=== PATIENT | female | born 1990 | race Two or more races ===

== ENCOUNTER 2022-12-15 09:42 | Emergency (ER) | payer OTHER, SELFPAY ==
[2022-12-15 09:44] VITALS: BP 114/72; PULSE 65; RESP 20; TEMP 36.3; O2SAT 100; BMI 33.0
--- NOTE | 2022-12-15 09:47 | NURSING ---
NO OLD EKGS
--- NOTE | 2022-12-15 09:52 | NURSING ---
NO OLD EKGS
--- NOTE | 2022-12-15 10:11 | EKG12_ITS ---
Test Reason : CP Blood Pressure : / mmHG Vent. Rate : 063 BPM Atrial Rate : 063 BPM P-R Int : 194 ms QRS Dur : 078 ms QT Int : 376 ms P-R-T Axes : 051 063 039 degrees QTc Int : 384 ms Normal sinus rhythm Normal ECG Confirmed by REBA SCHULTZ, GREGORIO ([id number]), greeting card editor CHINO SCHAFFER ([id number]) on 12/17/2022 9:32:10 AM Referred By: KRISTA Confirmed By:GREGORIO BRITTON MD
--- NOTE | 2022-12-15 10:18 | ED.VIS.CHEST ---
HPI History of Present Illness Chief Complaint: Chest Pain Informant: patient and spouse/S.O. Narrative Narrative: Patient presenting with nonpleuritic left sharp chest pain radiating up into her throat and jaw. She had an episode of this 3 days ago that lasted around 4 hours in the evening before going away spontaneously, and another episode today. After the initial episode, she was seen in the office by her PCP, they did an EKG that the patient states was unremarkable, her blood pressure was on the low side and they gave her some IV fluids but it was still low so they recommended that she come to the ED. She did not go until today when the chest discomfort recurred. She has not had any near-syncope or syncope this morning, she does have a history of POTS and has been trying to stay hydrated recently. She denies history of DVT or PE, no recent travel, hospitalization, surgery, or other reason for immobilization. She has had a minor cough but nonproductive no fevers or chills recently. She has also been having reflux symptoms for several weeks, her PCP saw her maybe 2 weeks ago prescribed her Prilosec but she admits she is not taking it every day. She did take it a couple days ago when she had the symptoms. Unknown if it helped or not. She has not tried any other medications. [facility] Medical History (Updated 12/15/22 @ 13:[address] Bonifacio Wan MD) POTS (postural orthostatic tachycardia syndrome) Home Medications Inderal 10 mg PO/SL 1XD 12/15/22 [History Last Taken Unknown] Allergy/AdvReac Type Severity Reaction Status Date / Time No Known Allergies Allergy Verified 12/15/22 09:47 Social History Smoking Status: Never smoker [facility] ED Constitutional Constitutional ED: Denies chills or fever(s) Eyes Eyes: Denies change in vision or diplopia ENT ENT ED: Denies rhinorrhea or sore throat Cardiovascular Cardiovascular: Reports chest pain; Denies palpitations Respiratory/Chest Respiratory/Chest: Reports cough and dyspnea Gastrointestinal Gastrointestinal: Denies abdominal pain, diarrhea, nausea or vomiting Genitourinary Genitourinary ED: Denies dysuria or hematuria Musculoskeletal Musculoskeletal: Denies back pain or neck pain Integumentary Denies abscess or rash Neurologic Neurologic: Denies headache(s), paresthesias or weakness Psychiatric Psychiatric: Denies anxiety or suicidal thoughts EXAM Physical Exam Const Vital Signs: 12/15/22 09:44 12/15/22 10:25 12/15/22 11:46 Temperature 97.3 F L Temperature Source Temporal Pulse Rate 65 62 Respiratory Rate 20 H 16 Respiratory Effort Normal Non-Labored Respiratory Pattern Normal Blood Pressure 114/72 113/77 Blood Pressure Mean 86 89 Pulse Ox 100 99 Oxygen Delivery Method Room Air Room Air 12/15/22 13:14 Temperature Temperature Source Pulse Rate 66 Respiratory Rate 16 Respiratory Effort Respiratory Pattern Blood Pressure 135/61 H Blood Pressure Mean 85 Pulse Ox 100 Oxygen Delivery Method Room Air Positive well nourished and well developed General Appearance ED: well developed and NAD HEENT Reports moist mucous membranes normocephalic and atraumatic Eyes PERRL and EOMs intact bilaterally Neck full ROM and supple Chest Wall inspection of chest normal and palpation of chest normal Resp normal respiratory effort and clear to auscultation bilaterally Cardio regular rate, regular rhythm and no murmurs Rate: Negative for tachycardic GI non-tender and non-distended Auscultation: normoactive bowel sounds Palpation: soft Back/Spine no CVA tenderness General Back: other FROM Extremity normal to inspection, no calf tenderness and no pedal edema General Extremety ED: Negative for edema, pulses abnormal or tenderness General Extremity: Negative for edema or pulses abnormal Neuro oriented x3, CN's II-XII intact bilaterally and no sensory deficits noted Sensorium / Orientation: awake and alert Motor Exam: strength 5/5 throughout Skin no rashes or lesions noted and no wounds Heart Score History: Slightly/Non-Suspicious ECG: Normal Age: </= 45 years Risk Factors: No Risk Factors Troponin: </= Normal Limit Score: 0 MDM MDM MDM Narrative Medical decision making narrative: Cardiac work-up obtained for a low risk, low probability chest pain that does not sound likely to be cardiac. The initial work-up unremarkable including EKG initial troponin, but I did a D-dimer only because her heart rate was 20, and it returned abnormal. This led to CT angiography, and this was obtained prior to obtaining a chest x-ray so the chest x-ray was canceled. I reviewed the images of the CT scan and a appear normal, my interpretation of the CT agrees with that of the radiologist, who agrees it is negative for any acute. Patient was reassured. While obtaining this work-up, gave the patient Mylanta, she said it relieved her discomfort. We did a 2-hour delta troponin, her initial 1 was 3, the second 1 was 4, this is adequate to discharge the patient safely with close outpatient follow-up, not likely to be cardiac in etiology. The is wondering why the patient is having POTS symptoms every time she has these episodes, I think that is a good question I am not sure why but I think it is safe to discharge her at this time she is doing well. She does have a prescription for PPI, she was taking it sporadically, I advised that she take it consistently daily, until she follows up with her doctor and she is comfortable with that plan. Lab Data Attestation: I reviewed the patient's lab results. Labs: Laboratory Results - last 24 hr 12/15/22 12/15/22 12/15/22 10:15 10:15 10:15 WBC 6.5 RBC 4.45 Hgb 14.0 Hct 42.4 MCV 95.3 MCH 31.5 MCHC 33.0 RDW Std Deviation 42.7 RDW Coeff of Sara 12.2 Plt Count 290 MPV 10.6 Immature Gran % (Auto) 0.200 Neut % (Auto) 56.0 Lymph % (Auto) 33.9 [place] % (Auto) 6.8 Eos % (Auto) 2.3 Baso % (Auto) 0.8 Absolute Neuts (auto) 3.6 Absolute Lymphs (auto) 2.19 Nucleated RBC % 0 D-Dimer Quant (PE/DVT) 2.04 H* Sodium 135 L Potassium 3.8 Chloride 102 Carbon Dioxide 29.0 Anion Gap 4 L BUN 18 Creatinine 0.87 Estim Creat Clear Calc 76.08 Est GFR (MDRD) Af Amer 96 Est GFR (MDRD) Non-Af 79 BUN/Creatinine Ratio 20.6 H Glucose 95 Calcium 9.4 Troponin I High Sens 3 12/15/22 12:31 WBC RBC Hgb Hct MCV MCH MCHC RDW Std Deviation RDW Coeff of Sara Plt Count MPV Immature Gran % (Auto) Neut % (Auto) Lymph % (Auto) [place] % (Auto) Eos % (Auto) Baso % (Auto) Absolute Neuts (auto) Absolute Lymphs (auto) Nucleated RBC % D-Dimer Quant (PE/DVT) Sodium Potassium Chloride Carbon Dioxide Anion Gap BUN Creatinine Estim Creat Clear Calc Est GFR (MDRD) Af Amer Est GFR (MDRD) Non-Af BUN/Creatinine Ratio Glucose Calcium Troponin I High Sens 4 Radiography Diagnostic Testing: Clinical Impression(s) from Imaging Studies Chest CTA 12/15/22 10:44 IMPRESSION: Negative CTA chest. Electronically Signed: Landon Johnson MD at 11:11 EST Reading Location ID and State: [address] [place] [address] , Service support , Rhythm Strip Rhythm Strip: Sinus Rhythm Rate: 65 Ectopy: None EKG Initial EKG: Attestation: I personally reviewed and interpreted this EKG as follows: Interpretation: Sinus Rhythm and No Acute Injury Pattern Comments: Normal EKG Prior EKG tracings: available for review Prior: Unchanged Discharge Plan Triage Chief Complaint: Chest Pain Other Complaint: Dizziness Fatigue ED Provider: Bonifacio Wan Dx/Rx/DC Orders Clinical Impression: Non-cardiac chest pain Instructions: ED Chest Pain, Noncardiac Prescriptions: No Action Inderal 10 mg PO/SL 1XD Primary Care Provider: FABIÁN MARTIN NP Referrals: FABIÁN MARTIN BILLET RECORDER [Other] (Next week, call for appointment if you do not already have 1) Activity Restrictions/Additional Instructions: Take your Prilosec daily instead of as needed, for the next 3 or 4 weeks. Disposition Disposition: Home, Self Care
[2022-12-15 10:25] LABS: Absolute Lymphocyte Count 2.19 X10^3/uL (0.83-4.51); Absolute Neutrophil Count 3.6 X10^3/uL (2.0-7.7); Basophil# 0.05 X10^3/uL; Basophil% 0.8 % (0-1); Eosinophil# 0.15 X10^3/uL; Eosinophils% 2.3 % (0-5); Hematocrit 42.4 % (37-47); Lymphocyte # 2.19 X10^3/ul (0.83-4.51); Lymphocyte % 33.9 % (19-41); Mean Corpuscular Hgb 31.5 pg (27.0-32.0); Mean Corpuscular Volume 95.3 fL (81-99); Mean Platelet Vol. 10.6 fl (6.2-12.0); Monocyte# 0.44 X10^3/uL; Monocyte% 6.8 % (0-10); NRBC Flagged by Analyzer 0 % (0-5); Neutrophil # 3.62 X10^3/uL (2.7-7.7); Platelet Count 290 K/mm3 (150-450); RBC Distribution Width CV 12.2 % (11.6-14.6); RBC Distribution Width SD 42.7 fl (35.1-43.9); Red Blood Count 4.45 M/mm3 (4.2-5.4); White Blood Count 6.5 K/mm3 (4.4-11.0)
[2022-12-15] MEDS: Mag Hydrox/Al Hydrox/Simeth 30 ML UDC PO (10:32)
[2022-12-15 10:36] LABS: D-Dimer Quantitative (DVT/PE) 2.04 FEU/ug/m (0.27-0.49)
[2022-12-15 10:41] LABS: Anion Gap 4 (5-15); BUN 18 mg/dL (7-18); BUN/Creat Ratio 20.6 RATIO (10-20); Calcium,Total 9.4 mg/dL (8.5-10.1); Chloride 102 mmol/L (98-107); Creatinine, Serum 0.87 mg/dL (0.55-1.02); EST Glomerular Filtration Rate 79 mL/min (>60); Est Glom Filt Rate - Afr Amer 96 mL/min (>60); Estimated Creatinine Clearance 76.08 ml/min; Glucose 95 mg/dL (74-106); Potassium 3.8 mmol/L (3.5-5.1); Sodium Level 135 mmol/L (136-145); Troponin-I HS (w/2H Reflex) 3 pg/mL (3.0-54.0)
--- NOTE | 2022-12-15 10:44 | CT_ITS ---
EXAM: CT ANGIOGRAPHY CHEST WITHOUT AND WITH INTRAVENOUS CONTRAST CLINICAL INDICATION: Chest pain. SOB. Elevated d-dimer. TECHNIQUE: Helically acquired angiography images were obtained of the chest without and with intravenous contrast. This CT exam was performed using one or more of the following dose reduction techniques: automated exposure control, adjustment of the mA and/or kV according to patient size, and/or use of iterative reconstruction technique. This report was created using anfix report generation technology. MIP reconstructed images were created and reviewed. CONTRAST: IV 100mL Isovue-370 RADIATION DOSE: CTDIvol = 9.34 mGy, DLP = 207.00 mGy-cm COMPARISON: None. FINDINGS: PULMONARY ARTERIES: Unremarkable. Normal in caliber. No evidence of pulmonary embolism. AORTA: Unremarkable. Normal in caliber. No evidence of dissection. GREAT VESSELS OF AORTIC ARCH: Unremarkable. Normal in caliber. No evidence of dissection. LUNGS AND PLEURAL SPACES: Unremarkable. No mass. No consolidation or edema. No pleural effusion or thickening. No pneumothorax. HEART: Unremarkable. Heart size is normal. No pericardial effusion. No signs of right heart strain, ratio of right ventricle to left ventricle measures less than 1. MEDIASTINUM: Unremarkable. No mediastinal or hilar adenopathy. Esophagus is unremarkable. No hiatal hernia. THYROID: Unremarkable. No thyroid lesions. BONES/JOINTS: Unremarkable. No suspicious lytic or blastic abnormality. CT/CTA Chest W/WO Contrast IMPRESSION: Negative CTA chest. Electronically Signed: Landon Johnson MD at 11:11 [facility] ,
[2022-12-15 11:46] VITALS: BP 113/77; PULSE 62; RESP 16; O2SAT 99
[2022-12-15 12:18] LABS: Reflex Troponin-HS? (from REC) Y
[2022-12-15] MEDS: Ketorolac 30 MG/ML Syringe IV (12:45)
[2022-12-15 12:53] LABS: Troponin-I HS 4 pg/mL (3.0-54.0)
[2022-12-15 13:14] VITALS: BP 135/61; PULSE 66; RESP 16; O2SAT 100
[2022-12-15 13:40] VITALS: BP 135/61; PULSE 70; O2SAT 100
== END 2022-12-15 13:40 | disposition home or self-care (01) ==
PROVIDERS: Emergency Provider Emergency Medicine; Visit Provider Emergency Medicine
DX: R07.89 Other chest pain (principal); R53.83 Other fatigue; R42 Dizziness and giddiness; Z86.79 Personal history of other diseases of the circulatory system
CPT/HCPCS: 71275; 80048; 84484; 85025; 85379; 93005; 96361; 96374; 99284; J7030; Q9967; A4216

== ENCOUNTER 2025-07-01 20:26 | Emergency (ER) | payer OTHER, SELFPAY ==
[2025-07-01 20:27] VITALS: BP 117/71; PULSE 81; RESP 19; TEMP 36.6; O2SAT 100; BMI 27.1
--- NOTE | 2025-07-01 22:27 | EDS_ITS ---
HPI History of Present Illness Chief Complaint: Laceration Narrative Narrative: Chief complaint and HPI: 34-year-old female with past medical history of POTS, migraines presents for evaluation of laceration to the plantar surface of the left foot. Patient states she was walking in her room barefoot when she stepped on a broken piece of glass. She states it secondary to a wine bottle that broke. She does not believe any glass is in her foot. She is not up-to-date on tetanus. She denies any numbness or tingling. Review of systems: See HPI Medications: As listed on the chart Allergies: As listed on the chart PFSH: Per chart Vital signs: As listed on the chart. Reviewed. Physical exam: Gen: A&O x3, NAD Head: Normocephalic, atraumatic Eyes: No sclera icterus, conjunctiva clear ENT: Moist mucous membranes CV: Regular rate Resp: Nonlabored respirations Musc: Full ROM, no deformity, patient has a 7 cm laceration to the plantar surface of her left foot with subcutaneous fat visualized-located in the midportion of the foot, no foreign body, minimal active bleeding, compartments soft, good capillary refill, DP/PT pulses +2 bilaterally Skin: Warm, dry Neuro: Alert, oriented, grossly intact, sensation intact Psych: Cooperative, appropriate mood and affect [facility] Medical History History of ectopic History of hearing problem History of migraine POTS (postural orthostatic tachycardia syndrome) Home Medications ?Medication ?Instructions ?Recorded ?Last Taken ?Type duloxetine 20 mg capsule,delayed 10 mg PO DAILY Unknown History release propranolol 10 mg tablet 10 mg PO DAILY 03/24/24 Unkn own History Allergy/AdvReac Type Severity Reaction Status Date / Time No Known Allergies Allergy Verified 07/01/25 20:27 Family History Mother Anxiety Arthritis Depression Thyroid disorder Father Diabetes Heart disease Hypertension High cholesterol Sister Breast cancer Thyroid disorder Grandmother Arthritis Liver disease Seizures Grandfather Seizures Social History (Updated 07/01/25 @ 21:52 by Farzaneh Cummings) housing: house Smoking Status: Never smoker alcohol intake: current details: 1 bottle a week substance use type: marijuana additional social history: pt does not vape, does not use aspirin, does not use ibuprofen pt uses medical marijuana and uses edibles for migraines EXAM Physical Exam Const Vital Signs: 07/01/25 20:27 Temperature 97.9 F Temperature Source Oral Pulse Rate 81 Respiratory Rate 19 H Blood Pressure 117/71 Blood Pressure Mean 86 Pulse Ox 100 Oxygen Delivery Method Room Air MDM MDM MDM Narrative Medical decision making narrative: 34-year-old female with past medical history of POTS, migraines presents for evaluation of laceration to the plantar surface of the left foot. Patient states she was walking in her room barefoot when she stepped on a broken piece of glass. She states it secondary to a wine bottle that broke. She does not believe any glass is in her foot. She is not up-to-date on tetanus. Patient has a 7 cm laceration to the plantar surface of her left foot with subcutaneous fat visualized-located in the midportion of the foot, no foreign body, minimal active bleeding. Patient will warrant laceration repair with sutures. Patient offered tetanus update and consented. Given the size of the laceration will obtain x-ray to assess for foreign body prior to closure. X-ray of the foot without acute fracture or dislocation. Per radiology there is an old distal second metatarsal shaft fracture. No foreign body visualized. You can see subcutaneous air which overlies her laceration. X-ray of the foot was personally viewed interpreted by me, ED physician. Patient tolerated repair well. Patient stable to discharge home. Antibiotics for prophylaxis to prevent infection. Sutures need to be removed in 10 to 14 days. Follow-up with PCP. She. Understand the plan. Patient will discharge home. Laceration Repair Indication: Laceration Location: 7 cm, plantar left foot Consent: Risks, benefits, and alternatives discussed with patient and consent obtained Procedure: A time out was performed. The area was prepped and draped in the usual sterile fashion. Local anesthesia was achieved using 1% Lidocaine with epinephrine. The wound was copiously irrigated and cleaned. 13 sutures were placed using 4-0 Ethilon in an interrupted fashion. The estimated blood loss was minimal. A dressing was applied to the area with Bacitracin. The patient tolerated the procedure well without complications. Foreign Material: None Debridement: None Follow-up: Anticipatory guidance, as well as standard post-procedure care, was explained. Return precautions are given. Follow-up visit set for suture removal and evaluation of the laceration. Impression: 1. 7 cm foot laceration, suture repaired Radiography Diagnostic Testing: Clinical Impression(s) from Imaging Studies Foot X-Ray 07/01/25 22:35 IMPRESSION: No acute abnormality seen. No signs of radiodense foreign body. Reading Location: [facility]– [place] Discharge Plan Triage Chief Complaint: Laceration ED Provider: Ugo Hernandez Dx/Rx/DC Orders Prescriptions: No Action propranolol 10 mg tablet 10 mg PO DAILY duloxetine 20 mg capsule,delayed release(DR/EC) 10 mg PO DAILY Primary Care Provider: Rosalie Olivarez Referrals: Rosalie Olivarez, [employer] [facility] [Primary Care Provider] - Print Language: Surinamese
--- NOTE | 2025-07-01 22:35 | RAD_ITS ---
PROCEDURE: FOOT MIN 3 VIEWS 07/01/2025 REASON FOR EXAM: LACERATION to bottom of foot, ASSESS FOR FOREIGN BODY TECHNIQUE: Procedure Code: RADFO Modality: DX Procedure: FOOT MIN 3 VIEWS Laterality: Left COMPARISON: None. FINDINGS: BONES: No acute fracture or focal osseous lesion. Old distal 2nd metatarsal shaft fracture. JOINTS: No dislocation. The joint spaces are normal. SOFT TISSUES: No evidence of radiodense foreign body. RAD/Foot min 3 Views IMPRESSION: No acute abnormality seen. No signs of radiodense foreign body. Reading Location: [id number]
--- OUTSIDE RECORDS SUMMARY | 2025-07-01 22:35 | XMS RPT_ITS | CCD ---
Author Organization [facility] Care Team Providers Care Awake Overnight Monitor Name Role Phone NO, PHYSICIAN Primary Care Unavailable GRIS CARNEY Attending Unavailable No, Physician Primary Care Provider Unavailabl e NO, PHYSICIAN Primary Care Unavailable JOSE TINEO Attending Unavailabl e JOSE TINEO Admitting Unavailabl e Shanika Grijalva Unavailable Unavailable Shanika Grijalva Unavailable Unavailable Lynette, Avirup Unavailable Unavailable Angel Ojeda MD Unavailable Unavailable Misa Matthews Unavailable Unavailable Shanika Grijalva Unavailable Unavailable Rupa WASTEWATER PROJECT MANAGER-Misa VÁSQUEZ Unavailable Unavailabl Angel Osman MD Unavailable Unavailable RupaCatina ndiayehy L Unavailable Unavailable Unavailable MALATHI HERNADEZ Attending Unavailable NO, PHYSICIAN Primary Care Unavailable Shanika Grijalva Primary Care Provider [phone] Shanika Grijalva CNP Primary Care Provider Shanika Grijalva CNP Primary Care Provider Mario WASTEWATER PROJECT MANAGER.Fabián VÁSQUEZ Primary Care Provider Shanika Grijalva CNP Primary Care Provider BRAIN PRICE Attending Unavailable FABIÁN MARTIN Primary Care Unavailable Knoble WASTEWATER PROJECT MANAGER.FAHAD, Fabián Primary Care Provider Gisell Mendes Attending Unavailable Fabián Martin Referring Unavailable Knoble, Fabián Primary Care Unavailable Knoble WASTEWATER PROJECT MANAGER-Fabián VÁSQUEZ L Primary Care Provide r FABIÁN MARTIN Primary Care Unavailable SELF, SELF Referring Unavailable CHELLE HICKS Attending Unavailable FABIÁN MARTIN Referring Unavailable MARIO, FABIÁN Primary Care Unavailable IGOR GARCIA Attending Unavailable KNOBLE, FABIÁN Primary Care Unavailable PATSY THIBODEAUX Referring Unavailable KNOBLE, FABIÁN Primary Care Unavailable KNOBLE, FABIÁN Attending Unavailable KNOBLE, FABIÁN Primary Care Unavailable IGRO GARCIA Referring Unavailable KNOBLE, FABIÁN Primary Care Unavailable KNOBLE, FABIÁN Attending Unavailable KNOBLE, FABIÁN Primary Care Unavailable KNOBLE, FABIÁN Referring Unavailable KNOBLE, FABIÁN Primary Care Unavailable PAZJOEMY, AMUDHA Attending Unavailable KNOBLE, FABIÁN Referring Unavailable KNOBLE, FABIÁN Primary Care Unavailable PAZHANISAMY, AMUDHA Referring Unavailable KNOBLE, FABIÁN Primary Care Unavailable SUPPAN, JOY A Attending Unavailable KNOBLE, FABIÁN Primary Care Unavailable ELEAZAR SCHREIBER Attending Unavailable KNOBLE, FABIÁN Primary Care Unavailable PATSY THIBODEAUX Attending Unavailable KNOBLE, FABIÁN Primary Care Unavailable SUPPAN, JOY A Referring Unavailable KNOBLE, FABIÁN Primary Care Unavailable KNOBLE, FABIÁN Referring Unavailable KNOBLE, FABIÁN Primary Care Unavailable KNOBLE, FABIÁN Attending Unavailable KNOBLE, FABIÁN Primary Care Unavailable KNOBLE, FABIÁN Attending Unavailable KNOBLE, FABIÁN Primary Care Unavailable Medications Current Medications Medication Drug Class(es) Dates Sig (Normalized) Sig (Original) acetylcholine 10% solution - [facility] compound[facility] (20 sources) Start: 02-17-2023 acetylcholine 10% solution - [facility] Start: 03-06-2022 acetylcholine 10% solution - [facility] benoxinate hydrochloride 4 mg/ml / fluorescein sodium 2.5 mg/ml ophthalmic solution (1 source) Diagnostic Dye Start: 06-19-2023 End: 06-19-2023 fluorescein-benoxinate 0.25-0.4 % 1 Drop (FLURESS) cephalexin 500 mg oral capsule (1 source) Cephalosporin Antibacterial Start: 03-16-2024 End: 03-23-2024 take 1 capsule by mouth three times daily cephALEXin (KEFLEX) 500 mg capsule Take 1 capsule by mouth three times a day for 7 days. 21 capsule 0 03/16/2024 03/23/2024 Active clindamycin 20 mg/ml vaginal cream (1 source) Lincosamide Antibacterial Start: 07-23-2024 End: 07-30-2024 clindamycin phosphate (CLEOCIN) 2 % vaginal cream Indications: Bacterial vaginosis Use 1 Applicatorful vaginally daily at bedtime for 7 days. 35 g 07/23/2024 07/30/2024 Active ergocalciferol 1.25 mg oral capsule (20 sources) Provitamin D2 Compound Start: 08-25-2024 take 1 tablet by mouth two times weekly, then take 1 tablet by mouth every week ergocalciferol 50,000 unit capsule (VITAMIN D2, DRISDOL) Indications: Vitamin D deficiency Take 1 tablet by mouth twice weekly [id number], then decrease to 1 tablet weekly. 16 capsule 3 08/25/2024 Active fluconazole 150 mg oral tablet (1 source) Azole Antifungal Start: 07-23-2024 End: 07-23-2024 take 1 tablet by mouth once fluconazole (DIFLUCAN) 150 mg tablet Indications: Yeast vaginitis Take 1 tablet by mouth one time only for 1 dose. 1 tablet 07/23/2024 07/23/2024 Active magnesium citrate 58.2 mg/ml oral solution (14 sources) Start: 01-15-2022 End: 12-05-2022 magnesium citrate 1.745 GM/30ML Solution Indications: Migraine without aura and without status migrainosus, not intractable , Menstrual migraine without status migrainosus, not intractable One teaspoon twice daily with meals. 296 mL 11 01/15/2022 Active Comment on above: One teaspoon twice d aily with meals. metroNIDAZOLE 500 mg oral tablet (2 sources) Nitroimidazole Antimicrobial Start: 11-22-2024 End: 11-29-2024 take 1 tablet by mouth twice daily metroNIDAZOLE (FLAGYL) 500 mg tablet Take 1 tablet by mouth two times a day for 7 days. 14 tablet 11/22/2024 11/29/2024 Active Start: 06-28-2024 End: 07-03-2024 metroNIDAZOLE (METROGEL) 0.7 5 % (37.5mg/5 gram) Vaginal Gel Use 1 Applicatorful vaginally daily at bedtime for 5 days. 70 g 06/28/2024 07/03/2024 Active naproxen 500 mg delayed release oral tablet (1 source) Nonsteroidal Anti-inflammatory Drug Start: 05-30-2019 End: 06-06-2019 take 1 tablet by mouth twice daily at mealtime naproxen (EC NAPROSYN) 500 MG EC tablet Take 1 (one) tablet (500 mg total) by mouth 2 (two) times a day with meals for 7 days . 14 tablet 0 05/30/2019 06/06/2019 Active nitrofurantoin, macrocrystals 25 mg / nitrofurantoin, monohydrate 75 mg oral capsule (4 sources) Nitrofuran Antibacterial Start: 11-19-2024 End: 11-22-2024 take 1 capsule by mouth twice daily nitrofurantoin monohydrate and macrocrystal (MACROBID) 100 mg capsule Take 1 capsule by mouth two times a day for 3 days. 6 capsule 11/19/2024 11/22/2024 Active ondansetron 4 mg disintegrating oral tablet (19 sources) Serotonin-3 Receptor Antagonist Start: 01-20-2025 End: 05-10-2025 take 1 tablet by mouth every eight hours as needed for nausea ondansetron orally disintegrating (ZOFRAN ODT) 4 mg disintegrating tablet Indications: POTS (postural orthostatic tachycardia syndrome) , Nausea Take 1 tablet by mouth every 8 hours as needed for nausea/vomiting. 30 tablet 1 01/20/2025 05/10/2025 Discontinued (Course of therapy completed) Start: 09-26-2023 End: 02-19-2024 take 1 tablet by mouth every six hours as needed for nausea ondansetron orally disintegrating (ZOFRAN ODT) 4 mg disintegrating tablet Indications: Nausea and vomiting, unspecified vomiting type Take 1 tablet by mouth every 6 hours as needed for nausea/vomiting. 30 tablet 0 09/26/2023 02/19/2024 Discontinued Comment on above: Take 1 tablet by [facility] every 6 hours as needed for nausea/vomiting. propranolol hydrochloride 10 mg oral tablet (20 sources) beta-Adrenergic Vivi Start: 02-29-20 take 1 tablet by mouth twice daily propranolol (INDERAL) 10 mg tablet Indications: SVT (supraventricular tachycardia) (HCC) Take 1 tablet by mouth two times a day. 180 tablet 1 02/28/2025 Active Start: 11-18-2023 End: 02-25-2025 take 1 tablet by mouth twice daily propranolol (INDERAL) 10 mg tablet Indications: SVT (supraventricular tachycardia) (HCC) Take 1 tablet by mouth two times a day. 180 tablet 1 08/24/2024 02/25/2025 Discontinued Start: 12-15-2022 take 10 mg by mouth once daily Inderal Active 10 MG SL/PO 1 time daily December 15, 2022 12:00am Start: 12-05-2022 End: 08-18-2023 take 1 tablet by mouth twice daily propranolol (INDERAL) 10 mg tablet Indications: SVT (supraventricular tachycardia) Take 1 tablet by mouth two times a day. 180 tablet 0 08/18/2023 Active Comment on above: Take 1 tablet by sudheer twice daily. TAKE 1 TABLET BY SUDHEER TWICE A DAY Take 1 tablet by sudheer two times a day. take 1 tablet by sudheer 2 times a day Completed/Discontinued Medications Medication Drug Class(es) Dates Sig (Normalized) Sig (Original) augmented betamethasone 0.5 mg/ml topical cream (12 sources) Corticosteroid Start: 01-16-2022 End: 12-05-2022 betamethasone dipropionate, augmented (DIPROLENE) 0.05 % cream 24 hr buPROPion hydrochloride 150 mg extended release oral tablet (5 sources) Aminoketone Start: 08-24-2024 End: 10-11-2024 take 1 tablet by mouth once daily buPROPion XL (WELLBUTRIN XL) 150 mg 24 hr tablet Indications: Depression, unspecified depression type Take 1 tablet by mouth once daily. 60 tablet 08/24/2024 10/11/2024 Discontinued chlorhexidine gluconate 1.2 mg/ml mouthwash (12 sources) Start: 12-26-2021 End: 12-05-2022 Chlorhexidine Gluconate (PERIDEX) 0.12 % solution RINSE, SWISH AND SPIT 15ML OF SOLUTION IN MOUTH TWICE DAILY FOR 10 DAYS 0 12/26/2021 12/05/2022 Discontinued Comment on above: RINSE, SWISH AND SPI T 15ML OF SOLUTION IN MOUTH TWICE DAILY FOR 10 DAYS doxycycline hyclate 100 mg oral capsule (1 source) Tetracycline-class Drug Start: 01-22-2022 End: 02-05-2022 take 1 capsule by mouth twice daily doxycycline hyclate (VIBRAMYCIN) 100 mg capsule Take 1 capsule by mouth twice daily for 14 days. 28 capsule 0 01/22/2022 02/05/2022 Comment on above: Take 1 capsule by [facility] twice daily for 14 days. DULoxetine 40 mg delayed release oral capsule (20 sources) Serotonin and Norepinephrine Reuptake Inhibitor Start: 02-28-2025 End: 04-15-2025 take 1 capsule by mouth once daily DULoxetine (CYMBALTA) 40 mg cpDR Indications: Cervical radiculopathy Take 1 capsule by mouth once daily. 90 capsule 1 02/28/2025 04/15/2025 Discontinued Start: 11-03-2023 End: 02-25-2025 take 1 capsule by mouth once daily DULoxetine (CYMBALTA) 40 mg cpDR Indications: Cervical radiculopathy Take 1 capsule by mouth once daily. 30 capsule 01/18/2025 02/25/2025 Discontinued Start: 07-23-2023 take 1 capsule by mo [facility] once daily DULoxetine (CYMBALTA) 40 mg cpDR Indications: Cervical radiculopathy Take 1 capsule by mouth once daily. 90 capsule 1 07/23/2023 Active Start: 04-19-2023 End: 04-19-2023 take 1 capsule by mouth once daily DULoxetine (CYMBALTA) 40 mg cpDR Indications: Cervical radiculopathy Take 1 capsule by mouth once daily. 90 capsule 0 04/19/2023 Active Start: 03-28-2022 End: 04-19-2023 take 1 capsule by mouth once daily DULoxetine (CYMBALTA) 20 mg capsule Indications: Cervical radiculopathy Take 1 capsule by mouth once daily. 30 capsule 8 12/05/2022 04/19/2023 Discontinued (Course of therapy completed) Comment on above: Take 1 capsule by [facility] once daily. 20 ml fentaNYL 0.05 mg/ml injection (1 source) Opioid Agonist Start: 05-30-2019 End: 05-30-2019 fentaNYL (SUBLIMAZE) injection 50 mcg ibuprofen 800 mg oral tablet (20 sources) Nonsteroidal Anti-inflammatory Drug Start: 12-26-2021 take 1 tablet by mouth every eight hours as needed ibuprofen (MOTRIN) 800 mg tablet Take 800 mg by mouth every 8 hours as needed. 0 12/26/2021 Active Ibuprofen TABS Q uantity: 0 Refills: 0 Ordered: 06-Feb-2021 DO Active Ibuprofen TABS R efills: 0 Active Comment on above: Take 800 mg by mouth every 8 hours as needed. indomethacin 50 mg oral capsule (2 sources) Nonsteroidal Anti-inflammatory Drug Start: 02-04-20 End: 04-18-20 take 1 capsule by mouth twice daily at mealtime indomethacin (INDOCIN) 50 mg capsule Take 1 capsule by mouth twice daily with meals. 10 capsule 0 02/03/2023 04/18/2023 Discontinued Comment on above: Take 1 capsule by mo uth twice daily with meals. ivabradine 5 mg oral tablet (2 sources) Hyperpolarization-acti vated Cyclic Nucleotide-gated Channel Vivi Start: 07-31-20 End: 09-20-20 take 0.5 tablet by mouth once Corlanor 5 MG Oral Tablet TAKE 0.5 TABLET Every twelve hours Quantity: 30 Refills: 1 Ordered: 31-Jul-2021 Juan J Cortes MD Start : 31-Jul-2021 End : 20-Sep-2021 Complete 1 ml ketorolac tromethamine 30 mg/ml injection (1 source) Nonsteroidal Anti-inflammatory Drug, Cyclooxygenase Inhibitor Start: 05-30-20 End: 05-30-20 ketorolac (TORADOL) injection 30 mg Magnesium glycinate (10 sources) Start: 11-07-19 End: 02-19-20 Magnesium Glycinate 120mg (Pure Encapsulations) Indications: Obesity (BMI 30-39.9) , Weight gain Take 4 capsules daily 0 11/07/2023 02/19/2024 Discontinued Start: 11-07-2023 Magnesium Glyc inate 120mg (Pure Encapsulations) Indications: Obesity (BMI 30-39.9) , Weight gain Take 4 capsules daily 0 11/07/2023 Active Comment on above: Take 4 capsules [facility] magnesium oxide 400 mg oral tablet (20 sources) Start: 12-06-2022 End: 02-19-2024 magnesium oxide 400 mg magnesium tab Indications: Other migraine without status migrainosus, not intractable Take 1 capsule by mouth as needed. Take 1 capsule daily by mouth as needed. 30 tablet 5 12/06/2022 02/19/2024 Discontinued Start: 12-05-2022 End: 12-06-2022 magnesium oxide 400 mg magne sium cap Indications: Other migraine without status migrainosus, not intractable Take 1 capsule by mouth as needed. 30 capsule 5 12/05/2022 12/06/2022 Discontinued Comment on above: Take 1 capsule by mo uth as needed. Take 1 capsule by mo uth as needed. Take 1 capsule daily by mouth as needed. methylPREDNISolone (12 sources) Corticosteroid Start: 01-16-2022 End: 12-05-2022 methylPREDNISolone (MEDROL DOSE-PACK) 4 mg Dose-Pack Start: 01-16-2022 methylPREDNISo lone (MEDROL DOSE-PACK) 4 mg Dose-Pack 24 hr metoprolol succinate 25 mg extended release oral tablet (10 sources) beta-Adrenergic Vivi take 0.5 tablet by mouth once daily Metoprolol Succinate ER 25 MG Oral Tablet Extended Release 24 Hour TAKE 0.5 TABLET Daily Quantity: 0 Refills: 5 Ordered: 04-Jul-2021 Misa Ogden Active take 1 tablet by mouth once [facility] Metoprolol Succinate ER 25 MG Oral Tablet Extended Release 24 Hour TAKE 1 TABLET DAILY. Quantity: 30 Refills: 5 Ordered: 11-Apr-2021 Misa Ogden Active No Reported Medications (9 sources) No Reported Medi cations Refills: 0 Active No Reported Medi cations Refills: 0 DO Active omeprazole 20 mg delayed release oral capsule (5 sources) Proton Pump Inhibitor Start: 09-26-2023 End: 12-05-2023 take 1 capsule by mouth once daily before breakfast omeprazole (PRILOSEC) 20 mg capsule Indications: Epigastric pain Take 1 capsule by mouth daily before breakfast. 1/2 hr before meal. 30 capsule 1 09/26/2023 12/05/2023 Discontinued Comment on above: Take 1 capsule by [facility] daily before breakfast. 1/2 hr before meal. polyethylene glycol 400 4 mg/ml / propylene glycol 3 mg/ml ophthalmic solution (14 sources) Start: 06-19-2023 End: 02-19-2024 PEG 400-propylene glycol (SYSTANE ULTRA) 0.4-0.3 % ophthalmic solution Use 1 Drop in both eyes four times daily. 10 mL 2 06/19/2023 02/19/2024 Discontinued Comment on above: Use 1 Drop in both e yes four times daily. PureLean Pure Pack (Pure Encapsulations) (6 sources) Start: 11-07-2023 End: 12-30-2023 take 1 dose by mouth once daily at mealtime PureLean Pure Pack (Pure Encapsulations) Indications: Obesity (BMI 30-39.9) , Weight gain Take 1 Packet by mouth daily with food. 0 11/07/2023 12/30/2023 Discontinued Start: 11-07-2023 take 1 dose by mouth once daily at mealtime PureLean Pure Pack (Pure Encapsulations) Indications: Obesity (BMI 30-39.9) , Weight gain Take 1 Packet by mouth daily with food. 0 11/07/2023 Active Comment on above: Take 1 Packet by sudheer th daily with food. rizatriptan 10 mg oral tablet (20 sources) Serotonin-1b and Serotonin-1d Receptor Agonist Start: 07-18-2021 End: 04-15-2025 rizatriptan (MAXALT) 10 mg tablet Indications: Other migraine without status migrainosus, not intractable Take 1 tablet by mouth as needed. 12 tablet 2 12/05/2022 04/15/2025 Discontinued Comment on above: Take by mouth. Take 1 tablet by sudheer th as needed. sodium chloride 1000 mg oral tablet (20 sources) Start: 12-13-2022 take 1 tablet by mouth twice daily sodium chloride 1 gram tab Indications: POTS (postural orthostatic tachycardia syndrome) Take 1 tablet by mouth twice daily. 60 tablet 0 12/13/2022 Active Start: 12-13-2022 End: 12-13-2022 NaCl 0.9% 1,000 mL iv bolus Start: 12-26-2021 End: 12-05-2022 NASAL SPRAY, SODIUM CHLORIDE , 0.65 % nasal spray USE IN EACH NOSTRIL NEEDED FOR CONGESTION 0 12/26/2021 12/05/2022 Discontinued Start: 05-30-2019 End: 05-30-2019 sodium chloride 0.9% (NS) gasper chel 1,000 mL Start: 05-30-2019 End: 05-30-2019 sodium chloride (PF) (NS) fl ush 5 mL take 1 tablet by sudheer th twice daily Sodium Chloride 1 GM Oral Tablet Take 1 tablet twice daily Quantity: 60 Refills: 5 Ordered: 11-Apr-2021 Misa Ogden Active Comment on above: USE IN EACH NOSTRIL NEEDED FOR CONGESTION Take 1 tablet by sudheer th twice daily. Ther-Biotic Detoxification Support (Klaire/Prothera) (6 sources) Start: 11-07-19 End: 03-12-20 24 take 1 capsule by mouth once daily Ther-Biotic Detoxification Support (Klaire/Prothera) Indications: Obesity (BMI 30-39.9) , Weight gain Take 1 capsule by mouth once daily. 0 11/07/2023 12/30/2023 Discontinued Start: 11-07-2023 take 1 capsule by mo uth once daily Ther-Biotic Detoxification Support (Klaire/Prothera) Indications: Obesity (BMI 30-39.9) , Weight gain Take 1 capsule by mouth once daily. 0 11/07/2023 Active Comment on above: Take 1 capsule by mo uth once daily. Vitamin D3 5000 U (Pure Encapsulations) (10 sources) Start: 11-07-2023 End: 02-19-2024 take 30-39.9 capsules by mouth once daily at mealtime Vitamin D3 5000 U (Pure Encapsulations) Indications: Vitamin D deficiency , Obesity (BMI 30-39.9) , Weight gain Take 1 capsule by mouth daily with food. 0 11/07/2023 02/19/2024 Discontinued Start: 11-07-2023 take 30-39.9 capsule s by mouth once daily at mealtime Vitamin D3 5000 U (Pure Encapsulations) Indications: Vitamin D deficiency , Obesity (BMI 30-39.9) , Weight gain Take 1 capsule by mouth daily with food. 0 11/07/2023 Active Comment on above: Take 1 capsule by mo uth daily with food. WellBetX PGX Ultra Matrix (Natural Factors) (6 sources) Start: 11-07-2023 End: 12-30-2023 WellBetX PGX Ultra Matrix (Natural Factors) Indications: Obesity (BMI 30-39.9) , Weight gain Take 1-2 softgels before each meal 0 11/07/2023 12/30/2023 Discontinued Start: 11-07-2023 WellBetX PGX U ltra Matrix (Natural Factors) Indications: Obesity (BMI 30-39.9) , Weight gain Take 1-2 softgels before each meal 0 11/07/2023 Active Comment on above: Take 1-2 softgels be fore each meal Problems Active Problems Problem Classification Problem Date Documented Da te Episodic/Chronic Administrative/social admission (1 source) Stress at work; Translations: [Other physical and mental strain related to work] 12-05-2023 Episodic Anxiety disorders (20 sources) Anxiety; Translations: [Anxiety state, unspecified] 12-30-2023 Chronic Attention-deficit, conduct, and disruptive behavior disorders (3 sources) Attention deficit hyperactivity disorder; Translations: [Attention-deficit hyperactivity disorder, unspecified type] 02-19-2024 Chronic Attention-deficit, conduct, and disruptive behavior disorders (1 source) Attention-deficit hyperactivity disorder, unspecified type; Translations: [Attention deficit hyperactivity disorder (ADHD), unspecified ADHD type] Onset: 08-24-2024 Chronic Blindness and vision defects (2 sources) Diplopia; Translations: [Monocular diplopia] Onset: 02-17-2023 06-19-2023 Episodic Cardiac dysrhythmias (20 sources) Ventricular premature beats; Translations: [Other premature beats] Onset: 01-29-2021 Resolved: 07-31-2021 Chronic Congestive heart failure; nonhypertensive (20 sources) Systolic heart failure; Translations: [Heart failure with reduced ejection fraction] Onset: 06-19-2023 06-19-2023 Chronic Diseases of white blood cells (1 source) Familial eosinophilia; 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] 04-19-2025 Chronic Fracture of lower limb (1 source) Stress fracture, unspecified foot, initial encounter for fracture; Translations: [Stress fracture of tarsal bone] Onset: 05-10-2025 Episodic Genitourinary symptoms and ill-defined conditions (2 sources) Dysuria; Translations: [Dysuria] 06-24-2024 Episodic Glaucoma (20 sources) Suspected bilateral glaucoma; 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, unspecified, bilateral] Onset: 12-15-2019 12-15-2019 Chronic Headache; including migraine (3 sources) Refractory migraine with aura; Translations: [Migraine with aura, intractable, without status migrainosus] Chronic Inflammatory diseases of female pelvic organs (1 source) Hydrosalpinx; Translations: [Chronic salpingitis] Chronic Inflammatory diseases of female pelvic organs (1 source) Bacterial vaginosis; Translations: [Acute vaginitis] 07-23-2024 Episodic Malaise and fatigue (1 source) Fatigue; Translations: [Chronic fatigue, unspecified] 12-30-2023 Chronic Menstrual disorders (1 source) Menstrual cramp; Translations: [Menstrual cramp] Chronic Mood disorders (3 sources) Recurrent major depressive episodes, mild ; Translations: [Major depressive disorder, recurrent, mild] 02-18-2024 Chronic Mood disorders (1 source) Mood disorders; Translations: [Depression, unspecified depression type] Onset: 08-24-2024 Mycoses (1 source) Candidiasis of vagina; Translations: [Yeast vaginitis] 07-23-2024 Episodic Nutritional deficiencies (12 sources) Vitamin D deficiency; Translations: [Vitamin D deficiency, unspecified] Onset: 08-24-2024 Chronic Open wounds of extremities (1 source) Laceration of left index finger; Translations: [Laceration without foreign body of left index finger without damage to nail, initial encounter] 03-16-2024 Episodic Other aftercare (19 sources) Post-discharge follow-up; Translations: [Other follow-up examination] Episodic Other aftercare (11 sources) Patient encounter status; Translations: [Other alf (current) drug therapy] Episodic Other circulatory disease (1 source) Postural orthostatic tachycardia syndrome 04-15-2025 Episodic Other connective tissue disease (5 sources) Pain in left foot; Translations: [Pain in left foot] 05-10-2025 Episodic Other connective tissue disease (1 source) Pain in left foot; Translations: [Left foot pain] Onset: 05-10-2025 Episodic Other disorders of stomach and duodenum (1 source) Indigestion; Translations: [Functional dyspepsia] 04-19-2025 Episodic Other disorders of stomach and duodenum (1 source) Functional dyspepsia; Translations: [Indigestion] Onset: 04-19-2025 Episodic Other ear and sense organ disorders (1 source) Ear sensations - finding; Translations: [Other specified disorders of left ear] 07-16-2024 Episodic Other ear and sense organ disorders (2 sources) Bilateral tinnitus; Translations: [Tinnitus, bilateral] Onset: 07-16-2024 07-16-2024 Episodic Other ear and sense organ disorders (2 sources) Other specified disorders of left ear; Translations: [Other specified disorders of left ear] Onset: 07-16-2024 Episodic Other ear and sense organ disorders (1 source) Tinnitus, bilateral; Translations: [Tinnitus, bilateral] Onset: 07-16-2024 Episodic Other female genital disorders (3 sources) Vaginal odor; Translations: [Other specified noninflammatory disorders of vagina] 06-24-2024 Episodic Other female genital disorders (2 sources) Pruritus of vagina; Translations: [Other specified noninflammatory disorders of vagina] 06-24-2024 Episodic Other female genital disorders (3 sources) Vaginal discharge; Translations: [Other specified noninflammatory disorders of vagina] 06-24-2024 Episodic Other gastrointestinal disorders (1 source) Constipation; Translations: [Other constipation] 06-24-2023 Episodic Other gastrointestinal disorders (1 source) Diarrhea; Translations: [Diarrhea, unspecified] 09-26-2023 Episodic Other gastrointestinal disorders (1 source) Abdominal bloating; Translations: [Abdominal distension (gaseous)] 04-19-2025 Episodic Other gastrointestinal disorders (1 source) Abdominal distension (gaseous); Translations: [Bloating] Onset: 04-19-2025 Episodic Other hereditary and degenerative nervous system conditions (1 source) Inherited autonomic nervous system disorder; 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 Chronic Other lower respiratory disease (5 sources) Dyspnea on exertion; Translations: [Shortness of breath] Episodic Other lower respiratory disease (4 sources) Dyspnea; Translations: [Shortness of breath] Episodic Other nervous system disorders (1 source) Other chronic pain; Translations: [Chronic pain of both ankles] Onset: 06-19-2023 Chronic Other nervous system disorders (1 source) Skin sensation disturbance; Translations: [Unspecified disturbances of skin sensation] Episodic Other nervous system disorders (1 source) Paresthesia; Translations: [Paresthesia of skin] Episodic Other nervous system disorders (1 source) Impairment of balance; Translations: [Other abnormalities of gait and mobility] Episodic Other nervous system disorders (1 source) Unspecified disturbances of skin sensation; Translations: [Disturbance of skin sensation] Onset: 02-17-2023 Episodic Other non-traumatic joint disorders (1 source) Hypermobility of joint; Translations: [Joint derangement, unspecified] 04-15-2025 Episodic Other non-traumatic joint disorders (1 source) Joint derangement, unspecified; Translations: [Hypermobility of joint] Onset: 04-15-2025 Episodic Other nutritional; endocrine; and metabolic disorders (20 sources) Obese class I; Translations: [Obesity, unspecified] Onset: 11-07-2023 3 Chronic Other nutritional; endocrine; and metabolic disorders (1 source) Body mass index 30+ - obesity; Translations: [Obesity, unspecified] 11-14-2023 Chronic Pathological fracture (2 sources) Stress fracture of tarsal bone; Translations: [Stress fracture, unspecified foot, initial encounter for fracture] 05-10-2025 Episodic Residual codes; unclassified (19 sources) History of past delivery; Translations: [Personal history of other genital system and obstetric disorders] Episodic Comment on above: 09/01/2009; 40 WEEKS ; FEMALE06/14/2011; 40 WEEKS; MALE; Spondylosis; intervertebral disc disorders; other back problems (13 sources) Cervicocranial syndrome; Translations: [Cervicocranial syndrome] Onset: 02-17-2023 Episodic Sprains and strains (14 sources) Sprain of ankle; Translations: [Other specified aftercare] Episodic Thyroid disorders (14 sources) Goiter; Translations: [Goiter, unspecified] Chronic Unclassified (2 sources) POTS (postural orthostatic tachycardia syndrome); Translations: [POTS (postural orthostatic tachycardia syndrome)] Onset: 12-13-2022 Unclassified (1 source) Patient encounter status 04-15-2025 Unclassified (1 source) Dysautonomia-like disorder; 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] Onset: 04-19-2025 Unclassified (1 source) Peripheral eosinophilia; 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] Onset: 04-19-2025 Past or Other Problems Problem Classification Problem Date Documented Date Episodic/Chronic Abdominal pain (8 sources) Abdominal pain; Translations: [Pain in female pelvis] Onset: 11-19-2024 Episodic Cardiac dysrhythmias (20 sources) Palpitations; Translations: [Tachycardia] Onset: 02-01-2021 02-01-2021 Episodic Conditions associated with dizziness or vertigo (20 sources) Vertigo; Translations: [Dizziness and giddiness] Onset: 01-30-2021 01-30-2021 Episodic Headache; including migraine (20 sources) Headache; Translations: [Headaches] Onset: 12-15-2019 12-15-2019 Episodic Immunizations and screening for infectious disease (5 sources) Requires vaccination; Translations: [Encounter for immunization] Onset: 07-22-2024 Episodic Malaise and fatigue (20 sources) Asthenia; Translations: [Other malaise and fatigue] Onset: 02-02-2021 Episodic Nausea and vomiting (2 sources) Nausea; Translations: [Nausea] Onset: 01-20-2025 01-20-2025 Episodic Nonspecific chest pain (20 sources) Chest discomfort; Translations: [Other chest pain] Onset: 12-28-2022 12-15-2022 Episodic Other aftercare (1 source) Other alf (current) drug therapy; Translations: [Medication management] Onset: 08-24-2024 Episodic Other inflammatory condition of skin (20 sources) Itching ; Translations: [Unspecified pruritic disorder] Onset: 06-19-2023 06-19-2023 Episodic Other lower respiratory disease (20 sources) Dyspnea at rest; Translations: [Shortness of breath] Onset: 06-19-2023 06-19-2023 Episodic Other non-traumatic joint disorders (20 sources) Ankle pain; Translations: [Pain in joint, ankle and foot] Onset: 06-19-2023 06-19-2023 Episodic Other non-traumatic joint disorders (1 source) Pain in right ankle and joints of right foot; Translations: [Chronic pain of both ankles] Onset: 06-19-2023 Episodic Other non-traumatic joint disorders (1 source) Pain in left ankle and joints of left foot; Translations: [Chronic pain of both ankles] Onset: 06-19-2023 Episodic Other nutritional; endocrine; and metabolic disorders (20 sources) Weight gain; Translations: [Abnormal weight gain] Onset: 11-06-2023 Episodic Other nutritional; endocrine; and metabolic disorders (20 sources) Weight increased; Translations: [Abnormal weight gain] Onset: 11-06-2023 11-06-2023 Episodic Other screening for suspected conditions (not mental disorders or infectious disease) (4 sources) Elevated C-reactive protein; Translations: [Elevated C-reactive protein (CRP)] Onset: 08-24-2024 02-19-2024 Episodic Other skin disorders (20 sources) Loss of hair; Translations: [Alopecia, unspecified] Onset: 06-19-2023 06-19-2023 Episodic Other skin disorders (20 sources) Trachyonychia; Translations: [Other specified diseases of nail] Onset: 06-19-2023 3 Episodic Residual codes; unclassified (20 sources) H/O: ectopic ; Translations: [Personal history of other genital system and obstetric disorders] Onset: 06-19-2023 06-19-2023 Episodic Comment on above: 2010; Residual codes; unclassified (20 sources) H/O: miscarriage; Translations: [Personal history of other genital system and obstetric disorders] Onset: 06-19-2023 06-19-2023 Episodic Comment on above: X'S 2; Syncope (20 sources) Near syncope; Translations: [Syncope and collapse] Onset: 06-19-2023 06-19-2023 Episodic Unclassified (2 sources) Onset: 02-04-2021 Resolved: 02-04-2021 02-04-2021 Unclassified (1 source) Hypermobility of joint 04-15-2025 NEGATED: Highlighted row has not occurred!Residual codes; unclassified (20 sources) Disease Episodic Results Test Name Value Interpretation Reference Range Facility [facility] 05-10-2025 CNOV Office Visit (FAMPWS ) -------- CARYUKO GUTIERREZ ([id number]) 1990 F Date Time Provider Department 05/10/25 8:00 AM [facility] During your visit today, we recorded the following information about you: Pulse Blood pressure Weight 78/minute 104/64 71.2 kg Joy Miles APRN.FINISHING RANGE OPERATOR 05/10/2025 8:27 AM Signed This is a 34 year old female who presents today with: Patient presents with: Foot Trauma: Left foot injury, 05/06/25 HISTORY OF PRESENT ILLNESS: Yuko Herring is a 34 year old female. Patient presents with: Foot Trauma: Left foot injury, 05/06/25 Yuko Herring is a 34-year-old female with a history of bilateral foot fractures, presenting with left foot pain after twisting it on an uneven sidewalk. Left Foot Pain: - Twisted left foot on an uneven sidewalk on Friday while wearing sandals. - Pain rated 7/10, localized to the dorsum of the foot. - Aggravated by weight-bearing and dorsiflexion; alleviated by wrapping the foot. - Denies taking any analgesics due to a history of stomach ulcers from ibuprofen. - Denies fever, chills, or nausea. - History of bilateral foot fractures, with a previous stress fracture in the same area a few years ago. - Physical therapist noted unstable ankle; Yuko discontinued therapy due to boredom. PAST MEDICAL HISTORY: PAST MEDICAL HISTORY Diagnosis Date Cervical radiculopathy Depression Headaches POTS (postural orthostatic tachycardia syndrome) secondary to covid vaccine per patient PAST SURGICAL HISTORY Procedure Laterality Date PAST SURGICAL HISTORY OF 2011 Ectopic PAST SURGICAL HISTORY OF 12/2021 wisdom teeth extraction ALLERGIES Patient has no known allergies. MEDICATIONS Current Outpatient Medications Medication Sig propranolol (INDERAL) 10 mg tablet Take 1 tablet by mouth two times a day. ergocalciferol 50,000 unit capsule (VITAMIN D2, DRISDOL) Take 1 tablet by mouth twice weekly u0xycen, then decrease to 1 tablet weekly. ondansetron orally disintegrating (ZOFRAN ODT) 4 mg disintegrating tablet Take 1 tablet by mouth every 8 hours as needed for nausea/vomiting. No current facility-administered medications for this visit. FAMILY HISTORY Problem Relation Age of Onset Thyroid Cancer Mother Glaucoma Father Thyroid Cancer Sister Breast Cancer Sister Glaucoma Paternal Grandfather Social History Tobacco Use Smoking status: Never Smokeless tobacco: Never Vaping Use Vaping status: current everyday user Substances: THC Substance Use Topics Alcohol use: Yes Alcohol/week: 7.0 standard drinks of alcohol Types: 7 Glasses of wine per week Drug use: Yes Types: Marijuana REVIEW OF SYSTEMS Constitutional: (+) chills Gastrointestinal: (-) nausea Musculoskeletal: (+) foot pain EXAM: BP 104/64 Pulse 78 Wt 71.2 kg (157 lb) LMP 10/24/2024 (Exact Date) SpO2 100% BMI 26.95 kg/m? PHYSICAL EXAM: GENERAL: NAD, alert and oriented SKIN: Unremarkable, no rash or skin lesions. HEAD: Normocephalic LUNGS: Clear to auscultation bilaterally, no wheezes/rhonchi/rales. HEART: Regular rate and rhythm, no murmurs. No ectopy. EXTREMITIES: Mild ecchymosis and swelling noted on the forefoot- 4th tarsal bone foot. No dependent bruising on the plantar surface. No deformities, slight quarter sized area of edema dorsal aspect. Full ROM in left ankle. No malleolar edema or ecchymosis. NEURO: Awake, alert and oriented x3, cranial nerves II-XII grossly intact, normal gait, no involuntary motions LABS: ASSESSMENT/PLAN: 1. Left foot pain (M79.672) 2. Stress fracture of tarsal bone (M84.376A) - Left foot pain rated 7/10, exacerbated by weight-bearing and dorsiflexion; mild ecchymosis and edema noted on examination. - History of previous fractures and reported unstable ankle. - Ordered stat X-ray to evaluate for potential stress fracture; results to be reviewed by end of day. - Recommended continuation of supportive measures, including wrapping the foot to provide stability and reduce pain. - Discussed use of acetaminophen 500- 650 mg every 4 hours for pain management; patient declined due to history of gastric ulceration and reports pain is manageable. - Consideration for bone density evaluation due to recurrent fractures. Discussed treatment plan and patient voices understanding. Patient's questions answered appropriately. Medications and potential side effects were discussed and patient voices understanding. Return to the office as scheduled or as needed for worsening/no improvement. ASHLY Iraheta Jacqueline A, APRN.CNP 05/10/2025 8:26 AM Signed - Have the foot x-ray performed today as ordered; we will review the images and contact you with the results by the end of the day. - Take acetaminophen 500- 650 mg as needed for pain every 4 hours - Continue wrappin (more content not included)... Normal [facility] XR FOOT 3V AP/LAT/OBL LTon 0 05-10-2025 XR FOOT 3V AP/LAT/OBL LT * * *Final Report* * * DATE OF EXAM: May 10 2025 9:13AM WOX [id number] - XR FOOT 3V AP/LAT/OBL LT / PROCEDURE REASON: Left foot pain * * * * Physician Interpretation * * * * TITLE: XR FOOT 3V AP/LAT/OBL LT CLINICAL INDICATION: Mid foot pain after misstep TECHNIQUE: 3 view radiographic study of the left foot COMPARISON: None FINDINGS: No acute fracture or dislocation identified. Joint spaces preserved. IMPRESSION: No radiographic evidence of acute osseous injury Pourer Crane Ladle: [facility] Transcribe Date/Time: May 10 2025 9:14A Dictated by : PAIGE ORTIZ MD This examination was interpreted and the report reviewed and electronically signed by: PAIGE ORTIZ MD on May 10 2025 9:15AM EST [id number] Normal [facility] XR Foot - left AP and Latera l and obliqueon 05-10-2025 IMPRESSION: No radiographic evidence of acute osseous injury Pourer Crane Ladle: [facility] Transcribe Date/Time: May 10 2025 9:14A Dictated by : PAIGE ORTIZ MD This examination was interpreted and the report reviewed and electronically signed by: PAIGE ORTIZ MD on May 10 2025 9:15AM EST DIVISION OF RADIOLOGY * * *Final Report* * * DATE OF EXAM: May 10 2025 9:13AM WOX [id number] - XR FOOT 3V AP/LAT/OBL LT / PROCEDURE REASON: Left foot pain * * * * Physician Interpretation * * * * TITLE: XR FOOT 3V AP/LAT/OBL LT CLINICAL INDICATION: Mid foot pain after misstep TECHNIQUE: 3 view radiographic study of the left foot COMPARISON: None FINDINGS: No acute fracture or dislocation identified. Joint spaces preserved. DIVISION OF RADIOLOGY Provider, [facility] - 05/10/2025 * * *Final Report* * * DATE OF EXAM: May 10 2025 9:13AM WOX [id number] - XR FOOT 3V AP/LAT/OBL LT / PROCEDURE REASON: Left foot pain * * * * Physician Interpretation * * * * TITLE: XR FOOT 3V AP/LAT/OBL LT CLINICAL INDICATION: Mid foot pain after misstep TECHNIQUE: 3 view radiographic study of the left foot COMPARISON: None FINDINGS: No acute fracture or dislocation identified. Joint spaces preserved. IMPRESSION IMPRESSION: No radiographic evidence of acute osseous injury Pourer Crane Ladle: [facility] Transcribe Date/Time: May 10 2025 9:14A Dictated by : PAIGE ORTIZ MD This examination was interpreted and the report reviewed and electronically signed by: PAIGE ORTIZ MD on May 10 2025 9:15AM EST [facility] Radiology Study observation (narrative) [facility] XR Foot - left AP and Latera l and obliqueOrdered By: [facility] Provider on 05-10-2025 [facility] CBC W Auto Differential pane l (Bld)on 04-19-2025 Basophils (Bld) [#/Vol] 0.04 10*3/uL [facility] Basophils/100 WBC (Bld) 0.6 % [facility] Differential cell count method Nom (Bld) Auto [facility] Eosinophils (Bld) [#/Vol] 0.12 10*3/uL [facility] Eosinophils/100 WBC (Bld) 1.8 % [facility] Erythrocyte distribution width (RBC) [Ratio] 12.9 % 11.5 - 15.0 % [facility] Hematocrit (Bld) [Volume fraction] 39.4 % 36.0 - 46.0 % [facility] Hemoglobin (Bld) [Mass/Vol] 12.6 g/dL 11.5 - 15.5 g/dL [facility] Immature granulocytes (Bld) [#/Vol] [facility] Immature granulocytes/100 WBC (Bld) 0.2 % [facility] Lymphocytes (Bld) [#/Vol] 2.44 10*3/uL [facility] Lymphocytes/100 WBC (Bld) 36.7 % [facility] MCH (RBC) [Entitic mass] 30.3 pg 26.0 - 34.0 pg [facility] MCHC (RBC) [Mass/Vol] 32 g/dL 30.5 - 36.0 g/dL [facility] MCV (RBC) [Entitic vol] 94.7 fL 80.0 - 100.0 fL [facility] Monocytes (Bld) [#/Vol] 0.46 10*3/uL [facility] Monocytes/100 WBC (Bld) 6.9 % [facility] Neutrophils (Bld) [#/Vol] 3.57 10*3/uL [facility] Neutrophils/100 WBC (Bld) 53.8 % [facility] Nucleated RBC (Bld) [#/Vol] [facility] Nucleated RBC/100 WBC (Bld) [Ratio] 0 % /100 WBC [facility] Platelet mean volume (Bld) [Entitic vol] 11.4 fL 9.0 - 12.7 fL [facility] Platelets (Bld) [#/Vol] 268 10*3/uL [facility] RBC (Bld) [#/Vol] 4.16 10*6/uL 3.90 - 5.2 0 m/uL [facility] WBC (Bld) [#/Vol] 6.64 10*3/uL [facility] Basophils (Bld) [#/Vol] 0.04 10*3/uL Normal <0.11 [facility] Comment on above: Order Comment: Speci men Type: SWAB Ordering Facility: [facility] Address: [address] [place] [address] Performed By: #### Rahul VAMP, [id number] #### [facility] CLIA [id number] [address] [place] [address] [place] Basophils/100 WBC (Bld) 0.6 % Normal [facility] Comment on above: Order Comment: Speci men Type: SWAB Ordering Facility: [facility] Address: [address] [place] [address] Performed By: #### Rahul VAMP, [id number] #### [facility] CLIA [id number] [address] [place] [address] [place] Differential cell count method Nom (Bld) Auto Normal [facility] Comment on above: Order Comment: Speci men Type: SWAB Ordering Facility: [facility] Address: [address] [place] [address] Performed By: #### B VAMP, [id number] #### [facility] CLIA [id number] [address] [place] [address] [place] Eosinophils (Bld) [#/Vol] 0.12 10*3/uL Normal <0.46 [facility] Comment on above: Order Comment: Speci men Type: SWAB Ordering Facility: [facility] Address: [address] [place] [address] Performed By: #### B VAMP, [id number] #### [facility] CLIA [id number] [address] [place] [address] [place] Eosinophils/100 WBC (Bld) 1.8 % Normal [facility] Comment on above: Order Comment: Speci men Type: SWAB Ordering Facility: [facility] Address: [address] [place] [address] Performed By: #### Rahul VAMP, [id number] #### [facility] CLIA [id number] [address] [place] [address] [place] Erythrocyte distribution width (RBC) [Ratio] 12.9 % Normal 11.5-15.0 [facility] Comment on above: Order Comment: Speci men Type: SWAB Ordering Facility: [facility] Address: [address] [place] [address] Performed By: #### Rahul VAMP, [id number] #### [facility] CLIA [id number] [address] [place] [address] [place] Hematocrit (Bld) [Volume fraction] 39.4 % Normal 36.0-46.0 [facility] Comment on above: Order Comment: Speci men Type: SWAB Ordering Facility: [facility] Address: [address] [place] [address] Performed By: #### Rahul VAMP, 35294-4 #### [facility] CLIA [id number] [address] [place] [address] [place] Hemoglobin (Bld) [Mass/Vol] 12.6 g/dL Normal 11.5-15.5 [facility] Comment on above: Order Comment: Speci men Type: SWAB Ordering Facility: [facility] Address: [address] [place] [address] Performed By: #### Rahul VAMP, [id number] #### [facility] CLIA [id number] [address] [place] [address] [place] Immature granulocytes (Bld) [#/Vol] 10*3/uL Normal <0.10 [facility] Comment on above: Order Comment: Speci men Type: SWAB Ordering Facility: [facility] Address: [address] [place] [address] Performed By: #### Rhaul VAMP, [id number] #### [facility] CLIA [id number] [address] [place] [address] [place] Immature granulocytes/100 WBC (Bld) 0.2 % Normal [facility] Comment on above: Order Comment: Speci men Type: SWAB Ordering Facility: [facility] Address: [address] [place] [address] Performed By: #### Rahul VAMP, 58059-8 #### [facility] CLIA [id number] [address] [place] [address] [place] Lymphocytes (Bld) [#/Vol] 2.44 10*3/uL Normal 1.00-4.00 [facility] Comment on above: Order Comment: Speci men Type: SWAB Ordering Facility: [facility] Address: [address] [place] [address] Performed By: #### Rahul VAMP, 13776-4 #### [facility] CLIA [id number] [address] [place] [address] [place] Lymphocytes/100 WBC (Bld) 36.7 % Normal [facility] Comment on above: Order Comment: Speci men Type: SWAB Ordering Facility: [facility] Address: [address] [place] [address] Performed By: #### Rahul VAMP, 74859-8 #### [facility] CLIA [id number] [address] [place] [address] [place] MCH (RBC) [Entitic mass] 30.3 pg Normal 26.0-34.0 [facility] Comment on above: Order Comment: Speci men Type: SWAB Ordering Facility: [facility] Address: [address] [place] [address] Performed By: #### Rahul VAMP, 79172-3 #### [facility] CLIA [id number] [address] [place] [address] [place] MCHC (RBC) [Mass/Vol] 32.0 g/dL Normal 30.5-36.0 [facility] Comment on above: Order Comment: Speci men Type: SWAB Ordering Facility: [facility] Address: [address] [place] [address] Performed By: #### Rahul VAMP, 89754-9 #### [facility] CLIA [id number] [address] [place] [address] [place] MCV (RBC) [Entitic vol] 94.7 fL Normal 80.0-100.0 [facility] Comment on above: Order Comment: Speci men Type: SWAB Ordering Facility: [facility] Address: [address] [place] [address] Performed By: #### Rahul VAMP, 24365-2 #### [facility] CLIA [id number] [address] [place] [address] [place] Monocytes (Bld) [#/Vol] 0.46 10*3/uL Normal <0.87 [facility] Comment on above: Order Comment: Speci men Type: SWAB Ordering Facility: [facility] Address: [address] [place] [address] Performed By: #### Rahul VAMP, 29294-0 #### [facility] CLIA [id number] [address] [place] [address] [place] Monocytes/100 WBC (Bld) 6.9 % Normal [facility] Comment on above: Order Comment: Speci men Type: SWAB Ordering Facility: [facility] Address: [address] [place] [address] Performed By: #### Rahul VAMP, 46227-9 #### [facility] CLIA [id number] [address] [place] [address] [place] Neutrophils (Bld) [#/Vol] 3.57 10*3/uL Normal 1.45-7.50 [facility] Comment on above: Order Comment: Speci men Type: SWAB Ordering Facility: [facility] Address: [address] [place] [address] Performed By: #### Rahul VAMP, [id number] #### [facility] CLIA [id number] [address] [place] [address] [place] Neutrophils/100 WBC (Bld) 53.8 % Normal [facility] Comment on above: Order Comment: Speci men Type: SWAB Ordering Facility: [facility] Address: [address] [place] [address] Performed By: #### Rahul VAMP, 87176-9 #### [facility] CLIA [id number] [address] [place] [address] [place] Nucleated RBC (Bld) [#/Vol] 10*3/uL Normal <0.01 [facility] Comment on above: Order Comment: Speci men Type: SWAB Ordering Facility: [facility] Address: [address] [place] [address] Performed By: #### Rahul VAMP, [id number] #### [facility] CLIA [id number] [address] [place] [address] [place] Nucleated RBC/100 WBC (Bld) [Ratio] 0.0 /100 WBC Normal [facility] Comment on above: Order Comment: Speci men Type: SWAB Ordering Facility: [facility] Address: [address] [place] [address] Performed By: #### Rahul VAMP, 96367-9 #### [facility] CLIA [id number] [address] [place] [address] [place] Platelet mean volume (Bld) [Entitic vol] 11.4 fL Normal 9.0-12.7 [facility] Comment on above: Order Comment: Speci men Type: SWAB Ordering Facility: [facility] Address: [address] [place] [address] Performed By: #### B VAMP, 12730-7 #### [facility] CLIA [id number] [address] [place] [address] [place] Platelets (Bld) [#/Vol] 268 10*3/uL Normal 150-400 [facility] Comment on above: Order Comment: Speci men Type: SWAB Ordering Facility: [facility] Address: [address] [place] [address] Performed By: #### B VAMP, 90800-5 #### [facility] CLIA [id number] [address] [place] [address] [place] RBC (Bld) [#/Vol] 4.16 10*6/uL Normal 3.90-5.20 [facility] Comment on above: Order Comment: Speci men Type: SWAB Ordering Facility: [facility] Address: [address] [place] [address] Performed By: #### B VAMP, 34930-4 #### [facility] CLIA [id number] [address] [place] [address] [place] WBC (Bld) [#/Vol] 6.64 10*3/uL Normal 3.70-11.00 [facility] Comment on above: Order Comment: Speci men Type: SWAB [facility]ing Facility[facility] Address: [address] [place] [address] Performed By: #### B VAMP, 01094-1 #### [facility] CLIA [id number] [address] [place] [address] [place] [facility] HLA-DQ GENOTYPE on 04-19-2025 LYN INTERPRETATION The HLA-DQ genotype of the patient is supportive of an increased risk of celiac disease. Normal [facility] Comment on above: Order Comment: Speci men Type: BLOOD SPECIMENOrdering Facility: [facility] Address: [address] [place] [address] Performed By: #### C MARIANELA ####[facility] [id number] [address] [place] CELIAC CATEGORY Category 5 Normal [facility] Comment on above: Order Comment: Speci men Type: BLOOD SPECIMENOrdering Facility: [facility] Address: [address] [place] [address] Result Comment: GLORIA DAVID DQ HAPLOTYPE RELATIVE RISK Category 7 DQ2.2 AND DQ2.5 Extremely High Category 7 DQ2.5 AND DQ2.5 Extremely High Category 6 DQ2.2 AND DQA1*05, DQB1*03:01 Very High Category 5 DQ2.2 AND DQ8 Very High Category 5 DQ2.5 AND DQ8 Very High Category 4 DQ8 AND DQ8 High Category 3 DQ2.5 AND DQA1*05, DQB1*03:01 High Category 3 DQ2.5 AND DQA1*02:01, DQB1*03:03 High Category 3 DQ2.5 AND DQA1*03, DQB1*02 High Category 3 DQ2.5 AND OTHER LOW RISK ALLELE High Category 3 DQ2.2 AND DQA1*05, DQB1*03:03 High Category 2 DQ8 AND OTHER LOW RISK ALLELE Moderate Category 1 DQ2.2 AND OTHER LOW RISK ALLELE Low Category 0 NEGATIVE FOR DQ2.2 Negative Category 0 NEGATIVE FOR DQ2.5 Negative Category 0 NEGATIVE FOR DQ8 Negative DQ2.2 = DQA1*02:01, DQB1*02:02 DQ2.5 = DQA1*05, DQB1*02:01 DQ8 = DQA1*03, DQB1*03:02 The identification of one of these HLA-DQ genotypes is not, by itself, sufficient for the diagnosis of celiac disease, since both DQ2 and DQ8 are relatively common in the general population. The strongest reported HLA associations with celiac disease include DQ2 (DQ2.5 or DQA1*05-DQB1*02:01 & DQA2.2 or DQA1*02:01-DQB1*02:02) and DQ8 (DQA1*03:01/DQB1*03:02). This test is useful for family members of celiac patients and patients with negative serology results. This testing can rule out celiac disease with high negative predictive value (NPV) of 95-100% depending on the ethnic background. In cases of an ambiguous HLA allele assignment where multiple rare alleles cannot be excluded, the most common HLA allele is reported. References: 1. Bernice Lester, Arabella Cadet, Frances Alvares, et al. Cost-effective HLA typing with tagging SNPs predicts celiac disease risk haplotypes in the Lao, Haitian and Afghan populations. Immunogenetics. 2009 Jan;61(4):247-56. 2. Edie UGARTE. Celiac disease: dissecting a complex inflammatory disorder. Soraya Rev Immunol. 2002 Jun;2(9):647-55. 3. Kiet E, Howard HS, Harriet CA, et al. Risk of pediatric celiac disease according to HLA haplotype and country. N Engl J Med. 2014 ;371(1):42-9. HLA typing performed by PCR-RSSOP and/or NGS. This test was developed and its performance characteristics determined by [employer]. The test has not been cleared or approved by the [place] FDA. However, FDA approval was not necessary since this lab is certified under CLIA for high complexity testing. Test performed by: [employer], [address] [place], [place] [address]d [facility] [address] [address]. CLIA [id number]. Performed By: #### C MARIANELA ####[facility] [id number] [place] [address] [place] CELIAC RISK HAPLOTYPE Positive Normal [facility] Comment on above: Order Comment: Speci men Type: BLOOD SPECIMENOrdering Facility: [facility] Address: [address] [place] [address] Performed By: #### C MARIANELA ####[facility] [id number] [place] [address] [place] HLA-DQA1 GENOTYPE HLA-DQA1*: 02:01, 03 Normal [facility] Comment on above: Order Comment: Speci men Type: BLOOD SPECIMENOrdering Facility: [facility] Address: [address] [place] [address] Performed By: #### C MARIANELA ####[facility] [id number] [address] [place] HLA-DQB1 GENOTYPE HLA-DQB1*: 02:02, 03:02 Normal [facility] Comment on above: Order Comment: Dandy dove Type: BLOOD SPECIMENOrdering Facility: [facility] Address: [address] [place] [address] Performed By: #### Dianna BEAR ####[facility] [id number] [address] CELIAC SCREENon 04-19-2025 GLIAD DEAMIDATED IGA QUAL Negative Normal Negative, Test not Indicated [facility] Comment on above: Order Comment: Dandy dove Type: BLOOD SPECIMENOrdering Facility: [facility] Address: [address] [place] [address] Result Comment: This is used as an aid in diagnosis of celiac disease. Clinical correlation is required. The following results were obtained with an [employer] QUANTA Lite Gliadin IgA JOE Gliadin. Gliadin IgA values obtained with different manufacturers' assay methods may not be used interchangeably. The magnitude of the reported IgA levels cannot be correlated to an endpoint titer. Performed By: #### L [id number] ####[facility] [id number] [address] [place] Gliadin peptide IgA Qn (S) 6 Units Normal <20 [facility] Comment on above: Order Comment: Dandy dove Type: BLOOD SPECIMENOrdering Facility: [facility] Address: [address] [place] [address] Performed By: #### L [id number] ####[facility] [id number] [place] [address] [place] INTERPRETATION No serological evide nce of celiac disease, however, if celiac disease is clinically suspected and patient is not on gluten-free diet, histological diagnosis may be considered. HLA testing may help with risk assessment. Normal [facility] Comment on above: Order Comment: Dandy dove Type: BLOOD SPECIMENOrdering Facility: [facility] Address: [address] [place] [address] Performed By: #### L [id number] ####[facility] [id number] [place] [address] [place] TRANSGLUTAMINASE IGA ABS INTERPRETATION Negative Normal Negative [facility] Comment on above: Order Comment: Dandy dove Type: BLOOD SPECIMENOrdering Facility: [facility] Address: [address] [place] [address] Result Comment: The following results were obtained with [employer] R h-tTG IgA JOE.???R h-tTG IgA values obtained with different manufacturers' assay methods may not be used interchangeably. The magnitude of the reported IgA levels cannot be corelated to an endpoint???concentration. This is used as an aid in diagnosis of celiac disease. Clinical correlation is required. Performed By: #### L [id number] ####[facility] [id number] [place] [address] [place] tTG IgA Qn (S) <2 Normal <4 [facility] Comment on above: Order Comment: Dandy dove Type: BLOOD SPECIMENOrdering Facility: [facility] Address: [address] [place] [address] Performed By: #### L [id number] ####[facility] [id number] [address] [place] CNOVon 04-19-2025 CNOV Office Visit (ALAPW) -------- YUKO HERRING ([id number]) 1990 F Date Time Provider Department 04/19/25 1:30 PM INDRA MAY During your visit today, we recorded the following information about you: Pulse Respiration Blood pressure Weight 74/minute 16/minute 102/63 71.2 kg Pan Roy LPN 04/19/2025 2:19 PM Signed Patient referred by PCP, concerned about inflammatory foods. Indra May DO 04/19/2025 2:19 PM Signed Allergy and Immunology 04/19/2025 PRIMARY CARE PHYSICIAN: Fabián Martin APRN.FAHAD REFERRING PROVIDER: Fabián Martin APRN.FAHAD Consultation requested for an allergy/immunology evaluation. My final impression and recommendations will be communicated back to the requesting physician by way of shared medical record, fax, or US mail. CHIEF COMPLAINT: Yuko Herring is a 34-year-old female with a history of POTS, presenting with chronic bloating and suspected food intolerances. HISTORY OF PRESENT ILLNESS: Yuko reports persistent bloating and suspected food intolerances since being diagnosed with POTS in 2020. She notes that these symptoms began after her diagnosis and have been constant since then. She denies diarrhea or constipation. She underwent a functional medicine evaluation last year, during which she followed an elimination diet excluding gluten, sugar, caffeine, alcohol, and certain fruits like marcin. She reports feeling better while on the diet but experienced worsening symptoms upon reintroducing foods, particularly gluten and soy. Yuko has been consuming gluten regularly since the elimination diet. She denies any systemic IgE mediated symptoms upon food reintroduction. She also reports episodes of rashes when consuming avocados and tomatoes during the elimination period, which have since resolved. She denies any current issues with these foods and has not been diagnosed with histamine intolerance but wonders if there is testing for this. Yuko denies known allergies or asthma and reports no issues with seasonal allergies. She has a history of slightly positive skin tests for soy and shellfish, which were deemed insignificant. Her POTS symptoms are currently more stable with fewer flare-ups than previously. She attributes this improvement to increased hydration and salt intake. Yuko is currently taking propranolol and plans to reintroduce vitamin D and magnesium supplements. She denies taking any other medications. She reports a history of vaping. She has had recent travel overseas to [place]. She denies any illness during her travels. Denies diar Yuko also notes significant exercise intolerance since her POTS diagnosis, stating that she was previously able to lift weights but now struggles with even minimal exercise, such as 2 minutes on a stationary bike. Constitutional: (+) fatigue Respiratory: (-) wheezing Gastrointestinal: (+) abdominal bloating, (-) vomiting, (-) diarrhea, (-) constipation Skin: (-) rash, (-) hives, (-) flushing MYC COLLATERAL ALLERGY HISTORY Question 04/19/2025 1:31 PM EDT - Filed by Patient Do you have or have you ever been diagnosed with allergic rhinitis? No Have you ever been skin tested for allergies? Yes Do you have asthma? No Do you have or have you ever been diagnosed with eczema or atopic dermatitis? No Do you get frequent sinus infections? No Do you have nasal polyps? No Do you have or have you ever been diagnosed with urticaria / hives? No Do you have or have you ever been diagnosed with angioedema? No Do you have or have you ever been diagnosed with food allergy? Not Sure Do you have or have you ever been diagnosed with stinging insect allergy (bee, wasp, yellow jacket, hornet)? No Are you allergic to Penicillin antibiotics? No MYC ALLERGY ENVIROMENTAL EXPOSURES Question 04/19/2025 1:32 PM EDT - Filed by Patient Aeroallergens Exposure What pet(s) you have at home? Dog Cat Is there evidence of a mouse infestation in your home? No Is there evidence of a cockroach infestation in your home? No Is there evidence of mold or mildew in your home? No Is your home air conditioned during the summer? Yes Do you use zip around dust mite covers on all mattresses and pillows? No Is there exposure in the home to cigarette or cigar smoke? No Is there any exposure to vaping? Yes Social Hx: Social History Tobacco Use Smoking status: Never Smokeless tobacco: Never Vaping Use Vaping status: current everyday user Substances: THC Substance Use Topics Alcohol use: Yes Alcohol/week: 7.0 standard drinks of alcohol Types: 7 Glasses of wine per week Drug use: Yes Types: Marijuana Employer And Job Title: None on file Years Of Education Completed: Not specified Marital Status: Domestic Partner SOCIAL HISTORY No social history on file. PAST MEDICAL HISTORY Diagnosis Date Cervical radiculopat (more content not included)... Normal [facility] IgA SerPl-mCncon 04-19-2025 IgA [Mass/Vol] 270 mg/dL Normal 70-400 [facility] Comment on above: Order Comment: Speci men Type: SWAB [facility] Address: [address] [place] [address] Performed By: #### Rahul VAMP, 42305-1 #### [facility] CLIA [id number] [address] [place], [place] [address] [address] [place] TRYPTASE BLOODon 04-19-2025 Tryptase [Mass/Vol] 5.9 ug/L Normal <8.4 [facility] Comment on above: Order Comment: Speci men Type: SWAB [facility] Address: [address] [place] [address] Performed By: #### Rahul JEAN-BAPTISTE, 33223-8 #### [facility] CLIA [id number] [address] [place] [address] [place] 25(OH)D3 SerPl-ncon 2024 25-hydroxyvitamin D3 [Mass/Vol] 20.7 ng/mL Low 31.0-80.0 [facility] Comment on above: Order Comment: Speci men Type: BLOOD SPECIMENOrdering Facility: [facility] Address: [address] [place] [address] Performed By: #### 1 989-3 ####[facility] [id number] [address] [place] CNOVon 04-15-2025 CNOV Office Visit (RAYMOND ) -------- YUKO HERRING ([id number]) 1990 F Date Time Provider Department 04/15/25 11:40 AM FABIÁN MARTIN During your visit today, we recorded the following information about you: Pulse Blood pressure Weight 58/minute 104/68 71 kg Fabián Martin, RENÉ.FINISHING RANGE OPERATOR 04/15/2025 12:03 PM Signed Chief Complaint Patient presents with: 6 Month Exam HPI Yuko Herring is a 34 year old female who presents here today for Above Complaints.. Patient presents for routine follow up. Reports she is doing well, has occasional POTS flares but are minor in comparison to previous. Past medical history, appointments, medications, allergies reviewed. Previous Medical History PAST MEDICAL HISTORY Diagnosis Date Cervical radiculopathy Depression Headaches POTS (postural orthostatic tachycardia syndrome) secondary to covid vaccine per patient Previous Surgical History PAST SURGICAL HISTORY Procedure Laterality Date PAST SURGICAL HISTORY OF 2011 Ectopic PAST SURGICAL HISTORY OF 12/2021 wisdom teeth extraction Family History FAMILY HISTORY Problem Relation Age of Onset Thyroid Cancer Mother Glaucoma Father Thyroid Cancer Sister Breast Cancer Sister Glaucoma Paternal Grandfather Patient Allergies ALLERGIES No Known Allergies Current Medications Current Outpatient Medications on File Prior to Visit Medication Sig propranolol (INDERAL) 10 mg tablet Take 1 tablet by mouth two times a day. DULoxetine (CYMBALTA) 40 mg cpDR Take 1 capsule by mouth once daily. ondansetron orally disintegrating (ZOFRAN ODT) 4 mg disintegrating tablet Take 1 tablet by mouth every 8 hours as needed for nausea/vomiting. ergocalciferol 50,000 unit capsule (VITAMIN D2, DRISDOL) Take 1 tablet by mouth twice weekly [id number], then decrease to 1 tablet weekly. rizatriptan (MAXALT) 10 mg tablet Take 1 tablet by mouth as needed. (Patient not taking: Reported on 04/15/2025) No current facility-administered medications on file prior to visit. Social History Social History Tobacco Use Smoking status: Never Smokeless tobacco: Never Vaping Use Vaping status: current everyday user Substances: THC Substance Use Topics Alcohol use: Yes Alcohol/week: 7.0 standard drinks of alcohol Types: 7 Glasses of wine per week Drug use: Yes Types: Marijuana Review of Symptoms REVIEW OF SYSTEMS SEE HPI EXAM: BP 104/68 Pulse (!) 58 Wt 71 kg (156 lb 8.4 oz) LMP 10/24/2024 (Exact Date) BMI 26.87 kg/m? General Appearance: Well appearing, alert, in no acute distress, well-hydrated, well nourished. Lungs: Lungs clear to auscultation. No wheezing, rhonchi, rales.. Heart: RRR without murmur, gallop, or rubs. No ectopy. Health Maintenance List Depression Screening Never done Anxiety Screening Never done Covid-19 Vaccine(2 - season) due on 06/20/2024 Hepatitis B Vaccine(1 of 3 - 19+ 3-dose series) due on 08/24/2025 Influenza Vaccine(Season Ended) due on 06/20/2025 Cervical Cancer Screening due on 01/18/2027 DTaP,Tdap,Td Vaccine(2 - Td or Tdap) due on 03/16/2034 Hepatitis C Screening Completed HIV Screening Completed ASSESSMENT/PLAN: 1. Vitamin D deficiency - ICD9: 268.9, ICD10: E55.9 (primary diagnosis) - VITAMIN D 25 HYDROXY 2. POTS (postural orthostatic tachycardia syndrome) - ICD9: 427.89, ICD10: G90.A - CONSULT TO NUTRITION THERAPY - Continue propranolol 3. 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 - ondansetron orally disintegrating (ZOFRAN ODT) 4 mg disintegrating tablet Take 1 tablet by mouth every 8 hours as needed for nausea/vomiting. - ergocalciferol 50,000 unit capsule (VITAMIN D2, DRISDOL) Take 1 tablet by mouth twice weekly [id number], then decrease to 1 tablet weekly. Problem List As Of Date 04/15/2025 Noted Resolved Glaucoma suspect of both eyes [H40.003] 12/15/2019 Headaches [R51.9] 12/15/2019 POTS (postural orthostatic tachycardia syndrome*01/29/2021 Ankle (more content not included)... Normal [facility] Basic metabolic 2000 panelon 01-20-2025 Anion gap [Moles/Vol] 10 mmol/L Normal 8-15 [facility] Comment on above: Order Comment: Speci men Type: BLOOD SPECIMEN [facility] Address: [address] [place] [address] Performed By: #### 2 4321-2 #### [facility] CLIA [id number] [address] [place] [address] [place] Calcium [Mass/Vol] 9.8 mg/dL Normal 8.5-10.2 [facility] Comment on above: Order Comment: Speci men Type: BLOOD SPECIMEN [facility] Address: [address] [place] [address] Performed By: #### 2 4321-2 #### [facility] CLIA [id number] [address] [place] [address] [place] Chloride [Moles/Vol] 102 mmol/L Normal 98-107 [facility] Comment on above: Order Comment: Speci men Type: BLOOD SPECIMEN [facility] Address: [address] [place] [address] Performed By: #### 2 4321-2 #### [facility] CLIA [id number] [address] [place] [address] [place] CO2 [Moles/Vol] 23 mmol/L Normal 22-30 [facility] Comment on above: Order Comment: Speci men Type: BLOOD SPECIMEN [facility] Address: [address] [place] [address] Performed By: #### 2 4321-2 #### [facility] CLIA [id number] [address] [place] [address] [place] Creatinine [Mass/Vol] 0.75 mg/dL Normal 0.58-0.96 [facility] Comment on above: Order Comment: Dandy men Type: BLOOD SPECIMEN [facility] Address: [address] [place] [address] Performed By: #### 2 4321-2 #### [facility] CLIA [id number] [address] [place] [address] [place] Creatinine and Glomerular filtration rate.predicted panel (S/P/Bld) 107 mL/min/1.73m??? Normal >=60 [facility] Comment on above: Order Comment: Dandy dove Type: BLOOD SPECIMEN [facility] Address: [address] [place] [address] Result Comment: Arjun mated Glomerular Filtration Rate (eGFR) is calculated using the 2020 CKD-EPI creatinine equation. This equation utilizes serum creatinine, sex, and age as parameters. The creatinine assay has traceable calibration to isotope dilution-mass spectrometry. Refer to KDIGO guidelines for clinical interpretation. In patients with unstable renal function, e.g. those with acute kidney injury, the eGFR may not accurately reflect actual GFR. Performed By: #### 2 4321-2 #### [facility] CLIA [id number] [address] [place] [address] [place] Glucose [Mass/Vol] 94 mg/dL Normal 74-99 [facility] Comment on above: Order Comment: Dandy men Type: BLOOD SPECIMEN [facility] Address: [address] [place] [address] Result Comment: The [place] Diabetes Association (ADA) provides guidance for cutoff values for fasting glucose and random glucose. The ADA defines fasting as no caloric intake for at least 8 hours. Fasting plasma glucose results between 100 to 125 mg/dL indicate increased risk for diabetes (prediabetes). Fasting plasma glucose results greater than or equal to 126 mg/dL meet the criteria for diagnosis of diabetes. In the absence of unequivocal hyperglycemia, results should be confirmed by repeat testing. In a patient with classic symptoms of hyperglycemia or hyperglycemic crisis, random plasma glucose results greater than or equal to 200 mg/dL meet the criteria for diagnosis of diabetes. Reference: Standards of Medical Care in Diabetes 2016, [place] Diabetes Association. Diabetes Care. 2016.39(Suppl 1). Performed By: #### 2 4321-2 #### [facility] CLIA [id number] [address] [place] [address] [place] Potassium [Moles/Vol] 4.1 mmol/L Normal 3.7-5.1 [facility] Comment on above: Order Comment: Dandy dove Type: BLOOD SPECIMEN [facility] Address: [address] [place] [address] Performed By: #### 2 4321-2 #### [facility] [place] [id number] [address] [place] [address] [place] Sodium [Moles/Vol] 135 mmol/L Low 136-144 [facility] Comment on above: Order Comment: Dandy dove Type: BLOOD SPECIMEN [facility] Address: [address] [place] [address] Performed By: #### 2 4321-2 #### [facility] CLIA [id number] [address] [place] [address] [place] Urea nitrogen [Mass/Vol] 13 mg/dL Normal 7-21 [facility] Comment on above: Order Comment: Dandy dove Type: BLOOD SPECIMEN [facility] Address: [address] [place] [address] Performed By: #### 2 4321-2 #### [facility] CLIA [id number] [address] [place] [address] [place] CNOVon 01-20-2025 CNOV Office Visit (FAMPWS ) -------- YUKO HERRING ([id number]) 1990 F Date Time Provider Department 01/20/25 8:40 AM FABIÁN MARTIN During your visit today, we recorded the following information about you: Pulse Blood pressure Weight 71/minute 102/67 69 kg Fabián Martin, WASTEWATER PROJECT MANAGER.FINISHING RANGE OPERATOR 01/20/2025 9:15 AM Signed Chief Complaint Patient presents with: pots flare HPI Yuko Herring is a 34 year old female who presents here today for Above Complaints.. Patient presents for more frequent POTS flares over the last month. Reports she is having a lot of nausea and is extremely fatigued. Was going to crossfit and recently workouts have picked up in speed and intensity and she believes this has been contributing to more symptoms. Past medical history, appointments, medications, allergies reviewed. Previous Medical History PAST MEDICAL HISTORY Diagnosis Date Cervical radiculopathy Depression Headaches POTS (postural orthostatic tachycardia syndrome) secondary to covid vaccine per patient Previous Surgical History PAST SURGICAL HISTORY Procedure Laterality Date PAST SURGICAL HISTORY OF 2011 Ectopic PAST SURGICAL HISTORY OF 12/2021 wisdom teeth extraction Family History FAMILY HISTORY Problem Relation Age of Onset Thyroid Cancer Mother Glaucoma Father Thyroid Cancer Sister Breast Cancer Sister Glaucoma Paternal Grandfather Patient Allergies ALLERGIES No Known Allergies Current Medications Current Outpatient Medications on File Prior to Visit Medication Sig DULoxetine (CYMBALTA) 40 mg cpDR Take 1 capsule by mouth once daily. ergocalciferol 50,000 unit capsule (VITAMIN D2, DRISDOL) Take 1 tablet by mouth twice weekly [id number], then decrease to 1 tablet weekly. propranolol (INDERAL) 10 mg tablet Take 1 tablet by mouth two times a day. rizatriptan (MAXALT) 10 mg tablet Take 1 tablet by mouth as needed. Current Facility-Administered Medications on File Prior to Visit Medication acetylcholine 10% solution - [facility] compounding Social History Social History Tobacco Use Smoking status: Never Smokeless tobacco: Never Vaping Use Vaping status: current everyday user Substances: THC Substance Use Topics Alcohol use: Yes Alcohol/week: 7.0 standard drinks of alcohol Types: 7 Glasses of wine per week Drug use: Yes Types: Marijuana Review of Symptoms REVIEW OF SYSTEMS SEE HPI EXAM: BP 97/63 Pulse 80 Wt 69 kg (152 lb 1.9 oz) LMP 10/24/2024 (Exact Date) BMI 26.11 kg/m? General Appearance: Well appearing, alert, in no acute distress, well-hydrated, well nourished. Lungs: Lungs clear to auscultation. No wheezing, rhonchi, rales.. Heart: RRR without murmur, gallop, or rubs. No ectopy. Peripheral Pulses: Normal. Health Maintenance List Influenza Vaccine(1) due on 06/20/2024 Covid-19 Vaccine(2 - season) due on 06/20/2024 Depression Screening due on 02/18/2025 Anxiety Screening due on 02/18/2025 Hepatitis B Vaccine(1 of 3 - 19+ 3-dose series) due on 08/24/2025 Cervical Cancer Screening due on 01/18/2027 DTaP,Tdap,Td Vaccine(2 - Td or Tdap) due on 03/16/2034 Hepatitis C Screening Completed HIV Screening Completed ASSESSMENT/PLAN: 1. POTS (postural orthostatic tachycardia syndrome) - ICD9: 427.89, ICD10: G90.A (primary diagnosis) - ONDANSETRON 4 MG DISINTEGRATING TABLET - BASIC METABOLIC PANEL 2. Nausea - ICD9: 787.02, ICD10: R11.0 - ONDANSETRON 4 MG DISINTEGRATING TABLET ASHLY Banda Danielle, APRN.CNP 01/20/2025 9:14 AM Signed Magnesium glycinate Allergies As of Date: 01/20/2025 (No Known Allergies) Date Reviewed: 01/20/2025 Reviewed by: Jaden Torres MA - Fully Assessed Reason for Visit: pots flare [Other] Primary Visit Diagnosis:POTS (postural orthostatic tachycardia syndrome) [G90.A] Other Visit Diagnosis:Nausea [R11.0] Order(s):ondansetron orally disintegrating (ZOFRAN ODT) 4 mg disintegrating tabletTake 1 tablet by mouth every 8 hours as needed for nausea/vomiting.Disp: 30 tabletRfl: 1 BASIC METABOLIC PANEL [SQBMP] Order #: [id number] FUTURE Prescriptions as of 01/20/2025 - ondansetron orally disintegrating (ZOFRAN ODT) 4 mg disintegrating tablet Take 1 tablet by mouth every 8 hours as needed for nausea/vomiting. - DULoxetine (CYMBALTA) 40 mg cpDR Take 1 capsule by mouth once daily. - ergocalciferol 50,000 unit capsule (VITAMIN D2, DRISDOL) Take 1 tablet by mouth twice weekly [id number], then decrease to 1 tablet weekly. - propranolol (INDERAL) 10 mg tablet Take 1 tablet by mouth two times a day. - rizatriptan (MAXALT) 10 mg tablet Take 1 tablet by mouth as needed. Facility-Administered Medications as of 01/20/2025 - acetylcholine 10% solution - [facility] compounding Problem List As Of Date 01/20/2025 Noted Resolved Glaucoma suspect of both eyes [H40.003] 12/15/2019 Headaches [ (more content not included)... Normal [facility] CNPJess 11-22-2024 CNPN Telephone (OBGYWM) -------- YUKO HERRING ([id number]) 1990 F Date Time Provider Department 11/22/24 IGOR GARCIA OBNEVAEH During your visit today, we recorded the following information about you: Igor Garcia MD 11/22/2024 10:09 AM Signed Unable to reach patient by phone. +BV will tx with metronidazole. Please let her know not to consume alcohol while being treated. MD Ivania Arce Trisha, RN 11/24/2024 9:46 AM Addendum Left message for patient to call office or check GiveNext message. Jes Redd RN Allergies As of Date: 11/22/2024 (No Known Allergies) Date Reviewed: 10/11/2024 Reviewed by: Jaden Torres MA - Fully Assessed Reason for Visit: Results [95] Order(s):metroNIDAZOLE (FLAGYL) 500 mg tabletTake 1 tablet by mouth two times a day for 7 days.Disp: 14 tabletRfl: 0 Prescriptions as of 11/24/2024 - metroNIDAZOLE (FLAGYL) 500 mg tablet Take 1 tablet by mouth two times a day for 7 days. - DULoxetine (CYMBALTA) 40 mg cpDR Take 1 capsule by mouth once daily. - ergocalciferol 50,000 unit capsule (VITAMIN D2, DRISDOL) Take 1 tablet by mouth twice weekly [id number], then decrease to 1 tablet weekly. - propranolol (INDERAL) 10 mg tablet Take 1 tablet by mouth two times a day. - rizatriptan (MAXALT) 10 mg tablet Take 1 tablet by mouth as needed. Facility-Administered Medications as of 11/24/2024 - acetylcholine 10% solution - [facility] compounding Problem List As Of Date 11/22/2024 Noted Resolved Glaucoma suspect of both eyes [H40.003] 12/15/2019 Headaches [R51.9] 12/15/2019 POTS (postural orthostatic tachycardia syndrome*01/29/2021 Ankle pain [M25.579] 06/19/2023 Diagnosed: 06/19/2023 Chest discomfort [R07.89] 12/28/2022 Diagnosed: 06/19/2023 Shortness of breath at rest [R06.02] 06/19/2023 Diagnosed: 06/19/2023 Generalized weakness [R53.1] 02/02/2021 Diagnosed: 06/19/2023 History of ectopic [Z87.59] 06/19/2023 Diagnosed: 06/19/2023 History of spontaneous [Z87.59] 06/19/2023 Diagnosed: 06/19/2023 Itching [L29.9] 06/19/2023 Diagnosed: 06/19/2023 Loss of hair [L65.9] 06/19/2023 Diagnosed: 06/19/2023 Palpitations [R00.2] 06/19/2023 Diagnosed: 06/19/2023 Pre-syncope [R55] 06/19/2023 Diagnosed: 06/19/2023 Sinus tachycardia [R00.0] 02/01/2021 Diagnosed: 06/19/2023 Trachyonychia [L60.3] 06/19/2023 Diagnosed: 06/19/2023 Systolic heart failure (HCC) [I50.20] 06/19/2023 Diagnosed: 06/19/2023 Postural dizziness with presyncope [R42, R55] 02/01/2021 Diagnosed: 06/19/2023 Weight gain [R63.5] 11/06/2023 Diagnosed: 11/06/2023 Obesity, Class I, BMI 30-34.9 [E66.811] 11/07/2023 Prescriptions ordered this encounter Disp Refills Start End METRONIDAZOLE 500 MG TABLET 14 t* 0 11/22/2024 11/29/2024 Route: ORAL Sig: Take 1 tablet by mouth two times a day for 7 days. Encounter Status:Closed by IGOR GARCIA on 11/22/24 Normal [facility] BACTERIAL VAGINOSIS NAATon 0 11-19-2024 Lactobacillus crispatus+gasseri+sonya senii + Gardnerella vaginalis + Atopobium vaginae rRNA YESENIA+probe Ql (Vag fld) Detected Abnormal Not detected [facility] Comment on above: Order Comment: Speci men Type: SWABOrdering Facility: [facility] Address: [address] [place] [address] Performed By: #### B VAMP, CVTV ####[facility] LABCLIA [id number] [place] [address] [place] Bacteria Ur Culton Bacteria identified Cx Nom (U) ORGANISM ID: 1 50,000-<100,000 CFU/ml Normal urogenital jimbo Normal [facility] Comment on above: Performed By: #### 6 30-4 ####[facility] LABCLIA [id number] [place] [address] [place] NNAMDI/TRICHOMONAS NAATon 0 11-19-2024 C. glabrata RNA YESENIA+probe Ql (Vag fld) Not detected Normal Not detected [facility] Comment on above: Order Comment: Speci men Type: SWABOrdering Facility: [facility] Address: [address] [place] [address] Performed By: #### B VAMP, CVTV ####[facility] LABCLIA [id number] [place] [address] [place] Nnamdi sp DNA YESENIA+probe Ql (Vag fld) Not detected Normal Not detected [facility] Comment on above: Order Comment: Speci men Type: SWABOrdering Facility: [facility] Address: [address] [place] [address] Result Comment: The Nnamdi species group target includes C. albicans, C. tropicalis, C. parapsilosis, and C. dubliniensis. Performed By: #### B VAMP, CVTV ####[facility] LABCLIA [id number] [place] [address] [place] T. vaginalis DNA YESENIA+probe Ql (Unsp spec) Not detected Normal Not detected [facility] Comment on above: Order Comment: Speci men Type: SWABOrdering Facility: [facility] Address: [address] [place] [address] Performed By: #### Rahul VAMP, CVTV ####[facility] LABCLIA [id number] [place] [address] [place] CNOVon 11-19-2024 CNOV Office Visit (OBGYWM ) -------- YUKO HERRING ([id number]) 1990 F Date Time Provider Department 11/19/24 9:30 AM IGOR GARCIA OBNEVAEH During your visit today, we recorded the following information about you: Blood pressure Weight Last Period 72.1 kg 10/24/24 Igor Garcia MD 11/19/2024 9:58 AM Signed Manager Private offered: Patient accepts, visit chaperoned by Kenney Vazquez MA. Yuko Herring is a 34 year old female who presents for problem visit pain with urination and BV for 6 month(s). Pain is usually sudden onset associated with intercourse and then aches for a few days. Discomfort with urination after intercourse and sometimes spotting. HPI: as above OB History T2 L2 SAB0 IAB0 Ectopic1 Multiple0 Live Births2 Evidence Custodian History LMP: 07/06/2024, Having periods Age at Menarche: Age at First : Age at Menopause: Evidence Custodian History Comments: Sexual Activity: Not Asked; Male; Not asked Contraception: Condom PAST MEDICAL HISTORY Diagnosis Date Cervical radiculopathy Depression Headaches POTS (postural orthostatic tachycardia syndrome) secondary to covid vaccine per patient PAST SURGICAL HISTORY Procedure Laterality Date PAST SURGICAL HISTORY OF 2011 Ectopic PAST SURGICAL HISTORY OF 12/2021 wisdom teeth extraction FAMILY HISTORY Problem Relation Age of Onset Thyroid Cancer Mother Glaucoma Father Thyroid Cancer Sister Breast Cancer Sister Glaucoma Paternal Grandfather Social History Tobacco Use Smoking status: Never Smokeless tobacco: Never Vaping Use Vaping status: current everyday user Substances: THC Substance Use Topics Alcohol use: Yes Alcohol/week: 7.0 standard drinks of alcohol Types: 7 Glasses of wine per week Drug use: Yes Types: Marijuana Current Outpatient Medications Medication Sig DULoxetine (CYMBALTA) 40 mg cpDR Take 1 capsule by mouth once daily. ergocalciferol 50,000 unit capsule (VITAMIN D2, DRISDOL) Take 1 tablet by mouth twice weekly [id number], then decrease to 1 tablet weekly. propranolol (INDERAL) 10 mg tablet Take 1 tablet by mouth two times a day. rizatriptan (MAXALT) 10 mg tablet Take 1 tablet by mouth as needed. Current Facility-Administered Medications Medication Dose Route Frequency acetylcholine 10% solution - [facility] compound[facility] 20 mL IRRIGATION ONE TIME Allergies As of Date: 11/19/2024 (No Known Allergies) Fully Assessed 10/11/2024 REVIEW OF SYSTEMS Abdomen: No bloating, early satiety, indigestion, or increased flatulence. No abdominal pain, nausea, vomiting, diarrhea, or constipation. Bladder: as above. Breast: No breast lumps, nipple d/c, overlying skin changes, redness or skin retraction. Expanded ROS: N/A Allergies and current medication updated:Yes SENSITIVE EXAM: The sensitive examination was discussed with the Patient or Patient's Authorized Welfare Manager. As applicable, any other physician, advance practice provider, medical student, or other health professional student that will be observing or involved in the sensitive examination for educational or training purposes was discussed with the Patient or Authorized Welfare Manager. The Patient or Authorized Welfare Manager has agreed to proceed with the sensitive examination. (Sensitive examination includes inspection and/or palpation of the breasts, pelvis, prostate and anorectal regions). EXAM: BP 104/74 Wt 159 lb (72.1kg) LMP 10/24/2024 GENERAL: pleasant, female in no apparent distress ABDOMEN: soft, non-tender, and no masses PELVIC: external genitalia normal, normal Bartholin's glands, urethra, [place]'s glands, no vulvar lesions, no cervical lesions, good vaginal support, physiologic discharge present, normal appearing perineal body and perianal region BIMANUAL: uterus normal size, shape and consistency, no adnexal masses, non-tender, and adnexal mass left-sided ASSESSMENT AND PLAN: Assessment AND Plan Dysuria Orders: UA DIP, URINE (POC) BACTERIAL CULTURE, URINE Vaginal odor Orders: NNAMDI/TRICHOMONAS NAAT BACTERIAL VAGINOSIS NAAT Vaginal discharge Orders: NNAMDI/TRICHOMONAS NAAT BACTERIAL VAGINOSIS NAAT Left adnexal tenderness Orders: US FEMALE PELVIS TRANSVAG; Future Given trace blood/LE will give 3 days of macrobid pending culture ftft 30 min Igor Garcia MD Allergies As of Date: 11/19/2024 (No Known Allergies) Date Reviewed: 10/11/2024 Reviewed by: Jaden Torres MA - Fully Assessed Reason for Visit: problem visit [Other] Primary Visit Diagnosis:Vaginal odor [N89.8] Other Visit Diagnoses:Dysuria [R30.0] Vaginal discharge [N89.8] Left adnexal tenderness [R10.2] Order(s):UA DIP, URINE (POC) [[id number]] Order #: [id number]. #:[id number] BACTERIAL CULTURE, URINE [SQURCUL] Order #: [id number] NNAMDI/TRICHOMONAS NAAT [SQCVTV] O (more content not included)... [facility] YUKO HERRING ([id number]) 1990 F Date Time Provider Department 11/19/24 FABIÁN MARTIN [facility] During your visit today, we recorded the following information about you: Jaden Torres MA 11/19/2024 12:54 PM Signed Type of form: [place] Form received via walk in When form is completed, call patient for knot picker cloth Form has been forwarded to Nurse Practitioner: HARRY Rutherford Danielle, WASTEWATER PROJECT MANAGER.[facility] 11/19/2024 1:04 PM Signed Completed. Please notify patient. Jaden Torres MA 11/22/2024 9:01 AM Signed Left detailed message for pt notifying her that paperwork would be available for pickup in medical records Jaden Torres MA Allergies As of Date: 11/19/2024 (No Known Allergies) Date Reviewed: 10/11/2024 Reviewed by: Jaden Torres MA - Fully Assessed Reason for Visit: [facility] Paperwork [[id number]] Prescriptions as of 11/22/2024 - nitrofurantoin monohydrate and macrocrystal (MACROBID) 100 mg capsule Take 1 capsule by mouth two times a day for 3 days. - DULoxetine (CYMBALTA) 40 mg cpDR Take 1 capsule by mouth once daily. - ergocalciferol 50,000 unit capsule (VITAMIN D2, DRISDOL) Take 1 tablet by mouth twice weekly [id number], then decrease to 1 tablet weekly. - propranolol (INDERAL) 10 mg tablet Take 1 tablet by mouth two times a day. - rizatriptan (MAXALT) 10 mg tablet Take 1 tablet by mouth as needed. Facility-Administered Medications as of 11/22/2024 - acetylcholine 10% solution - [facility] Problem List As Of Date 11/19/2024 Noted Resolved Glaucoma suspect of both eyes [H40.003] 12/15/2019 Headaches [R51.9] 12/15/2019 POTS (postural orthostatic tachycardia syndrome*01/29/2021 Ankle pain [M25.579] 06/19/2023 Diagnosed: 06/19/2023 Chest discomfort [R07.89] 12/28/2022 Diagnosed: 06/19/2023 Shortness of breath at rest [R06.02] 06/19/2023 Diagnosed: 06/19/2023 Generalized weakness [R53.1] 02/02/2021 Diagnosed: 06/19/2023 History of ectopic [Z87.59] 06/19/2023 Diagnosed: 06/19/2023 History of spontaneous [Z87.59] 06/19/2023 Diagnosed: 06/19/2023 Itching [L29.9] 06/19/2023 Diagnosed: 06/19/2023 Loss of hair [L65.9] 06/19/2023 Diagnosed: 06/19/2023 Palpitations [R00.2] 06/19/2023 Diagnosed: 06/19/2023 Pre-syncope [R55] 06/19/2023 Diagnosed: 06/19/2023 Sinus tachycardia [R00.0] 02/01/2021 Diagnosed: 06/19/2023 Trachyonychia [L60.3] 06/19/2023 Diagnosed: 06/19/2023 Systolic heart failure (HCC) [I50.20] 06/19/2023 Diagnosed: 06/19/2023 Postural dizziness with presyncope [R42, R55] 02/01/2021 Diagnosed: 06/19/2023 Weight gain [R63.5] 11/06/2023 Diagnosed: 11/06/2023 Obesity, Class I, BMI 30-34.9 [E66.811] 11/07/2023 Encounter Status:Closed by WORKMAN JADEN RIVAS on 11/22/24 [facility]IP, URINE (POC)on 2024 BILIRUBIN UA (POCT) Negative Negative [facility] CLARITY UA (POCT) Clear [facility] COLOR UA (POCT) Yellow [facility] GLUCOSE UA (POCT) Negative Negative mg/dL [facility] Hemoglobin Ql (U) Trace-intact Abnormal Negative [facility] Interpretation and review of laboratory results Abnormal [facility] KETONE UA (POCT) Negative Negative mg/dL [facility] LEUKOCYTES UA (POCT) Small Abnormal Negative [facility] NITRITE UA (POCT) Negative Negative [facility] PH UA (POCT) 5.5 4.5 - 8.0 [facility] Protein Ql (U) Negative Negative mg/dL [facility] SPECIFIC GRAVITY UA (POCT) >=1.030 1.005 - 1.030 [facility] UROBILINOGEN UA (POCT) 0.2 Normal E.U./dL [facility] Location:[facility], [address] [place], [place], [id number] [place] [address] POINT OF CARE [facility] US FEMALE PELVIS TRANSVAGon 11-19-2024 US FEMALE PELVIS TRANSVAG * * *Final Report* * * DATE OF EXAM: Nov 19 2024 1:36PM U 1060 - US FEMALE PELVIS TRANSVAG / PROCEDURE REASON: Left adnexal tenderness * * * * Physician Interpretation * * * * EXAMINATION: TRANSVAGINAL AND LIMITED TRANSABDOMINAL FEMALE PELVIC ULTRASOUND CLINICAL HISTORY: Left adnexal tenderness and fullness TECHNIQUE: Sonography of the pelvis was performed by transvaginal and transabdominal (limited) techniques. Images were obtained and stored in a permanent archive. MQ: [facility]_2021 COMPARISON: Ultrasound of 10/31/2023 RESULT: Uterus: LMP 10/24/2024 -Size: 8.5 x 3.9 x 4.9 cm -Orientation: Anteverted -Endometrial echo complex: Evaluation of the endometrium was adequate. No endometrial abnormality. The endometrial echo complex measured 1.9 cm. -Cervix: Unremarkable. -Adenomyosis assessment: There are no sonographic findings of adenomyosis. -Fibroids: There are no fibroids. Right Ovary: 5.6 x 3.3 x 5.5 cm Simple right ovarian cyst of 4.5 cm. Additional right corpus luteum cyst of 1.7 cm. Left Ovary: 3.7 x 2.9 x 3.2 cm 2.5 cm cyst with single thin septation. Avascular. Free Fluid: Small amount of free pelvic fluid IMPRESSION: Bilateral O-RADS Category 2 lesions. Almost certainly benign. No specific follow-up necessary Small amount of free pelvic fluid. Likely physiologic Pourer Crane Ladle: PSCRahul Transcribe Date/Time: Nov 19 2024 4:14P Dictated by : GAGAN CUADRA MD This examination was interpreted and the report reviewed and electronically signed by: GAGAN CUADRA MD on Nov 19 2024 4:48PM EST [id number] Normal [facility] Pelvis transvaginalon IMPRESSION: Bilateral O-RADS Category 2 lesions. Almost certainly benign. No specific follow-up necessary Small amount of free pelvic fluid. Likely physiologic Pourer Crane Ladle: [facility] Transcribe Date/Time: Nov 19 2024 4:14P Dictated by : GAGAN CUADRA MD This examination was interpreted and the report reviewed and electronically signed by: GAGAN CUADRA MD on Nov 19 2024 4:48PM [facility] DIVISION OF RADIOLOGY * * *Final Report* * * DATE OF EXAM: Nov 19 2024 1:36PM [facility] 1060 - US FEMALE PELVIS TRANSVAG / PROCEDURE REASON: Left adnexal tenderness * * * * Physician Interpretation * * * * EXAMINATION: TRANSVAGINAL AND LIMITED TRANSABDOMINAL FEMALE PELVIC ULTRASOUND CLINICAL HISTORY: Left adnexal tenderness and fullness TECHNIQUE: Sonography of the pelvis was performed by transvaginal and transabdominal (limited) techniques. Images were obtained and stored in a permanent archive. MQ: [facility]_2021 COMPARISON: Ultrasound of 10/31/2023 RESULT: Uterus: LMP 10/24/2024 -Size: 8.5 x 3.9 x 4.9 cm -Orientation: Anteverted -Endometrial echo complex: Evaluation of the endometrium was adequate. No endometrial abnormality. The endometrial echo complex measured 1.9 cm. -Cervix: Unremarkable. -Adenomyosis assessment: There are no sonographic findings of adenomyosis. -Fibroids: There are no fibroids. Right Ovary: 5.6 x 3.3 x 5.5 cm Simple right ovarian cyst of 4.5 cm. Additional right corpus luteum cyst of 1.7 cm. Left Ovary: 3.7 x 2.9 x 3.2 cm 2.5 cm cyst with single thin septation. Avascular. Free Fluid: Small amount of free pelvic fluid DIVISION OF RADIOLOGY Provider, Blair Bhatti - 11/19/2024 * * *Final Report* * * DATE OF EXAM: Nov 19 2024 1:36PM [facility] 1060 - US FEMALE PELVIS TRANSVAG / PROCEDURE REASON: Left adnexal tenderness * * * * Physician Interpretation * * * * EXAMINATION: TRANSVAGINAL AND LIMITED TRANSABDOMINAL FEMALE PELVIC ULTRASOUND CLINICAL HISTORY: Left adnexal tenderness and fullness TECHNIQUE: Sonography of the pelvis was performed by transvaginal and transabdominal (limited) techniques. Images were obtained and stored in a permanent archive. MQ: [facility]_2021 COMPARISON: Ultrasound of 10/31/2023 RESULT: Uterus: LMP 10/24/2024 -Size: 8.5 x 3.9 x 4.9 cm -Orientation: Anteverted -Endometrial echo complex: Evaluation of the endometrium was adequate. No endometrial abnormality. The endometrial echo complex measured 1.9 cm. -Cervix: Unremarkable. -Adenomyosis assessment: There are no sonographic findings of adenomyosis. -Fibroids: There are no fibroids. Right Ovary: 5.6 x 3.3 x 5.5 cm Simple right ovarian cyst of 4.5 cm. Additional right corpus luteum cyst of 1.7 cm. Left Ovary: 3.7 x 2.9 x 3.2 cm 2.5 cm cyst with single thin septation. Avascular. Free Fluid: Small amount of free pelvic fluid IMPRESSION IMPRESSION: Bilateral O-RADS Category 2 lesions. Almost certainly benign. No specific follow-up necessary Small amount of free pelvic fluid. Likely physiologic Pourer Crane Ladle: PSCB Transcribe Date/Time: Nov 19 2024 4:14P Dictated by : GAGAN CUADRA MD This examination was interpreted and the report reviewed and electronically signed by: GAGAN CUADRA MD on Nov 19 2024 4:48PM EST [facility] Radiology Study observation (narrative) [facility] US Pelvis transvaginalOrdere d By: [facility] Provider on 11-19-2024 [facility] CNOVon 10-11-2024 CNOV Office Visit (FAMPWS ) -------- YUKO HERRING ([id number]) 1990 F Date Time Provider Department 10/11/24 11:00 AM FABIÁN MARTIN During your visit today, we recorded the following information about you: Pulse Blood pressure Weight 60/minute 107/71 72.6 kg Fabián Martin, WASTEWATER PROJECT MANAGER.FINISHING RANGE OPERATOR 10/11/2024 11:02 AM Signed Chief Complaint Patient presents with: Follow Up HPI Yuko Herring is a 33 year old female who presents here today for Above Complaints.. Patient presents for follow up. Patient reports she did not start wellbutrin, decided she wanted to change some things in her lifestyle first. Reports she is going to therapy, changed her eating and exercising habits and is focusing on herself. Past medical history, appointments, medications, allergies reviewed. Previous Medical History PAST MEDICAL HISTORY Diagnosis Date Cervical radiculopathy Depression Headaches POTS (postural orthostatic tachycardia syndrome) secondary to covid vaccine per patient Previous Surgical History PAST SURGICAL HISTORY Procedure Laterality Date PAST SURGICAL HISTORY OF 2011 Ectopic PAST SURGICAL HISTORY OF 12/2021 wisdom teeth extraction Family History FAMILY HISTORY Problem Relation Age of Onset Thyroid Cancer Mother Glaucoma Father Thyroid Cancer Sister Breast Cancer Sister Glaucoma Paternal Grandfather Patient Allergies ALLERGIES No Known Allergies Current Medications Current Outpatient Medications on File Prior to Visit Medication Sig DULoxetine (CYMBALTA) 40 mg cpDR Take 1 capsule by mouth once daily. ergocalciferol 50,000 unit capsule (VITAMIN D2, DRISDOL) Take 1 tablet by mouth twice weekly [id number], then decrease to 1 tablet weekly. propranolol (INDERAL) 10 mg tablet Take 1 tablet by mouth two times a day. rizatriptan (MAXALT) 10 mg tablet Take 1 tablet by mouth as needed. buPROPion XL (WELLBUTRIN XL) 150 mg 24 hr tablet Take 1 tablet by mouth once daily. (Patient not taking: Reported on 10/11/2024) Current Facility-Administered Medications on File Prior to Visit Medication acetylcholine 10% solution - [facility] Social History Social History Tobacco Use Smoking status: Never Smokeless tobacco: Never Vaping Use Vaping status: current everyday user Substances: THC Substance Use Topics Alcohol use: Yes Alcohol/week: 7.0 standard drinks of alcohol Types: 7 Glasses of wine per week Drug use: Yes Types: Marijuana Review of Symptoms REVIEW OF SYSTEMS SEE HPI EXAM: BP 107/71 Pulse 60 Wt 72.6 kg (160 lb) LMP 07/06/2024 BMI 27.46 kg/m? General Appearance: Well appearing, alert, in no acute distress, well-hydrated, well nourished. Health Maintenance List Influenza Vaccine(1) due on 06/20/2024 Covid-19 Vaccine(2 - season) due on 06/20/2024 Hepatitis B Vaccine(1 of 3 - 19+ 3-dose series) due on 08/24/2025 Depression Screening due on 02/18/2025 Anxiety Screening due on 02/18/2025 Cervical Cancer Screening due on 01/18/2027 DTaP,Tdap,Td Vaccine(2 - Td or Tdap) due on 03/16/2034 HPV Vaccine Completed Hepatitis C Screening Completed HIV Screening Completed ASSESSMENT/PLAN: 1. Depression, unspecified depression type - ICD9: 311, ICD10: F32.A (primary diagnosis) -Continue current medication regimen 2. Attention deficit hyperactivity disorder (ADHD), unspecified ADHD type - ICD9: 314.01, ICD10: F90.9 -Continue current medication regimen Fabián Martin APRN.FINISHING RANGE OPERATOR Allergies As of Date: 10/11/2024 (No Known Allergies) Date Reviewed: 10/11/2024 Reviewed by: Jaden Torres MA - Fully Assessed Reason for Visit: Follow Up [171] Primary Visit Diagnosis:Depression, unspecified depression type [F32.A] Other Visit Diagnosis:Attention deficit hyperactivity disorder (ADHD), unspecified ADHD type [F90.9] Prescriptions as of 10/11/2024 - DULoxetine (CYMBALTA) 40 mg cpDR Take 1 capsule by mouth once daily. - ergocalciferol 50,000 unit capsule (VITAMIN D2, DRISDOL) Take 1 tablet by mouth twice weekly [id number], then decrease to 1 tablet weekly. - propranolol (INDERAL) 10 mg tablet Take 1 tablet by mouth two times a day. - rizatriptan (MAXALT) 10 mg tablet Take 1 tablet by mouth as needed. Facility-Administered Medications as of 10/11/2024 - acetylcholine 10% solution - [facility] Problem List As Of Date 10/11/2024 Noted Resolved Glaucoma suspect of both eyes [H40.003] 12/15/2019 Headaches [R51.9] 12/15/2019 POTS (postural orthostatic tachycardia syndrome*01/29/2021 Ankle pain [M25.579] 06/19/2023 Diagnosed: 06/19/2023 Chest discomfort [R07.89] 12/28/2022 Diagnosed: 06/19/2023 Shortness of breath at rest [R06.02] 06/19/2023 Diagnosed: 06/19/2023 Generalized weakness [R53.1] 02/02/2021 Diagnosed: 06/19/2023 History of ectopic [Z87.59] 06/19/2023 Diagnosed: 06/19/2023 History (more content not included)... Normal [facility]20[facility] -------- YUKO HERRING ([id number]) 1990 F Date Time Provider Department 08/25/24 FABIÁN MARTIN [facility] During your visit today, we recorded the following information about you: Fabián Martin, RENÉ.FINISHING RANGE OPERATOR 08/25/2024 8:04 AM Signed Please let patient know her vitamin d is low. Her other labs are normal. I have sent in vitamin d supplementation Ale Lugo LPN 08/25/2024 9:37 AM Signed Message left for patient to return call to review provider's message with her. JESSI Smith Barbara, FREDDY 08/25/2024 10:10 AM Signed Pt called and is notified of results and given providers message. Pt voices understanding. Notified of prescription at [facility] [place]. Pt asking if it could be sent to [facility]. Explained to pt that she can call [facility] and the pharmacist can get the prescription from [facility]. Took [facility] out as a pharmacy choice as pt uses [facility] now. Allergies As of Date: 08/25/2024 (No Known Allergies) Date Reviewed: 08/24/2024 Reviewed by: Jaden Torres MA - Fully Assessed Reason for Visit: Results [95] Primary Visit Diagnosis:Vitamin D deficiency [E55.9] Order(s):ergocalciferol 50,000 unit capsule (VITAMIN D2, DRISDOL)Take 1 tablet by mouth twice weekly [id number], then decrease to 1 tablet weekly.Disp: 16 capsuleRfl: 3 Prescriptions as of 08/25/2024 - ergocalciferol 50,000 unit capsule (VITAMIN D2, DRISDOL) Take 1 tablet by mouth twice weekly [id number], then decrease to 1 tablet weekly. - buPROPion XL (WELLBUTRIN XL) 150 mg 24 hr tablet Take 1 tablet by mouth once daily. - propranolol (INDERAL) 10 mg tablet Take 1 tablet by mouth two times a day. - DULoxetine (CYMBALTA) 40 mg cpDR Take 1 capsule by mouth once daily. - rizatriptan (MAXALT) 10 mg tablet Take 1 tablet by mouth as needed. Facility-Administered Medications as of 08/25/2024 - acetylcholine 10% solution - [facility] Problem List As Of Date 08/25/2024 Noted Resolved Glaucoma suspect of both eyes [H40.003] 12/15/2019 Headaches [R51.9] 12/15/2019 POTS (postural orthostatic tachycardia syndrome*01/29/2021 Ankle pain [M25.579] 06/19/2023 Diagnosed: 06/19/2023 Chest discomfort [R07.89] 12/28/2022 Diagnosed: 06/19/2023 Shortness of breath at rest [R06.02] 06/19/2023 Diagnosed: 06/19/2023 Generalized weakness [R53.1] 02/02/2021 Diagnosed: 06/19/2023 History of ectopic [Z87.59] 06/19/2023 Diagnosed: 06/19/2023 History of spontaneous [Z87.59] 06/19/2023 Diagnosed: 06/19/2023 Itching [L29.9] 06/19/2023 Diagnosed: 06/19/2023 Loss of hair [L65.9] 06/19/2023 Diagnosed: 06/19/2023 Palpitations [R00.2] 06/19/2023 Diagnosed: 06/19/2023 Pre-syncope [R55] 06/19/2023 Diagnosed: 06/19/2023 Sinus tachycardia [R00.0] 02/01/2021 Diagnosed: 06/19/2023 Trachyonychia [L60.3] 06/19/2023 Diagnosed: 06/19/2023 Systolic heart failure (HCC) [I50.20] 06/19/2023 Diagnosed: 06/19/2023 Postural dizziness with presyncope [R42, R55] 02/01/2021 Diagnosed: 06/19/2023 Weight gain [R63.5] 11/06/2023 Diagnosed: 11/06/2023 Obesity, Class I, BMI 30-34.9 [E66.811] 11/07/2023 Prescriptions ordered this encounter Disp Refills Start End ERGOCALCIFEROL (VITAMIN D2) 1,250 MC* 16 c* 3 08/25/2024 Sig: Take 1 tablet by mouth twice weekly [id number], then decrease to 1 tablet weekly. Encounter Status:Closed by MAIRA NEGRON on 08/25/24 Normal [facility] 25(OH)D3 [facility] 25-hydroxyvitamin D3 [Mass/Vol] 22.5 ng/mL Low 31.0-80.0 [facility] Comment on above: Order Comment: Speci men Type: BLOOD SPECIMENOrdering Facility: [facility] Address: [address] [place] [address] [place] [address] Result Comment: Clas sification of 25 [place] Vitamin D status: Deficiency/Insufficiency: < or = 30 ng/ml. Sufficiency/Optimal Levels: 31-80 ng/mL Toxicity: > 100 ng/mL. Test performed by chemiluminescent immunoassay. Performed By: #### 1 989-3 ####[facility] LABCLIA [id number] [place] [address] [place] CBC W Auto Differential pane l (Bld)on 08-24-2024 Basophils (Bld) [#/Vol] 0.08 10*3/uL Normal <0.11 [facility] Comment on above: Order Comment: Speci men Type: BLOOD SPECIMENOrdering Facility: [facility] Address: [address] [place] [address] Performed By: #### 5 7021-8 ####[facility] LABCLIA [id number] [place] [address] [place] Basophils/100 WBC (Bld) 1.5 % Normal [facility] Comment on above: Order Comment: Speci men Type: BLOOD SPECIMENOrdering Facility: [facility] Address: [address] [place] [address] Performed By: #### 5 7021-8 ####[facility] LABCLIA [id number] [place] [address] [place] Differential cell count method Nom (Bld) Auto Normal [facility] Comment on above: Order Comment: Speci men Type: BLOOD SPECIMENOrdering Facility: [facility] Address: [address] [place] [address] Performed By: #### 5 7021-8 ####[facility] LABCLIA [id number] [place] [address] [place] Eosinophils (Bld) [#/Vol] 0.58 10*3/uL High <0.46 [facility] Comment on above: Order Comment: Speci men Type: BLOOD SPECIMENOrdering Facility: [facility] Address: [address] [place] [address] Performed By: #### 5 7021-8 ####[facility] LABCLIA [id number] [place] [address] [place] Eosinophils/100 WBC (Bld) 10.7 % Normal [facility] Comment on above: Order Comment: Speci men Type: BLOOD SPECIMENOrdering Facility: [facility] Address: [address] [place] [address] Performed By: #### 5 7021-8 ####[facility] LABIA [id number] [place] [address] [place] Erythrocyte distribution width (RBC) [Ratio] 12.7 % Normal 11.5-15.0 [facility] Comment on above: Order Comment: Speci men Type: BLOOD SPECIMENOrdering Facility: [facility] Address: [address] [place] [address] Performed By: #### 5 7021-8 ####[facility] LABIA [id number] [place] [address] [place] Hematocrit (Bld) [Volume fraction] 40.9 % Normal 36.0-46.0 [facility] Comment on above: Order Comment: Speci men Type: BLOOD SPECIMENOrdering Facility: [facility] Address: [address] [place] [address] Performed By: #### 5 7021-8 ####[facility] LABIA [id number] [place] [address] [place] Hemoglobin (Bld) [Mass/Vol] 13.2 g/dL Normal 11.5-15.5 [facility] Comment on above: Order Comment: Speci men Type: BLOOD SPECIMENOrdering Facility: [facility] Address: [address] [place] [address] Performed By: #### 5 7021-8 ####[facility] LABCLIA [id number] [place] [address] [place] Immature granulocytes (Bld) [#/Vol] 10*3/uL Normal <0.10 [facility] Comment on above: Order Comment: Speci men Type: BLOOD SPECIMENOrdering Facility: [facility] Address: [address] [place] [address] Performed By: #### 5 7021-8 ####[facility] LABCLIA [id number] [place] [address] [place] Immature granulocytes/100 WBC (Bld) 0.0 % Normal [facility] Comment on above: Order Comment: Speci men Type: BLOOD SPECIMENOrdering Facility: [facility] Address: [address] [place] [address] Performed By: #### 5 7021-8 ####[facility] LABCLIA [id number] [place] [address] [place] Lymphocytes (Bld) [#/Vol] 1.93 10*3/uL Normal 1.00-4.00 [facility] Comment on above: Order Comment: Speci men Type: BLOOD SPECIMENOrdering Facility: [facility] Address: [address] [place] [address] Performed By: #### 5 7021-8 ####[facility] LABCLIA [id number] [place] [address] [place] Lymphocytes/100 WBC (Bld) 35.7 % Normal [facility] Comment on above: Order Comment: Speci men Type: BLOOD SPECIMENOrdering Facility: [facility] Address: [address] [place] [address] Performed By: #### 5 7021-8 ####[facility] LABCLIA [id number] [place] [address] [place] MCH (RBC) [Entitic mass] 30.8 pg Normal 26.0-34.0 [facility] Comment on above: Order Comment: Speci men Type: BLOOD SPECIMENOrdering Facility: [facility] Address: [address] [place] [address] Performed By: #### 5 7021-8 ####[facility] LABCLIA [id number] [place] [address] [place] MCHC (RBC) [Mass/Vol] 32.3 g/dL Normal 30.5-36.0 [facility] Comment on above: Order Comment: Speci men Type: BLOOD SPECIMENOrdering Facility: [facility] Address: [address] [place] [address] Performed By: #### 5 7021-8 ####[facility] LABIA [id number] [place] [address] [place] MCV (RBC) [Entitic vol] 95.3 fL Normal 80.0-100.0 [facility] Comment on above: Order Comment: Speci men Type: BLOOD SPECIMENOrdering Facility: [facility] Address: [address] [place] [address] Performed By: #### 5 7021-8 ####[facility] LABIA [id number] [place] [address] [place] Monocytes (Bld) [#/Vol] 0.35 10*3/uL Normal <0.87 [facility] Comment on above: Order Comment: Speci men Type: BLOOD SPECIMENOrdering Facility: [facility] Address: [address] [place] [address] Performed By: #### 5 7021-8 ####[facility] LABIA [id number] [place] [address] [place] Monocytes/100 WBC (Bld) 6.5 % Normal [facility] Comment on above: Order Comment: Speci men Type: BLOOD SPECIMENOrdering Facility: [facility] Address: [address] [place] [address] Performed By: #### 5 7021-8 ####[facility] LABIA [id number] [place] [address] [place] Neutrophils (Bld) [#/Vol] 2.47 10*3/uL Normal 1.45-7.50 [facility] Comment on above: Order Comment: Speci men Type: BLOOD SPECIMENOrdering Facility: [facility] Address: [address] [place] [address] Performed By: #### 5 7021-8 ####[facility] LABCLIA [id number] [place] [address] [place] Neutrophils/100 WBC (Bld) 45.6 % Normal [facility] Comment on above: Order Comment: Speci men Type: BLOOD SPECIMENOrdering Facility: [facility] Address: [address] [place] [address] Performed By: #### 5 7021-8 ####[facility] LABCLIA [id number] [place] [address] [place] Nucleated RBC (Bld) [#/Vol] 10*3/uL Normal <0.01 [facility] Comment on above: Order Comment: Speci men Type: BLOOD SPECIMENOrdering Facility: [facility] Address: [address] [place] [address] Performed By: #### 5 7021-8 ####[facility] LABIA [id number] [place] [address] [place] Nucleated RBC/100 WBC (Bld) [Ratio] 0.0 /100 WBC Normal [facility] Comment on above: Order Comment: Speci men Type: BLOOD SPECIMENOrdering Facility: [facility] Address: [address] [place] [address] Performed By: #### 5 7021-8 ####[facility] LABIA [id number] [place] [address] [place] Platelet mean volume (Bld) [Entitic vol] 11.9 fL Normal 9.0-12.7 [facility] Comment on above: Order Comment: Speci men Type: BLOOD SPECIMENOrdering Facility: [facility] Address: [address] [place] [address] Performed By: #### 5 7021-8 ####[facility] LABIA [id number] [place] [address] [place] Platelets (Bld) [#/Vol] 245 10*3/uL Normal 150-400 [facility] Comment on above: Order Comment: Speci men Type: BLOOD SPECIMENOrdering Facility: [facility] Address: [address] [place] [address] Performed By: #### 5 7021-8 ####[facility] LABCLIA [id number] [place] [address] [place] RBC (Bld) [#/Vol] 4.29 10*6/uL Normal 3.90-5.20 [facility] Comment on above: Order Comment: Speci men Type: BLOOD SPECIMENOrdering Facility: [facility] Address: [address] [place] [address] Performed By: #### 5 7021-8 ####[facility] LABCLIA [id number] [place] [address] [place] WBC (Bld) [#/Vol] 5.41 10*3/uL Normal 3.70-11.00 [facility] Comment on above: Order Comment: Speci men Type: BLOOD SPECIMENOrdering Facility: [facility] Address: [address] [place] [address] Performed By: #### 5 7021-8 ####[facility] LABCLIA [id number] [place] [address] [place] CNOVon 08-24-2024 CNOV Office Visit ([facility] ) -------- YUKO HERRING ([id number]) 1990 F Date Time Provider Department 08/24/24 8:00 AM FABIÁN MARTIN During your visit today, we recorded the following information about you: Pulse Respiration Blood pressure Weight 87/minute 14/minute 93/64 71.7 kg Fabián MartinRENÉ.FINISHING RANGE OPERATOR 08/24/2024 8:50 AM Signed Chief Complaint Patient presents with: Physical HPI Yuko Herring is a 33 year old female who presents here today for Above Complaints.. Patient presents for annual physical. Patient reports she has had a cough for about a month. Past medical history, appointments, medications, allergies reviewed. Previous Medical History PAST MEDICAL HISTORY Diagnosis Date Cervical radiculopathy Headaches POTS (postural orthostatic tachycardia syndrome) secondary to covid vaccine per patient Previous Surgical History PAST SURGICAL HISTORY Procedure Laterality Date PAST SURGICAL HISTORY OF 2011 Ectopic PAST SURGICAL HISTORY OF 12/2021 wisdom teeth extraction Family History FAMILY HISTORY Problem Relation Age of Onset Thyroid Cancer Mother Glaucoma Father Thyroid Cancer Sister Breast Cancer Sister Glaucoma Paternal Grandfather Patient Allergies ALLERGIES No Known Allergies Current Medications Current Outpatient Medications on File Prior to Visit Medication Sig DULoxetine (CYMBALTA) 40 mg cpDR Take 1 capsule by mouth once daily. propranolol (INDERAL) 10 mg tablet Take 1 tablet by mouth two times a day. rizatriptan (MAXALT) 10 mg tablet Take 1 tablet by mouth as needed. Current Facility-Administered Medications on File Prior to Visit Medication acetylcholine 10% solution - [facility] Social History Social History Tobacco Use Smoking status: Never Smokeless tobacco: Never Vaping Use Vaping status: Never Used Substance Use Topics Alcohol use: Yes Alcohol/week: 7.0 standard drinks of alcohol Types: 7 Glasses of wine per week Drug use: Never Review of Symptoms REVIEW OF SYSTEMS SEE HPI EXAM: BP 93/64 Pulse 87 Resp 14 Wt 71.7 kg (158 lb) LMP 07/06/2024 BMI 27.12 kg/m? General Appearance: Well appearing, alert, in no acute distress, well-hydrated, well nourished. Skin: Skin color, texture, turgor normal, no suspicious rashes or lesions. Neck: Supple, no adenopathy; thyroid symmetric, normal size, no bruits. Lungs: Lungs clear to auscultation. No wheezing, rhonchi, rales.. Heart: RRR without murmur, gallop, or rubs. No ectopy. Abdomen: Normal abdominal exam, Abdomen soft, non-tender. Bowel sounds normal. No masses, organomegaly. Musculoskeletal: No joint swelling, deformity, or tenderness. Peripheral Pulses: Normal. Neurologic: Gait normal. Reflexes normal and symmetric. Sensation grossly intact.. Health Maintenance List Hepatitis B Vaccine(1 of 3 - 19+ 3-dose series) Never done HPV Vaccine(3 - 3-dose SCDM series) due on 07/20/2022 Influenza Vaccine(1) due on 06/20/2024 Covid-19 Vaccine(2 - season) due on 06/20/2024 Depression Screening due on 02/18/2025 Anxiety Screening due on 02/18/2025 Cervical Cancer Screening due on 01/18/2027 DTaP,Tdap,Td Vaccine(2 - Td or Tdap) due on 03/16/2034 Hepatitis C Screening Completed HIV Screening Completed Data reviewed PHQ-9 More data may exist 03/05/2022 02/03/2023 11/05/2023 02/18/2024 08/23/2024 PHQ-9 Scores Little interest or pleasure in doing things: Not at all Several days More than half the days Several days Nearly every day Feeling down, depressed, or hopeless: More than half the days More than half the days More than half the days Several days Nearly every day Trouble falling or staying asleep, or sleeping too much More than half the days Several days More than half the days Nearly every day Several days Feeling tired or having little energy Nearly every day Nearly every day More than half the days More than half the days Nearly every day Poor appetite or overeating Not at all More than half the days More than half the days Nearly every day Nearly every day Feeling bad about yourself - or that you are a failure or have let yourself or your family down Several days More than half the days Several days Several days Nearly every day Trouble concentrating on things, such as reading the newspaper or watching television Nearly every day More than half the days More than half the days More than half the days Nearly every day Moving or speaking so slowly that other people could have noticed. Or the opposite - being so fidgety or restless that you have been moving around a lot more than usual Not at all More than half the days Several days Several days Not at all Thoughts that you would be better off , or of hurting yourself in some way Not at all Not at all Not at all Not at all Not at all PHQ-9 Score 11 15 14 14 19 Details (more content not included)... Normal [facility] Comprehensive metabolic 2000 panelon 08-24-2024 Albumin [Mass/Vol] 3.8 g/dL Low 3.9-4.9 [facility] Comment on above: Order Comment: Speci men Type: SWAB [facility] Address: [address] [place] [address] Performed By: #### Rahul VAMP, 15941-1 #### [facility] CLIA [id number] [address] [place] [address] [place] ALP [Catalytic activity/Vol] 81 U/L Normal 34-123 [facility] Comment on above: Order Comment: Speci men Type: SWAB [facility] Address: [address] [place] [address] Performed By: #### Rahul VAMP, 25286-6 #### [facility] CLIA [id number] [address] [place] [address] [place] ALT [Catalytic activity/Vol] 17 U/L Normal 7-38 [facility] Comment on above: Order Comment: Speci men Type: SWAB [facility] Address: [address] [place] [address] Performed By: #### Rahul VAMP, 49067-7 #### [facility] CLIA [id number] [address] [place] [address] [place] Anion gap [Moles/Vol] 10 mmol/L Normal 8-15 [facility] Comment on above: Order Comment: Speci men Type: SWAB [facility] Address: [address] [place] [address] Performed By: #### B VAMP, 72159-8 #### [facility] CLIA [id number] [address] [place] [address] [place] AST [Catalytic activity/Vol] 29 U/L Normal 13-35 [facility] Comment on above: Order Comment: Speci men Type: SWAB Ordering Facility: [facility] Address: [address] [place] [address] Performed By: #### Rahul VAMP, [id number] #### [facility] CLIA [id number] [address] [place] [address] [place] Bilirubin [Mass/Vol] 0.3 mg/dL Normal 0.2-1.3 [facility] Comment on above: Order Comment: Speci men Type: SWAB Ordering Facility: [facility] Address: [address] [place] [address] Performed By: #### Rahul VAMP, 36574-0 #### [facility] CLIA [id number] [address] [place] [address] [place] Calcium [Mass/Vol] 9.3 mg/dL Normal 8.5-10.2 [facility] Comment on above: Order Comment: Speci men Type: SWAB Ordering Facility: [facility] Address: [address] [place] [address] Performed By: #### Rahul VAMP, 62405-2 #### [facility] CLIA [id number] [address] [place] [address] [place] Chloride [Moles/Vol] 102 mmol/L Normal 98-107 [facility] Comment on above: Order Comment: Speci men Type: SWAB Ordering Facility: [facility] Address: [address] [place] [address] Performed By: #### Rahul VAMP, 02934-8 #### [facility] CLIA [id number] [address] [place] [address] [place] CO2 [Moles/Vol] 26 mmol/L Normal 22-30 [facility] Comment on above: Order Comment: Speci men Type: SWAB Ordering Facility: [facility] Address: [address] [place] [address] Performed By: #### Rahul VAMP, 86150-8 #### [facility] CLIA [id number] [address] [place] [address] [place] Creatinine [Mass/Vol] 0.82 mg/dL Normal 0.58-0.96 [facility] Comment on above: Order Comment: Dandy dove Type: SWAB Ordering Facility: [facility] Address: [address] [place] [address] Performed By: #### Rahul JEAN-BAPTISTE, 62582-9 #### [facility] CLIA [id number] [address] [place] [address] [place] Creatinine and Glomerular filtration rate.predicted panel (S/P/Bld) 96 mL/min/1.73m??? Normal >=60 [facility] Comment on above: Order Comment: Dandy dove Type: SWAB Ordering Facility: [facility] Address: [address] [place] [address] Result Comment: Arjun mated Glomerular Filtration Rate (eGFR) is calculated using the 2020 CKD-EPI creatinine equation. This equation utilizes serum creatinine, sex, and age as parameters. The creatinine assay has traceable calibration to isotope dilution-mass spectrometry. Refer to KDIGO guidelines for clinical interpretation. In patients with unstable renal function, e.g. those with acute kidney injury, the eGFR may not accurately reflect actual GFR. Performed By: #### Rahul JEAN-BAPTISTE, 17504-8 #### [facility] CLIA [id number] [address] [place] [address] [place] Glucose [Mass/Vol] 99 mg/dL Normal 74-99 [facility] Comment on above: Order Comment: Dandy dove Type: SWAB Ordering Facility: [facility] Address: [address] [place] [address] Result Comment: The [place] Diabetes Association (ADA) provides guidance for cutoff values for fasting glucose and random glucose. The ADA defines fasting as no caloric intake for at least 8 hours. Fasting plasma glucose results between 100 to 125 mg/dL indicate increased risk for diabetes (prediabetes). Fasting plasma glucose results greater than or equal to 126 mg/dL meet the criteria for diagnosis of diabetes. In the absence of unequivocal hyperglycemia, results should be confirmed by repeat testing. In a patient with classic symptoms of hyperglycemia or hyperglycemic crisis, random plasma glucose results greater than or equal to 200 mg/dL meet the criteria for diagnosis of diabetes. Reference: Standards of Medical Care in Diabetes 2016, [place] Diabetes Association. Diabetes Care. 2016.39(Suppl 1). Performed By: #### Rahul VAMP, 47699-4 #### [facility] CLIA [id number] [address] [place] [address] [place] Potassium [Moles/Vol] 4.3 mmol/L Normal 3.7-5.1 [facility] Comment on above: Order Comment: Speci men Type: SWAB Ordering Facility: [facility] Address: [address] [place] [address] Performed By: #### Rahul VAMP, 14757-5 #### [facility] CLIA [id number] [address] [place] [address] [place] Protein [Mass/Vol] 6.7 g/dL Normal 6.3-8.0 [facility] Comment on above: Order Comment: Speci men Type: SWAB Ordering Facility: [facility] Address: [address] [place] [address] Performed By: #### Rahul VAMP, 77323-7 #### [facility] CLIA [id number] [address] [place] [address] [place] Sodium [Moles/Vol] 138 mmol/L Normal 136-144 [facility] Comment on above: Order Comment: Speci men Type: SWAB Ordering Facility: [facility] Address: [address] [place] [address] Performed By: #### Rahul VAMP, 09058-3 #### [facility] CLIA [id number] [address] [place] [address] [place] Urea nitrogen [Mass/Vol] 16 mg/dL Normal 7-21 [facility] Comment on above: Order Comment: Speci men Type: SWAB Ordering Facility: [facility] Address: [address] [place], [place] [address] Performed By: #### Rahul VAMP, 31568-1 #### [facility] CLIA [id number] [facility] [place] [address] [place] [facility] [place] LIPID PANEL, NONFASTINGon Cholesterol [Mass/Vol] 163 mg/dL Normal <200 [facility] Comment on above: Order Comment: Speci men Type: SWAB Ordering Facility: [facility] Address: [address] [place] [address] Result Comment: <200 mg/dL, Desirable 200-239 mg/dL, Borderline high >239 mg/dL, High Performed By: #### Rahul VAMP, 35034-7 #### [facility] CLIA [id number] [address] [place] [address] [place] HDL CHOLESTEROL, NF 65 mg/dL Normal >39 [facility] Comment on above: Order Comment: Speci men Type: SWAB Ordering Facility: [facility] Address: [address] [place] [address] Result Comment: 40-5 9 mg/dL, Acceptable >59 mg/dL, High: Negative risk factor for coronary heart disease <40 mg/dL, Low: Positive risk factor for coronary heart disease Performed By: #### Rahul VAMP, 18099-0 #### [facility] CLIA [id number] [address] [place] [address] [place] LDL CHOLESTEROL, NF 78 mg/dL Normal <100 [facility] Comment on above: Order Comment: Speci men Type: SWAB Ordering Facility: [facility] Address: [address] [place] [address] Result Comment: <100 mg/dL, Optimal 100-129 mg/dL, Near optimal/above optimal 130-159 mg/dL, Borderline high 160-189 mg/dL, High >189 mg/dL, Very high Secondary prevention optimal LDL Cholesterol levels are recommended to be < 70 mg/dL Performed By: #### Rahul VAMP, 77874-5 #### [facility] CLIA [id number] [address] [place] [address] [place] LDL/HDL RATIO, NF 1.20 mg/dL Normal <2.54 [facility] Comment on above: Order Comment: Dandy men Type: SWAB Ordering Facility: [facility] Address: [address] [place] [address] Result Comment: Esther vazquez: 1. National Cholesterol Education Program ATP III Guideline At-A-Glance Quick Desk Reference: National Heart, Lung, and Blood [place]. National Institutes of Health. 2001: NIH Publication No. 01-3305. 2. An International Atherosclerosis Society position paper: global recommendations for the management of dyslipidemia: executive summary, Atherosclerosis. 2014: 232(2):410-413. Performed By: #### Rahul VAMP, 07574-7 #### [facility] CLIA [id number] [address] [place] [address] [place] NON HDL CHOL, NF 98 mg/dL Normal <130 [facility] Comment on above: Order Comment: Dandy dove Type: SWAB Ordering Facility: [facility] Address: [address] [place] [address] Result Comment: <130 mg/dL, Optimal 130-159 mg/dL, Near optimal/above optimal 160-189 mg/dL, Borderline high 190-219 mg/dL, High >219 mg/dL, Very high Secondary prevention optimal non HDL Cholesterol levels are recommended to be <100 mg/dL Performed By: #### Rahul VAMP, 52612-4 #### [facility] CLIA [id number] [address] [place] [address] [place] T CHOL/HDL RATIO NF 2.51 mg/dL Normal <5.10 [facility] Comment on above: Order Comment: Maria Doloresi men Type: SWAB Ordering Facility: [facility] Address: [address] [place] [address] Performed By: #### Rahul VAMP, 61106-0 #### [facility] CLIA [id number] [address] [place] [address] [place] TRIGLYCERIDES, NF 102 mg/dL Normal <150 [facility] Comment on above: Order Comment: Speci men Type: SWAB Ordering Facility: [facility] Address: [address] [place] [address] Result Comment: <150 mg/dL, Normal 150-199 mg/dL, Borderline high 200-499 mg/dL, High >499 mg/dL, Very high Performed By: #### Rahul VAMP, 91144-3 #### [facility] CLIA [id number] [address] [place] [address] [place] VLDL CHOLESTEROL, NF 20 mg/dL Normal <30 [facility] Comment on above: Order Comment: Speci men Type: SWAB Ordering Facility: [facility] Address: [address] [place] [address] Performed By: #### Rahul VAMP, 10750-7 #### [facility] CLIA [id number] [address] [place] [address] [place] TSH SerPl-aCncon 08-24-2024 TSH Qn 1.820 m[IU]/L Normal 0.270-4.200 [facility] Comment on above: Order Comment: Speci men Type: SWAB Ordering Facility: [facility] Address: [address] [place] [address] Result Comment: If t he patient is , TSH reference range varies by gestational period: First Trimester (weeks 9-12): 0.180-2.990 mIU/L Second Trimester: 0.110-3.980 mIU/L Third Trimester: 0.480-4.710 mIU/L Thuan Lester et al. A Practical Approach for the Verifications and Determination of Site- and Trimester-Specific Reference Intervals for Thyroid Function tests in . Thyroid, 2019:29:3:412-420. Booker Ziegler, et al. 2017 Guidelines of the [place] Thyroid Association for the Diagnosis and Management of Thyroid Disease during and the . Thyroid, 2017:27:3:315-389. Performed By: #### Rahul VAMP, 04995-5 #### [facility] CLIA [id number] [address] [place] [id number] [place] [facility] Deshaun 07-23-2024 CNPN Telephone (OBGYWM) -------- YUKO HERRING ([id number]) 1990 F Date Time Provider Department 07/23/24 JEANETTE GONZALES OBNEVAEH During your visit today, we recorded the following information about you: Merline Segundo RN 07/23/2024 4:13 PM Signed Finario message sent to Pt by and Pt viewed today. Merline Segundo RN Allergies As of Date: 07/23/2024 (No Known Allergies) Date Reviewed: 07/22/2024 Reviewed by: Liliana Wise MA - Fully Assessed Reason for Visit: Results [95] Primary Visit Diagnosis:Bacterial vaginosis [N76.0, B96.89] Other Visit Diagnosis:Yeast vaginitis [B37.31] Order(s):clindamycin phosphate (CLEOCIN) 2 % vaginal creamUse 1 Applicatorful vaginally daily at bedtime for 7 days.Disp: 35 gRfl: 0 fluconazole (DIFLUCAN) 150 mg tabletTake 1 tablet by mouth one time only for 1 dose.Disp: 1 tabletRfl: 0 Prescriptions as of 07/23/2024 - clindamycin phosphate (CLEOCIN) 2 % vaginal cream Use 1 Applicatorful vaginally daily at bedtime for 7 days. - fluconazole (DIFLUCAN) 150 mg tablet Take 1 tablet by mouth one time only for 1 dose. - propranolol (INDERAL) 10 mg tablet Take 1 tablet by mouth two times a day. - DULoxetine (CYMBALTA) 40 mg cpDR Take 1 capsule by mouth once daily. - rizatriptan (MAXALT) 10 mg tablet Take 1 tablet by mouth as needed. Facility-Administered Medications as of 07/23/2024 - acetylcholine 10% solution - [facility] compounding Problem List As Of Date 07/23/2024 Noted Resolved Glaucoma suspect of both eyes [H40.003] 12/15/2019 Headaches [R51.9] 12/15/2019 POTS (postural orthostatic tachycardia syndrome*01/29/2021 Ankle pain [M25.579] 06/19/2023 Diagnosed: 06/19/2023 Chest discomfort [R07.89] 12/28/2022 Diagnosed: 06/19/2023 Shortness of breath at rest [R06.02] 06/19/2023 Diagnosed: 06/19/2023 Generalized weakness [R53.1] 02/02/2021 Diagnosed: 06/19/2023 History of ectopic [Z87.59] 06/19/2023 Diagnosed: 06/19/2023 History of spontaneous [Z87.59] 06/19/2023 Diagnosed: 06/19/2023 Itching [L29.9] 06/19/2023 Diagnosed: 06/19/2023 Loss of hair [L65.9] 06/19/2023 Diagnosed: 06/19/2023 Palpitations [R00.2] 06/19/2023 Diagnosed: 06/19/2023 Pre-syncope [R55] 06/19/2023 Diagnosed: 06/19/2023 Sinus tachycardia [R00.0] 02/01/2021 Diagnosed: 06/19/2023 Trachyonychia [L60.3] 06/19/2023 Diagnosed: 06/19/2023 Systolic heart failure (HCC) [I50.20] 06/19/2023 Diagnosed: 06/19/2023 Postural dizziness with presyncope [R42, R55] 02/01/2021 Diagnosed: 06/19/2023 Weight gain [R63.5] 11/06/2023 Diagnosed: 11/06/2023 Obesity, Class I, BMI 30-34.9 [E66.811] 11/07/2023 Prescriptions ordered this encounter Disp Refills Start End CLINDAMYCIN 2 % VAGINAL CREAM 35 g 0 07/23/2024 07/30/2024 Route: VAGINAL Sig: Use 1 Applicatorful vaginally daily at bedtime for 7 days. FLUCONAZOLE 150 MG TABLET 1 ta* 0 07/23/2024 07/23/2024 Route: ORAL Sig: Take 1 tablet by mouth one time only for 1 dose. Encounter Status:Closed by MERLINE SEGUNDO on 07/23/24 Normal [facility] BACTERIAL VAGINOSIS NAATon 1 Lactobacillus crispatus+gasseri+sonya senii + Gardnerella vaginalis + Atopobium vaginae rRNA YESENIA+probe Ql (Vag fld) Positive Abnormal Negative for bacterial vaginosis [facility] Comment on above: Order Comment: Speci men Type: SWAB [facility]ing Facility[facility] Address: [address] [place] [address] Performed By: #### B VAMP, 37452-3 #### [facility] CLIA [id number] [address] [place] [address] [place] C. trachomatis+N. gonorrhoea e DNA YESENIA+probe Ql (Unsp spec)on 07-22-2024 C. trachomatis rRNA YESENIA+probe Ql (Unsp spec) Negative Normal Negative for Chlamydia trachomatis by amplificaton [facility] Comment on above: Order Comment: Speci men Type: SWAB [facility]ing Facility: [facility] Address: [address] [place] [address] Performed By: #### B VAMP, 12873-3 #### [facility] CLIA [id number] [address] [place] [address] [place] N. gonorrhoeae rRNA YESENIA+probe Ql (Unsp spec) Negative Normal Negative for Neisseria gonorrhoeae by amplification [facility] Comment on above: Order Comment: Speci men Type: SWAB Ordering Facility: [facility] Address: [address] [place] [address] Performed By: #### B VAMP, 95222-0 #### [facility] CLIA [id number] [address] [place] [address] [place] NNAMDI/TRICHOMONAS NAATon 1 C. glabrata RNA YESENIA+probe Ql (Vag fld) Negative Normal Negative for Nnamdi glabrata [facility] Comment on above: Order Comment: Speci men Type: SWAB Ordering Facility: [facility] Address: [address] [place] [address] Performed By: #### B VAMP, 60215-5 #### [facility] CLIA [id number] [address] [place] [address] [place] Nnamdi sp DNA YESENIA+probe Ql (Vag fld) Positive Abnormal Negative for Nnamdi species [facility] Comment on above: Order Comment: Speci men Type: SWAB Ordering Facility: [facility] Address: [address] [place] [address] Performed By: #### B VAMP, 61210-5 #### [facility] CLIA [id number] [address] [place] [address] [place] T. vaginalis DNA YESENIA+probe Ql (Unsp spec) Negative Normal Negative for Trichomonas vaginalis by amplification [facility] Comment on above: Order Comment: Speci men Type: SWAB Ordering Facility: [facility] Address: [address] [place] [address] Performed By: #### B VAMP, 24212-0 #### [facility] CLIA [id number] [address] [place] [address] [place] CNOVon 07-22-2024 CNOV Office Visit (OBGYWM ) -------- YUKO HERRING ([id number]) 1990 F Date Time Provider Department 07/22/24 10:50 AM PATSY THIBODEAUX OBGYWM During your visit today, we recorded the following information about you: Blood pressure Weight Last Period 100/64 70.8 kg 07/06/24 Patsy Thibodeaux MD 07/22/2024 1:17 PM Signed Manager Private offered: Patient declines. Yuko Herring is a 33 year old female who presents for problem visit. HPI: Having vaginal odor, discharge and irritation. Was sexually active with boyfriend for 4 months and he was unfaithful. Reports possible exposure to HSV. No other known exposure. No fevers, severe pain, vomiting. OB History T2 L2 SAB0 IAB0 Ectopic1 Multiple0 Live Births2 Evidence Custodian History LMP: 07/06/2024, Having periods Age at Menarche: Age at First : Age at Menopause: Evidence Custodian History Comments: Sexual Activity: Not Asked; Male; Not asked Contraception: Condom PAST MEDICAL HISTORY Diagnosis Date Cervical radiculopathy Headaches POTS (postural orthostatic tachycardia syndrome) secondary to covid vaccine per patient PAST SURGICAL HISTORY Procedure Laterality Date PAST SURGICAL HISTORY OF 2011 Ectopic PAST SURGICAL HISTORY OF 12/2021 wisdom teeth extraction FAMILY HISTORY Problem Relation Age of Onset Thyroid Cancer Mother Glaucoma Father Thyroid Cancer Sister Breast Cancer Sister Glaucoma Paternal Grandfather Social History Tobacco Use Smoking status: Never Smokeless tobacco: Never Vaping Use Vaping status: Never Used Substance Use Topics Alcohol use: Yes Alcohol/week: 7.0 standard drinks of alcohol Types: 7 Glasses of wine per week Drug use: Never Current Outpatient Medications Medication Sig propranolol (INDERAL) 10 mg tablet Take 1 tablet by mouth two times a day. DULoxetine (CYMBALTA) 40 mg cpDR Take 1 capsule by mouth once daily. rizatriptan (MAXALT) 10 mg tablet Take 1 tablet by mouth as needed. Current Facility-Administered Medications Medication Dose Route Frequency acetylcholine 10% solution - [facility] 20 mL IRRIGATION ONE TIME Allergies As of Date: 07/22/2024 (No Known Allergies) Fully Assessed 07/22/2024 REVIEW OF SYSTEMS Abdomen: No abdominal pain, vomiting, diarrhea, or constipation. Bladder: No dysuria, gross hematuria, urinary frequency, urinary urgency, or incontinence. Expanded ROS: See HPI. Allergies and current medication updated:Yes SENSITIVE EXAM: The sensitive examination was discussed with the Patient or Patient's Authorized Welfare Manager. As applicable, any other physician, advance practice provider, medical student, or other health professional student that will be observing or involved in the sensitive examination for educational or training purposes was discussed with the Patient or Authorized Welfare Manager. The Patient or Authorized Welfare Manager has agreed to proceed with the sensitive examination. (Sensitive examination includes inspection and/or palpation of the breasts, pelvis, prostate and anorectal regions). EXAM: BP 100/64 Wt 156 lb (70.8kg) LMP 07/06/2024 GENERAL: pleasant, female in no apparent distress HEENT: Normocephalic and atraumatic NECK: full range of motion DERMATOLOGY: Normal, without lesions, non-icteric, and non-hirsute CHEST: Normal inspiratory effort ABDOMEN: soft, non-tender, no masses, and non acute PELVIC: external genitalia normal, normal Bartholin's glands, urethra, [place]'s glands, no vulvar lesions, no cervical lesions, good vaginal support, normal appearing perineal body and perianal region, thin white-montem[place]or discharge present, no cervical tenderness NEURO: exam grossly non-focal EXTREMITIES: normal ASSESSMENT AND PLAN: Encounter Diagnosis ICD-10-CM 1. Vaginal itching N89.8 BACTERIAL VAGINOSIS NAAT NNAMDI/TRICHOMONAS NAAT GONORRHEA/CHLAMYDIA NAAT 2. Vaginal discharge N89.8 BACTERIAL VAGINOSIS NAAT NNAMDI/TRICHOMONAS NAAT GONORRHEA/CHLAMYDIA NAAT 3. Vaginal odor N89.8 BACTERIAL VAGINOSIS NAAT NNAMDI/TRICHOMONAS NAAT GONORRHEA/CHLAMYDIA NAAT 4. Screen for STD (sexually transmitted disease) Z11.3 SYPHILIS TOTAL W/REFLEX HIV 1/2 COMBO WITH REFLEX TO DIFFERENTIATION HEPATITIS C ANTIBODY IA WITH CONFIRMATION HEPATITIS B SURFACE ANTIGEN HERPES SIMPLEX IGM, WITH REFLEX IGG ABS Possible exposure to HSV Check vaginal cx's and STD panel Reviewed safe sex practices and reasons to call Reports previous partner had vasectomy Patsy Thibodeaux, Medical Decision Making: Problems: Low: Acute, uncomplicated illness or injury Data: Unique test(s) ordered: 3+ Medical Decision Making Level: 3 - Low Allergies As of Date: 07/22/2024 (No Known Allergies) Date Reviewed: 07/22/2024 Reviewed by: Liliana Wise MA - Fully Assessed Reason for Visit: Vaginal Problem [117] Primary Visit Diagnosis:Vaginal it (more content not included)... Normal [facility] HBV surface Ag Ql (S)on Interpretation and review of laboratory results Normal [facility] HBV surface Ag Ser Qlon HBV surface Ag Ql (S) Negative Normal Negative [facility] Comment on above: Order Comment: Speci men Type: SWAB [facility]ing Facility[facility] Address: [address] [place] [address] Performed By: #### B VAMP, 16101-6 #### [facility] CLIA [id number] [address] [place] [address] [place] HCV Ab Ql (S)on 07-22-2024 Interpretation and review of laboratory results Normal [facility] HCV Ab Ser Qlon 07-22-2024 HCV Ab Ql (S) Negative Normal Negative [facility] Comment on above: Order Comment: Dandy [facility] Type: BLOOD SPECIMENOrdering Facility: [facility] Address: [address] [place] [address] Result Comment: The result suggests no evidence of active infection with Hepatitis C virus. Should recent infection be suspected, repeat testing may be considered 4-6 weeks after this draw. Performed By: #### 1 6128-1 ####[facility] [id number] [address] [place] HEPATITIS B SURFACE ANTIGENo n 07-22-2024 HBV surface Ag Ql (S) Negative Negative [facility] HEPATITIS C ANTIBODY IA WITH CONFIRMATIONon 07-22-2024 HCV Ab Ql (S) Negative Negative [facility] Comment on above: The result suggests no evidence of active infection with Hepatitis C virus. Should recent infection be suspected, repeat testing may be considered 4-6 weeks after this draw. HERPES SIMPLEX IGM, WITH REF ZO IGG ABSon 07-22-2024 HSV IGM QUALITATIVE Negative Normal Negative [facility] Comment on above: Order Comment: Dandy dove Type: SWAB Ordering Facility: [facility] Address: [address] [place] [address] Result Comment: HSV IgM antibody test is typically used as an aid in diagnosis of primary HSV infection. A negative HSV IgM result cannot exclude recent primary HSV infection if the specimen collected within 7-10 days after onset of signs and symptoms. Should suspect lesions be present, HSV PCR is strongly recommended, if possible. Otherwise, repeat serology using both HSV-1 IgG and HSV-2 IgG after 3-6 weeks is suggested. Performed By: #### Rahul VAMP, 70354-6 #### [facility] CLIA [id number] [address] [place] [address] [place] HIV 1+2 Ab IA Qlon 4 HIV 1 and 2 Ab IA.rapid Nom (S/P/Bld) [facility] Comment on above: Test not indicated. HIV 1+2 Ab+HIV1 p24 Ag IA Ql Non-Reactive Nonreactive [facility] HIV immunoassay testing algorithm interpretation (S/P/Bld) [Interp] [facility] Comment on above: No evidence of HIV-1 or HIV-2 infection. Should recent infection be suspected, repeat testing may be considered 2-3 weeks after this draw. [place] Rev. Code 3701.243(E): This information has been disclosed to you from confidential records protected from disclosure by state law. You shall make no further disclosure of this information without the specific, written, and informed release of the individual to whom it pertains or as otherwise permitted by state law. A general authorization for the release of medical or other information is not sufficient for the purpose of the release of HIV test results or diagnoses. [facility] HIV 1 and 2 Ab IA.rapid Nom (S/P/Bld) Normal [facility] Comment on above: Order Comment: Speci men Type: SWAB Ordering Facility: [facility] Address: [address] [place] [address] Result Comment: Test not indicated. Performed By: #### Rahul VAMP, [id number] #### [facility] CLIA [id number] [address] [place] [address] [place] HIV 1+2 Ab+HIV1 p24 Ag IA Ql Non-Reactive Normal Nonreactive [facility] Comment on above: Order Comment: Speci men Type: SWAB Ordering Facility: [facility] Address: [address] [place] [address] Performed By: #### B VAMP, [id number] #### [facility] CLIA [id number] [address] [place] [address] [place] HIV immunoassay testing algorithm interpretation (S/P/Bld) [Interp] Normal [facility] Comment on above: Order Comment: Speci men Type: SWAB Ordering Facility: [facility] Address: [address] [place] [address] Result Comment: No e vidence of HIV-1 or HIV-2 infection. Should recent infection be suspected, repeat testing may be considered 2-3 weeks after this draw. [place] Rev. Code 3701.243(E): This information has been disclosed to you from confidential records protected from disclosure by state law. ???You shall make no further disclosure of this information without the specific, written, and informed release of the individual to whom it pertains or as otherwise permitted by state law. A general authorization for the release of medical or other information is not sufficient for the purpose of the release of HIV test results or diagnoses. Performed By: #### Rahul JEAN-BAPTISTE, [id number] #### [facility] CLIA [id number] [address] [place] [address] [place] Reagin and Treponema pallidu m IgG and IgM [Interp]on 07-22-2024 T. pallidum IgG+IgM IA Ql (S) Non-Reactive Nonreactive [facility] T. pallidum IgG+IgM IA Ql (S) Non-Reactive Normal Nonreactive [facility] Comment on above: Order Comment: Speci men Type: SWAB Ordering Facility: [facility] Address: [address] [place] [address] Performed By: #### Rahul VAMP, [id number] #### [facility] CLIA [id number] [address] [place] [address] [place] Reagin+T pallidum IgG+IgM Se rPl-Impon 07-22-2024 Reagin and Treponema pallidum IgG and IgM [Interp] Cannot exclude recent Treponemal infection if specimen collected within 7-10 days after appearance of suspect lesions or 2-3 weeks after an exposure. Clinical correlation is required. Normal [facility] Comment on above: Order Comment: Speci men Type: SWAB Ordering Facility: [facility] Address: [address] [place] [address] Performed By: #### Rahul VAMP, [id number] #### [facility] CLIA [id number] [address] [place] [address] [place] SYPHILIS TOTAL W/REFLEXon Reagin and Treponema pallidum IgG and IgM [Interp] Cannot exclude recent Treponemal infection if specimen collected within 7-10 days after appearance of suspect lesions or 2-3 weeks after an exposure. Clinical correlation is required. [facility] AUDIOGRAMon 07-16-2024 [facility] Radiology Study observation (narrative) [facility] BACTERIAL VAGINOSIS NAATon 0 06-24-2024 Lactobacillus crispatus+gasseri+sonya senii + Gardnerella vaginalis + Atopobium vaginae rRNA YESENIA+probe Ql (Vag fld) Positive Abnormal Negative for bacterial vaginosis [facility] Comment on above: Order Comment: Speci men Type: SWABOrdering Facility: [facility] Address: [address] [place] [address] Performed By: #### Rahul JEAN-BAPTISTE, CVTV ####[facility] [id number] [place] [address] [place] C. trachomatis+N. gonorrhoea e DNA YESENIA+probe Ql (Unsp spec)on 06-24-2024 C. trachomatis rRNA YESENIA+probe Ql (Unsp spec) Negative Normal Negative for Chlamydia trachomatis by amplificaton [facility] Comment on above: Order Comment: Speci men Type: SWAB Ordering Facility: [facility] Address: [address] [place] [address] Performed By: #### Rahul VAMP, [id number] #### [facility] CLIA [id number] [address] [place] [address] [place] N. gonorrhoeae rRNA YESENIA+probe Ql (Unsp spec) Negative Normal Negative for Neisseria gonorrhoeae by amplification [facility] Comment on above: Order Comment: Speci men Type: SWAB Ordering Facility: [facility] Address: [address] [place] [address] Performed By: #### B VAMP, [id number] #### [facility] CLIA [id number] [address] [place] [address] [place] NNAMDI/TRICHOMONAS NAATon 0 06-24-2024 C. glabrata RNA YESENIA+probe Ql (Vag fld) Negative Normal Negative for Nnamdi glabrata [facility] Comment on above: Order Comment: Speci men Type: SWABOrdering Facility: [facility] Address: [address] [place] [address] Performed By: #### Rahul VAMP, CVTV ####[facility] [id number] [address] [place] Nnamdi sp DNA YESENIA+probe Ql (Vag fld) Negative Normal Negative for Nnamdi species [facility] Comment on above: Order Comment: Speci men Type: SWABOrdering Facility: [facility] Address: [address] [place] [address] Performed By: #### Rahul VAMP, CVTV ####[facility] [id number] [address] [place] T. vaginalis DNA YESENIA+probe Ql (Unsp spec) Negative Normal Negative for Trichomonas vaginalis by amplification [facility] Comment on above: Order Comment: Speci men Type: SWABOrdering Facility: [facility] Address: [address] [place] [address] Performed By: #### Rahul VAMP, CVTV ####[facility] [id number] [place] [address] [place] CNOVon 06-24-2024 CNOV Office Visit (OBGYWM ) -------- YUKO [id number]) 1990 F Date Time Provider Department 06/24/24 2:00 PM ELEAZAR SCHREIBER OBGYWLuke During your visit today, we recorded the following information about you: Blood pressure Weight Last Period 100/64 72.7 kg 06/07/24 Eleazar Schreiber MD 06/24/2024 2:50 PM Signed Manager Private offered: Patient declines. Yuko Herring is a 33 year old female who presents for problem visit. HPI: Patient presents with vaginal odor, irritation and discharge. Symptoms started after she was with a new sexual partner. Also she reports minimal dysuria. OB History T2 L2 SAB0 IAB0 Ectopic1 Multiple0 Live Births2 Evidence Custodian History LMP: 06/07/2024, Having periods Age at Menarche: Age at First : Age at Menopause: Evidence Custodian History Comments: Sexual Activity: Not Asked; Male; Not asked Contraception: Condom PAST MEDICAL HISTORY No date: Cervical radiculopathy No date: Headaches No date: POTS (postural orthostatic tachycardia syndrome) Comment: secondary to covid vaccine per patient PAST SURGICAL HISTORY 2012: PAST SURGICAL HISTORY OF Comment: Ectopic 12/2021: PAST SURGICAL HISTORY OF Comment: wisdom teeth extraction FAMILY HISTORY Problem Relation Age of Onset Thyroid Cancer Mother Glaucoma Father Thyroid Cancer Sister Breast Cancer Sister Glaucoma Paternal Grandfather Social History Tobacco Use Smoking status: Never Smokeless tobacco: Never Vaping Use Vaping status: Never Used Substance Use Topics Alcohol use: Yes Alcohol/week: 7.0 standard drinks of alcohol Types: 7 Glasses of wine per week Drug use: Never Current Outpatient Medications Medication Sig propranolol (INDERAL) 10 mg tablet Take 1 tablet by mouth two times a day. DULoxetine (CYMBALTA) 40 mg cpDR Take 1 capsule by mouth once daily. rizatriptan (MAXALT) 10 mg tablet Take 1 tablet by mouth as needed. Current Facility-Administered Medications Medication Dose Route Frequency acetylcholine 10% solution - cchs compounding 20 mL IRRIGATION ONE TIME Allergies As of Date: 06/24/2024 (No Known Allergies) Fully Assessed 06/24/2024 Allergies and current medication updated:Yes EXAM: BP 100/64 Wt 160 lb 3.2 oz (72.7kg) LMP 06/07/2024 GENERAL: pleasant, female in no apparent distress PELVIC: external genitalia normal, normal Bartholin's glands, urethra, [place]'s glands, no vulvar lesions, no cervical lesions, good vaginal support, montemayor discharge present, normal appearing perineal body and perianal region ASSESSMENT AND PLAN: Encounter Diagnosis ICD-10-CM 1. Vaginal odor N89.8 2. Vaginal itching N89.8 3. Vaginal discharge N89.8 Vaginal infection panel AND UA ordered Advised on perineal hygiene Medical Decision Making: Problems: Low: Acute, uncomplicated illness or injury Data: Unique test(s) ordered: 3+ Risk: Low: Low risk from testing/treatment Medical Decision Making Level: 3 - Low MD Jordan Mahan Karmon, MD 06/24/2024 2:51 PM Signed Minimizing irritation of the vulva (area around the vagina) Wear white cotton underwear. Avoid synthetic fabrics and tight clothing. Sleep wearing shorts or pajama bottoms without underwear. Shower as soon as possible after exercise. Avoid clothing detergents and soaps with perfumes or dyes. Use warm (not hot) water to wash the vulva and if you use soap use a product designed for sensitive skin (like Dove or Cetaphil). Do not douche or use creams/powders in the vulvar area unless instructed by your physician. If you must douche, use only plain warm water. Make sure the vulva is dry before dressing by patting dry with a towel. Avoid vigorous rubbing with the towel. You may want to use the blow dryer (on the cool setting only!) on the vulva. The most important way to let your body heal is by avoiding scratching. Many patients find it difficult to avoid scratching at night when they are most aware of the itchiness. You can try taking Benadryl just before bedtime. Some women find it helpful to wear cotton gloves to bed to avoid scratching at night. Allergies As of Date: 06/24/2024 (No Known Allergies) Date Reviewed: 06/24/2024 Reviewed by: Eleazar Schreiber MD - Fully Assessed Reason for Visit: Vaginal Problem [117] Primary Visit Diagnosis:Vaginal odor [N89.8] Other Visit Diagnoses:Vaginal itching [N89.8] Vaginal discharge [N89.8] Dysuria [R30.0] Order(s):BACTERIAL VAGINOSIS NAAT [SQBVAMP] Order #: [id number]. #:[id number] NNAMDI/TRICHOMONAS NAAT [SQCVTV] Order #: [id number]. #:[id number] GONORRHEA/CHLAMYDIA NAAT [SQGCCT] Order #: [id number]. #:[id number] Prescriptions as of 06/24/2024 - propranolol (INDERAL) 10 mg tablet Take 1 tablet by mouth two times a day. - DULoxetine (CYMBALTA) 40 mg cpDR Take 1 capsule by mouth once daily. - rizatriptan (MAXALT) (more content not included)... Normal [facility] UA DIP, URINE (POC)on 2023 BILIRUBIN UA (POCT) Negative Negative [facility] CLARITY UA (POCT) Slightly Cloudy Cl [facility] COLOR UA (POCT) Yellow [facility] GLUCOSE UA (POCT) Negative Negative mg/dL [facility] Hemoglobin Ql (U) Negative Negative [facility] Interpretation and review of laboratory results Abnormal [facility] KETONE UA (POCT) Negative Negative mg/dL [facility] LEUKOCYTES UA (POCT) Trace Abnormal Negative [facility] NITRITE UA (POCT) Negative Negative [facility] PH UA (POCT) 6.5 4.5 - 8.0 [facility] Protein Ql (U) Negative Negative mg/dL [facility] SPECIFIC GRAVITY UA (POCT) >=1.030 1.005 - 1.030 [facility] UROBILINOGEN UA (POCT) 0.2 Normal E.U./dL [facility] Location:[facility], [address], [place], [place], [id number] [place] [address] POINT OF CARE [facility] Plastic Surgery Visit Report on 03-24-2024 Plastic Surgery Visit Report [facility] [address], [address] [place] [address] OFFICE VISIT Date of Service: 03/24/24 MR#: [id number] Acct: [id number] Name: YUKO HERRING Rep #: [id number] : 1990 Provider: Dr. Gisell oscar MD Age/Sex: 33/F Location: [facility] Status: Signed Intake Vital Signs 12/15/22 09:44 03/24/24 15:23 Height 5 ft 3 in 5 ft 3 in Weight: 166 lb 4 oz BMI 29.4 BP 100/62 Blood Pressure Location Lt brachial Position Sitting Respiration 16 Pulse 69 Temp 98.1 F Temp Source Temporal Pulse Oximetry (%) 100 Oxygen Delivery Method room air Intake Visit Reasons: Ear Pinning Chief Complaint: ear pinning consult Is patient in pain?: No Allergies No Known Allergies Allergy (Verified 03/24/24 15:24) Medications ???Medication ???Instructions ???Recorded ???Confirmed ???Type Inderal 10 mg PO/SL 1XD 12/15/22 03/24/24 History duloxetine 20 mg capsule,delayed 10 mg PO BID 03/24/24 03/24/24 History release propranolol 10 mg tablet 10 mg PO BID 03/24/24 03/24/24 History Nurse's Note: pt here for consult ear pinning. [facility] Medical History History of ectopic History of hearing problem History of migraine POTS (postural orthostatic tachycardia syndrome) Family History (Updated 03/24/24 @ 15:21 by Janneth Kaufman) Mother Anxiety Arthritis Depression Thyroid disorder Father Diabetes Heart disease Hypertension High cholesterol Sister Breast cancer Thyroid disorder Grandmother Arthritis Liver disease Seizures Grandfather Seizures Social History (Updated 03/24/24 @ 15:23 by Janneth Kaufman) Smoking Status: Never smoker alcohol intake: current details: 1 bottle a week substance use type: marijuana additional social history: pt does not vape, does not use aspirin, does not use ibuprofen pt uses medical marijuana and uses edibles for migraines HPI Ear Pinning Details: Antonia comes in for consideration of otoplasty. Her biggest complaint is pain in her left ear especially when she sleeps on it. She also states that she wears her hair over her ears because of her self-consciousness of the appearance of her ears. She has a history of POTS syndrome. She states it happens unpredictably. She is on propranolol for migraines. She also admits to using medical marijuana and edibles. 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 ROS General General: Yes good health; No fatigue, fever(s) or weight loss HENMT HENMT: No rhinitis, sore throat/mouth sore, nasal congestion, contacts or glaucoma Endo Endocrine: No thyroid disease, polydipsia, heat intolerance, cold intolerance, hepatitis or excessive urine Skin Skin: No Bleeding, bruising, changing moles or suspicious lesion Musc Musculoskeletal: Yes joint pain, joint stiffness, muscle weakness and back pain Neuro Neurological: Yes headache(s), Yes lightheadedness and No numbness Cardio Cardiovascular: No chest pain, pacemaker, fatigue or shortness of breat with exertion Psych Psychiatric: Yes depression; No claustrophobia or anxiety Resp Respiratory: Yes shortness of breath; No spitting up, sleep apnea, asthma, emphysema, TB, Cough or Smoker Gastro Gastrointestinal: No diarrhea, constipation, blood in stool, nausea, vomiting or abdominal bloating Vinh Hematologic: No anemia, No bleeding and No abnormal bleeding Genitourinary: No urinary frequency, blood in urine or incontinence Exam Details The patient has asymmetry of her ears. She has approximately 1.5 cm projection at the apex of the helix on the right side. She has approximately 2.5 cm projection of the helix on the left side. She has a flattened antihelical fold on the left side as compared to the right. The right ear has a satisfactory appearance. The left ear is visibly more prominent. I reviewed with her that this would not correct her ear pain. In regards to pain of her external ear when she sleeps on it, I suggested a softer pillow or a C shaped pillow to prevent pressure on the ear. I did review surgery for her left ear which would involve sutures of the posterior ear to create the fold. I indicated that she would need to be careful postoperatively to prevent breaking the sutures which would reverse her correction for a few months after surgery. I also indicated that the anterior ear would be accessed to modify the fold anteriorly to allow the cartilage to bend. She is considering surgery either in September or next summer. She will be given an estimate for the proposed procedure. Coding Level of Care Code Cosmetic Consult Diagnoses Prominent ear deformity Q17.5 Encounter for cosmetic surgery Z41.1 Ass (more content not included)... Normal [facility] XR Abdomen Supine and Uprigh ton 09-29-2023 IMPRESSION: Nonobstructive bowel gas pattern. Pourer Crane Ladle: KARLOS Transcribe Date/Time: Sep 29 2023 3:13P Dictated by : NAJMA NAVAS MD This examination was interpreted and the report reviewed and electronically signed by: NAJMA NAVAS MD on Sep 29 2023 3:14PM [facility] DIVISION OF RADIOLOGY * * *Final Report* * * DATE OF EXAM: Sep 26 2023 2:36PM [id number] - XR ABDOMEN 1V SUPINE / PROCEDURE REASON: multiple diagnoses * * * * Physician Interpretation * * * * EXAM TITLE: XR ABDOMEN 1V SUPINE EXAM DATE/TIME: 09/26/2023 2:36 PM COMPARISON: None. CLINICAL INDICATION/HISTORY: Abdominal pain. TECHNIQUE: AP views of the abdomen are presented. FINDINGS: No abnormally dilated bowel loops identified. Small amount of stool and gas seen in the large bowel loops. There are no abnormal calcifications. The bony structures appear intact. DIVISION OF RADIOLOGY Provider, [facility] - 09/29/2023 * * *Final Report* * * DATE OF EXAM: Sep 26 2023 2:36PM [id number] - XR ABDOMEN 1V SUPINE / PROCEDURE REASON: multiple diagnoses * * * * Physician Interpretation * * * * EXAM TITLE: XR ABDOMEN 1V SUPINE EXAM DATE/TIME: 09/26/2023 2:36 PM COMPARISON: None. CLINICAL INDICATION/HISTORY: Abdominal pain. TECHNIQUE: AP views of the abdomen are presented. FINDINGS: No abnormally dilated bowel loops identified. Small amount of stool and gas seen in the large bowel loops. There are no abnormal calcifications. The bony structures appear intact. IMPRESSION IMPRESSION: Nonobstructive bowel gas pattern. Pourer Crane Ladle: [facility] Transcribe Date/Time: Sep 29 2023 3:13P Dictated by : NAJMA NAVAS MD This examination was interpreted and the report reviewed and electronically signed by: NAJMA NAVAS MD on Sep 29 2023 3:14PM EST [facility] XR Abdomen Supine and Uprigh tOrdered By: [facility] Provider on 09-29-2023 [facility] XR Abdomen Supine and Uprigh ton 09-26-2023 Radiology Study observation (narrative) [facility] CNOVon 02-17-2023 CNOV Office Visit (NSCVFV ) -------- YUKO HERRING ([id number]) 1990 F Date Time Provider Department 02/17/23 10:00 AM BRAIN PRICE NSCVFV During your visit today, we recorded the following information about you: Temperature Pulse Blood pressure Weight 99.2 degrees 88/minute 120/71 83.9 kg Height 1.626 m Brain Price MD, PhD 02/17/2023 11:11 AM Signed [facility] History of Present Illness: Ms. Herring is a 32 year old female presenting for f/u with pots Patient's POTS symptom is improved overall. She is on beta-vivi. Headache is better. But still has neck pain. Patient was seen by Dr. oSni. Patient has double vision and blurred vision, side by side, binocular, constant. This happened last year after her tooth extracted. Patient had left foot stress fracture recently in boot. Patient has eye lid drooping only when having LIZ, and severe POTS symptoms for several minutes only. Patient denied problem with her speech, chewing, swallowing, urination or bowel movement. She still has numbness and tingling of her hands upon waking at times. This has been the same since last visit. Her EMG showed no evidence of neuropathy, CTS or ulnar neuropathy. Patient has abnormal autonomic function tests The QSART response at the left foot is reduced but the responses at the left forearm, proximal leg, and distal leg are normal. 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 Heart rate response to deep breathing is normal via the mean heart rate range (MHRR) and the E:I ratio. Heart rate response to the Valsalva maneuver, as assessed by the Valsalva ratio, is normal. Blood pressure responses to phase II and phase IV of the Valsalva maneuver are normal. During 5 minutes of 60 degree head-up tilt, heart rate and blood pressure responses are normal. The maximum heart rate increase is 29 bpm (normal less than 30 bpm) at the 5th minute of tilt. The tilt was terminated early as the patient requested the test be terminated due to fear of fainting. The patient complained of dizziness, lightheadedness, nausea during the tilt. This is a normal cardiovascular autonomic test panel. There is no evidence of a significant cardiovagal or cardiovascular adrenergic abnormality. The tilt portion of the test was terminated early which limits the assessment of a cardiovascular adrenergic abnormality. Specifically, there is no evidence of orthostatic tachycardia or hypotension. Concerning for small fiber neuropathy. Skin biopsy was recommended before. She declined, and wants defer for now as well, due to potential side effect, with scar. Patient has been gaining weight since last year. She has been doing leg exercise at home. Past Medical History PAST MEDICAL HISTORY Diagnosis Date Cervical radiculopathy Headaches POTS (postural orthostatic tachycardia syndrome) secondary to covid vaccine per patient Past Surgical History: PAST SURGICAL HISTORY Procedure Laterality Date PAST SURGICAL HISTORY OF 2011 Ectopic PAST SURGICAL HISTORY OF 12/2021 wisdom teeth extraction Medications: Current Outpatient Medications Medication Sig propranolol (INDERAL) 10 mg tablet Take 1 tablet by mouth twice daily. DULoxetine (CYMBALTA) 20 mg capsule Take 1 capsule by mouth once daily. rizatriptan (MAXALT) 10 mg tablet Take 1 tablet by mouth as needed. ibuprofen (MOTRIN) 800 mg tablet Take 800 mg by mouth every 8 hours as needed. indomethacin (INDOCIN) 50 mg capsule Take 1 capsule by mouth twice daily with meals. (Patient not taking: Reported on 02/17/2023) magnesium oxide 400 mg magnesium tab Take 1 capsule by mouth as needed. Take 1 capsule daily by mouth as needed. (Patient not taking: Reported on 02/17/2023) Current Facility-Administered Medications Medication Dose Route Frequency acetylcholine 10% solution - cchs compounding 20 mL IRRIGATION ONE TIME Allergies: ALLERGIES No Known Allergies Social History Tobacco Use Smoking status: Never Smokeless tobacco: Never Vaping Use Vaping Use: Never used Substance Use Topics Alcohol use: Yes Alcohol/week: 7.0 standard drinks Types: 7 Glasses of wine per week Drug use: Never Family History: No history of neuromuscular disease. FAMILY HISTORY Problem Relation Age of Onset Thyroid Cancer Mother Glaucoma Father Thyroid Cancer Sister Breast Cancer Sister Glaucoma Paternal Grandfather ROS: 10 review of system is negative except in HPI Vital Signs: BP 120/71 (BP Site: Left Arm, BP Position: Sitting, BP Cuff Size: Regular Adult) Pulse 88 Temp 37.3 ?C (99.2 ?F) Ht 162.6 cm (5' 4) Wt 83.9 kg (185 lb) LMP 03/07/2022 SpO2 98% BMI 31.76 kg/m? Awake, alert, oriented x3, cooperative, no dysarthria, no aphasi (more content not included)... Normal [facility] Absolute lymphocyte countOrd ered By: Dr. Wan on 12-15-2022 Lymphocytes Auto (Unsp spec) [#/Vol] 2.19 10*3/uL 0.83-4.51 [facility] Basophil percentageOrdered B y: Dr. Wan on 12-15-2022 Basophils/100 WBC (Bld) 0.8 % 0-1 [facility] Chloride [Moles/Vol] 102 mmol/L 98-107 [facility] Eosinophils/100 WBC (Bld) 2.3 % 0-5 [facility] Glucose [Mass/Vol] 95 mg/dL 74-106 [facility] Neutrophils (Bld) [#/Vol] 3.6 10*3/uL 2.0-7.7 [facility] Neutrophils/100 WBC (Bld) 56.0 % 47-70 [facility] Potassium [Moles/Vol] 3.8 mmol/L 3.5-5.1 [facility] Sodium [Moles/Vol] 135 mmol/L 136-145 [facility] WBC (Bld) [#/Vol] 6.5 10*3/uL 4.4-11.0 [facility] Blood erythrocytes count (nu mber/volume)Ordered By: Dr. Wan on 12-15-2022 RBC (Bld) [#/Vol] 4.45 10*6/uL 4.2-5.4 [facility] Blood hemoglobin measurement (mass/volume)Ordered By: Dr. Wan on 12-15-2022 Hemoglobin (Bld) [Mass/Vol] 14.0 g/dL 12.0-15.0 [facility] Blood lymphocytes/100 leukoc ytesOrdered By: Dr. Wan on 12-15-2022 Lymphocytes/100 WBC (Bld) 33.9 % 19-41 [facility] Blood monocytes/100 leukocyt esOrdered By: Dr. Wan on 12-15-2022 Monocytes/100 WBC (Bld) 6.8 % 0-10 [facility] Blood platelet mean volumeOr dered By: Dr. Wan on 12-15-2022 Platelet mean volume (Bld) [Entitic vol] 10.6 fL 6.2-12.0 [facility] Determination of erythrocyte mean corpuscular volume (MCV)Ordered By: Dr. Wan on 12-15-2022 MCV (RBC) [Entitic vol] 95.3 fL 81-99 [facility] Hematocrit Auto (Bld) [Volum e fraction]Ordered By: Dr. Wan on 12-15-2022 Hematocrit (Bld) [Volume fraction] 42.4 % 37-47 [facility] Laboratory - Chemistry and C hemistry - challengeOrdered By: Dr. Wan on 12-15-2022 CO2 [Moles/Vol] 29.0 mmol/L 21.0-32.0 [facility] Urea nitrogen/Creatinine [Mass ratio] 20.6 mg/mg 10-20 [facility] Laboratory - Hematology and Cell countsOrdered By: Dr. Wan on 12-15-2022 Erythrocyte distribution width (RBC) [Entitic vol] 42.7 fL 35.1-43.9 [facility] Erythrocyte distribution width (RBC) [Ratio] 12.2 % 11.6-14.6 [facility] Immature granulocytes/100 WBC (Bld) 0.200 % 0.0-0.9 [facility] Comment on above: IG% - Immature Granu locytes (promyelocytes, myelocytes and metamyelocytes) > 1% indicates that a LEFT SHIFT is Present. MCH (RBC) [Entitic mass] 31.5 pg 27.0-32.0 [facility] Nucleated RBC/100 WBC (Bld) [Ratio] 0 % 0-5 [facility] MCHC Auto (RBC) [Mass/Vol]Or dered By: Dr. Wan on 12-15-2022 MCHC (RBC) [Mass/Vol] 33.0 g/dL 32-36 [facility] No Panel InformationOrdered By: Dr. Wan on 12-15-2022 Troponin I High Sensitivity 4 pg/mL 3.0-54.0 [facility] Comment on above: Please Note: New Lyn t Units and Gender Specific Reference Ranges. For more information see Policy Stat Procedure [place] High Sensitivity Troponin (TNIH) and attachments. D-Dimer Quantitative (PE/DVT) 2.04 FEU/ug/m 0.27-0.49 [facility] Comment on above: D-Dimer ELEVATED (>0 .49): Additional studies and clinicalassessments are indicated to conclude diagnosis of:Deep Vein Thrombosis (DVT) or Pulmonary Embolism (PE) Estimated Creatinine Clearance Calc 76.08 ml/min [facility] Estimated GFR (MDRD) Amer 96 mL/min >60 [facility] Comment on above: GFR Calc Estimated GFR (MDRD) Non-Af Amer 79 mL/min >60 [facility] Comment on above: Non- GFR Calc Platelets bldOrdered By: Dr. Wan on 12-15-2022 Platelets (Bld) [#/Vol] 290 10*3/uL 150-450 [facility] Serum or plasma calcium teresa urement (mass/volume)Ordered By: Dr. Wan on 12-15-2022 Calcium [Mass/Vol] 9.4 mg/dL 8.5-10.1 [facility] Serum or plasma creatinine m easurement (mass/volume)Ordered By: Dr. Wan on 12-15-2022 Creatinine [Mass/Vol] 0.87 mg/dL 0.55-1.02 [facility] Comment on above: The validity of the calculated GFR & GFRAA in patients over 70 years has not been determined. Clinical correlation is essential. Serum or plasma urea nitroge n measurement (mass/volume)Ordered By: Dr. Wan on 12-15-2022 Urea nitrogen [Mass/Vol] 18 mg/dL 7-18 [facility] Thin prep Papanicolaou smear with manual screeningOrdered By: Dr. Wan on 12-15-2022 Thin prep Papanicolaou smear with manual screening 4 5-15 [facility] ANTI MICROSOMAL ANTIBODYOrde red By: Misty Ricks on 03-05-2022 Interpretation and review of laboratory results Normal [facility] TPO Ab Qn 11.8 [IU]/mL <35.0 IU/mL [facility] CORTISOLon 03-05-2022 Cortisol [Mass/Vol] 9.13 ug/dL [facility] Interpretation and review of laboratory results Normal [facility] T4 FREEon 03-05-2022 Free T4 [Mass/Vol] 1.15 ng/dL 0.89 - 1. 76 ng/dL [facility] Interpretation and review of laboratory results Normal [facility] TSHon 03-05-2022 Interpretation and review of laboratory results Normal [facility] TSH Qn 1.898 m[IU]/L [facility] Office Visit (Cardiology)on 11-22-2021 Follow-up visit Diagnoses/Problems Assessed POTS (postural orthostatic tachycardia syndrome) (427.89) (I49.8) Orders Heart palpitations Start: Metoprolol Succinate ER 25 MG Oral Tablet Extended Release 24 Hour (Toprol XL); take 1 tablet by mouth once daily Chief Complaint Suspected postural orthostatic tachycardia syndrome. History of Present [id number] female with a history of postural orthostatic tachycardia syndrome (noted on tilt table testing), symptomatic PVCs here to follow-up regarding the following conditions: Problem #1 postural orthostatic tachycardia syndrome -Patient had been previously fairly active lifting weights, and doing cardio without significant limitations. In 01/2021 patient received a flu shot of the maternal vaccine and had a severe reaction to it with syncope; was hospitalized briefly and following her illness has had palpitations/shortness of breath with minimal activity. -She denies any orthopnea/PND/lower extremity edema -As part of the cardiac work-up an echocardiogram showed low normal ejection fraction in 09/2019; MRI performed 03/01/1021 noted normal biventricular function. -Event monitor performed 02/20/2021 noted no significant arrhythmias; a 5% burden of sinus tachycardia was noted On this visit the patient notes that for the past few months her POTS symptoms have been improving; unfortunately she got Covid mid-October and since then she has been experiencing worsening palpitations with change in posture and shortness of breath. Prior to that her exercise tolerance had been steadily improving. Active Problems Problems Abnormal laboratory test (796.4) (R89.9) Anxiety (300.00) (F41.9) Enlarged thyroid (240.9) (E04.9) Fatigue (780.79) (R53.83) Hair thinning (704.00) (L65.9) Heart palpitations (785.1) (R00.2) Hospital discharge follow-up (V67.59) (Z09) Itching (698.9) (L29.9) Nail brittleness (703.8) (L60.3) Near syncope (780.2) (R55) Pain in right ankle (719.47) (M25.571) POTS (postural orthostatic tachycardia syndrome) (427.89) (I49.8) Shortness of breath (786.05) (R06.02) Sprain of other ligament of right ankle, subsequent encounter (V58.89,845.09) (S93.491D) Symptomatic PVCs (427.69) (I49.3) Syncopal episodes (780.2) (R55) Tachycardia (785.0) (R00.0) Weakness generalized (780.79) (R53.1) Weight gain (783.1) (R63.5) Surgical History Problems History of Ectopic removal History of Miscarriage surgical treatment x2 Past Medical History Problems History of ectopic (V13.29) (Z87.59) 2010 History of spontaneous (V13.29) (Z87.59) X'S 2 History of vaginal delivery (V13.29) 09/01/2009; 40 WEEKS; FEMALE 06/14/2011; 40 WEEKS; MALE History of Menarche (V21.8) AGE 15 History of POTS (postural orthostatic tachycardia syndrome) (427.89) (I49.8) Resolved Date: 31 Jul 2021 Current Meds Medication NameInstruction Ibuprofen TABS Rizatriptan Benzoate 10 MG Oral TabletTAKE 1 TABLET AT ONSET OF HEADACHE. MAY REPEAT EVERY 2 HOURS NEEDED. MAXIMUM 3 TABLETS IN 24 HOURS. Allergies Medication No Known Drug Allergies Recorded By: Maira Krishnamurthy; 08/27/2019 6:59:46 AM Family History Mother Family history of malignant neoplasm of thyroid (V16.8) (Z80.8) Family history of Heart problem Father Family history of hypertension (V17.49) (Z82.49) Family history of type 2 diabetes mellitus (V18.0) (Z83.3) Sister Family history of malignant neoplasm of breast (V16.3) (Z80.3) Family history of malignant neoplasm of thyroid (V16.8) (Z80.8) Grandparent Family history of cerebrovascular accident (CVA) (V17.1) (Z82.3) Family history of hypertension (V17.49) (Z82.49) Family history of type 2 diabetes mellitus (V18.0) (Z83.3) Social History Problems Daily caffeine consumption Drinks coffee 1 CUP Never a smoker No illicit drug use Occasional alcohol use Tea 1 CUP Review of Systems Constitutional: Denies any fever or chills Eyes: Denies any eye pain or blurry vision ENT: Denies any ear pain or hearing loss Cardiovascular: The heart rate is not slow, the heart rate is not fast Respiratory: Denies any asthma/wheezing Gastrointestinal: Denies any lucina colored stools or fatty food intolerance Genitourinary: Denies any blood in the urine or pelvic pain Musculoskeletal: Denies any swelling in the joints or difficulty walking Skin: Denies any skin lumps or skin lesions Neurological: Denies any dizziness/tingling Physical Exam No physical examination was performed since this is a virtual visit Results/Data Xray Chest 2 View PA + [id number] 02:13PMRupa Misa Test NameResultFlagReference Xray Chest 2 View PA + Lateral(Report) FINAL REPORT Interpreted by: LELE WORTHINGTON CRAIG, MD 07/18/21 06:30 Patient Name: YUKO HERRING STUDY: CHEST 2 VIEW PA AND LAT; 07/17/2021 2:13 pm INDICATION: episodes of SOB. COMPARISON: None. ACCESSION NUMBER(S): [id number] ORDERING CLINIC (more content not included)... Normal [facility] Office Visit (Family Medicin e)on 09-20-2021 Follow-up visit Diagnoses/Problems Fatigue (780.79) (R53.83) Heart palpitations (785.1) (R00.2) POTS (postural orthostatic tachycardia syndrome) (427.89) (I49.8) Tachycardia (785.0) (R00.0) Weight gain (783.1) (R63.5) Orders Fatigue, Heart palpitations, POTS (postural orthostatic tachycardia syndrome), Tachycardia, Weight gain Follow-Up, Recheck Outpatient Follow-up 3 months for recheck Status: Hold For - Scheduling Requested for: [id number] Heart palpitations Renew: Metoprolol Succinate ER 25 MG Oral Tablet Extended Release 24 Hour (Toprol XL); take 1 tablet by mouth once daily Provider Impressions Has been seeing Neurologist Dr. Muniz for her migraines. Rizatriptan working well and currently getting PT for these symptoms Needing letter regarding her severe reaction to first COVID vaccine for the [place] mandate. POTS improving with increased salt intake Planning to schedule with [facility] for severe menstrual cramping Followup 3 months for recheck, sooner if needed. Chief Complaint 4-6 week. An interactive audio and video telecommunication system which permits real time communications between the patient (at the originating site) and provider (at the distant site) was utilized to provide this telehealth service. Verbal consent was requested and obtained from YUKO HERRING on this date, 09/20/2021 10:30 AM , for a telehealth visit. History of Present Illness Here for follow up per virtual visit Has seen Neurology Dr. Muniz for her headaches. Has follow up appointment in December. Tried the migraine medication Rizatriptan he prescribed and works wonders. Migraines worse with menses. Still taking ibuprofen as needed Still doing PT for the past 2 months as recommended and ordered by Dr. Muniz. Family PT in [place]. Neck and spine Asymmetry Recommended to exercise sitting only, not standing due to fluctuations of HR. PT suggested [facility] for severe cramping. Suggested [facility]. She will schedule this herself. Needs a letter for [place] who is mandating the vaccine. Took the first vaccine and ended up in the hospital 02/04/21 at [facility] and transferred to [facility] with fatigue, weakness and tachycardia. . Note reviewed. Would like sent by email. or knot picker cloth. POTS symptoms have been better after increasing her salt intake. Supposed to eat a whole salt shaker per week. Seeing Dr. Cortes, next visit in October. Still tired most of the time. Has been getting stronger, but still concerns with weight gain. Review of Systems Review of Systems Constitutional: No fever. Eye: No recent visual problem. Respiratory: Episodes of shortness of breath. Cardiovascular: Episodes of chest pain. Gastrointestinal: No reflux, No nausea, No vomiting, No diarrhea, No constipation, No heartburn, No abdominal pain. Neurologic: Headaches. Active Problems Abnormal laboratory test (796.4) (R89.9) Anxiety (300.00) (F41.9) Enlarged thyroid (240.9) (E04.9) Fatigue (780.79) (R53.83) Hair thinning (704.00) (L65.9) Heart palpitations (785.1) (R00.2) Hospital discharge follow-up (V67.59) (Z09) Itching (698.9) (L29.9) Nail brittleness (703.8) (L60.3) Near syncope (780.2) (R55) Pain in right ankle (719.47) (M25.571) POTS (postural orthostatic tachycardia syndrome) (427.89) (I49.8) Shortness of breath (786.05) (R06.02) Sprain of other ligament of right ankle, subsequent encounter (V58.89,845.09) (S93.491D) Symptomatic PVCs (427.69) (I49.3) Syncopal episodes (780.2) (R55) Tachycardia (785.0) (R00.0) Weakness generalized (780.79) (R53.1) Weight gain (783.1) (R63.5) Past Medical History History of ectopic (V13.29) (Z87.59) 2010 History of spontaneous (V13.29) (Z87.59) X'S 2 History of vaginal delivery (V13.29) 09/01/2009; 40 WEEKS; FEMALE 06/14/2011; 40 WEEKS; MALE History of Menarche (V21.8) AGE 15 History of POTS (postural orthostatic tachycardia syndrome) (427.89) (I49.8) Resolved Date: 31 Jul 2021 Surgical History History of Ectopic removal History of Miscarriage surgical treatment x2 Family History Family history of malignant neoplasm of thyroid (V16.8) (Z80.8) Family history of Heart problem Family history of hypertension (V17.49) (Z82.49) Family history of type 2 diabetes mellitus (V18.0) (Z83.3) Family history of malignant neoplasm of breast (V16.3) (Z80.3) Family history of malignant neoplasm of thyroid (V16.8) (Z80.8) Family history of cerebrovascular accident (CVA) (V17.1) (Z82.3) Family history of hypertension (V17.49) (Z82.49) Family history of type 2 diabetes mellitus (V18.0) (Z83.3) Social History Daily caffeine consumption Denies alcohol consumption (V49.89) (Z78.9) Drinks coffee 1 CUP Never a smoker No illicit drug use Occasional alcohol use Tea 1 CUP Allergies No Known Drug Allergies Recorded By: Maira Krishnamurthy; 08/27/2019 6:59:46 AM Current Meds Medication NameInstructionReason Ibuprofen TABSHealth Main (more content not included)... Normal [facility] Office Visit (Cardiology)on 07-31-2021 Follow-up visit Diagnoses/Problems Assessed Tachycardia (785.0) (R00.0) Orders POTS (postural orthostatic tachycardia syndrome) IO EKG Electrocardiogram- 12 Lead; Status:Complete; Done: 31Jul2021 Tachycardia Start: Corlanor 5 MG Oral Tablet; TAKE 0.5 TABLET Every twelve hours Chief Complaint Dizziness/lightheadednes s History of Present [id number] female with a history of paroxysmal orthostatic tachycardia syndrome (noted on tilt table testing), symptomatic PVCs here to follow-up regarding the following conditions: Problem #1 postural orthostatic tachycardia syndrome -Patient had been previously fairly active lifting weights, and doing cardio without significant limitations. In 01/2021 patient received a flu shot of the maternal vaccine and had a severe reaction to it with syncope; was hospitalized briefly and following her illness has had palpitations/shortness of breath with minimal activity. -She denies any orthopnea/PND/lower extremity edema -As part of the cardiac work-up an echocardiogram showed low normal ejection fraction in 09/2019; MRI performed 03/01/1021 noted normal biventricular function. -Event monitor performed 02/20/2021 noted no significant arrhythmias; a 5% burden of sinus tachycardia was noted -Patient does wear a fitness tracker and she notes that her heart rate goes up to the 140-160 with activity. Active Problems Problems Abnormal laboratory test (796.4) (R89.9) Anxiety (300.00) (F41.9) Enlarged thyroid (240.9) (E04.9) Fatigue (780.79) (R53.83) Hair thinning (704.00) (L65.9) Heart palpitations (785.1) (R00.2) Hospital discharge follow-up (V67.59) (Z09) Itching (698.9) (L29.9) Nail brittleness (703.8) (L60.3) Near syncope (780.2) (R55) Pain in right ankle (719.47) (M25.571) Shortness of breath (786.05) (R06.02) Sprain of other ligament of right ankle, subsequent encounter (V58.89,845.09) (S93.491D) Symptomatic PVCs (427.69) (I49.3) Syncopal episodes (780.2) (R55) Tachycardia (785.0) (R00.0) Weakness generalized (780.79) (R53.1) Weight gain (783.1) (R63.5) Surgical History Problems History of Ectopic removal History of Miscarriage surgical treatment x2 Past Medical History Problems History of ectopic (V13.29) (Z87.59) 2010 History of spontaneous (V13.29) (Z87.59) X'S 2 History of vaginal delivery (V13.29) 09/01/2009; 40 WEEKS; FEMALE 06/14/2011; 40 WEEKS; MALE History of Menarche (V21.8) AGE 15 History of POTS (postural orthostatic tachycardia syndrome) (427.89) (I49.8) Current Meds Medication NameInstruction Ibuprofen TABS Metoprolol Succinate ER 25 MG Oral Tablet Extended Release 24 HourTAKE 0.5 TABLET Daily Rizatriptan Benzoate 10 MG Oral Tablet Allergies Medication No Known Drug Allergies Recorded By: Maira Krishnamurthy; 08/27/2019 6:59:46 AM Family History Mother Family history of malignant neoplasm of thyroid (V16.8) (Z80.8) Family history of Heart problem Father Family history of hypertension (V17.49) (Z82.49) Family history of type 2 diabetes mellitus (V18.0) (Z83.3) Sister Family history of malignant neoplasm of breast (V16.3) (Z80.3) Family history of malignant neoplasm of thyroid (V16.8) (Z80.8) Grandparent Family history of cerebrovascular accident (CVA) (V17.1) (Z82.3) Family history of hypertension (V17.49) (Z82.49) Family history of type 2 diabetes mellitus (V18.0) (Z83.3) Social History Problems Daily caffeine consumption Denies alcohol consumption (V49.89) (Z78.9) Drinks coffee 1 CUP Never a smoker No illicit drug use Occasional alcohol use Tea 1 CUP Review of Systems Constitutional: Denies any fever or chills Eyes: Denies any eye pain or blurry vision ENT: Denies any ear pain or hearing loss Cardiovascular: The heart rate is not slow, the heart rate is not fast Respiratory: Denies any asthma/wheezing Gastrointestinal: Denies any lucina colored stools or fatty food intolerance Genitourinary: Denies any blood in the urine or pelvic pain Musculoskeletal: Denies any swelling in the joints or difficulty walking Skin: Denies any skin lumps or skin lesions Neurological: Denies any dizziness/tingling Vitals Vital Signs Recorded: 31Jul2021 01:46PM Espayppfosb07 F Heart Rate69 Nsgxjjno576 Hwpmlehio58 Height5 ft 3 in Xaeotj409 lb 7 oz BMI Sozbxreujs82.18 kg/m2 BSA Calculated1.73 Tobacco Useb) No Fall Screeningb) One or more falls in the last year O2 Sxaxaxdgry206 Physical Exam General: AANDOx3 HEENT: NC/AT; EOMI; PERRLA, external ear is normal Neck: supple; no JVD Chest: CTAB; no wheezing CVS: S1S2 normal, no murmurs Abdomen: Soft, NT/ND, no organomegaly Extremities: no clubbing/cyanosis/edema Neuro: Grossly intact Results/Data MRI Cardiac w/wo contrast for Morph/Funct and Valve [id number] 02:10PMAngel Ojeda [Feb 07, 2021 10:23AM Angel Ojeda] Reason: Unspecified for MRI Cardiac w/wo contrast for Morph/Func (more content not included)... Normal [facility] Tobacco Screening.on 021 Fall risk assessment b) One or more fall s in the last year [address] Work Phone: Tobacco use status CPHS b) No [address] Work Phone: [facility] 07-17-2021 Erythrocyte distribution width (RBC) [Ratio] 12.8 % Normal 11.5 - 14.5 [facility] Comment on above: Performed By: #### C BC #### [address] [address] Hematocrit (Bld) [Volume fraction] 40.6 % Normal 36.0 - 46.0 [facility] Comment on above: Performed By: #### C BC #### [address] [address] Hemoglobin (Bld) [Mass/Vol] 13.4 g/dL Normal 12.0 - 16.0 [facility] Comment on above: Performed By: #### C BC #### [address] [address] MCHC (RBC) [Mass/Vol] 33.0 g/dL Normal 32.0 - 36.0 [facility] Comment on above: Performed By: #### C BC #### [address] [address] MCV (RBC) [Entitic vol] 95 fL Normal 80 - 100 [facility] Comment on above: Performed By: #### C BC #### [address] [address] Platelets (Bld) [#/Vol] 232 10*3/uL Normal 150 - 450 [facility] Comment on above: Performed By: #### C BC #### [address] [address] RBC 4.27 x10E12/L Normal 4.00 - 5.20 [facility] Comment on above: Performed By: #### C BC #### [address] [address] WBC (Bld) [#/Vol] 6.8 10*3/uL Normal 4.4 - 11.3 [facility] Comment on above: Performed By: #### C #### [id number] [place] [address] CHEST 2 VIEW PA AND LATon CHEST 2 VIEW PA AND LAT Patient Name: YUKO HERRING STUDY: TH CHEST 2 VIEW PA AND LAT; 07/17/2021 2:13 pm INDICATION: episodes of SOB. COMPARISON: None. ACCESSION NUMBER(S): [id number] ORDERING CLINICIAN: MISA MATTHEWS FINDINGS: CARDIOMEDIASTINAL SILHOUETTE: Cardiomediastinal silhouette is normal in size and configuration. LUNGS: There are no focal areas of consolidation or pleural effusions noted. ABDOMEN: No remarkable upper abdominal findings. BONES: No acute osseous changes. IMPRESSION: 1. No evidence of acute cardiopulmonary process. Electronically signed by: LELE WORTHINGTON MD Normal [facility] - Hematology and Cell countson 07-17-2021 Erythrocyte distribution width (RBC) [Ratio] 12.8 % See Below [facility] Work Phone: Comment on above: Reference Range: 11. 5 - 14.5 Hematocrit (Bld) [Volume fraction] 40.6 % See Below [facility] Work Phone: Comment on above: Reference Range: 36. 0 - 46.0 Hemoglobin (Bld) [Mass/Vol] 13.4 g/dL See Below [facility] Work Phone: Comment on above: Reference Range: 12. 0 - 16.0 MCHC (RBC) [Mass/Vol] 33.0 g/dL See Below [facility] Work Phone: [phone] Comment on above: Reference Range: 32. 0 - 36.0 MCV (RBC) [Entitic vol] 95 fL 80 - 100 [facility] Work Phone: [phone] Platelets (Bld) [#/Vol] 232 10*3/uL 150 - 450 [facility] Work Phone: [phone] RBC (Bld) [#/Vol] 4.27 {x10E12/L} See Below -[facility] Work Phone: Comment on above: Reference Range: 4.0 0 - 5.20 WBC (Bld) [#/Vol] 6.8 10*3/uL 4.4 - 11.3 [facility] Work Phone: [facility] Follow-up visit Diagnoses/Problems Abnormal laboratory test (796.4) (R89.9) POTS (postural orthostatic tachycardia syndrome) (427.89) (I49.8) Tachycardia (785.0) (R00.0) Shortness of breath (786.05) (R06.02) Fatigue (780.79) (R53.83) Syncopal episodes (780.2) (R55) Weakness generalized (780.79) (R53.1) Orders Abnormal laboratory test Complete Blood Count; Status:Active; Requested for:[id number]; Fatigue, POTS (postural orthostatic tachycardia syndrome), Shortness of breath, Syncopal episodes, Weakness generalized Follow-Up, Recheck Outpatient Follow-up 4-6 weeks to recheck Status: Hold For - Scheduling Requested for: [id number] POTS (postural orthostatic tachycardia syndrome), Tachycardia Cardiology - General Referral Evaluation and Treatment Evaluate AND Treat Status: Hold For - Scheduling Requested for: [id number] Shortness of breath Xray Chest 2 View PA + Lateral; Status:Hold For - Scheduling; Requested for:[id number]; Radiologist to Determine Optimal Study : Y What are the patient's signs and symptoms? : episodes of SOB Provider Impressions Was doing better then went for a plane ride and symptoms worsened again Doesn't seem related to her food or salt intake Dr. Ojeda did not think related to POTS ENT didn't think and ENT issue, but several mild food sensitivities so will work on elimination of offending foods. Has appointment with neurologist tomorrow in [place], Dr. Muniz. CP, SOB most days for the past 1-2 years. Would like to see a different director mortgage. Referral made to Dr. Cortes Will try heat, NSAIDS to see if CP improves. There is some tenderness, so may be chest wall pain Will check CXR due to SOB Sister here from [facility]. Due to go back home in September, but has been very helpful here especially with her episodes of passing out. Will write a note related to this in case she needs to stay and help pt for a longer amount of time. Follow up 4-6 weeks to recheck 07/17/21 - CBC 1 1,2 WNL. 07/18/21 - CXR normal 2 1 Amended By: Misa Matthews; Jul 17 2021 6:20 PM EST 2 Amended By: Misa Matthews; Jul 18 2021 8:02 AM ESTChief Complaint 2 month follow-up. History of Present Illness Had been feeling much better, so decided to try going up in an airplane and ended up passing out with the altitude. [place] tingly, weak as plane ascended and passed out about 75%. Since then has felt poorly again. Feels weak/tired with turns/curves while a passenger. Doesn't happen while driving. Feeling a little more tired since the airplane ride. The week after the airplane ride passed out about 3 times just standing. Legs feel weak, heart races. Notices the symptoms immediately and lowers herself to the ground and falls asleep for about 20 - 40 minutes. Isn't really responsive during this time. Will be seeing a neurologist tomorrow in [place] Dr. Muniz. Saw Dr. Ojeda who assured her that this wasn't due to her POTS. 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 Said was not related to ENT issues. Did allergy testing and found mild sensitivity to several food items: Peanut, soybean, clam, shrimp, walnuts, scallop, wheat, corn, sesame seed. ENT didn't feel anything of great significance. Discussed trying to eliminate one every 2 weeks to see how she feels. Gets CP/SOB off and on. Will last for a while. Has been occurring x 1-[address] Ojeda who did a heart monitor and said nothing was wrong. Sleeping well Weight gain has stabilized. Review of Systems Review of Systems Constitutional: No fever. Eye: No recent visual problem. Respiratory: Episodes of shortness of breath. Cardiovascular: Episodes of chest pain. Gastrointestinal: No reflux, No nausea, No vomiting, No diarrhea, No constipation, No heartburn, No abdominal pain. Neurologic: No headache. Active Problems Anxiety (300.00) (F41.9) Enlarged thyroid (240.9) (E04.9) Fatigue (780.79) (R53.83) Hair thinning (704.00) (L65.9) Heart palpitations (785.1) (R00.2) Hospital discharge follow-up (V67.59) (Z09) Itching (698.9) (L29.9) Nail brittleness (703.8) (L60.3) Near syncope (780.2) (R55) Pain in right ankle (719.47) (M25.571) POTS (postural orthostatic tachycardia syndrome) (427.89) (I49.8) Sprain of other ligament of right ankle, subsequent encounter (V58.89,845.09) (S93.491D) Symptomatic PVCs (427.69) (I49.3) Syncopal episodes (780.2) (R55) Tachycardia (785.0) (R00.0) Weakness generalized (780.79) (R53.1) Weight gain (783.1) (R63.5) Past Medical History History of ectopic (V13.29) (Z87.59) 2010 History of spontaneous (V13.29) (Z87.59) X'S 2 History of vaginal delivery (V13.29) 09/01/2009; 40 WEEKS; FEMALE 06/14/2011; 40 WEEKS; MALE History of Menarche (V21.8) AGE 15 Surgical History History of Ectopic removal History of Miscarriage surgical treatment x2 Family History Family history of malignant neoplasm of thyroid (V16.8) (Z80.8) Family history of Heart problem Fam (more content not included)... Normal [employer] [facility]on 07-17-2021 XR Chest 2 Views Please click on the link to view the study images Normal [facility] Work Phone: XR Chest 2 Views Normal [facility] Work Phone: Tobacco Screening.on 021 Tobacco use status [facility] b) No [facility] Work Phone: Office Visit (Cardiology)on 07-04-2021 Follow-up visit Diagnoses/Problems Assessed POTS (postural orthostatic tachycardia syndrome) (427.89) (I49.8) Symptomatic PVCs (427.69) (I49.3) Chief Complaint syncope- passing out more x couple weeks History of Present IllnessShe recently was doing very well from the pot standpoint however after she went in a deep pressurized airplane which she has been to multiple times before which was about 10 days ago she suddenly started having worsening symptoms wherein she would have dizziness and sometimes passed out for over 15 to 20 minutes. She had an ENT evaluation done prior to the plane ride and was completely normal for inner ear issues. She also has gained about 20 pounds since we saw her last without change in diet and has similar levels of exercise. Prior 28-year-old female with no known past medical history presents after an abnormal monitor. She says on a day-to-day basis she denies any chest pain shortness of breath, orthopnea, PND, pedal edema, claudication pain, syncopal episodes. She is occasionally noted palpitations at rest. She she noted some mild shortness of breath at rest. However she has excellent physical capability with depleted exercise with about 190 pounds of squats of 4 sets which she can do without any issues as soon as last week. Apparently when she was in her home country she was told that she would need valve replacement. She's not had any heart failure symptoms. She has family history of coronary artery disease in her mother and grandparents in their 40s and 50s. She goes to school at [employer] and does not have any issues attending school. Clinic #2 She continues to have palpitations. She had an episode of near syncope after she received the Covid vaccine 10 to 20 minutes afterwards. However she did not have any chest pains or palpitations leading to an episode of complete syncope without any stimuli. Remains physically very active Clinic #3 She is yet to take the beta vivi but already had 2 more episodes of lightheadedness with high sugar intake Prior Active Problems Problems Anxiety (300.00) (F41.9) Enlarged thyroid (240.9) (E04.9) Fatigue (780.79) (R53.83) Hair thinning (704.00) (L65.9) Heart palpitations (785.1) (R00.2) Hospital discharge follow-up (V67.59) (Z09) Itching (698.9) (L29.9) Nail brittleness (703.8) (L60.3) Near syncope (780.2) (R55) Pain in right ankle (719.47) (M25.571) POTS (postural orthostatic tachycardia syndrome) (427.89) (I49.8) Sprain of other ligament of right ankle, subsequent encounter (V58.89,845.09) (S93.491D) Symptomatic PVCs (427.69) (I49.3) Syncopal episodes (780.2) (R55) Tachycardia (785.0) (R00.0) Weakness generalized (780.79) (R53.1) Weight gain (783.1) (R63.5) Surgical History Problems History of Ectopic removal History of Miscarriage surgical treatment x2 Past Medical History Problems History of ectopic (V13.29) (Z87.59) 2010 History of spontaneous (V13.29) (Z87.59) X'S 2 History of vaginal delivery (V13.29) 09/01/2009; 40 WEEKS; FEMALE 06/14/2011; 40 WEEKS; MALE History of Menarche (V21.8) AGE 15 Current Meds Medication NameInstruction Ibuprofen TABS Metoprolol Succinate ER 25 MG Oral Tablet Extended Release 24 HourTAKE 0.5 TABLET Daily Sodium Chloride 1 GM Oral TabletTake 1 tablet twice daily Allergies Medication No Known Drug Allergies Recorded By: Maira Krishnamurthy; 08/27/2019 6:59:46 AM Family History Mother Family history of malignant neoplasm of thyroid (V16.8) (Z80.8) Family history of Heart problem Father Family history of hypertension (V17.49) (Z82.49) Family history of type 2 diabetes mellitus (V18.0) (Z83.3) Sister Family history of malignant neoplasm of breast (V16.3) (Z80.3) Family history of malignant neoplasm of thyroid (V16.8) (Z80.8) Grandparent Family history of cerebrovascular accident (CVA) (V17.1) (Z82.3) Family history of hypertension (V17.49) (Z82.49) Family history of type 2 diabetes mellitus (V18.0) (Z83.3) Social History Problems Denies alcohol consumption (V49.89) (Z78.9) Drinks coffee 1 CUP Never a smoker No illicit drug use Tea 1 CUP Review of Systems Constitutional: not feeling tired. Eyes: no eyesight problems. ENT: no hearing loss and no nosebleeds. Cardiovascular: no intermittent leg claudication and as noted in HPI. Respiratory: no chronic cough and no shortness of breath. Gastrointestinal: no change in bowel habits and no blood in stools. Genitourinary: no urinary frequency. Skin: no skin rashes. Neurological: no seizures and no frequent falls. Psychiatric: no depression and not suicidal. All other systems have been reviewed and are negative for complaint. Vitals Vital Signs Recorded: 04Jul2021 02:56PM Heart Rate78 Rbrulfjd730 Xcilgcsoy98 Height5 ft 3 in Opmjdz003 lb BMI Ydfomlaryo45.28 kg/m2 BSA Calculated1.73 Tobacco Useb) No O2 [id number] Physical Exam Constitutional: alert and i (more content not included)... Normal [employer] Tobacco Screening.on 021 Tobacco use status [facility] b) No [facility] Work Phone: Tobacco Screening.on 021 Fall risk assessment a) No falls within the last year [facility] Work Phone: Tobacco use status [facility] b) No [facility] Work Phone: CBCon 04-25-2021 Erythrocyte distribution width (RBC) [Ratio] 13.3 % Normal 11.5 - 14.5 [facility] Comment on above: Performed By: #### C BC #### [address] [address] Hematocrit (Bld) [Volume fraction] 39.8 % Normal 36.0 - 46.0 [facility] Comment on above: Performed By: #### C BC #### [address] [address] Hemoglobin (Bld) [Mass/Vol] 13.0 g/dL Normal 12.0 - 16.0 [facility] Comment on above: Performed By: #### C BC #### [address] [address] MCHC (RBC) [Mass/Vol] 32.7 g/dL Normal 32.0 - 36.0 [facility] Comment on above: Performed By: #### C BC #### [address] [address] MCV (RBC) [Entitic vol] 95 fL Normal 80 - 100 [facility] Comment on above: Performed By: #### C BC #### [address] [address] Platelets (Bld) [#/Vol] 212 10*3/uL Normal 150 - 450 [facility] Comment on above: Performed By: #### C BC #### [address] [address] RBC 4.20 x10E12/L Normal 4.00 - 5.20 [facility] Comment on above: Performed By: #### C BC #### [address] [address] WBC (Bld) [#/Vol] 3.8 10*3/uL Low 4.4 - 11.3 [facility] Comment on above: Performed By: #### C BC #### [address] [address] COMPREHENSIVE PANELon 2020 Albumin [Mass/Vol] 3.9 g/dL Normal 3.4 - 5.0 [facility] Comment on above: Performed By: #### C MP #### [address] [address] ALP [Catalytic activity/Vol] 49 U/L Normal 33 - 110 [facility] Comment on above: Performed By: #### C MP #### [address] [address] ALT [Catalytic activity/Vol] 11 U/L Normal 7 - 45 [facility] Comment on above: Result Comment: Karley ents treated with Sulfasalazine may generate falsely decreased results for ALT. Performed By: #### C MP #### [address] [address] Anion gap [Moles/Vol] 7 mmol/L Low 10 - 20 [facility] Comment on above: Performed By: #### C MP #### [address] [address] AST [Catalytic activity/Vol] 16 U/L Normal 9 - 39 [facility] Comment on above: Performed By: #### C MP #### [address] [address] Bilirubin [Mass/Vol] 0.5 mg/dL Normal 0.0 - 1.2 [facility] Comment on above: Performed By: #### C MP #### [place] [id number] Calcium [Mass/Vol] 9.3 mg/dL Normal 8.6 - 10.3 [facility] Comment on above: Performed By: #### C MP #### [place] [id number] Chloride [Moles/Vol] 104 mmol/L Normal 98 - 107 [facility] Comment on above: Performed By: #### C MP #### [address] [address] Creatinine [Mass/Vol] 0.70 mg/dL Normal 0.50 - 1.05 [facility] Comment on above: Performed By: #### C MP #### [place] [id number] GFR- AM. >60 Normal >60 [facility] Comment on above: Result Comment: CALC ULATIONS OF ESTIMATED GFR ARE PERFORMED USING THE MDRD STUDY EQUATION FOR THE IDMS-TRACEABLE CREATININE METHODS. CLIN CHEM 2007;53:766-72 Performed By: #### C MP #### [address] [address] GFR-NON AM. >60 Normal >60 [facility] Comment on above: Performed By: #### C MP #### [address] [address] Glucose [Mass/Vol] 96 mg/dL Normal 74 - 99 [facility] Comment on above: Performed By: #### C MP #### [address] [address] HCO3 (Bld) [Moles/Vol] 28 mmol/L Normal 21 - 32 [facility] Comment on above: Performed By: #### C MP #### [address] [address] Potassium [Moles/Vol] 4.2 mmol/L Normal 3.5 - 5.3 [facility] Comment on above: Performed By: #### C MP #### [address] [address] Protein [Mass/Vol] 6.7 g/dL Normal 6.4 - 8.2 [facility] Comment on above: Performed By: #### C MP #### [address] [address] Sodium [Moles/Vol] 135 mmol/L Low 136 - 145 [facility] Comment on above: Performed By: #### C MP #### [address] [address] Urea nitrogen [Mass/Vol] 20 mg/dL Normal 6 - 23 [facility] Comment on above: Performed By: #### C MP #### [address] [address] GLUCOSE JUVENCIO,2HR NON-PREGNANC Yon 04-25-2021 GTT TWO HOUR 100 mg/dL Normal <200 [facility] Comment on above: Performed By: #### G TTH2 #### [address] [address] GTT FASTING 95 mg/dL Normal <126 [facility] Comment on above: Performed By: #### G TTH2 #### [address] [address] INTERPRETATION SEE BELOW Normal [facility] Comment on above: Result Comment: VALU ES (mg/dL) WITH LOADING DOSE OF 75g: DIAGNOSTIC VALUE FASTING AT 2 HRS INCREASED RISK FOR DIABETES 100-125 140-199 DIAGNOSTIC OF DIABETES >=126 >=200 Diagnosis of diabetes mellitus requires confirmation of an abnormal result by repeat testing. [place] [employer], Diabetes Care 2015;38(Suppl.1):S8-S16. Performed By: #### G TTH2 #### [facility] [address] [place] [address] GLUCOSE-POCTon 04-25-2021 Glucose [Mass/Vol] 96 mg/dL Normal 74 - 99 [facility] Comment on above: Performed By: #### G JOANN #### [place] [id number] [place] [address] Laboratory - Chemistry and C hemistry - challengeon 04-25-2021 Glucose [Mass/Vol] 96 mg/dL 74 - 99 [facility] Work Phone: Glucose 2 Hr post dose glucose [Moles/Vol] 100 mg/dL <200 [facility] Work Phone: Glucose post fast [Mass/Vol] 95 mg/dL <126 [facility] Work Phone: Albumin BCP dye [Mass/Vol] 3.9 g/dL 3.4 - 5.0 [facility] Work Phone: ALP [Catalytic activity/Vol] 49 U/L 33 - 110 [facility] Work Phone: ALT With P-5'-P [Catalytic activity/Vol] 11 U/L 7 - 45 [facility] Work Phone: Comment on above: Patients treated wit h Sulfasalazine may generate falsely decreased results for ALT. Anion gap [Moles/Vol] 7 mmol/L below low threshold 10 - 20 [facility] Work Phone: AST With P-5'-P [Catalytic activity/Vol] 16 U/L 9 - 39 [facility] Work Phone: Bilirubin [Mass/Vol] 0.5 mg/dL 0.0 - 1.2 [facility] Work Phone: [phone] Calcium [Mass/Vol] 9.3 mg/dL 8.6 - 10.3 [facility] Work Phone: Chloride [Moles/Vol] 104 mmol/L 98 - 107 [facility] Work Phone: CO2 [Moles/Vol] 28 mmol/L 21 - 32 [facility] Work Phone: Creatinine [Mass/Vol] 0.70 mg/dL See Below [facility] Work Phone: Comment on above: Reference Range: 0.5 0 - 1.05 Glucose [Mass/Vol] 96 mg/dL 74 - 99 [facility] Work Phone: [phone] Potassium [Moles/Vol] 4.2 mmol/L 3.5 - 5.3 [facility] Work Phone: [phone] Protein [Mass/Vol] 6.7 g/dL 6.4 - 8.2 [facility] Work Phone: [phone] Sodium [Moles/Vol] 135 mmol/L below low threshold 136 - 145 [facility] Work Phone: [phone] TSH Qn 1.34 m[IU]/L See Below [facility] Work Phone: Comment on above: Reference Range: 0.4 4 - 3.98 TSH testing is performed using different testing methodology at [facility] than at other [facility]. Direct result comparisons should only be made within the same method. Urea nitrogen [Mass/Vol] 20 mg/dL 6 - 23 [facility] Work Phone: Laboratory - Hematology and Cell countson 04-25-2021 Erythrocyte distribution width (RBC) [Ratio] 13.3 % See Below [facility] Work Phone: Comment on above: Reference Range: 11. 5 - 14.5 Hematocrit (Bld) [Volume fraction] 39.8 % See Below [facility] Work Phone: Comment on above: Reference Range: 36. 0 - 46.0 Hemoglobin (Bld) [Mass/Vol] 13.0 g/dL See Below [facility] Work Phone: Comment on above: Reference Range: 12. 0 - 16.0 MCHC (RBC) [Mass/Vol] 32.7 g/dL See Below [facility] Work Phone: Comment on above: Reference Range: 32. 0 - 36.0 MCV (RBC) [Entitic vol] 95 fL 80 - 100 [facility] Work Phone: Platelets (Bld) [#/Vol] 212 10*3/uL 150 - 450 [facility] Work Phone: RBC (Bld) [#/Vol] 4.20 {x10E12/L} See Below [facility] Work Phone: Comment on above: Reference Range: 4.0 0 - 5.20 WBC (Bld) [#/Vol] 3.8 10*3/uL below low threshold 4.4 - 11.3 [facility] Work Phone: No Panel Informationon 04-25 SEE BELOW [facility] Work Phone: Comment on above: VALUES (mg/dL) WITH LOADING DOSE OF 75g: DIAGNOSTIC VALUE FASTING AT 2 HRS INCREASED RISK FOR DIABETES 100-125 140-199 DIAGNOSTIC OF DIABETES >=126 >=200 Diagnosis of diabetes mellitus requires confirmation of an abnormal result by repeat testing. [place], Diabetes Care 2015;38(Suppl.1):S8-S16. >60 >60 [facility] Work Phone: Comment on above: CALCULATIONS OF ARJUN MATED GFR ARE PERFORMED USING THE MDRD STUDY EQUATION FOR THE IDMS-TRACEABLE CREATININE METHODS. CLIN CHEM 2007;53:766-72 TSH WITH REFLEX TO FREE T4 I F ABNORMALon 04-25-2021 TSH Qn 1.34 m[IU]/L Normal 0.44 - 3.98 [facility] Comment on above: Result Comment: TSH testing is performed using different testing methodology at [facility] than at other [facility]. Direct result comparisons should only be made within the same method. Performed By: #### T HYDS #### [facility] [address] [place] [address] Tobacco Screening.on 021 Tobacco use status [facility] b) No [facility] Work Phone: Patient Profile - Preop v2on 03-21-2021 Patient Profile - Preop v2 Profile: Initial Info: How to be AddressedLaila Spoken Language PreferredEnglish Source of Informationpatient Are you currently using the Personal Electronic Health Record or MYUHCAREno Are you interested in learning more about MYCARE for the management of your healthnot at this time Stated Reason for AdmissionTilt table test Primary Contact Name and NumberTrav Post [phone] Limitations on Visitors/Phone Callsnone Patient Belongingsremains with patient Patient Belongings Remaining with Patientcell phone/electronics; clothing; jewelry Medications Brought to Hospitalno General Health: Weight in kg67.2 kilogram(s) Weight in hil709.1 pound(s) Weight Methodstated Height in feet5 feet Height in inches3 inch(es) Height in cm160 centimeter(s) Height Methodstated BMI (kg/m2)26.25 square meter Patient or Family Member Reaction to Anesthesiano previous reaction Health Mgmt: Symptoms/Conditions Managed at [facility] Are You Currently Breastfeedingno Barriers to Managing Healthnone Relationship/Environ: Living Arrangementsapartment Resource/Environmental Concernsnone Substance: Current or Former Substance Use never: Cigarette/Tobacco, e-Cigarette/Vaping, Alcohol, Street Drugs Risk Screens: COVID-19 Screening Completedno exposure or symptoms Travel or ExposureNO travel to International locations in the past 30 days Advance Directive/DNRno Advance Directive Information Givenpatient/family declined During the past month, have you often been bothered by feeling down, depressed or hopelessno During the past month, have you often had little interest or pleasure in doing thingsno Have you had any thoughts of harming anyone elseno Risk Screen Not Applicable/Able to Answerable to be screened In the Past Month: Have you wished you were or could go to sleep and not wake upno In the Past Month: Have you had any actual thoughts of killing yourselfno Lifetime: Have you ever done, started to do, or prepared to do anything to end your lifeno Are you or have you been threatened or abused physically,emotionally or sexually abused by anyoneno Do you feel UNSAFE going back to the place you are livingno Patient is Able to be Assessed for Learningyes Factors Influencing Readiness to Learnmotivation to learn Factors that Impact Ability to Learnnone Devices/Methods Used to Communicatenone Learning Preferencesverbal instruction Cultural Considerationsnone Developmental Considerationsnone Adventist Considerationsnone Other learner availableno Falls RiskPatient location auto qualifies him/her for HIGH RISK. Are there any cultural, spiritual, druze practices/values/needs that are important for us to knowno Pain Scalenumerical 0-10 Pain Scale Educationteaching provided Current Pain Level0 = None Acceptable Pain Level5 = Moderate Chronic Painno Information Review: Allergies, Home Meds and Significant Events have been Reviewed and Verified with Patient/Familyyes Allergy, Intolerance, Adverse Event: Allergies: No Known Allergies: Active Electronic Signatures: Blane De Leon (FREDDY) (Signed 21-Mar-2021 08:32) Authored: Initial Info, General Health, Health Mgmt, Relationship/Environ, Substance, Risk Screens, Additional Information Last Updated: 21-Mar-2021 08:32 by Blane De Leon (FREDDY) [facility] Radiologyon 03-08-2021 US Thyroid gland Normal [facility] Work Phone: US THYROIDon 03-08-2021 US THYROID Patient Name: YUKO HERRING STUDY: US THYROID; 03/08/2021 1:21 pm INDICATION: Difficulty swallowing off and on, FH thyroid cancer. COMPARISON: None. ACCESSION NUMBER(S): [id number] ORDERING CLINICIAN: MISA MATTHEWS TECHNIQUE: Multiple ultrasonographic images of the thyroid gland were obtained. FINDINGS: The thyroid is normal in size and appearance, with no nodules identified. RIGHT LOBE: 4.5 x 1.7 x 1.8 cm. LEFT LOBE: 4.4 x 1.4 x 1.7 cm. ISTHMUS: The isthmus measures approximately 3 mm and is homogeneous in echotexture and without any identifiable nodules. CERVICAL LYMPH NODES: No significant cervical adenopathy. IMPRESSION: Homogeneous bilateral thyroid with no discrete nodule seen. Electronically signed by: DESTINI DODGE MD Normal [facility] Tobacco Screening.on 021 Tobacco use status [facility] b) No [facility] Work Phone: Tobacco Screening. b) No [facility] Work Phone: MRI Cardiac w/wo contrast fo r Morph/Funct and Valve Dzon 03-01-2021 MRI Cardiac w/wo contrast for Morph/Funct and Valve Dz Normal [facility] Work Phone: TH MRI CARDIAC W/WO CONTRAST FOR MORPH/FUNCT AND VALVE DZon 03-01-2021 TH MRI CARDIAC W/WO CONTRAST FOR MORPH/FUNCT AND VALVE DZ [facility] CMR Report Name: YUKO HERRING : 1990 Scan Date: 2021-03-01 12:27:36 Electronically signed by Ben Chambers 21:02:04 GENERAL INFORMATION HEIGHT: 63.00 in (160.02 cm) WEIGHT: 145.00 lbs (65.77 kgs) BSA: 1.69 m^2 SCAN LOCATION: [facility] REFERRING PHYSICIAN: ANGEL OJEDA ATTENDING PHYSICIAN: ANGEL JOEDA ACCESSION NUMBER: [id number] CPT CODES: 24381, [ , ]81692, [ , ]09910 ICD10 CODES: I50.20 PATIENT HISTORY: Device: No, Preg/Nursing: No, HT: 160.02 cm, WT: 65.413161 kg SUMMARY 1.5T Cardiac MR to assess structure and function. Impression: 1. No major or minor imaging criteria met for ARVC. 2. Normal Biventricular size and function. LVEF 53%, LVEDV 93 ml/m^2; RVEDV 61%, RVEDV 71 ml/m^2. 3. No LGE to suggest prior infarct or infiltrative process. LEFT VENTRICLE: Quantitative LVEF 53 %. LV wall thickness is normal. LV cavity size is normal. LV systolic function is normal. There is no LV mass/thrombus VIABILITY: Hyperenhancement is normal. RIGHT VENTRICLE: Quantitative RVEF 61 %. RV systolic function is normal. RV cavity size is normal. There is no RV mass/thrombus. There is no RV fibro-fatty infiltration. LV/RV SEPTUM: The ventricular septum is intact. LA/RA SEPTUM: The atrial septum is intact. LEFT ATRIUM: LA cavity size is normal. RIGHT ATRIUM: RA cavity size is normal. PERICARDIUM: Pericardium is normal. There is a trivial pericardial effusion. PLEURAL EFFUSION: There is no pleural effusion. AORTIC VALVE: Aortic valve is trileaflet. Peak aortic valve velocity 105 cm/sec. Aortic regurgitant volume 0 ml. Aortic regurgitant fraction 0 %. MITRAL VALVE: Mitral valve leaflets are normal. Mitral valve is mildly thickened. Mitral regurgitant volume 0 ml. Peak mitral valve velocity 119 cm/sec. Mitral regurgitant fraction 0 %. TRICUSPID VALVE: Tricuspid valve leaflets are normal. PULMONIC VALVE: Pulmonic valve leaflets are normal. Pulmonic regurgitant volume 1 ml. Peak pulmonic valve velocity 164 cm/sec. Pulmonic regurgitant fraction 1 %. AORTIC ROOT: The aortic root is normal. CORE EXAM MEASUREMENTS VOLUMETRIC ANALYSIS . --------. . . . LV . Reference . RV . Reference . +------+ +----- -+ +------+--- --------+ . EDV . ml . 157 . (94-175) . 120 . (94-178) . . . ml/m^2 . 93 . (62-96) . 71 . (61-98) . . ESV . ml . 74 . (27-64) . 47 . (25-77) . . . ml/m^2 . 44 . (17-36) . 28 . (17-43) . . CO . L/min . 6.29 . . 5.57 . . . . L/min/m^2 . 3.73 . . 3.30 . . . MASS . g . 63 . (70-142) . . . . . g/m^2 . 38 . (47-77) . . . . SV . ml . 83 . (61-117) . 73 . (59-111) . . . ml/m^2 . 49 . (40-65) . 43 . (38-62) . . EF . % . 53 . (57-75) . 61 . (51-75) . '------+ +----- -+ +------+--- --------' CARDIAC OUTPUT HR: 76 BPM LV DIMENSIONS WALL THICKNESS - ANTEROSEPTAL: 0.7 cm WALL THICKNESS - INFEROLATERAL: 0.5 cm LV KAMRAN: 4.8 cm LV ESD: 3.3 cm LA DIMENSIONS (LV SYSTOLE) AREA - 2 CHAMBER: 13 cm^2 LENGTH - 2 CHAMBER: 3.3 cm AREA - 4 CHAMBER: 17.45 cm^2 LENGTH - 4 CHAMBER: 4.5 cm VOLUME: 58 ml VOLUME NORMALIZED: 34.6 ml/m^2 RA DIMENSIONS (RV SYSTOLE) AREA - 4 CHAMBER: 19 cm^2 LENGTH - 4 CHAMBER: 5 cm AORTIC ROOT DIMENSIONS ANNULUS: 1.8 cm SINUS OF VALSALVA: 2.8 cm SINOTUBULAR JUNCTION: 2.2 cm EXTRACELLULAR VOLUME MEASUREMENT PRE-CONTRAST T1 MYOCARDIUM: 1024 msec PRE-CONTRAST T1 LV CAVITY: 1595 msec POST-CONTRAST T1 MYOCARDIUM: 357 msec POST-CONTRAST T1 LV CAVITY: 190 msec HEMATOCRIT: 42 % ECV: 23 % IRON QUANTIFICATION MYOCARDIAL T2*: 38 msec LIVER T2*: 30 msec 17 SEGMENT . . . Segments . Wall Motion . Hyperenhancement . Stress Perfusion . Interpretation . + +-- + -------+ ----+ + . Base Anterior . Normal/Hyper . None . . Normal . . (more content not included)... Normal [facility] POCT GLUCOSEon 01-30-2021 Glucose [Mass/Vol] 113 mg/dL High 70-100 [facility] [employer] [id number] Normal [facility] ALCOHOLon 01-29-2021 Ethanol [Mass/Vol] mg/dL Normal 0-10 [facility] Comment on above: Result Comment: INTOXICATION >80 MG/DL FATAL >400 MG/DL Performed By: #### E SR, CREACT #### Testing performed at [address] [address] C REACTIVE PROTEINon 021 CRP [Mass/Vol] 8.0 mg/L Normal 0-10.0 [facility] Comment on above: Performed By: #### E SR, CREACT #### Testing performed at [address] [address] CBCon 01-29-2021 ABSOLUTE BAS 0.0 10*3/uL Normal 0.0-0.2 [facility] Comment on above: Performed By: #### C HEM7F, ACBC #### Testing performed at [address] [address] ABSOLUTE EOS 0.10 10*3/uL Normal 0.0-0.7 [facility] Comment on above: Performed By: #### C HEM7F, ACBC #### Testing performed at [address] [address] ABSOLUTE NEUTROPHIL COUNT 4.0 10*3/uL Normal 1.4-6.5 [facility] Comment on above: Performed By: #### C HEM7F, ACBC #### Testing performed at [address] [address] Basophils/100 WBC (Bld) 0.5 % Normal 0.0-2.0 [facility] Comment on above: Performed By: #### C HEM7F, ACBC #### Testing performed at [address] [address] DTYPE AUTO DIFF Normal [facility] Comment on above: Performed By: #### C HEM7F, ACBC #### Testing performed at [address] [address] Eosinophils/100 WBC (Bld) 2.1 % Normal 0.0-11.0 [facility] Comment on above: Performed By: #### C HEM7F, ACBC #### Testing performed at [address] [address] Lymphocytes (Bld) [#/Vol] 2.30 10*3/uL Normal 1.2-3.4 [facility] Comment on above: Performed By: #### C HEM7F, ACBC #### Testing performed at [address] [address] Lymphocytes/100 WBC (Bld) 32.9 % Normal 20.0-55.0 [facility] Comment on above: Performed By: #### C HEM7F, ACBC #### Testing performed at [address] [address] Monocytes (Bld) [#/Vol] 0.5 10*3/uL Normal 0.0-0.7 [facility] Comment on above: Performed By: #### C HEM7F, ACBC #### Testing performed at [address] [address] Monocytes/100 WBC (Bld) 7.7 % Normal 0.0-10.0 [facility] Comment on above: Performed By: #### C HEM7F, ACBC #### Testing performed at [address] [address] Neutrophils/100 WBC (Bld) 56.8 % Normal 37.0-75.0 [facility] Comment on above: Performed By: #### C HEM7F, ACBC #### Testing performed at [address] [address] Erythrocyte distribution width (RBC) [Ratio] 12.8 % Normal 11.5-14.5 [facility] Comment on above: Performed By: #### C HEM7F, ACBC #### Testing performed at [address] [address] Hematocrit (Bld) [Volume fraction] 41.0 % Normal 36.0-48.0 [facility] Comment on above: Performed By: #### C HEM7F, ACBC #### Testing performed at [address] [address] Hemoglobin (Bld) [Mass/Vol] 13.8 g/dL Normal 12.0-16.0 [facility] Comment on above: Performed By: #### C HEM7F, ACBC #### Testing performed at [address] [address] MCH (RBC) [Entitic mass] 31.0 pg Normal 26.0-35.0 [facility] Comment on above: Performed By: #### C HEM7F ACBC #### Testing performed at [address] [address] MCHC (RBC) [Mass/Vol] 33.6 g/dL Normal 27.0-37.0 [facility] Comment on above: Performed By: #### C HEM7F ACBC #### Testing performed at [address] [address] MCV (RBC) [Entitic vol] 92.3 fL Normal 80.0-100.0 [facility] Comment on above: Performed By: #### C HEM7F ACEVIE #### Testing performed at [address] [address] Platelet mean volume (Bld) [Entitic vol] 9.7 fL Normal 7.4-11.0 [facility] Comment on above: Performed By: #### C HEM7F ACBC #### Testing performed at [address] [address] Platelets (Bld) [#/Vol] 235 10*3/uL Normal 130.0-400.0 [facility] Comment on above: Performed By: #### C HEM7FNEGRA #### Testing performed at [address] [address] RBC (Bld) [#/Vol] 4.44 10*6/uL Normal 4.0-5.4 [facility] Comment on above: Performed By: #### C HEM7F ACBC #### Testing performed at [address] [address] WBC (Bld) [#/Vol] 7.0 10*3/uL Normal 3.6-11.0 [facility] Comment on above: Performed By: #### C HEM7F ACBC #### Testing performed at [address] [address] CHEM 7 FASTINGon 01-29-2021 Creatinine [Mass/Vol] 0.71 mg/dL Normal 0.52-1.04 [facility] Comment on above: Performed By: #### E SR, CREACT #### Testing performed at [address] [place] [address] EST. GFR, >60 Normal [facility] Comment on above: Performed By: #### E SR, CREACT #### Testing performed at [address] [address] EST. GFR,Non >60 Normal [facility] Comment on above: Performed By: #### E SR, CREACT #### Testing performed at [address] [place] [address] GFR Information Average GFR for 30-3 9 years old = 109. Normal [facility] Comment on above: Result Comment: Home Health Attendant lisa Kidney disease, GFR = <60. Kidney failure, GFR = <15. The GFR estimate is not adjusted for extreme body surface area or acute process, nor has it been validated for women or ethnic groups other than and . Performed By: #### E SR, CREACT #### Testing performed at [address] [place] [address] Urea nitrogen [Mass/Vol] 19 mg/dL Normal 7-20 [facility] Comment on above: Performed By: #### E SR, CREACT #### Testing performed at [address] [address] Chloride [Moles/Vol] 100 mmol/L Normal 98-107 [facility] Comment on above: Performed By: #### E SR, CREACT #### Testing performed at [address] [address] CO2 [Moles/Vol] 26 mmol/L Normal 22-30 [facility] Comment on above: Performed By: #### E SR, CREACT #### Testing performed at [address] [address] Glucose [Mass/Vol] 91 mg/dL Normal 70-100 [facility] Comment on above: Result Comment: NORMAL <100 mg/dL PREDIABETES 101-126 mg/dL DIABETES 126 mg/dL or higher Performed By: #### E SR, CREACT #### Testing performed at [address] [address] Potassium [Moles/Vol] 3.6 mmol/L Normal 3.5-5.1 [facility] Comment on above: Performed By: #### E SR, CREACT #### Testing performed at [address] [address] Sodium [Moles/Vol] 136 mmol/L Normal 136-145 [facility] Comment on above: Performed By: #### E SR, CREACT #### Testing performed at [address] [address] [address] HEAD WITHOUT CONTRASTon 0 01-29-2021 CT HEAD WITHOUT CONTRAST EXAM: CT HEAD WITHOUT CONTRAST REASON FOR EXAM: Female, 30 years, syncope. TECHNIQUE: Computed tomography of the head is performed in the axial projection from the base of the skull to the vertex. Sagittal and coronal reconstructed images are performed. Dose reduction techniques were achieved by using automated exposure control and/or adjustment of mA and/or KVP according to patient size and/or use of iterative reconstruction technique. COMPARISON: None. FINDINGS: Normal soft tissues. Normal calvarium. The ventricles have normal size and configuration for patient's age. Normal brain parenchyma. Normal basal ganglia. Normal brainstem. The cerebellum is normal. There is no evidence for acute ischemia. There is no evidence for acute hemorrhage. The visualized paranasal sinuses are clear. IMPRESSION: Normal CT of the brain. Normal [facility] ESRon 01-29-2021 ESR (Bld) [Velocity] 18 mm/h High 0-15 [facility] Comment on above: Performed By: #### E SR, CREACT #### [place] [address] NOVEL CORONAVIRUSon 01-30-20 21 NARRATIVE This test was perfor med using isothermal YESENIA and has been approved as Emergency Use Authorization (EUA) for the qualitative detection [id number] nucleic acid. Normal [facility] Comment on above: Performed By: #### C OVID #### Testing performed at [address] [address] SARS-CoV-2 (COVID-19) RNA YESENIA+probe Ql (Unsp spec) Not detected Normal NOT DETECTED [facility] Comment on above: Result Comment: Nega tive results do not preclude SARS-CoV-2 infection and should not be used as the sole basis for treatment or other patient management decisions. Optimum specimen types and timing for peak viral levels during infections caused by SARS-CoV-2 has not been determined. The possibility of a false negative result should especially be considered if the patient's recent exposures or clinical presentation suggest that SARS-CoV-2 infection is probable, and diagnostic tests for other causes of illness (e.g., other respiratory illness) are negative. Collection of a new specimen and re-testing may be necessary if the patient is critically ill or clinically deteriorating. Performed By: #### C OVID #### Testing performed at [place] [id number] POCT GLUCOSEon 01-29-2021 Glucose [Mass/Vol] 136 mg/dL High 70-100 [facility] [employer] [id number] Normal [facility] RAPID TOX SCREEN,URINEon AMPHETAMINE Negative Normal NEGATIVE [facility] Comment on above: Result Comment: <500 ng/ml CUTOFF Performed By: #### R TOX #### Testing performed at [address] [address] BARBITURATES Negative Normal NEGATIVE [facility] Comment on above: Result Comment: <200 ng/ml CUTOFF Performed By: #### R TOX #### Testing performed at [address] [address] BENZODIAZEPINES Negative Normal NEGATIVE [facility] Comment on above: Result Comment: <150 ng/ml CUTOFF Performed By: #### R TOX #### Testing performed at [address] [address] BUPRENORPHINE Negative Normal NEGATIVE [facility] Comment on above: Result Comment: <10 ng/ml CUTOFF Performed By: #### R TOX #### Testing performed at [address] [address] CANNABINOIDS Negative Normal NEGATIVE [facility] Comment on above: Result Comment: <50 ng/ml CUTOFF Performed By: #### R TOX #### Testing performed at [address] [address] COCAINE Negative Normal NEGATIVE [facility] Comment on above: Result Comment: <150 ng/ml CUTOFF Performed By: #### R TOX #### Testing performed at [address] [address] METHADONE Negative Normal NEGATIVE [facility] Comment on above: Result Comment: <200 ng/ml CUTOFF Performed By: #### R TOX #### Testing performed at [address] [place] [address] METHAMPHETAMINE Negative Normal NEGATIVE [facility] Comment on above: Result Comment: <500 ng/ml CUTOFF Performed By: #### R TOX #### Testing performed at [address] [place] [address] OPIATES Negative Normal NEGATIVE [facility] Comment on above: Result Comment: <100 ng/ml CUTOFF Performed By: #### R TOX #### Testing performed at [address] [place] [address] OXYCODONE Negative Normal NEGATIVE [facility] Comment on above: Result Comment: <100 ng/ml CUTOFF Performed By: #### R TOX #### Testing performed at [address] [place] [address] PHENCYCLIDINE Negative Normal NEGATIVE [facility] Comment on above: Result Comment: <25 ng/ml CUTOFF Performed By: #### R TOX #### Testing performed at [address] [place] [address] PROPOXYPHENE Negative Normal NEGATIVE [facility] Comment on above: Result Comment: <300 ng/ml CUTOFF Performed By: #### R TOX #### Testing performed at [address] [place] [address] TRICYCLIC ANTIDEPRESSANTS Negative Normal NEGATIVE [facility] Comment on above: Result Comment: <300 ng/ml CUTOFF Performed By: #### R TOX #### Testing performed at [address] [place] [address] URINE HCG QUALon 01-29-2021 Beta HCG ( test) Ql (U) Negative Normal NEGATIVE [facility] Comment on above: Performed By: #### U HCGT, UMIC, UMAC #### Testing performed at [address] [address] URINE MACROSCOPICon 01-30-20 Bilirubin Ql (U) Negative Normal NEGATIVE [facility] Comment on above: Performed By: #### U HCGT, UMIC, UMAC #### Testing performed at [address] [place] [address] Clarity (U) CLEAR Normal CLEAR [facility] Comment on above: Performed By: #### U HCGT, UMIC, UMAC #### Testing performed at [address] [address] Color (U) YELLOW Normal YELLOW [facility] Comment on above: Performed By: #### U HCGT, UMIC, UMAC #### Testing performed at [address] [address] Glucose Ql (U) Negative Normal NEGATIVE [facility] Comment on above: Performed By: #### U HCGT, UMIC, UMAC #### Testing performed at [address] [address] pH (U) 6.0 [pH] Normal 5.0-7.0 [facility] Comment on above: Performed By: #### U HCGT, UMIC, UMAC #### Testing performed at [address] [address] URINE HEMOGLOBIN Negative Normal NEGATIVE [facility] Comment on above: Performed By: #### U HCGT, UMIC, UMAC #### Testing performed at [address] [place] [address] URINE KETONE Negative Normal NEGATIVE [facility] Comment on above: Performed By: #### U HCGT, UMIC, UMAC #### Testing performed at [address] [place] [address] URINE LEUKOTEST SMALL Abnormal NEGATIVE [facility] Comment on above: Performed By: #### U HCGT, UMIC, UMAC #### Testing performed at [address] [address] URINE NITRATES Negative Normal NEGATIVE [facility] Comment on above: Performed By: #### U HCGT, UMIC, UMAC #### Testing performed at [address] [address] URINE SPEC GRAVITY 1.020 Normal 1.010-1.025 [facility] Comment on above: Performed By: #### U HCGT, UMIC, UMAC #### Testing performed at [address] [address] URINE TOTAL PROTEIN Negative Normal NEGATIVE [facility] Comment on above: Performed By: #### U HCGT, UMIC, UMAC #### Testing performed at [address] [address] Urobilinogen Qn (U) 0.2 {Matt'U}/dL Normal 0.2-1.0 [facility] Comment on above: Performed By: #### U HCGT, UMIC, UMAC #### Testing performed at [address] [address] URINE MICROSCOPICon 01-30-20 21 Bacteria LM.HPF (Urine sed) [#/Area] Negative Normal NEGATIVE [facility] Comment on above: Performed By: #### U HCGT, UMIC, UMAC #### [place] [address] CASTS NONE Normal [facility] Comment on above: Performed By: #### U HCGT, UMIC, UMAC #### Testing performed at [address] [address] CRYSTAL NONE Normal NONE [facility] Comment on above: Performed By: #### U HCGT, UMIC, UMAC #### Testing performed at [address] [address] Epithelial cells LM Ql (Urine sed) 10 TO 20 Normal [facility] Comment on above: Performed By: #### U HCGT, UMIC, UMAC #### Testing performed at [address] [address] Mucus Ql (Urine sed) Negative Normal NEGATIVE [facility] Comment on above: Performed By: #### U HCGT, UMIC, UMAC #### Testing performed at [address] [address] URINE COMMENT POSSIBLY CONTAMINATE D SPECIMEN, CULTURE MUST BE ORDERED SEPARATELY IF DEEMED NECESSARY. Normal [facility] Comment on above: Performed By: #### U HCGT, UMIC, UMAC #### Testing performed at [address] [address] URINE RBC'S Negative Normal NEGATIVE [facility] Comment on above: Performed By: #### U HCGT, UMIC, UMAC #### Testing performed at [address] [address] URINE WBC'S 1 TO 5 Normal NEGATIVE [facility] Comment on above: Performed By: #### U HCGT, UMIC, UMAC #### Testing performed at [facility] [address] [place] [address] Magnesium, Serumon 9 Magnesium [Mass/Vol] 2.03 mg/dL See Below [facility] Work Phone: Comment on above: Reference Range: 1.6 0 - 2.40 Complete Blood Count + Diffe rentialon 08-18-2019 Basophils (Bld) [#/Vol] 0.00 {x10E9/L} See Below [facility] Work Phone: Comment on above: Reference Range: 0.0 0 - 0.10 Phys Name annie jackson daniella ticorasPhys [id number] #[phone] #[id number] Provider: PHYSICIAN AMBULATORY MNAME [address] Basophils/100 WBC (Bld) 0.8 % 0.0 - 2.0 [facility] Work Phone: Comment on above: Phys Name annie jackson daniella ticorasPhys [id number] #[phone] #[id number] Provider: PHYSICIAN AMBULATORY MNAME [address] Eosinophils (Bld) [#/Vol] 0.10 {x10E9/L} See Below [facility] Work Phone: Comment on above: Reference Range: 0.0 0 - 0.70 Phys Name annie jackson daniella ticorasPhys [id number] #[phone] #[id number] Provider: PHYSICIAN AMBULATORY MNAME [address] Eosinophils/100 WBC (Bld) 1.8 % 0.0 - 6.0 [facility] Work Phone: Comment on above: Phys Name annie jackson daniella ticorasPhys [id number] #[phone] #[id number] Provider: PHYSICIAN AMBULATORY MNAME [address] Erythrocyte distribution width (RBC) [Ratio] 13.0 % See Below [facility] Work Phone: Comment on above: Reference Range: 11. 5 - 14.5 Phys Name annie berwer ticorasPhys [id number] #[phone] #[id number] Provider: PHYSICIAN AMBULATORY MNAME [address] Hematocrit (Bld) [Volume fraction] 42.2 % See Below [facility] Work Phone: Comment on above: Reference Range: 36. 0 - 46.0 Phys Name annie johnsonsPhys [id number] [address] #[phone] #[id number] Provider: PHYSICIAN AMBULATORY MNAME [address] Hemoglobin (Bld) [Mass/Vol] 13.9 g/dL See Below [facility] Work Phone: Comment on above: Reference Range: 12. 0 - 16.0 Phys Name annie brewer ticorasPhys [id number] [address]Phone #[phone] #[id number] Provider: PHYSICIAN AMBULATORY MNAME [address] Lymphocytes (Bld) [#/Vol] 1.70 {x10E9/L} See Below [facility] Work Phone: Comment on above: Reference Range: 1.2 0 - 4.80 Phys Name annie saeedorasPhys Tldrjtl[address] #[phone] #[id number] Provider: PHYSICIAN AMBULATORY MNAME [address] Lymphocytes/100 WBC (Bld) 45.6 % See Below [facility] Work Phone: Comment on above: Reference Range: 13. 0 - 44.0 Phys Name annie brewer ticorasPhys [id number] [address] #[phone] #[id number] Provider: PHYSICIAN AMBULATORY MNAME [address] MCHC (RBC) [Mass/Vol] 32.9 g/dL See Below [facility] Work Phone: Comment on above: Reference Range: 32. 0 - 36.0 Phys Name annie brewer ticorasPhys Qzsjdeg[address] #[phone] #[id number] Provider: PHYSICIAN AMBULATORY MNAME [address] MCV (RBC) [Entitic vol] 95 fL 80 - 100 [facility] Work Phone: Comment on above: Phys Name annie brewer ticorasPhys [id number] [address]Phone #[phone] #[id number] Provider: PHYSICIAN AMBULATORY MNAME [address] Monocytes (Bld) [#/Vol] 0.30 {x10E9/L} See Below [facility] Work Phone: [phone] Comment on above: Reference Range: 0.1 0 - 1.00 Phys Name annie brewer ticorasPhys Dynosaz[address] #[phone] #[id number] Provider: PHYSICIAN AMBULATORY MNAME [address] Monocytes/100 WBC (Bld) 7.5 % 2.0 - 10.0 [facility] Work Phone: Comment on above: Phys Name annie brewer ticorasPhys [id number] [address] #[phone] #[id number] Provider: PHYSICIAN AMBULATORY MNAME [address] Neutrophils (Bld) [#/Vol] 1.70 {x10E9/L} See Below [facility] Work Phone: [phone] Comment on above: Reference Range: 1.2 0 - 7.70 Phys Name annie brewer ticorasPhys Zxqnzjl542 [address]Phone #[phone] #[id number] Provider: PHYSICIAN AMBULATORY MNAME [address] Neutrophils/100 WBC (Bld) 44.3 % See Below [facility] Work Phone: [phone] Comment on above: Reference Range: 40. 0 - 80.0 Phys Name annie brewer ticorasPhys Qaxlxxt[address] #[phone] #[id number] Provider: PHYSICIAN AMBULATORY MNAME [address] Platelets (Bld) [#/Vol] 209 {x10E9/L} 150 - 450 [facility] Work Phone: Comment on above: Phys Name annie johnsonsPhys [id number] [address] #[phone] #[id number] Provider: PHYSICIAN AMBULATORY MNAME [address] RBC (Bld) [#/Vol] 4.44 {x10E12/L} See Below [facility] Work Phone: Comment on above: Reference Range: 4.0 0 - 5.20 Phys Name annie brewer ticorasPhys [id number] #[phone] #[id number] Provider: PHYSICIAN AMBULATORY MNAME [address] WBC (Bld) [#/Vol] 3.7 {x10E9/L} below low threshold 4.4 - 11.3 [facility] Work Phone: Comment on above: Phys Name annie johnsonsPhys [id number] [address] #[phone] #[id number] Provider: PHYSICIAN AMBULATORY MNAME [address] WBC (Bld) [#/Vol] 0.1 {/100_WBC} [facility] Work Phone: Comment on above: Phys Name annie johnsonsPhys Afleiag[address]Phone #[phone] #[id number] Provider: PHYSICIAN AMBULATORY MNAME [id number] Metabolic Panelon 08-18-2019 ALP [Catalytic activity/Vol] 55 U/L 33 - 110 [facility] Work Phone: Comment on above: Phys Name annie johnsonsPhys Hsmogbo865 [address]Phone #[phone] #[id number] Provider: PHYSICIAN AMBULATORY MNAME 04001 Anion gap [Moles/Vol] 10 mmol/L 10 - 20 [facility] Work Phone: Comment on above: Phys Name annie johnsonsPhys Bdhogix026 [address]Phone #[phone] #[id number] Provider: PHYSICIAN AMBULATORY MNAME 76976 Bilirubin [Mass/Vol] 0.5 mg/dL 0.0 - 1.2 [facility] Work Phone: Comment on above: Phys Name annie johnsonsPhys Bhznioc[address]Phone #[phone] #[id number] Provider: PHYSICIAN AMBULATORY MNAME 73312 Calcium [Mass/Vol] 9.3 mg/dL 8.6 - 10.3 [facility] Work Phone: Comment on above: Phys Name annie johnsonsPhys Rifrdto[address]Phone #[phone] #[id number] Provider: PHYSICIAN AMBULATORY MNAME 28572 Chloride [Moles/Vol] 101 mmol/L 98 - 107 [facility] Work Phone: Comment on above: Phys Name annie johnsonsPhys Qpkfzch[address]Phone #[phone] #[id number] Provider: PHYSICIAN AMBULATORY MNAME 99035 CO2 [Moles/Vol] 31 mmol/L 21 - 32 [facility] Work Phone: Comment on above: Phys Name annie saeedorasPhys Wxgzxdy[address]Phone #[phone] #[id number] Provider: PHYSICIAN AMBULATORY MNAME 55300 Creatinine [Mass/Vol] 0.74 mg/dL See Below [facility] Work Phone: Comment on above: Reference Range: 0.5 0 - 1.05 Phys Name annie johnsonsPhys Oqytzms[address]Phone #[phone] #[id number] Provider: PHYSICIAN AMBULATORY MNAME 41671 Glucose [Mass/Vol] 93 mg/dL 74 - 99 [facility] Work Phone: Comment on above: Phys Name annie saeedorasPhys Oadrksx426 [address]Phone #[phone] #[id number] Provider: PHYSICIAN AMBULATORY MNAME 55032 Potassium [Moles/Vol] 4.1 mmol/L 3.5 - 5.3 [facility] Work Phone: Comment on above: Phys Name annie johnsonsPhys Aayounq[address] #[phone] #[id number] Provider: PHYSICIAN AMBULATORY MNAME 61994 Protein [Mass/Vol] 6.8 g/dL 6.4 - 8.2 [facility] Work Phone: Comment on above: Phys Name annie jhonsonsPhys Wifhsew[address] #[phone] #[id number] Provider: PHYSICIAN AMBULATORY MNAME 63713 Sodium [Moles/Vol] 138 mmol/L 136 - 145 [facility] Work Phone: Comment on above: Phys Name annie johnsonsPhys Lrmmepa[address]Phone #[phone] #[id number] Provider: PHYSICIAN AMBULATORY MNAME 78374 Urea nitrogen [Mass/Vol] 16 mg/dL 6 - 23 [facility] Work Phone: [phone] Comment on above: Phys Name annie johnsonsPhys Ygkgfok[address]Phone #[phone] #[id number] Provider: PHYSICIAN AMBULATORY MNAME 49541 Otheron 08-18-2019 Albumin BCP dye [Mass/Vol] 4.3 g/dL 3.4 - 5.0 [facility] Work Phone: Comment on above: Phys Name annie johnsonsPhys Tmieasu[address]Phone #[phone] #[id number] Provider: PHYSICIAN AMBULATORY MNAME 25165 ALT With P-5'-P [Catalytic activity/Vol] 9 U/L 7 - 45 [facility] Work Phone: Comment on above: Patients treated wit h Sulfasalazine may generate falsely decreased results for ALT. Phys Name annie brewer ticorasPhys Hexanbt[address]Phone #[phone] #[id number] Provider: PHYSICIAN AMBULATORY MNAME 13925 AST With P-5'-P [Catalytic activity/Vol] 16 U/L 9 - 39 [facility] Work Phone: Comment on above: Phys Name annie Medina Wdagwqh[address] #[phone] #[id number] Provider: PHYSICIAN AMBULATORY MNAME 89603 >60 >60 [facility] Work Phone: Comment on above: CALCULATIONS OF ARJUN MATED GFR ARE PERFORMED USING THE MDRD STUDY EQUATION FOR THE IDMS-TRACEABLE CREATININE METHODS. CLIN CHEM 2007;53:766-72 Phys Name annie Harding[address] drPhone #[phone] #[id number] Provider: PHYSICIAN AMBULATORY MNJENN 87128 Sedimentation Rate, Erythroc yteon 08-18-2019 ESR (Bld) [Velocity] 12 mm/h 0 - 20 [facility] Work Phone: Comment on above: Phys Name annei Medina Nqnlayr[address]Phone #[phone] #[id number] Provider: PHYSICIAN AMBULATORY MNAME 71434 Thyroidon 08-18-2019 TSH Qn 1.84 {mIU/L} See Below [facility] Work Phone: Comment on above: Reference Range: 0.4 4 - 3.98 TSH testing is performed using different testing methodology at [facility] than at other [facility]. Direct result comparisons should only be made within the same method. Phys Name annie Medina [address]pt[address]Phone #[phone] #[id number] Provider: PHYSICIAN AMBULATORY MNAME 08499 BMPon 05-30-2019 Anion gap [Moles/Vol] 16 mmol/L 10 - 20 mmol/L [facility] Calcium [Mass/Vol] 9.6 mg/dL 8.4 - 10. 2 mg/dL [facility] Chloride [Moles/Vol] 103 mmol/L 98 - 10 8 mmol/L [facility] Creatinine [Mass/Vol] 0.65 mg/dL 0.4 - 1.1 mg/dL [facility] GFR/1.73 sq M predicted among non-blacks MDRD (S/P/Bld) [Vol rate/Area] The eGFR should be used for monitoring renal function only and not for medication dosing. [facility] GFR/1.73 sq M.predicted CKD-EPI (S/P/Bld) [Vol rate/Area] 120 >=60 mL/min/1.73 m2 [facility] Glucose [Mass/Vol] 93 mg/dL 65 - 99 mg/dL [facility] HCO3 [Moles/Vol] 25 mmol/L 21 - 32 mmol/L [facility] Interpretation and review of laboratory results Normal [facility] Potassium [Moles/Vol] 3.9 mmol/L 3.5 - 5.1 mmol/L [facility] Sodium [Moles/Vol] 140 mmol/L 135 - 145 mmol/L [facility] Urea nitrogen [Mass/Vol] 13 mg/dL 8 - 25 mg/dL [facility] Urea nitrogen/Creatinine [Mass ratio] 20.0 mg/mg [facility] CBC WITH AUTO DIFFERENTIALon 05-30-2019 Basophils (Bld) [#/Vol] 0.03 10*3/uL [facility] Basophils/100 WBC (Bld) 0.4 % [facility] Eosinophils (Bld) [#/Vol] 0.15 10*3/uL [facility] Eosinophils/100 WBC (Bld) 2.2 % [facility] Erythrocyte distribution width (RBC) [Entitic vol] 12.5 % 11.6 - 14.8 % [facility] Hematocrit (Bld) [Volume fraction] 40.0 % 36 - 46 % [facility] Hemoglobin (Bld) [Mass/Vol] 13.3 g/dL 12 - 16 g/dL [facility] Immature granulocytes (Bld) [#/Vol] 0.01 10*3/uL [facility] Immature granulocytes/100 WBC (Bld) 0.10 % [facility] Comment on above: The IG parameter is the percentage of metamyelocytes, myelocytes, and promyelocytes. Lymphocytes (Bld) [#/Vol] 1.58 10*3/uL [facility] Lymphocytes/100 WBC (Bld) 22.7 % [facility] MCH (RBC) [Entitic mass] 30.9 pg 26 - 34 pg [facility] MCHC (RBC) [Mass/Vol] 33.3 g/dL 31 - 37 g/dL [facility] MCV (RBC) [Entitic vol] 93.0 fL 80 - 100 fL [facility] Monocytes (Bld) [#/Vol] 0.45 10*3/uL [facility] Monocytes/100 WBC (Bld) 6.5 % [facility] Neutrophils (Bld) [#/Vol] 4.73 10*3/uL [facility] Neutrophils/100 WBC (Bld) 68.1 % [facility] Nucleated RBC (Bld) [#/Vol] 0.00 10*3/uL [facility] Nucleated RBC/100 WBC (Bld) [Ratio] 0.0 % [facility] Platelet mean volume (Bld) [Entitic vol] 10.7 fL 9 - 15.5 fL [facility] Platelets (Bld) [#/Vol] 218 10*3/uL [facility] RBC (Bld) [#/Vol] 4.30 10*6/uL [facility] WBC (Bld) [#/Vol] 6.95 10*3/uL [facility] Otheron 05-30-2019 Extra Tube Hold for add-ons. [facility] Comment on above: Auto resulted. POC , Urineon 05-30 HCG ( test) Ql (U) Negative Negative [facility] Internal Control Pass [facility] Specific gravity (U) [Rel density] [facility] URINALYSISon 05-30-2019 Bacteria Auto Ql (U) Rare Abnormal None Seen /hpf [facility] Bilirubin Ql (U) Negative Negative [facility] Clarity Refractometry automated (U) Hazy Abnormal Clear [facility] Color (U) Yellow Colorless, Yellow [facility] Epithelial cells.squamous Auto (Urine sed) [#/Area] 4 [facility] Glucose Auto test strip (U) [Mass/Vol] Negative Negative mg/dL [facility] Hemoglobin Auto test strip Ql (U) Large Abnormal Negative [facility] Interpretation and review of laboratory results Abnormal [facility] Ketones (U) [Mass/Vol] >=80 Abnormal Negative mg/dL [facility] Leukocyte esterase Auto test strip Ql (U) Small Abnormal Negative [facility] Mucus Auto (Urine sed) [#/Area] Few Abnormal None Seen, Rare /lpf [facility] Nitrite Auto test strip Ql (U) Negative Negative [facility] pH (U) 6.0 [pH] [facility] Protein (U) [Mass/Vol] Negative Negative mg/dL [facility] RBC Auto (Urine sed) [#/Area] 26 High [facility] Specific gravity (U) [Rel density] 1.018 [facility] Urobilinogen (U) [Mass/Vol] <2.0 <2.0 mg/dL [facility] WBC Auto (Urine sed) [#/Area] 26 High [facility] Microscopic examinat ion is performed on all urinalysis samples and only positive findings are reported. The test for blood on the chemical analytic portion of urinalysis may also be positive due to hemoglobinuria and myoglobinuria and if red blood cells are present they are quantified by microscopic examination. [facility] US PELVIC TRANSABDOMINAL AND TRANSVAGINAL WITH COLOR FLOWon 05-30-2019 US PELVIC TRANSABDOMINAL AND TRANSVAGINAL WITH COLOR FLOW EXAMINATION: US PELVIC TRANSABDOMINAL AND TRANSVAGINAL WITH COLOR FLOW HISTORY: ORDERING SYSTEM PROVIDED HISTORY: LLQ pain, torsioN?, TECHNOLOGIST PROVIDED HISTORY: Illness/Other Reason for exam: Cancer History: Surgery, RadiationHistory: Encounter Type: Unknown Additional signs and symptoms: ORDERING SYSTEM PROVIDED DIAGNOSIS CODES: COMPARISON: None. TECHNIQUE: Transabdominal and endovaginal imaging obtained. Color and spectral Doppler imaging also obtained given patient's symptoms of pain and clinical concern for ovarian torsion. FINDINGS: Patient's LMP is 05/30/2019. TRANSABDOMINAL ULTRASOUND: Uterus measures approximately 7.4 x 4.4 x 5.1 cm. ENDOVAGINAL ULTRASOUND: The uterus is anteverted. Endometrium measures 11 mm. Myometrium is relatively homogeneous. The right ovary measures 4.6 x 2.7 x 2.7 cm and contains a 2.2 x 2.2 x 1.8 cm simple cyst. Arterial and venous blood flow are demonstrated in the right ovary, with a resistive index of 0.45. The left ovary measures 2.4 x 1.5 x 1.2 cm and is normal. Arterial and venous blood flow are demonstrated in the left ovary, with a resistive index of 0.51. Minimal free fluid in the pelvis. IMPRESSION: 1. Normal sonographic appearance of the ovaries. No evidence of torsion. 2.2 cm simple, functional right ovarian cyst. 2. Normal uterus and endometrium. [facility]/[employer] Workstation ID: [id number] Dictated by: ANA FARAH on FriMay 30, 2019 12:54:31 PM EDT Transcribed by: JOLENE ALLAN on FriMay 30, 2019 12:57:44 PM EDT Finalized by: ANA FARAH on FriMay 30, 2019 12:59:03 PM EDT [facility] Comment on above: Order Comment: Injur y/Trauma or Illness?:Illness/Other How long have you had these symptoms (acute/chronic)?:Unknown Reason for exam?: History of cancer?: Surgeries, chemotherapy, or radiation?: Type of Exam?:Unknown Additional signs and symptoms?: US Pelvic Transabdominal And Transvaginal With Color Flowon 05-30-2019 EXAMINATION: US PELVIC TRANSABDOMINAL AND TRANSVAGINAL WITH COLOR FLOW HISTORY: ORDERING SYSTEM PROVIDED HISTORY: LLQ pain, torsioN?, TECHNOLOGIST PROVIDED HISTORY: Illness/Other Reason for exam: Cancer History: Surgery, RadiationHistory: Encounter Type: Unknown Additional signs and symptoms: ORDERING SYSTEM PROVIDED DIAGNOSIS CODES: COMPARISON: None. TECHNIQUE: Transabdominal and endovaginal imaging obtained. Color and spectral Doppler imaging also obtained given patient's symptoms of pain and clinical concern for ovarian torsion. FINDINGS: Patient's LMP is 05/30/2019. TRANSABDOMINAL ULTRASOUND: Uterus measures approximately 7.4 x 4.4 x 5.1 cm. ENDOVAGINAL ULTRASOUND: The uterus is anteverted. Endometrium measures 11 mm. Myometrium is relatively homogeneous. The right ovary measures 4.6 x 2.7 x 2.7 cm and contains a 2.2 x 2.2 x 1.8 cm simple cyst. Arterial and venous blood flow are demonstrated in the right ovary, with a resistive index of 0.45. The left ovary measures 2.4 x 1.5 x 1.2 cm and is normal. Arterial and venous blood flow are demonstrated in the left ovary, with a resistive index of 0.51. Minimal free fluid in the pelvis. [facility] 1. Normal sonographi c appearance of the ovaries. No evidence of torsion. 2.2 cm simple, functional right ovarian cyst. 2. Normal uterus and endometrium. [employer] Workstation ID: [id number] [facility] Urine Pregnancyon 05-30-2019 HCG ( test) Ql (U) Negative Negative [facility] Interpretation and review of laboratory results Normal [facility] BhCG Quanton 04-16-2019 Beta hCG Qnt <0.6 Normal 0.0-2.9 [facility] Comment on above: Performed By: #### 2 [id number] #### GWYN [address] [place] [address] CORNEAL TOPOGRAPHY PENTACAM OU (BOTH EYES) [facility] Vital Signs Date Time Vital Sign Value Performing Clinician Facility 05-10-2025 07:58-0400 Body mass index (BMI) [Ratio] 26.95 kg/m2 Joy Suppan WASTEWATER PROJECT MANAGER.FINISHING RANGE OPERATOR Work Phone: [facility] 05-10-2025 07:58-0400 Body weight 71.22 kg Joy Suppan WASTEWATER PROJECT MANAGER.FINISHING RANGE OPERATOR Work Phone: [facility] 05-10-2025 07:58-0400 Diastolic blood pressure 64 mm[Hg] Joy Suppan WASTEWATER PROJECT MANAGER.FINISHING RANGE OPERATOR Work Phone: [facility] 05-10-2025 07:58-0400 Heart rate 78 /min Joy Suppan WASTEWATER PROJECT MANAGER.FINISHING RANGE OPERATOR Work Phone: [facility] 05-10-2025 07:58-0400 SaO2% (BldA) [Mass fraction] 100 % Joy Suppan WASTEWATER PROJECT MANAGER.FINISHING RANGE OPERATOR Work Phone: [facility] 05-10-2025 07:58-0400 Systolic blood pressure 104 mm[Hg] Joy Suppan WASTEWATER PROJECT MANAGER.FINISHING RANGE OPERATOR Work Phone: [facility] 04-19-2025 13:36-0400 Body mass index (BMI) [Ratio] 26.95 kg/m2 Amudha Pazhanisamy DO Work Phone: [facility] 04-19-2025 13:36-0400 Body weight 71.22 kg Amudha Pazhanisamy DO Work Phone: [facility] 04-19-2025 13:36-0400 Diastolic blood pressure 63 mm[Hg] Amudha Pazhanisamy DO Work Phone: [facility] 04-19-2025 13:36-0400 Heart rate 74 /min Amudha Pazhanisamy DO Work Phone: [facility] 04-19-2025 13:36-0400 Respiratory rate 16 /min Amudha Pazhanisamy DO Work Phone: [facility] 04-19-2025 13:36-0400 SaO2% (BldA) [Mass fraction] 100 % Amudha Pazabaisamy DO Work Phone: [facility] 04-19-2025 13:36-0400 Systolic blood pressure 102 mm[Hg] Amudha Pazhanisamy DO Work Phone: [facility] 04-15-2025 11:42-0400 Body mass index (BMI) [Ratio] 26.87 kg/m2 Fabián Martin APRN.FINISHING RANGE OPERATOR Work Phone: [facility] 04-15-2025 11:42-0400 Body weight 71 kg Fabián Martin APRN.FINISHING RANGE OPERATOR Work Phone: [facility] 04-15-2025 11:42-0400 Diastolic blood pressure 68 mm[Hg] Fabián Martin APRN.FINISHING RANGE OPERATOR Work Phone: [facility] 04-15-2025 11:42-0400 Heart rate 58 /min Fabián Martin APRN.FINISHING RANGE OPERATOR Work Phone: [facility] 04-15-2025 11:42-0400 Systolic blood pressure 104 mm[Hg] Fabián Martin APRN.FINISHING RANGE OPERATOR Work Phone: [facility] 01-20-2025 09:11-0400 Diastolic blood pressure 67 mm[Hg] Fabián Martin APRN.FINISHING RANGE OPERATOR Work Phone: [facility] 01-20-2025 09:11-0400 Heart rate 71 /min Fabián Martin APRN.FINISHING RANGE OPERATOR Work Phone: [facility] 01-20-2025 09:11-0400 Systolic blood pressure 102 mm[Hg] Fabián Martin APRN.FINISHING RANGE OPERATOR Work Phone: [facility] 01-20-2025 08:44-0400 Body mass index (BMI) [Ratio] 26.11 kg/m2 Fabián Martin APRN.FINISHING RANGE OPERATOR Work Phone: [facility] 01-20-2025 08:44-0400 Body weight 69 kg Fabián Martin APRN.FINISHING RANGE OPERATOR Work Phone: [facility] 11-19-2024 09:31-0500 Body mass index (BMI) [Ratio] 27.29 kg/m2 Igor Garcia MD Work Phone: [facility] 11-19-2024 09:31-0500 Body weight 72.12 kg Igor Garcia MD Work Phone: [facility] 11-19-2024 09:31-0500 Diastolic blood pressure 74 mm[Hg] Igor Garcia MD Work Phone: [facility] 11-19-2024 09:31-0500 Systolic blood pressure 104 mm[Hg] Igor Garcia MD Work Phone: [facility] 10-11-2024 10:53-0500 Body mass index (BMI) [Ratio] 27.46 kg/m2 Fabián Martin APRN.FINISHING RANGE OPERATOR Work Phone: [facility] 10-11-2024 10:53-0500 Body weight 72.58 kg Fabián Martin APRN.FINISHING RANGE OPERATOR Work Phone: [facility] 10-11-2024 10:53-0500 Diastolic blood pressure 71 mm[Hg] Fabián Martin APRN.FINISHING RANGE OPERATOR Work Phone: [facility] 10-11-2024 10:53-0500 Heart rate 60 /min Fabián Martin APRN.FINISHING RANGE OPERATOR Work Phone: [facility] 10-11-2024 10:53-0500 Systolic blood pressure 107 mm[Hg] Fabián Martin APRN.FINISHING RANGE OPERATOR Work Phone: [facility] 08-24-2024 08:09-0500 Body mass index (BMI) [Ratio] 27.12 kg/m2 Fabián Martin APRN.FINISHING RANGE OPERATOR Work Phone: [facility] 08-24-2024 08:09-0500 Body weight 71.67 kg Fabián Martin APRN.FINISHING RANGE OPERATOR Work Phone: [facility] 08-24-2024 08:09-0500 Diastolic blood pressure 64 mm[Hg] Fabián Knoble WASTEWATER PROJECT MANAGER.FINISHING RANGE OPERATOR Work Phone: [facility] 08-24-2024 08:09-0500 Heart rate 87 /min Fabián Noeoble WASTEWATER PROJECT MANAGER.FINISHING RANGE OPERATOR Work Phone: [facility] 08-24-2024 08:09-0500 Respiratory rate 14 /min Fabián Noeoble WASTEWATER PROJECT MANAGER.FINISHING RANGE OPERATOR Work Phone: [facility] 08-24-2024 08:09-0500 Systolic blood pressure 93 mm[Hg] Fabián Knoble WASTEWATER PROJECT MANAGER.FINISHING RANGE OPERATOR Work Phone: [facility] 07-22-2024 10:10-0400 Body mass index (BMI) [Ratio] 26.78 kg/m2 Patsy Thibodeaux MD Work Phone: [facility] 07-22-2024 10:10-0400 Body weight 70.76 kg Patsy Thibodeaux MD Work Phone: [facility] 07-22-2024 10:10-0400 Diastolic blood pressure 64 mm[Hg] Patsy Thibodeaux MD Work Phone: [facility] 07-22-2024 10:10-0400 Systolic blood pressure 100 mm[Hg] Patsy Thibodeaux MD Work Phone: [facility] 06-24-2024 14:18-0400 Body mass index (BMI) [Ratio] 27.5 kg/m2 Eleazar Schreiber MD Work Phone: [facility] 06-24-2024 14:18-0400 Body weight 72.67 kg Eleazar Schreiber MD Work Phone: [facility] 06-24-2024 14:18-0400 Diastolic blood pressure 64 mm[Hg] Eleazar Schreiber MD Work Phone: [facility] 06-24-2024 14:18-0400 Systolic blood pressure 100 mm[Hg] Eleaazr Schreiber MD Work Phone: [facility] 03-16-2024 11:20-0400 Body mass index (BMI) [Ratio] 28.08 kg/m2 Marine Athy PA-C Work Phone: [facility] 03-16-2024 11:20-0400 Body temperature 97.59 [degF] Marine Athy PA-C Work Phone: [facility] 03-16-2024 11:20-0400 Body weight 74.2 kg Marine Athy PA-C Work Phone: [facility] 03-16-2024 11:20-0400 Diastolic blood pressure 64 mm[Hg] Marine Athy PA-C Work Phone: [facility] 03-16-2024 11:20-0400 Heart rate 58 /min Marine Athy PA-C Work Phone: [facility] 03-16-2024 11:20-0400 Respiratory rate 18 /min Marine Athy PA-C Work Phone: [facility] 03-16-2024 11:20-0400 SaO2% (BldA) [Mass fraction] 98 % Marine Athy PA-C Work Phone: [facility] 03-16-2024 11:20-0400 Systolic blood pressure 102 mm[Hg] Marine Athy PA-C Work Phone: [facility] 02-19-2024 08:08-0400 Body mass index (BMI) [Ratio] 27.98 kg/m2 Fabián Martin APRN.FINISHING RANGE OPERATOR Work Phone: [facility] 02-19-2024 08:08-0400 Body weight 73.94 kg Fabián Martin APRN.FINISHING RANGE OPERATOR Work Phone: [facility] 02-19-2024 08:08-0400 Diastolic blood pressure 69 mm[Hg] Fabián Martin APRN.FINISHING RANGE OPERATOR Work Phone: [facility] 02-19-2024 08:08-0400 Heart rate 75 /min Fabián Martin APRN.FINISHING RANGE OPERATOR Work Phone: [facility] 02-19-2024 08:08-0400 Respiratory rate 14 /min Fabián Martin APRN.FINISHING RANGE OPERATOR Work Phone: [facility] 02-19-2024 08:08-0400 SaO2% (BldA) [Mass fraction] 99 % Fabián Martin APRN.FINISHING RANGE OPERATOR Work Phone: [facility] 02-19-2024 08:08-0400 Systolic blood pressure 100 mm[Hg] Fabián Martin APRN.FINISHING RANGE OPERATOR Work Phone: [facility] 04-18-2023 08:57-0400 Body weight 87.09 kg Fabián Martin APRN.FINISHING RANGE OPERATOR Work Phone: [facility] 04-18-2023 08:57-0400 Diastolic blood pressure 70 mm[Hg] Fabián Martin APRN.FINISHING RANGE OPERATOR Work Phone: [facility] 04-18-2023 08:57-0400 Heart rate 80 /min Fabián Martin APRN.FINISHING RANGE OPERATOR Work Phone: [facility] 04-18-2023 08:57-0400 Respiratory rate 14 /min Fabián Martin APRN.FINISHING RANGE OPERATOR Work Phone: [facility] 04-18-2023 08:57-0400 Systolic blood pressure 118 mm[Hg] Fabián Martin APRN.FINISHING RANGE OPERATOR Work Phone: [facility] 12-30-2022 11:57-0400 Body weight 84.37 kg Fabián Martin APRN.FINISHING RANGE OPERATOR Work Phone: [facility] 12-30-2022 11:57-0400 Diastolic blood pressure 74 mm[Hg] Fabián Martin APRN.FINISHING RANGE OPERATOR Work Phone: [facility] 12-30-2022 11:57-0400 Heart rate 62 /min Fabián Martin WASTEWATER PROJECT MANAGER.FINISHING RANGE OPERATOR Work Phone: [facility] 12-30-2022 11:57-0400 Respiratory rate 16 /min Fabián Martin WASTEWATER PROJECT MANAGER.FINISHING RANGE OPERATOR Work Phone: [facility] 12-30-2022 11:57-0400 Systolic blood pressure 110 mm[Hg] Fabián Martin WASTEWATER PROJECT MANAGER.FINISHING RANGE OPERATOR Work Phone: [facility] 12-15-2022 13:40-0500 Diastolic blood pressure 61 mm[Hg] [facility] 12-15-2022 13:40-0500 Heart rate 70 /min [facility] 12-15-2022 13:40-0500 SaO2% (BldA) [Mass fraction] 100 % [facility] 12-15-2022 13:40-0500 Systolic blood pressure 135 mm[Hg] [facility] 12-15-2022 13:14-0500 Respiratory rate 16 /min [facility] 12-15-2022 09:44-0500 Body height 160.02 cm [facility] 12-15-2022 09:44-0500 Body mass index (BMI) [Ratio] 33 kg/m2 [facility] 12-15-2022 09:44-0500 Body temperature 97.3 [degF] [facility] 12-15-2022 09:44-0500 Body weight 84.45 kg [facility] 12-13-2022 10:32-0500 Body temperature 97.7 [degF] Treatment Wstr Work Phone: [facility] 12-13-2022 10:32-0500 Diastolic blood pressure 58 mm[Hg] Treatment Wstr Work Phone: [facility] 12-13-2022 10:32-0500 Heart rate 72 /min Treatment Wstr Work Phone: [facility] 12-13-2022 10:32-0500 SaO2% (BldA) [Mass fraction] 98 % Treatment Wstr Work Phone: [facility] 12-13-2022 10:32-0500 Systolic blood pressure 112 mm[Hg] Treatment Wstr Work Phone: [facility] 12-13-2022 08:27-0500 Body weight 84.37 kg Fabián Martin APRN.FINISHING RANGE OPERATOR Work Phone: [facility] 12-13-2022 08:27-0500 Diastolic blood pressure 60 mm[Hg] Fabián Martin APRN.FINISHING RANGE OPERATOR Work Phone: [facility] 12-13-2022 08:27-0500 Heart rate 68 /min Fabián Knoble WASTEWATER PROJECT MANAGER.FINISHING RANGE OPERATOR Work Phone: [facility] 12-13-2022 08:27-0500 Respiratory rate 14 /min Fabián Knoble WASTEWATER PROJECT MANAGER.FINISHING RANGE OPERATOR Work Phone: [facility] 12-13-2022 08:27-0500 Systolic blood pressure 102 mm[Hg] Fabián Knoble WASTEWATER PROJECT MANAGER.FINISHING RANGE OPERATOR Work Phone: [facility] 12-05-2022 17:59-0500 Body weight 85.28 kg Fabián Knoble WASTEWATER PROJECT MANAGER.FINISHING RANGE OPERATOR Work Phone: [facility] 12-05-2022 17:59-0500 Diastolic blood pressure 78 mm[Hg] Fabián Knoble WASTEWATER PROJECT MANAGER.FINISHING RANGE OPERATOR Work Phone: [facility] 12-05-2022 17:59-0500 Heart rate 70 /min Fabián Knoble WASTEWATER PROJECT MANAGER.FINISHING RANGE OPERATOR Work Phone: [facility] 12-05-2022 17:59-0500 Respiratory rate 14 /min Fabián Knoble WASTEWATER PROJECT MANAGER.FINISHING RANGE OPERATOR Work Phone: [facility] 12-05-2022 17:59-0500 Systolic blood pressure 122 mm[Hg] Fabián Noeoble WASTEWATER PROJECT MANAGER.FINISHING RANGE OPERATOR Work Phone: [facility] 03-28-2022 14:31-0400 Body height 162.6 cm Devendra Soni MD Work Phone: [facility] 03-28-2022 14:31-0400 Body weight 75.93 kg Devendra Soni MD Work Phone: [facility] 03-28-2022 14:31-0400 Diastolic blood pressure 63 mm[Hg] Devendra Soni MD Work Phone: [facility] 03-28-2022 14:31-0400 Heart rate 67 /min Devendra Soni MD Work Phone: [facility] 03-28-2022 14:31-0400 Systolic blood pressure 103 mm[Hg] Devendra Soni MD Work Phone: [facility] 03-20-2022 09:03-0400 Body weight 74.39 kg Nurse Wstr Work Phone: [facility] 03-05-2022 10:40-0400 Diastolic blood pressure 80 mm[Hg] Marcelina King MD Work Phone: [facility] 03-05-2022 10:40-0400 Heart rate 95 /min Marcelina King MD Work Phone: [facility] 03-05-2022 10:40-0400 SaO2% (BldA) [Mass fraction] 99 % Marcelina King MD Work Phone: [facility] 03-05-2022 10:40-0400 Systolic blood pressure 120 mm[Hg] Marcelina King MD Work Phone: [facility] 03-05-2022 09:55-0400 Body height 160 cm Marcelina iKng MD Work Phone: [facility] 03-05-2022 09:55-0400 Body mass index (BMI) [Ratio] 28.6 kg/m2 Marcelina King MD Work Phone: [facility] 03-05-2022 09:55-0400 Body weight 73.21 kg Marcelina King MD Work Phone: [facility] 03-05-2022 09:55-0400 Respiratory rate 18 /min Marcelina King MD Work Phone: [facility] 07-31-2021 13:46-0400 Body height 160.02 cm Misa Matthews Work Phone: [address] Work Phone: 07-31-2021 13:46-0400 Body mass index (BMI) [Ratio] 27.18 kg/m2 Misa Matthews Work Phone: HL-Wlravvntld-Rxxi [facility] [address] Work Phone: 07-31-2021 13:46-0400 Body surface area Derived from formula 1.73 m2 Misa Matthews Work Phone: UG-Bhyqbyxcut-Spok [facility] [address] Work Phone: 07-31-2021 13:46-0400 Body temperature 98 [degF] Misa Matthews Work Phone: LU-Akackjklii-Mjcx [facility] [address] Work Phone: 07-31-2021 13:46-0400 Body weight 69.6 kg Misa Matthews Work Phone: MX-Yuripyjtop-Frae [facility] [address] Work Phone: 07-31-2021 13:46-0400 Diastolic blood pressure 72 mm[Hg] Misa Matthews Work Phone: LK-Kpocqciklz-Ghlu [facility] [address] Work Phone: 07-31-2021 13:46-0400 Heart rate 69 /min Misa Matthews Work Phone: DD-Qupippehem-Nprd [facility] [address] Work Phone: 07-31-2021 13:46-0400 SaO2% (BldA) [Mass fraction] 100 % Misa Matthews Work Phone: SM-Nvrgmmncri-Gjsf [facility] [address] Work Phone: 07-31-2021 13:46-0400 Systolic blood pressure 124 mm[Hg] Misa Matthews Work Phone: WI-Zhfzfawqui-Mzeo [facility] [address] Work Phone: 07-17-2021 13:09-0400 Body height 160.02 cm Misa Matthews Work Phone: [facility] Work Phone: 07-17-2021 13:09-0400 Body mass index (BMI) [Ratio] 27.16 kg/m2 Misa L Rupa Work Phone: [facility] Work Phone: 07-17-2021 13:09-0400 Body surface area Derived from formula 1.73 m2 Misa L Rupa Work Phone: [facility] Work Phone: 07-17-2021 13:09-0400 Body weight 69.54 kg Misa L Rupa Work Phone: [facility] Work Phone: 07-17-2021 13:09-0400 Diastolic blood pressure 70 mm[Hg] Misa L Rupa Work Phone: [facility] Work Phone: 07-17-2021 13:09-0400 Heart rate 64 /min Misa L Rupa Work Phone: [facility] Work Phone: 07-17-2021 13:09-0400 Systolic blood pressure 118 mm[Hg] Misa L Rupa Work Phone: [facility] Work Phone: 07-04-2021 14:56-0400 Body height 160.02 cm Misa L Rupa Work Phone: [facility] Work Phone: 07-04-2021 14:56-0400 Body mass index (BMI) [Ratio] 27.28 kg/m2 Misa L Rupa Work Phone: [facility] Work Phone: 07-04-2021 14:56-0400 Body surface area Derived from formula 1.73 m2 Misa L Rupa Work Phone: [facility] Work Phone: 07-04-2021 14:56-0400 Body weight 69.85 kg Misa L Rupa Work Phone: [facility] Work Phone: 07-04-2021 14:56-0400 Diastolic blood pressure 72 mm[Hg] Misa Matthews Work Phone: [facility] Work Phone: 07-04-2021 14:56-0400 Heart rate 78 /min Misa Matthews Work Phone: [facility] Work Phone: 07-04-2021 14:56-0400 SaO2% (BldA) [Mass fraction] 97 % Misa Matthews Work Phone: [facility] Work Phone: 07-04-2021 14:56-0400 Systolic blood pressure 120 mm[Hg] Misa Matthews Work Phone: [facility] Work Phone: 05-17-2021 15:02-0400 Body height 160.02 cm Misa Matthews Work Phone: [facility] Work Phone: 05-17-2021 15:02-0400 Body mass index (BMI) [Ratio] 27.13 kg/m2 Misa Matthews Work Phone: [facility] Work Phone: 05-17-2021 15:02-0400 Body surface area Derived from formula 1.73 m2 Misa Matthews Work Phone: [facility] Work Phone: 05-17-2021 15:02-0400 Body weight 69.46 kg Misa Matthews Work Phone: [facility] Work Phone: 05-17-2021 15:02-0400 Diastolic blood pressure 70 mm[Hg] Misa L Rupa Work Phone: [facility] Work Phone: 05-17-2021 15:02-0400 Heart rate 72 /min Misa Matthews Work Phone: [facility] Work Phone: 05-17-2021 15:02-0400 Systolic blood pressure 116 mm[Hg] Misa L Rupa Work Phone: [facility] Work Phone: 04-11-2021 09:41-0400 Body height 160.02 cm Misa L Rupa Work Phone: [facility] Work Phone: 04-11-2021 09:41-0400 Body mass index (BMI) [Ratio] 26.95 kg/m2 Misa Matthews Work Phone: [facility] Work Phone: 04-11-2021 09:41-0400 Body surface area Derived from formula 1.72 m2 Misa Matthews Work Phone: [facility] Work Phone: 04-11-2021 09:41-0400 Body weight 69.01 kg Misa Matthews Work Phone: [facility] Work Phone: 04-11-2021 09:41-0400 Diastolic blood pressure 70 mm[Hg] Misa L Rupa Work Phone: [facility] Work Phone: 04-11-2021 09:41-0400 Heart rate 72 /min Misa L Rupa Work Phone: [facility] Work Phone: 04-11-2021 09:41-0400 Systolic blood pressure 124 mm[Hg] Misa L Rupa Work Phone: [facility] Work Phone: 03-07-2021 09:40-0400 Body height 160.02 cm Misa Matthews Work Phone: [facility] Work Phone: 03-07-2021 09:40-0400 Body mass index (BMI) [Ratio] 26.26 kg/m2 Misa Matthews Work Phone: [facility] Work Phone: 03-07-2021 09:40-0400 Body surface area Derived from formula 1.7 m2 Misa Matthews Work Phone: [facility] Work Phone: 03-07-2021 09:40-0400 Body weight 67.25 kg Misa Matthews Work Phone: [facility] Work Phone: 03-07-2021 09:40-0400 Diastolic blood pressure 72 mm[Hg] Misa Matthews Work Phone: [facility] Work Phone: 03-07-2021 09:40-0400 Heart rate 76 /min Misa Matthews Work Phone: [facility] Work Phone: 03-07-2021 09:40-0400 Systolic blood pressure 112 mm[Hg] Misa Matthews Work Phone: [facility] Work Phone: 02-06-2021 16:45-0400 Body height 160.02 cm Angel Ojeda MD NA-Szhucsyafa-Xm hl [address] Work Phone: 02-06-2021 16:45-0400 Body mass index (BMI) [Ratio] 25.71 kg/m2 Angel Ojeda MD SK-Vuaagpqsoc-Dxaz [address] Work Phone: 02-06-2021 16:45-0400 Body surface area Derived from formula 1.69 m2 Angel Ojeda MD WQ-Fgqugvmyhb-Nuev [address] Work Phone: 02-06-2021 16:45-0400 Body temperature 98.4 [degF] nAgel Ojeda MD EB-Gwotpnwtmr-T shl [address] Work Phone: 02-06-2021 16:45-0400 Body weight 65.83 kg Angel Ojeda MD NI-Xmeuizcbug-Uj hl [address] Work Phone: 02-06-2021 16:45-0400 Diastolic blood pressure 82 mm[Hg] Angel Ojeda MD QO-Hrcmapfpjf-Gcam [address] Work Phone: Comment on above: Location: [facility]; 02-06-2021 16:45-0400 Heart rate 96 /min Angel Ojeda MD DV-Iefbcgwnkr-Rl hl [address] Work Phone: 02-06-2021 16:45-0400 SaO2% (BldA) [Mass fraction] 99 % Angel Ojeda MD FR-Jzngtgvcal-Jenr [address] Work Phone: 02-06-2021 16:45-0400 Systolic blood pressure 124 mm[Hg] Angel Ojeda MD EZ-Boupiakvtk-Mfuu [address] Work Phone: Comment on above: Location: [facility]; 02-06-2021 10:35-0400 Body height 162.56 cm Angel Ojeda MD KB-Possalafos-Pz hl [address] Work Phone: 02-06-2021 10:35-0400 Body mass index (BMI) [Ratio] 25.14 kg/m2 Angel Ojeda MD LV-Wrwkcwsllh-Xrea [address] Work Phone: 02-06-2021 10:35-0400 Body surface area Derived from formula 1.71 m2 Angel Ojeda MD LO-Ovuyhiqyrh-Knwz [address] Work Phone: 02-06-2021 10:35-0400 Body weight 66.42 kg Angel Ojeda MD QX-Gbexqeluue-Qz hl [address] Work Phone: 02-06-2021 10:35-0400 Diastolic blood pressure 70 mm[Hg] Angel Ojeda MD ZQ-Cjjxalazgg-Tkmo and [address] Work Phone: 02-06-2021 10:35-0400 Heart rate 68 /min Angel Ojeda MD LR-Gctzkjcbis-Pf hl [address] Work Phone: 02-06-2021 10:35-0400 Systolic blood pressure 118 mm[Hg] Angel Ojeda MD AQ-Gttmqvnhel-Mfdv and [address] Work Phone: 09-13-2019 12:59-0500 BMI (Body Mass Index) 22.59 kg/m2 [facility] [employer] Work Phone: 09-13-2019 12:59-0500 Body weight 59.69 kg [facility] [employer] Work Phone: 09-13-2019 12:59-0500 BP Diastolic 60 mm[Hg] [facility] [employer] Work Phone: Comment on above: Location: [facility]; Position: Sitting 09-13-2019 12:59-0500 BP Systolic 112 mm[Hg] [facility] [employer] Work Phone: Comment on above: Location: [facility]; Position: Sitting 09-13-2019 12:59-0500 BSA (Body Surface Area) 1.64 m2 [facility] [employer] Work Phone: 09-13-2019 12:59-0500 Height 162.56 cm [facility] [employer] Work Phone: 09-13-2019 12:59-0500 Pulse (Heart Rate) 79 /min [facility] [employer] Work Phone: 09-13-2019 12:59-0500 Pulse Oximetry 93 % [facility] [employer] Work Phone: 08-30-2019 10:43-0500 BMI (Body Mass Index) 22.83 kg/m2 [facility] Work Phone: 08-30-2019 10:43-0500 Body weight 60.33 kg [facility] Work Phone: 08-30-2019 10:43-0500 BP Diastolic 62 mm[Hg] [facility] Work Phone: Comment on above: Location: E; 08-30-2019 10:43-0500 BP Systolic 98 mm[Hg] [facility] Work Phone: Comment on above: Location: [facility]; 08-30-2019 10:43-0500 BSA (Body Surface Area) 1.64 m2 [facility] Work Phone: 08-30-2019 10:43-0500 Height 162.56 cm [facility] Work Phone: 08-30-2019 10:43-0500 Pulse (Heart Rate) 68 /min [facility] Work Phone: 05-30-2019 12:07-0400 BP Diastolic 74 mm[Hg] [facility] 05-30-2019 12:07-0400 BP Systolic 115 mm[Hg] [facility] 05-30-2019 12:07-0400 Pulse (Heart Rate) 65 /min [facility] 05-30-2019 12:07-0400 Pulse Oximetry 100 % [facility] 05-30-2019 12:07-0400 Respiratory Rate 16 /min [facility] 05-30-2019 10:33-0400 BMI (Body Mass Index) 23.03 kg/m2 [facility] 05-30-2019 10:33-0400 Body Temperature 98.4 [degF] [facility] 05-30-2019 10:33-0400 Body weight 58.97 kg [facility] 05-30-2019 10:33-0400 Height 160 cm [facility] 05-30-2019 09:30-0400 BMI (Body Mass Index) 22.67 kg/m2 [facility] 05-30-2019 09:30-0400 Body Temperature 97 [degF] [facility] 05-30-2019 09:30-0400 Body weight 58.06 kg [facility] 05-30-2019 09:30-0400 BP Diastolic 74 mm[Hg] [facility] 05-30-2019 09:30-0400 BP Systolic 107 mm[Hg] [facility] 05-30-2019 09:30-0400 Height 160 cm [facility] 05-30-2019 09:30-0400 Pulse (Heart Rate) 60 /min [facility] 05-30-2019 09:30-0400 Pulse Oximetry 99 % [facility] 05-30-2019 09:30-0400 Respiratory Rate 18 /min [facility] Encounters Encounter Date Encounter Type Care Provider Facility Start: 06-02-2025 End: 06-02-2025 E-mail encounter from caregiver Wanda Mayorga PA-C Work Phone: Rheumatology Start: 06-02-2025 End: 06-02-2025 Patient encounter procedure Wanda Mayorga PA-C Work Phone: Rheumatology Comment on above: Upcoming Rheumatolog y Appointment Start: 05-10-2025 End: 05-10-2025 Subsequent hospital visit by physician S[facility] Work Phone: Radiology Comment on above: Left foot pain [M79. 672] Start: 05-10-2025 End: 05-10-2025 Office outpatient visit 15 minutes Joy Miles WASTEWATER PROJECT MANAGER.FAHAD Work Phone: Family Medicine [place] Comment on above: Left foot pain (Prim lizandro Dx); Stress fracture of tarsal bone Start: 05-10-2025 End: 05-10-2025 ambulatory JOY Wendy MILES Facility:[facility] Start: 04-25-2025 End: 06-25-2025 Follow-up encounter Indra May DO Work Phone: Allergy Start: 04-19-2025 End: 04-19-2025 ambulatory MIRIANWESAGUSTO MAY Facility:[facility] Start: 04-19-2025 End: 04-19-2025 Office consultation new/estab patient 40 min Indra May DO Work Phone: Allergy Comment on above: Dysautonomia-like di sorder (Primary Dx); Indigestion; Bloating; Other fatigue; POTS (postural orthostatic tachycardia syndrome); Peripheral eosinophilia Start: 04-18-2025 End: 04-18-2025 Follow-up encounter Fabián Martin APRN.CNP Work Phone: [facility] [place] Start: 04-15-2025 End: 04-15-2025 Patient encounter procedure Fabián Martin APRN.CNP Work Phone: [facility] [place] Comment on above: Vitamin D deficiency (Primary Dx); POTS (postural orthostatic tachycardia syndrome); Encounter for allergy testing; Hypermobility of joint; Chronic pain of both ankles Start: 04-15-2025 End: 04-15-2025 Patient encounter status Fabián Martin APRN.CNP Work Phone: [facility] Start: 04-15-2025 End: 04-15-2025 ambulatory FABIÁN MARTIN Facility:[facility] Start: 04-15-2025 Encounter for allerg y testing FABIÁN MARTIN [facility] Start: 02-25-2025 End: 02-28-2025 Refill Fabián Martin APRN.CNP Work Phone: [facility] [place] Comment on above: Refill Request Start: 01-20-2025 End: 01-21-2025 Follow-up encounter Fabián Martin APRN.CNP Work Phone: [facility] [place] Start: 01-20-2025 End: 01-20-2025 ambulatory FABIÁN MARTIN Facility:[facility] Start: 01-20-2025 End: 01-20-2025 Patient encounter procedure Fabián Martin APRN.CNP [facility] Phone[facility] Comment on above: POTS (postural ortho static tachycardia syndrome) (Primary Dx); Nausea Start: 01-17-2025 End: 01-18-2025 Refill Fabián Martin APRN.FINISHING RANGE OPERATOR Work Phone: [facility] Comment on above: Refill Request Start: 12-10-2024 End: 12-10-2024 Refill Fabián Martin APRN.FINISHING RANGE OPERATOR Work Phone: [facility] Comment on above: Refill Request Start: 11-22-2024 End: 11-22-2024 Telephone encounter Igor Garcia MD Work Phone: OB/Gynecology Comment on above: Results Start: 11-19-2024 End: 11-22-2024 Telephone encounter Fabián Martin APRN.FINISHING RANGE OPERATOR Work Phone: [facility] Comment on above: FMLA Paperwork Start: 11-19-2024 End: 11-19-2024 Subsequent hospital visit by physician [facility] Work Phone: Radiology Comment on above: Left adnexal tendern ess [R10.2] Start: 11-19-2024 End: 11-19-2024 ambulatory IGOR GARCIA Facility:[facility] Start: 11-19-2024 End: 11-19-2024 Patient encounter procedure Igor Garcia MD Work Phone: OB/Gynecology Comment on above: Vaginal odor (Primar y Dx); Dysuria; Vaginal discharge; Left adnexal tenderness Start: 11-09-2024 End: 11-09-2024 Refill Fabián Martin APRN.FINISHING RANGE OPERATOR Work Phone: [facility] Comment on above: Refill Request Start: 10-11-2024 End: 10-11-2024 Patient encounter procedure Fabián Martin APRN.FINISHING RANGE OPERATOR [facility] Comment on above: Depression, unspecif ied depression type (Primary Dx); Attention deficit hyperactivity disorder (ADHD), unspecified ADHD type Start: 10-11-2024 End: 10-11-2024 ambulatory FABIÁN MARTIN Facility:[facility] Start: 09-28-2024 End: 09-28-2024 Refill Fabián Martin APRN.FINISHING RANGE OPERATOR Work Phone: Family [facility] [place] Comment on above: Refill Request Start: 09-26-2024 End: 09-27-2024 Refill Fabián Martin APRN.FINISHING RANGE OPERATOR Work Phone: [facility] [place] Comment on above: Refill Request Start: 08-25-2024 End: 08-25-2024 Telephone encounter Fabián Martin APRN.FINISHING RANGE OPERATOR Work Phone: [facility] [place] Comment on above: Results Start: 08-24-2024 End: 08-24-2024 ambulatory FABIÁN MARTIN Facility:[facility] Start: 08-24-2024 End: 08-24-2024 Patient encounter procedure Fabián Martin APRN.FINISHING RANGE OPERATOR Work Phone: [facility] Comment on above: Depression, unspecif ied depression type (Primary Dx); Attention deficit hyperactivity disorder (ADHD), unspecified ADHD type; POTS (postural orthostatic tachycardia syndrome); SVT (supraventricular tachycardia) (HCC); Encounter for immunization; Encounter for lipid screening for cardiovascular disease; Screening for diabetes mellitus; Vitamin D deficiency; Medication management Start: 08-19-2024 End: 08-19-2024 Refill Devendra Soni MD Work Phone: Neurology Comment on above: Refill Request Start: 07-23-2024 End: 07-23-2024 Telephone encounter Jeanette Gonzales APRN.FINISHING RANGE OPERATOR Work Phone: OB/Gynecology Comment on above: Results Start: 07-22-2024 End: 07-22-2024 Patient encounter procedure Patsy Thibodeaux MD Work Phone: OB/Gynecology Comment on above: Vaginal itching (Madelaine rakesh Dx); Vaginal discharge; Vaginal odor; Screen for STD (sexually transmitted disease) Start: 07-22-2024 End: 07-22-2024 ambulatory PATSY THIBODEAUX Facility:[facility] Start: 07-16-2024 End: 07-16-2024 Patient encounter procedure Chelle Little Work Phone: [facility] [place] Comment on above: Ear fullness, left ( Primary Dx); Tinnitus, bilateral; Dizziness and giddiness Start: 07-16-2024 ambulatory FABIÁN MARTIN Facil ity:[facility] Start: 06-28-2024 End: 06-28-2024 Orders Only Trini Jacome MD Work Phone: OB/Gynecology Start: 06-24-2024 End: 06-24-2024 ambulatory ELEAZAR SCHREIBER Facility:[facility] Start: 06-24-2024 End: 06-24-2024 Patient encounter procedure Eleazar Schreiber MD Work Phone: OB/Gynecology Comment on above: Vaginal odor (Primar y Dx); Vaginal itching; Vaginal discharge; Dysuria Start: 06-02-2024 Refill Fabián ziegler APRN.FINISHING RANGE OPERATOR Work Phone: Family [facility] [place] Comment on above: Refill Request Start: 03-24-2024 End: 03-24-2024 ambulatory Gisell Ghbritany Facility:[facility] Start: 03-16-2024 End: 03-16-2024 Patient encounter procedure Marine Bush PA-C [facility] Comment on above: Laceration of left i ndex finger without foreign body without damage to nail, initial encounter (Primary Dx) Start: 03-09-2024 End: 03-09-[address] Functional Medicine Comment on above: Dietary counseling a nd surveillance (Primary Dx); POTS (postural orthostatic tachycardia syndrome) Start: 03-09-2024 End: 03-09-2024 Telemedicine consultation with patient Yoana Sridhar SOLIMAN Functional Medicine Start: 02-20-2024 Telephone encounter Fabián toscano APRN.FINISHING RANGE OPERATOR Work Phone: [facility] [place] Comment on above: Results Start: 02-19-2024 End: 02-19-2024 Patient encounter procedure Fabián Martin APRN.FINISHING RANGE OPERATOR Work Phone: Family Medicine [place] Comment on above: Attention deficit hy peractivity disorder (ADHD), unspecified ADHD type (Primary Dx); POTS (postural orthostatic tachycardia syndrome); Vitamin D deficiency; Elevated C-reactive protein (CRP) Start: 02-18-2024 End: 02-18-2024 [facility] Trini Chong [facility] Integrated Medicine Comment on above: GAEL (generalized anx iety disorder) (Primary Dx); Major depressive disorder, recurrent episode, mild (HCC) Start: 01-09-2024 End: 01-09-[address] Functional Medicine Comment on above: Obesity (BMI 30.0-34 .9) (Primary Dx); POTS (postural orthostatic tachycardia syndrome); Weight gain; Dietary counseling and surveillance Start: 01-09-2024 End: 01-09-2024 Telemedicine consultation with patient Yoana Waller RD [facility] Start: 01-02-2024 End: 01-02-2024 ambulatory Deandra Thompson PA-C Work Phone: Functional Medicine Comment on above: POTS (postural ortho static tachycardia syndrome) (Primary Dx); Obesity (BMI 30.0-34.9); Weight gain; Vitamin D deficiency; Vitamin D insufficiency Start: 01-02-2024 End: 01-02-2024 Telemedicine consultation with patient Deandra Donna SIMON Work Phone: [facility] Start: 12-30-2023 End: 12-30-2023 [facility] Deandra Donna SIMON Work Phone: Integrated Medicine Comment on above: Chronic fatigue, uns pecified (Primary Dx); Headaches; POTS (postural orthostatic tachycardia syndrome); Palpitations; Obesity, Class I, BMI 30-34.9; Anxiety disorder, unspecified type Start: 12-26-2023 End: 12-26-[address] Functional Medicine Comment on above: Obesity (BMI 30.0-34 .9) (Primary Dx); Dietary counseling and surveillance Start: 12-26-2023 End: 12-26-2023 Telemedicine consultation with patient Yoana Waller RD [facility] Start: 12-12-2023 End: 12-12-[address] Functional Medicine Comment on above: Obesity (BMI 30.0-34 .9) (Primary Dx); Dietary counseling and surveillance Start: 12-12-2023 End: 12-12-2023 Telemedicine consultation with patient Yoana Waller RD [facility] Start: 12-05-2023 End: 12-05-2023 ambulatory Deandra Thompson PA-C Work Phone: Functional Medicine Comment on above: POTS (postural ortho static tachycardia syndrome) (Primary Dx); Obesity (BMI 30.0-34.9); Stress at work; Vitamin D insufficiency Start: 12-05-2023 End: 12-05-2023 Telemedicine consultation with patient Deandra Thompson PA-C Work Phone: [facility] Start: 11-21-2023 End: 11-21-2023 ambulatory Deandra Thompson PA-C Work Phone: Functional Medicine Comment on above: Obesity (BMI 30.0-34 .9) (Primary Dx); POTS (postural orthostatic tachycardia syndrome); Weight gain Start: 11-21-2023 End: 11-21-2023 Telemedicine consultation with patient Deandra Thompson PA-C Work Phone: [facility] Start: 11-14-2023 End: 11-14-[address] Functional Medicine Comment on above: Obesity (BMI 30-39.9 ) (Primary Dx); Weight gain; POTS (postural orthostatic tachycardia syndrome); Vitamin D deficiency; Dietary counseling and surveillance Start: 11-14-2023 End: 11-14-2023 Telemedicine consultation with patient Yoana Waller RD [facility] Start: 11-03-2023 Telephone encounter Fabián toscano APRN.CNP Work Phone: Family Medicine [place] Comment on above: Results Start: 09-29-2023 Telephone encounter Francesca griggs APRN.CNP Work Phone: Family [facility] [place] Comment on above: Results Start: 09-26-2023 End: 09-26-2023 Subsequent hospital visit by physician Sola [facility] [place] Work Phone: Radiology Comment on above: Abdominal pain, unsp ecified abdominal location [R10.9] Start: 08-18-2023 Refill Fabián ziegler APRN.CNP Work Phone: Family Medicine [place] Comment on above: Refill Request Start: 06-24-2023 End: 06-24-2023 ambulatory Deandra Thompson PA-C Work Phone: [facility] Comment on above: Obesity, Class I, BM I 30.0-34.9 (see actual BMI) (Primary Dx); Vitamin D deficiency; Other constipation Start: 06-24-2023 End: 06-24-2023 Telemedicine consultation with patient Deandra MABRYDianna Work Phone: [facility] Start: 06-19-2023 End: 06-19-2023 Patient encounter procedure John Voss MD Work Phone: [place] [facility] Comment on above: 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); Glaucoma suspect of both eyes; Headaches Start: 04-24-2023 ambulatory Fabián ziegler APRN.CNP Work Phone: [facility] [place] Comment on above: [place] office Start: 04-19-2023 Refill Fabián ziegler APRN.FINISHING RANGE OPERATOR Work Phone: Family Medicine [place] Comment on above: Refill Request Cervical radiculopat hy Start: 04-18-2023 End: 04-18-2023 Patient encounter procedure Fabián Martin APRN.CNP Work Phone: Family [facility] [place] Comment on above: POTS (postural ortho static tachycardia syndrome) (Primary Dx); Vitamin D deficiency; Weight gain; Headaches Start: 04-08-2023 Refill Fabián ziegler APRN.CNP Work Phone: [facility] [place] Comment on above: Refill Request Start: 02-17-2023 End: 02-17-2023 ambulatory [facility] Facility:[facility] Start: 12-30-2022 End: 12-30-2022 Patient encounter procedure Fabián Martin APRN.FAHAD Work Phone: [facility] [place] Comment on above: POTS (postural ortho static tachycardia syndrome) (Primary Dx); SVT (supraventricular tachycardia) ([facility]) Start: 12-28-2022 Refill Fabián ziegler APRN.CNP Work Phone: [facility] Comment on above: Refill Request Start: 12-15-2022 End: 12-15-2022 Emergency department patient visit [facility] Start: 12-13-2022 End: 12-13-2022 ambulatory Treatment Rm 9 Vinh [facility] Work Phone: Hematology/Oncology Comment on above: POTS (postural ortho static tachycardia syndrome) (Primary Dx) Start: 12-13-2022 End: 12-13-2022 Patient encounter procedure Fabián Martin APRN.FINISHING RANGE OPERATOR Work Phone: [facility] Comment on above: POTS (postural ortho static tachycardia syndrome) (Primary Dx) Start: 12-12-2022 ambulatory Vijay palencia MD Work Phone: [facility] Comment on above: Musculoskeletal Prob kole Start: 12-05-2022 End: 12-05-2022 Patient encounter procedure Fabián Martin APRN.FINISHING RANGE OPERATOR Work Phone: [facility] Comment on above: Wellness examination (Primary Dx); Other migraine without status migrainosus, not intractable; Cervical radiculopathy; SVT (supraventricular tachycardia) ([facility]); POTS (postural orthostatic tachycardia syndrome); Medication management; Screening for diabetes mellitus; Encounter for lipid screening for cardiovascular disease Start: 12-05-2022 End: 12-05-2022 Patient encounter status Fabián Martin APRN.FINISHING RANGE OPERATOR Work Phone: [facility] Start: 12-05-2022 Refill Fabián ziegler APRN.FINISHING RANGE OPERATOR Work Phone: [facility] Comment on above: Med Change Request Start: 07-31-2022 Refill Devendra Gomes Work Phone: Neurology Comment on above: Refill Request Start: 04-17-2022 End: 04-17-2022 ambulatory Autonomic Main Work Phone: Neurology Comment on above: Procedure Dizziness Start: 04-17-2022 End: 04-17-2022 Patient encounter procedure Autonomic 1 Neur Main Work Phone: [facility] Start: 04-09-2022 Telephone encounter Joss turner DO Work Phone: Neurology Comment on above: Important Med Instru ctions for ANS w/ TILT & QSART 04/17 Start: 03-28-2022 End: 03-28-2022 Patient encounter procedure Devendra Soni MD Work Phone: Neurology Comment on above: Vertigo, central pacheco gin (Primary Dx); Cervicocranial syndrome; Intractable migraine with aura without status migrainosus; Imbalance; Labyrinthitis of right ear; Occipital neuralgia of left side; POTS (postural orthostatic tachycardia syndrome); Neck pain Start: 03-26-2022 End: 03-26-2022 ambulatory Emg 1000) Work Phone: Neurology Comment on above: EMG Start: 03-26-2022 End: 03-26-2022 Patient encounter procedure Emg 1 Neur Main (Max Weight: 1000) Work Phone: [facility] Start: 03-20-2022 End: 03-20-2022 Nursing evaluation of patient and report Nurse Pressroom Supervisor [facility] Work Phone: OB/Gynecology Comment on above: Need for prophylacti c vaccination/inoculation against viral disease (Primary Dx) Start: 03-05-2022 End: 03-05-2022 ambulatory Brain Price MD, PhD Work Phone: Neurology Comment on above: POTS (postural ortho static tachycardia syndrome) (Primary Dx); Dizziness and giddiness; Benign paroxysmal positional vertigo, unspecified laterality; Malaise and fatigue; Disturbance of skin sensation Start: 03-05-2022 End: 03-05-2022 Telemedicine consultation with patient Brain Price MD, PhD Work Phone: [facility] Start: 03-05-2022 End: 03-05-2022 Office consultation new/estab patient 40 min Marcelina King MD Work Phone: [facility] [place] Comment on above: Fatigue, unspecified type (Primary Dx) Start: 02-06-2022 End: 02-06-2022 Patient encounter procedure Odette Neyhart Carrera MD Work Phone: OB/Gynecology Comment on above: Pelvic pain in femal e (Primary Dx) Start: 02-05-2022 Telephone encounter Eleazar peace MD Work Phone: OB/Gynecology Comment on above: Patient Update Start: 01-21-2022 End: 01-21-2022 Manual pelvic examination Patsy Thibodeaux MD Work Phone: OB/Gynecology Comment on above: Pelvic Pain Start: 01-21-2022 End: 01-21-2022 Patient encounter procedure Patsy Thibodeaux MD Work Phone: [facility] Start: 09-20-2021 Patient encounter procedure Misa Matthews Work Phone: [facility] Work Phone: Start: 07-31-2021 Office outpatient vi sit 25 minutes Misa L Rupa Work Phone: [address] Work Phone: Start: 07-18-2021 Chart Update Misa L Rupa Work Phone: [facility] Work Phone: Start: 07-17-2021 Office outpatient vi sit 25 minutes Misa L Rupa Work Phone: [facility] Work Phone: Start: 05-17-2021 Office outpatient vi sit 25 minutes Misa L Rupa Work Phone: [facility] Work Phone: Start: 04-30-2021 ambulatory MALATHI [facility] Start: 04-26-2021 Chart Update Misa Matthews Work Phone: [facility] Work Phone: Start: 04-11-2021 Office outpatient vi sit 25 minutes Misa L Rupa Work Phone: [facility] Work Phone: Start: 03-29-2021 PTRECHADUL, Provider : Attila White, Status: Pen, Time: 10:15 AM Misa Matthews Work Phone: [facility] Work Phone: Start: 03-27-2021 Patient encounter procedure Misa Matthews Work Phone: [facility] Work Phone: Start: 03-23-2021 VIRFUELSIE, Provider : Angel Ojeda, Status: Pen, Time: 1:45 PM Misa Matthews Work Phone: [facility] Work Phone: Start: 03-22-2021 Patient encounter procedure Misa Matthews Work Phone: [facility] Work Phone: Start: 03-15-2021 Patient encounter procedure Misa Matthews Work Phone: [facility] Work Phone: Start: 03-12-2021 Patient encounter procedure Misa Matthews Work Phone: [facility] Work Phone: Start: 03-12-2021 PTFUADULT4, Provider : Chetan Loredo, Status: Pen, Time: 2:45 PM Misa Matthews Work Phone: [facility] Work Phone: Start: 03-12-2021 Chart Update Misa Matthews Work Phone: [facility] Work Phone: Start: 02-28-2021 Patient encounter procedure Misa Matthews Work Phone: [facility] Work Phone: Start: 02-07-2021 Patient encounter procedure Angel Ojeda MD IR-Hgvnxtwuag-Wznqsfx [address] Work Phone: Start: 02-06-2021 Patient encounter procedure Angel Ojeda MD RX-Mqllxugkzx-Crzhyyr [address] Work Phone: Start: 02-06-2021 Patient encounter procedure Angel Ojeda MD YU-Phehtdklir-Esvrrxq [address] Work Phone: Start: 01-07-2020 Patient encounter procedure Angel Ojeda MD WU-Dbovgzhfag-Zwfcejz [address] Work Phone: Start: 09-24-2019 Patient encounter procedure Shanika Grijalva LF-Miiqrwjrym-Okzlatz [address] Work Phone: Start: 09-13-2019 Patient encounter procedure [facility] Work Phone: Start: 08-31-2019 Patient encounter procedure Shanika Grijalva [facility] Work Phone: Start: 08-30-2019 Patient encounter procedure Shanika Grijalva [facility] Work Phone: Start: 05-30-2019 End: 05-30-2019 Emergency department patient visit PHYSICIAN NO [facility] Start: 05-30-2019 End: 05-30-2019 Patient encounter procedure PHYSICIAN [facility] Start: 05-30-2019 End: 05-30-2019 Emergency department patient visit Jose Tineo Work Phone: [facility] Emergency Department Comment on above: Menstrual cramp (Madelaine rakesh Dx) Start: 05-30-2019 End: 05-30-2019 Office outpatient new 20 minutes Gris Carney Work Phone: [facility] Comment on above: Headache, unspecifie d headache type (Primary Dx); Abdominal pain, unspecified abdominal location Menarche Angel Ojeda MD -Cardiology [facility] [address] Work Phone: Comment on above: AGE 15; Procedures Date Procedure Procedure Detail Performing Clinician Start: 05-10-2025 Radex foot complete minimum 3 views Joy Miles WASTEWATER PROJECT MANAGER.FINISHING RANGE OPERATOR Work Phone: Start: 11-19-2024 Us transvaginal Igor Garcia MD Work Phone: Start: 11-19-2024 Urnls dip stick/tabl et rgnt auto w/o microscopy Igor Garcia MD Work Phone: Start: 07-16-2024 AUDIOGRAM Chelle alcala AuD Work Phone: Start: 06-24-2024 Urnls dip stick/tabl et rgnt auto w/o microscopy Eleazar Schreiber MD Work Phone: Start: 02-19-2024 Adult depression scr eening assessment Fabián Martin WASTEWATER PROJECT MANAGER.FINISHING RANGE OPERATOR Work Phone: Start: 09-26-2023 Radiologic exam abdo men 1 view Francesca Podlogar WASTEWATER PROJECT MANAGER.FINISHING RANGE OPERATOR Work Phone: Start: 06-19-2023 Computerized corneal topography uni/bi John Voss MD Work Phone: Start: 12-15-2022 CT angiography of ch est with contrast Start: 12-13-2022 Ecg routine ecg w/le ast 12 lds i&r only [facility] Provider Start: 05-30-2022 Follow-up visit Start: 03-05-2022 Adult depression scr eening assessment Nurse Wstr Work Phone: Start: 10-31-2021 Follow-up visit Start: 09-24-2019 MRI Cardiac w/wo con trast for Morph/Funct and Valve Dz Angel Ojeda Start: 09-24-2019 End: 09-24-2019 Echocardiography Shanika Valentine Start: 09-21-2019 Holter Monitor 24-48 Hours Angel Ojeda Start: 09-14-2019 Echocardiography Angel Ojeda Start: 09-08-2019 Echocardiography Shanika Valentine Start: 08-30-2019 Continuous Ambulator y ekg monitor tech up to 30 days Shanika Grijalva Start: 08-30-2019 Ecg routine ecg w/le ast 12 lds w/i&r Shanika Grijalva Start: 08-30-2019 Echocardiography Shanika Grijalva Start: 05-30-2019 Choriogonadotropin ( test) [Presence] in Urine Jose Tineo Work Phone: Start: 05-30-2019 Urinalysis Jose Jay Tineo Work Phone: Start: 05-30-2019 Us transvaginal Jose Martinez irma Tineo Work Phone: Start: 05-30-2019 Basic metabolic 2000 panel - Serum or Plasma Jose Tineo Work Phone: Start: 05-30-2019 Complete blood count with white cell differential, automated Jose Tineo Work Phone: Start: 05-30-2019 Complete blood count with white cell differential, manual Jose Tineo Work Phone: Start: 05-30-2019 CORNELIUS TOP Jose Jay Tineo Work Phone: Start: 05-30-2019 LAVENDER TOP Jose Jay Tineo Work Phone: Start: 05-30-2019 LIGHT BLUE TOP Jose Ольга Tineo Work Phone: Start: 05-30-2019 LIGHT GREEN TOP Jose Martinez irma Tineo Work Phone: Start: 05-30-2019 MINT GREEN TOP Jose Ольга Tineo Work Phone: Start: 05-30-2019 PINK TOP Jose Thompson eliseo Tineo Work Phone: Start: 05-30-2019 RAINBOW DRAW Jose Jay Tineo Work Phone: Start: 05-30-2019 Choriogonadotropin ( test) [Presence] in Urine Gris Carney Work Phone: Laboratory test resu lt abnormal Abnormal laboratory test Misa Matthews Work Phone: Removal of ectopic fetus Lamont Grijalva Surgical treatment o f miscarriage of any trimester Shanika Grijalva Comment on above: x2; Plan of Treatment Date Care Activity Detail Author Start: 03-16-2034 Tetanus vaccination TETANUS [facility] Start: 03-16-2034 Urine microalbumin profile DTaP,Tdap,Td Vaccine (2 - Td or Tdap) [facility] Start: 01-18-2027 HPV TESTING HPV TESTING [facility] Start: 01-18-2027 PAP TESTING PAP TESTING [facility] Start: 01-18-2027 Screening for malign ant neoplasm of cervix [facility] Start: 10-17-2025 End: 10-17-2025 Patient encounter procedure 10/17/2025 4:00 PM EST Office Visit [facility] [place] [address] [place], [place] [phone] Fabián Martin APRN.FINISHING RANGE OPERATOR [address] [place], [place] [phone] physical [facility] [place] Comment on above: physical Start: 08-24-2025 Hepatitis B Vaccine (1 of 3 - 19+ 3-dose series) Hepatitis B Vaccine (1 of 3 - 19+ 3-dose series) [facility] Comment on above: Postponed from 11/08 (Declined at this time) Start: 08-08-2025 End: 08-08-2025 Patient encounter procedure 08/08/2025 7:45 AM EDT Appointment Radiology [address] [place] [id number] Dx: Left foot pain [M79.672]; Stress fracture of tarsal bone [M84.376A] Radiology Comment on above: Dx: Left foot pain [ M79.672]; Stress fracture of tarsal bone [M84.376A] Start: 06-20-2025 Influenza vaccination C [facility] Start: 06-09-2025 End: 06-09-2025 Patient encounter procedure 06/09/2025 8:00 AM EDT Office Visit Rheumatology [address] [place], [place] [phone] Wanda Mayorga PA-C [address] [place], [place] [phone] 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]; Chronic pain of both ankles [M25.571, G89.29, M25.572] Rheumatology Comment on above: Hypermobility of kahlil nt [M24.9]; Chronic pain of both ankles [M25.571, G89.29, M25.572] Start: 05-16-2025 End: 05-16-2025 Nutrition therapy 05/16/2025 3:15 PM EDT Education Nutrition Therapy [address] [place] [address] Anahi Le, RD [address] [place] [address] POTS (postural orthostatic tachycardia syndrome) [G90.A] Nutrition Therapy Comment on above: POTS (postural ortho static tachycardia syndrome) [G90.A] Start: 04-19-2025 End: 07-19-2025 CELIAC ASSOC HLA-DQ GENOTYPE [facility] Work Phone: Comment on above: Expected: 04/19/2025 , Expires: 07/19/2025 Start: 04-19-2025 End: 07-19-2025 CELIAC SCREEN WITH REFLEX [facility] Comment on above: Expected: 04/19/2025 , Expires: 07/19/2025 Start: 04-19-2025 End: 07-19-2025 TRYPTASE BLOOD [facility] Comment on above: Expected: 04/19/2025 , Expires: 07/19/2025 Start: 04-19-2025 End: 04-19-2025 Patient encounter procedure 04/19/2025 1:30 PM EDT Office Visit Allergy [address] [facility] [address] [place] [address] Indra May, [address] [place] [address] Encounter for allergy testing [Z01.82] Allergy Comment on above: Encounter for allerg y testing [Z01.82] Start: 04-15-2025 End: 07-15-2025 25-hydroxyvitamin D3 [Mass/volume] in Serum or Plasma [facility] Work Phone: Comment on above: Expected: 04/15/2025 , Expires: 07/15/2025 Start: 04-11-2025 End: 04-11-2025 Patient encounter procedure 04/11/2025 11:00 AM EDT Office Visit Family Medicine [place] [address] [facility] [place], [place] [address] Fabián Martin APRN.FINISHING RANGE OPERATOR [address] [place] [phone] 6 month follow up [facility] Comment on above: 6 month follow up Start: 02-18-2025 Anxiety Screening Anxiety Screening [facility] Start: 02-18-2025 Depression Screening Depression Scre ening [facility] Start: 01-20-2025 End: 04-21-2025 Basic metabolic 2000 panel - Serum or Plasma [facility] Work Phone: Comment on above: Expected: 01/20/2025 , Expires: 04/21/2025 Start: 01-20-2025 End: 01-20-2025 Patient encounter procedure 01/20/2025 8:40 AM EDT Office Visit [facility] [address] [facility] [place], [place] [phone] Fabián Martin APRN.FINISHING RANGE OPERATOR [address] [place] [phone] Pots flare [facility] Comment on above: Pots flare Start: 10-11-2024 End: 10-11-2024 Patient encounter procedure 10/11/2024 11:00 AM EST Office Visit Family [facility] [place] [address] [facility] [place], [place] [phone] Fabián Martin APRN.FINISHING RANGE OPERATOR [address] [place], [place] [phone] 6 week follow up [facility] Comment on above: 6 week follow up Start: 08-24-2024 End: 11-23-2024 25-hydroxyvitamin D3 [Mass/volume] in Serum or Plasma [facility] Comment on above: Expected: 08/24/2024 , Expires: 11/23/2024 Start: 08-24-2024 End: 11-23-2024 CBC W Auto Differential panel - Blood [facility] Work Phone: Comment on above: Expected: 08/24/2024 , Expires: 11/23/2024 Start: 08-24-2024 End: 11-23-2024 Comprehensive metabolic 2000 panel - Serum or Plasma [facility] Comment on above: Expected: 08/24/2024 , Expires: 11/23/2024 Start: 08-24-2024 End: 11-23-2024 LIPID PANEL, NONFASTING [facility] Comment on above: Expected: 08/24/2024 , Expires: 11/23/2024 Start: 08-24-2024 End: 11-23-2024 Thyrotropin [Units/volume] in Serum or Plasma [facility] Comment on above: Expected: 08/24/2024 , Expires: 11/23/2024 Start: 08-23-2024 End: 08-23-2024 Patient encounter procedure 08/23/2024 8:00 AM EST Office Visit [facility] [address] [place] [id number] Fabián Martin APRN.[facility] [address] [place] [address] physical Family [facility] Comment on above: physical Start: 07-22-2024 End: 10-21-2024 HERPES SIMPLEX IGM, WITH REFLEX IGG ABS [facility] Work Phone: Comment on above: Expected: 07/22/2024 , Expires: 10/21/2024 Start: 06-20-2024 Covid-19 Vaccine ( season) Covid-19 Vaccine ( season) [facility] Start: 06-20-2024 Covid-19 Vaccine ( season) Covid-19 Vaccine ( season) [facility] Start: 06-20-2024 Influenza vaccination C [facility] Start: 02-20-2024 End: 02-20-2024 ambulatory 02/20/2024 11:00 AM EDT [facility] Functional Medicine [address] [phone] [address] Waller [address] Post functional medicine diet Functional Medicine Comment on above: Post functional medi cine diet Start: 02-19-2024 End: 05-20-2024 25-hydroxyvitamin D3 [Mass/volume] in Serum or Plasma [facility] Work Phone: Comment on above: Expected: 02/19/2024 , Expires: 05/20/2024 Start: 02-19-2024 End: 05-20-2024 C reactive protein [Mass/volume] in Serum or Plasma [facility] Comment on above: Expected: 02/19/2024 , Expires: 05/20/2024 Start: 02-19-2024 End: 05-20-2024 Magnesium [Mass/volume] in Serum or Plasma [facility] Comment on above: Expected: 02/19/2024 , Expires: 05/20/2024 Start: 02-06-2024 End: 05-07-2024 C reactive protein [Mass/volume] in Serum or Plasma by High sensitivity method C-REACTIVE ULTRA SEN Lab Routine POTS (postural orthostatic tachycardia syndrome) Expected: 02/06/2024 (Approximate), Expires: 05/07/2024 [facility] Work Phone: Comment on above: Expected: 02/06/2024 (Approximate), Expires: 05/07/2024 Start: 01-02-2024 End: 04-02-2024 25-hydroxyvitamin D3 [Mass/volume] in Serum or Plasma VITAMIN D 25 HYDROXY Lab Routine Vitamin D deficiency Expected: 01/02/2024, Expires: 04/02/2024 [facility] Work Phone: Comment on above: Expected: 01/02/2024 , Expires: 04/02/2024 Start: 12-30-2023 End: 03-30-2024 Hepatic function 2000 panel - Serum or Plasma HEPATIC FUNCTION PNL Lab Routine Chronic fatigue, unspecified Expected: 12/30/2023, Expires: 03/30/2024 [facility] Work Phone: Comment on above: Expected: 12/30/2023 , Expires: 03/30/2024 Start: 10-20-2023 Depression Assessment Depression Ass essment [facility] Start: 06-20-2023 Covid-19 Vaccine ( season) Covid-19 Vaccine ( season) [facility] Start: 06-20-2023 Influenza vaccination C [facility] Start: 04-18-2023 End: 06-18-2023 25-hydroxyvitamin D3 [Mass/volume] in Serum or Plasma VITAMIN D 25 HYDROXY Lab Routine Vitamin D deficiency Expected: 04/18/2023, Expires: 06/18/2023 [facility] Work Phone: Comment on above: Expected: 04/18/2023 , Expires: 06/18/2023 Start: 04-18-2023 Influenza vaccination INFLUENZA (#1) [facility] Comment on above: Postponed from 06/20 (Declined at this time) Start: 03-05-2023 Adult depression screening assessment DEPRESSION SCREENING [facility] Start: 12-05-2022 End: 02-04-2023 CBC W Auto Differential panel - Blood CBC + DIFF Lab Routine Medication management Expected: 12/05/2022, Expires: 02/04/2023 [facility] Work Phone: Comment on above: Expected: 12/05/2022 , Expires: 02/04/2023 Start: 12-05-2022 End: 02-04-2023 Comprehensive metabolic 2000 panel - Serum or Plasma COMP METABOLIC PANEL Lab Routine Medication management Expected: 12/05/2022, Expires: 02/04/2023 [facility] Work Phone: Comment on above: Expected: 12/05/2022 , Expires: 02/04/2023 Start: 12-05-2022 End: 02-04-2023 Hemoglobin A1c in Blood HGB A1C Lab Routine Screening for diabetes mellitus Expected: 12/05/2022, Expires: 02/04/2023 [facility] Work Phone: Comment on above: Expected: 12/05/2022 , Expires: 02/04/2023 Start: 12-05-2022 End: 02-04-2023 LIPID PANEL, NONFASTING LIPID PANEL, NONFASTING Lab Routine Encounter for lipid screening for cardiovascular disease Expected: 12/05/2022, Expires: 02/04/2023 [facility] Work Phone: Comment on above: Expected: 12/05/2022 , Expires: 02/04/2023 Start: 12-05-2022 End: 02-04-2023 Thyrotropin [Units/volume] in Serum or Plasma TSH BLD Lab Routine POTS (postural orthostatic tachycardia syndrome) Expected: 12/05/2022, Expires: 02/04/2023 [facility] Work Phone: Comment on above: Expected: 12/05/2022 , Expires: 02/04/2023 Start: 12-05-2022 End: 02-04-2023 Thyroxine (T4) free [Mass/volume] in Serum or Plasma T4 FREE/FREE THYROX Lab Routine POTS (postural orthostatic tachycardia syndrome) Expected: 12/05/2022, Expires: 02/04/2023 [facility] Work Phone: Comment on above: Expected: 12/05/2022 , Expires: 02/04/2023 Start: 10-20-2022 DEPRESSION ASSESSMENT DEPRESSION ASS ESSMENT [facility] Start: 07-20-2022 HPV VACCINE (3 - 3-d ose SCDM series) HPV VACCINE (3 - 3-dose SCDM series) [facility] Start: 10-31-2021 FUV, Provider: Juan J Cortes, Status: Vijay, Time: 11:00 AM FUV, Provider: Juan J Cortes, Status: Vijay, Time: 11:00 AM [id number] Work Phone: Start: 09-21-2021 FUV, Provider: Angel Ojeda, Status: Vijay, Time: 8:45 AM FUV, Provider: Angel Ojeda, Status: Vijay, Time: 8:45 AM [facility] Start: 09-11-2021 FUV, Provider: Misa Matthews, Status: Vijay, Time: 10:30 AM FUV, Provider: Misa Matthews, Status: Pen, Time: 10:30 AM [facility] Work Phone: Start: 07-31-2021 NPV, Provider: Juan J Cortes, Status: Pen, Time: 1:30 PM NPV, Provider: Juan J Cortes, Status: Pen, Time: 1:30 PM [facility] Work Phone: Start: 07-17-2021 FUV, Provider: Misa Matthews, Status: Pen, Time: 1:00 PM FUV, Provider: Misa Matthews, Status: Pen, Time: 1:00 PM [facility] Work Phone: Start: 05-17-2021 FUV, Provider: Misa Matthews, Status: Pen, Time: 3:00 PM FUV, Provider: Misa Matthews, Status: Pen, Time: 3:00 PM [facility] Work Phone: Start: 04-11-2021 FUV, Provider: Misa Matthews, Status: Pen, Time: 9:30 AM FUV, Provider: Misa Matthews, Status: Pen, Time: 9:30 AM [facility] Work Phone: Start: 03-29-2021 PTRECHADUL, Provider : Attila White, Status: Pen, Time: 10:15 AM PTRECHADUL, Provider: Attila White, Status: Pen, Time: 10:15 AM [facility] Work Phone: Start: 03-27-2021 PTFUADULT4, Provider : Chetan Loredo, Status: Vijay, Time: 9:15 AM PTFUADULT4, Provider: Chetan Loredo, Status: Pen, Time: 9:15 AM [facility] Work Phone: Start: 03-26-2021 COVID-19 VACCINE (2 - Booster for Moderna series) COVID-19 VACCINE (2 - Booster for Moderna series) [facility] Start: 03-26-2021 COVID-19 VACCINE (2 - Moderna series) COVID-19 VACCINE (2 - Moderna series) [facility] Start: 03-23-2021 VIRFUVASHWINIE, Provider : Angel Ojeda, Status: Pen, Time: 1:45 PM VIRFUVHOME, Provider: Angel Ojeda, Status: Pen, Time: 1:[address] [facility] Work Phone: Start: 03-22-2021 PTFUADULT4, Provider : Chetan Loredo, Status: Pen, Time: 9:15 AM PTFUADULT4, Provider: Chetan Loredo, Status: Pen, Time: 9:15 AM [facility] Work Phone: Start: 03-21-2021 TILTTABLE, Provider: ORTHODOXY CHANNEL CEMENTER INSOLE MACHINE 1,[email or web address], Status: Pen, Time: 8:00 AM TILTTABLE, Provider: ORTHODOXY CHANNEL CEMENTER INSOLE MACHINE 1,SMCCATH1, Status: Pen, Time: 8:[address] [facility] Work Phone: Start: 03-20-2021 PTFUADULT4, Provider : Chetan Loredo, Status: Pen, Time: 9:15 AM PTFUADULT4, Provider: Chetan Loredo, Status: Pen, Time: 9:15 AM [facility] Work Phone: Start: 03-15-2021 PTFUADULT4, Provider : Chetan Loredo, Status: Pen, Time: 9:15 AM PTFUADULT4, Provider: Chetan Loredo, Status: Pen, Time: 9:15 AM [facility] Work Phone: Start: 03-01-2021 Cardiac mri w/wo contrast & further seq MRI Cardiac w/wo contrast for Morph/Funct and Valve Dz [facility] Work Phone: Start: 02-26-2021 COVID-19 VACCINE (2 - Moderna 3-dose series) COVID-19 VACCINE (2 - Moderna 3-dose series) [facility] Start: 02-26-2021 COVID-19 VACCINE (2 - Moderna series) COVID-19 VACCINE (2 - Moderna series) [facility] Start: 02-09-2021 Holter Monitor 3-14 Days Chace r Monitor 3-14 Days [facility] Work Phone: Start: 02-06-2021 Cardiac mri w/wo contrast & further seq MRI Cardiac w/wo contrast for Morph/Funct and Valve Dz TV-Rjqzjumclj-Gjwrov d [address] Work Phone: Start: 02-06-2021 Holter Monitor 3-14 Days Chace r Monitor 3-14 Days DA-Mpvinehrwi-Pslacm d [address] Work Phone: Start: 02-06-2021 Holter Monitor 3-14 Days QL-Qyqxqqxbhj-Kuektz d [address] Work Phone: Start: 2019 HPV TESTING HPV TESTING [facility] Start: 09-24-2019 Echocardiography Echocardiogram [facility] Work Phone: Start: 09-21-2019 Holter Monitor 24-48 Hours NN-Fwfoqcerln-Wpazfe d [address] Work Phone: Start: 06-20-2019 Influenza vaccinatio n given SEQUENTIAL INFLUENZA VACCINE (#1) [facility] Start: 2010 PAP TESTING PAP TESTING [facility] Start: 2010 Screening for malign ant neoplasm of cervix CERVICAL CANCER SCREENING DISCUSSION [facility] Start: 2008 Hepatitis B vaccination HEP B VACCINE (1 of 3 - 19+ 3-dose series) [facility] Start: 2008 Hepatitis B Vaccine (1 of 3 - 19+ 3-dose series) Hepatitis B Vaccine (1 of 3 - 19+ 3-dose series) [facility] Start: 2008 Third diphtheria, tetanus and acellular pertussis (DTaP) vaccination TDAP (ADULT) [facility] Start: 2008 Urine microalbumin profile [facility] Start: 2007 Anxiety Screening Anxiety Screening [facility] Start: 2007 Depression Screening Depression Scre ening [facility] Start: 2007 HEPATITIS C SCREENING HEPATITIS C [facility] Start: 2007 Hepatitis C screening Hepatitis C [facility] Start: 2007 HIV SCREENING HIV SCREENING [facility] Start: 2007 HIV screening HIV Screening [facility] Start: 2007 Tetanus vaccination TETANUS [facility] Start: 2004 HIV screening HIV SCREENING DISCUSSION [facility] Start: 2001 Adult depression screening assessment DEPRESSION SCREENING [facility] Start: 1992 History and physical examination, annual for health maintenance Wellness Visit [facility] Start: 1989 HEPATITIS B (1 of 3 - 3-dose series) HEPATITIS B (1 of 3 - 3-dose series) [facility] Start: 1989 Hepatitis B Vaccine (1 of 3 - 3-dose series) Hepatitis B Vaccine (1 of 3 - 3-dose series) [facility] Start: 1989 Hepatitis C antibody , confirmatory test HEPATITIS C VIRUS SCREENING [facility] Start: 1989 Hepatitis C screening HEPATITI S C VIRUS SCREENING [facility] Start: 1989 Screening for malign ant neoplasm of cervix [facility] Start: 1989 Tetanus vaccination TETANUS EVERY 10 YR [facility] Bacteria identified in Urine by Culture BACTERIAL CULTURE, URINE Microbiology Routine Dysuria 11/19/2024 10:00 AM [facility] BACTERIAL VAGINOSIS NAAT BACTERI AL VAGINOSIS NAAT Lab Routine Vaginal odor Vaginal itching Vaginal discharge 06/24/2024 2:34 PM [facility] Work Phone: BACTERIAL VAGINOSIS NAAT BACTERI AL VAGINOSIS NAAT Lab Routine Vaginal itching Vaginal discharge Vaginal odor 07/22/2024 10:34 AM T [facility] BACTERIAL VAGINOSIS NAAT BACTERI AL VAGINOSIS NAAT Lab Routine Vaginal odor Vaginal discharge 11/19/2024 10:00 AM EST [facility] End: 06-09-2026 BD DXA TRABECULAR BONE SCORE (TBS) BD DXA TRABECULAR BONE SCORE (TBS) Radiology Routine Left foot pain Stress fracture of tarsal bone 1 Occurrences starting 05/10/2025 until 06/09/2026 [facility] Comment on above: 1 Occurrences starti ng 05/10/2025 until 06/09/2026 NNAMDI/TRICHOMONAS NAAT NNAMDI /TRICHOMONAS NAAT Lab Routine Vaginal odor Vaginal itching Vaginal discharge 06/24/2024 2:34 PM EDT [facility] NNAMDI/TRICHOMONAS NAAT NNAMDI /TRICHOMONAS NAAT Lab Routine Vaginal itching Vaginal discharge Vaginal odor 07/22/2024 10:34 AM EDT [facility] NNAMDI/TRICHOMONAS NAAT NNAMDI /TRICHOMONAS NAAT Lab Routine Vaginal odor Vaginal discharge 11/19/2024 10:00 AM EST [facility] Chlamydia trachomatis+Neisseria gonorrhoeae DNA [Presence] in Unspecified specimen by YESENIA with probe detection GONORRHEA/CHLAMYDIA NAAT Lab Routine Vaginal odor Vaginal itching Vaginal discharge 06/24/2024 2:34 PM EDT [facility] Chlamydia trachomatis+Neisseria gonorrhoeae DNA [Presence] in Unspecified specimen by YESENIA with probe detection GONORRHEA/CHLAMYDIA NAAT Lab Routine Vaginal itching Vaginal discharge Vaginal odor 07/22/2024 10:34 AM T [facility] End: 06-09-2026 DXA Skeletal system.axial Views for bone density DXA-AXIAL SKELETON Radiology Routine Left foot pain Stress fracture of tarsal bone 1 Occurrences starting 05/10/2025 until 06/09/2026 [facility] Work Phone: Comment on above: 1 Occurrences starti ng 05/10/2025 until 06/09/2026 End: 12-13-2023 ECG COMPLETE ECG COMPLETE ECG Routine POTS (postural orthostatic tachycardia syndrome) 1 Occurrences starting 12/13/2022 until 12/13/2023 [facility] Work Phone: Comment on above: 1 Occurrences starti ng 12/13/2022 until 12/13/2023 ECG COMPLETE ECG COMPLETE ECG 12/13/2022 9:17 AM [facility] EMG(NEURO/NI) EMG(NEURO/NI) EM G Routine POTS (postural orthostatic tachycardia syndrome) Dizziness and giddiness Benign paroxysmal positional vertigo, unspecified laterality Malaise and fatigue Disturbance of skin sensation Ordered: 03/06/2022 [facility] Work Phone: Comment on above: Ordered: 03/06/2022 NEURO CARDIO AUTONOM IC REFLEX W/WO TILT NEURO CARDIO AUTONOMIC REFLEX W/WO TILT Procedures Routine POTS (postural orthostatic tachycardia syndrome) Dizziness and giddiness Benign paroxysmal positional vertigo, unspecified laterality Malaise and fatigue Ordered: 03/06/2022 [facility] Work Phone: Comment on above: Ordered: 03/06/2022 NEURO QSART NEURO QSART Proc edures Routine POTS (postural orthostatic tachycardia syndrome) Ordered: 03/06/2022 [facility] Work Phone: Comment on above: Ordered: 03/06/2022 Patient Education ED Chest Pain, Noncardiac [facility] Work Phone: Patient referral [facility] Work Phone: PELVIC US WHI PELVIC US WHI An c Imaging Routine Pelvic pain in female Hydrosalpinx Ordered: 02/05/2022 [facility] Work Phone: Comment on above: Ordered: 02/05/2022 End: 04-19-2026 TRYPTASE BLOOD TRYPTASE BLOOD Lab Routine Indigestion Bloating Daily for 3 Occurrences starting 04/19/2025 until 04/19/2026 [facility] Comment on above: Daily for 3 Occurren drew starting 04/19/2025 until 04/19/2026 End: 12-19-2025 US Pelvis transvaginal US FEMALE PELVIS TRANSVAG Radiology Routine Left adnexal tenderness 1 Occurrences starting 11/19/2024 until 12/19/2025 [facility] Work Phone: Comment on above: 1 Occurrences starti ng 11/19/2024 until 12/19/2025 US Pelvis transvaginal US FEMALE PELVIS TRANSVAG Radiology Routine Left adnexal tenderness 11/19/2024 1:36 PM EST [facility] c [facility] c [facility] NEGATED: Highlighted row has been ruled out! Planned Goals not documented [facility] Work Phone: Immunizations Immunization Date Immunization Notes Care Provider Minesh kern 08-24-2024 Human Papillomavirus 9-valent vaccine Fabián Martin APRN.FINISHING RANGE OPERATOR Work Phone: [facility] 03-16-2024 tetanus toxoid, redu walt diphtheria toxoid, and acellular pertussis vaccine, adsorbed Marine Bush PA-C Work Phone: [facility] 03-20-2022 Human Papillomavirus 9-valent vaccine Nurse Wstr Work Phone: [facility] 01-18-2022 Human Papillomavirus 9-valent vaccine Patsy Thibodeaux MD Work Phone: [facility] Work Phone: 10-18-2021 Influenza, injectabl e, Madin [place] Canine Kidney, preservative free, quadrivalent Marine Bush PA-C Work Phone: [facility] 10-18-2021 influenza virus vacc ine, unspecified formulation Fabián aMrtin WASTEWATER PROJECT MANAGER.FINISHING RANGE OPERATOR Work Phone: [facility] 01-29-2021 Moderna COVID-19 Vac cine 100 MCG/0.5ML Intramuscular Suspension Misa Matthews Work Phone: [facility] 08-23-2020 influenza, injectabl e, quadrivalent, preservative free Misa Matthews Work Phone: [facility] Work Phone: 07-22-2019 Influenza, injectabl e, Madin [place] Canine Kidney, preservative free, quadrivalent Misa Matthews Work Phone: [facility] Work Phone: 07-24-2018 Influenza, injectabl e, Madin [place] Canine Kidney, preservative free, quadrivalent Misa Matthews Work Phone: [facility] Work Phone: 07-28-2017 influenza, seasonal, injectable, preservative free Misa Matthews Work Phone: [facility] Work Phone: 08-12-2015 influenza, seasonal, injectable, preservative free Misa Matthews Work Phone: [facility] Work Phone: Payers Date Payer Category Payer Self-pay 2024 Unknown [id number] 2022 Private Health Insurance [facility] [employer] GENERIC [id number] 2022 Unknown [id number] 2022 Unknown [id number] 2021 Unknown 2021 Private Health Insurance [id number] 2019 Unknown [id number] 1989 Unknown [id number] 1989 Unknown [id number] 1989 Unknown [id number] 1989 Unknown [id number] Unknown [facility] [employer] xxxxxxx Effective for all dates xxxxxxx [id number] Unknown [id number] Unknown [id number] Social History Date Type Detail Facility Start: 05-30-2019 End: 02-17-2023 Tobacco smoking status NHIS Never smoker [facility] Start: 05-30-2019 End: 12-25-2020 History SDOH Alcohol Frequency 1 [facility] Start: 1989 Sex Assigned At Not on file [facility] Start: 12-05-2022 End: 02-18-2024 Never a smoker Never a smoker [facility] Comment on above: 1 CUP; Start: 12-15-2019 End: 02-17-2023 Tobacco use and exposure Smokeless tobacco non-user [facility] Start: 01-18-2022 End: 11-19-2024 Alcohol intake Current drinker of alcohol (finding) [facility] Start: 01-18-2022 History SDOH Alcohol Comment seldom [facility] Start: 01-08-2022 End: 04-17-2022 Exposure to SARS-CoV-2 (event) Not sure [facility] Start: 1990 Sex Assigned At Female C [facility] Start: 12-15-2022 Tobacco smoking status [facility] Unknown if ever smoked [facility] Start: 12-05-2022 End: 03-07-2023 Tobacco use panel [facility] Start: 12-29-2014 Adult Depression Screening Assessment 3 [facility] Start: 03-05-2022 Gender identity Identifies as female gender (finding) [facility] Start: 03-05-2022 Sexual orientation Heterosexual (bing juarez) [facility] Has the electric, gas, oil, or water company threatened to shut off services in your home in past 12Mo No [facility] Are you now , , , , never or living with a partner? [facility] How often to you hav e a drink containing alcohol? 2-3 time sa week [facility] How many standard drinks containing alcohol do you have on a typical day? 1 or 2 [facility] How often do you hav e 6 or more drinks on 1 occasion? Never [facility] How hard is it for you to pay for the very basics like food, housing, medical care, and heating Not very hard [facility] Do you feel stress - tense, restless, nervous, or anxious, or unable to sleep at night because your mind is troubled all the time - these days [OSQ] Very much [facility] (I/We) worried whether (my/our) food would run out before (I/we) got money to buy more. Never true [facility] NEGATED: Highlighted row - - [facility] Work Phone: NEGATED: Highlighted row [facility] Functional Status Date Assessment Result Facility NEGATED: Highlighted row Functional performance Functional status health issues are not documented Disease [facility] Work Phone: Mental Status Date Assessment Result Facility 12-15-2022 Cognitive function Level Of Cons ciousness Awake;Alert;Appropriate ;Follows Commands [facility] Work Phone: NEGATED: Highlighted row Cognitive function [Interpretation] Cognitive status health issues are not documented Disease [facility] Work Phone: Clinical Notes 04-04-2021 to 05-10-2025 Teetee Mendez, RT(R) - 05/10/2025 8:40 AM EDTPatient InstructionsJoy Miles APRN.FINISHING RANGE OPERATOR - 05/10/2025 8:12 AM EDTPIndra beebe DO - 04/19/2025 1:41 PM EDTPatient Instructions Note Date & Type Note Facility 05-10-2025 History of Presen t illness Narrative Radiology Service Progress Note PATIENT NAME: Yuko Herring DATE OF SERVICE: May 10, 2025 TIME: 9:04 AM PATIENT IDENTITY VERIFICATION COMPLETED USING TWO (2) IDENTIFIERS: Name and Date of confirmed by patient verbally. FALL SCREENING: Has the patient had 2 falls in the last year or 1 fall with injury or currently using an Ambulatory Assistive Device (Walker, Cane, Wheelchair, Crutches, etc.)? No PATIENT GENDER DATA: Assigned female at . status: : No status: NO. PATIENT RELEVANT IMPLANT DATA REVIEWED: Yes PATIENT PRESENTS WITH AN IMPLANTABLE OR ATTACHED LUSTER APPLICATOR: No RADIOLOGY DEPARTMENT: General X-ray: Exam(s) Completed: Lower Extremity X-Ray(s): Foot, Left PERIPHERAL IV DATA: Not applicable SIGNED BY: RT Zamzam(Óscar) May 10, 2025 9:04 AM documented in this encounter [facility] 05-10-2025 Note HNO ID: [id number] Author: TEETEE MENDEZ RT (R) Service: ? Author Type: Stock Cutter Type: Progress Notes Filed: 05/10/2025 09:12 Note Text: Radiology Service Progress Note PATIENT NAME: Yuko Herring DATE OF SERVICE: May 10, 2025 TIME: 9:04 AM PATIENT IDENTITY VERIFICATION COMPLETED USING TWO (2) IDENTIFIERS: Name and Date of confirmed by patient verbally. FALL SCREENING: Has the patient had 2 falls in the last year or 1 fall with injury or currently using an Ambulatory Assistive Device (Walker, Cane, Wheelchair, Crutches, etc.)? No PATIENT GENDER DATA: Assigned female at . status: : No status: NO. PATIENT RELEVANT IMPLANT DATA REVIEWED: Yes PATIENT PRESENTS WITH AN IMPLANTABLE OR ATTACHED LUSTER APPLICATOR: No RADIOLOGY DEPARTMENT: General X-ray: Exam(s) Completed: Lower Extremity X-Ray(s): Foot, Left PERIPHERAL IV DATA: Not applicable SIGNED BY: RT Zamzam(Óscar) May 10, 2025 9:04 AM [facility] 05-10-2025 Instructions Joy Miles APRN.FAHAD - 05/10/2025 8:26 AM EDT - Have the foot x-ray performed today as ordered; we will review the images and contact you with the results by the end of the day. - Take acetaminophen 500- 650 mg as needed for pain every 4 hours - Continue wrapping and supporting your ankle; avoid walking barefoot or in unsupportive sandals until pain improves. - Rest your injured foot and minimize weight-bearing when possible to help reduce swelling and promote healing. documented in this encounter [facility] 05-10-2025 Note HNO ID: [id number] Author: JOY MILES APRN.CNP Service: ? Author Type: Nurse Practitioner Type: Progress Notes Filed: 05/10/2025 08:27 Note Text: This is a 34 year old female who presents today with: Patient presents with: Foot Trauma: Left foot injury, 05/06/25 HISTORY OF PRESENT ILLNESS: Yuko Herring is a 34 year old female. Patient presents with: Foot Trauma: Left foot injury, 05/06/25 Yuko Herring is a 34-year-old female with a history of bilateral foot fractures, presenting with left foot pain after twisting it on an uneven sidewalk. Left Foot Pain: - Twisted left foot on an uneven sidewalk on Friday while wearing sandals. - Pain rated 7/10, localized to the dorsum of the foot. - Aggravated by weight-bearing and dorsiflexion; alleviated by wrapping the foot. - Denies taking any analgesics due to a history of stomach ulcers from ibuprofen. - Denies fever, chills, or nausea. - History of bilateral foot fractures, with a previous stress fracture in the same area a few years ago. - Physical therapist noted unstable ankle; Yuko discontinued therapy due to boredom. PAST MEDICAL HISTORY: PAST MEDICAL HISTORY Diagnosis Date Cervical radiculopathy Depression Headaches POTS (postural orthostatic tachycardia syndrome) secondary to covid vaccine per patient PAST SURGICAL HISTORY Procedure Laterality Date PAST SURGICAL HISTORY OF 2011 Ectopic PAST SURGICAL HISTORY OF 12/2021 wisdom teeth extraction ALLERGIES Patient has no known allergies. MEDICATIONS Current Outpatient Medications Medication Sig propranolol (INDERAL) 10 mg tablet Take 1 tablet by mouth two times a day. ergocalciferol 50,000 unit capsule (VITAMIN D2, DRISDOL) Take 1 tablet by mouth twice weekly [id number], then decrease to 1 tablet weekly. ondansetron orally disintegrating (ZOFRAN ODT) 4 mg disintegrating tablet Take 1 tablet by mouth every 8 hours as needed for nausea/vomiting. No current facility-administered medications for this visit. FAMILY HISTORY Problem Relation Age of Onset Thyroid Cancer Mother Glaucoma Father Thyroid Cancer Sister Breast Cancer Sister Glaucoma Paternal Grandfather Social History Tobacco Use Smoking status: Never Smokeless tobacco: Never Vaping Use Vaping status: current everyday user Substances: THC Substance Use Topics Alcohol use: Yes Alcohol/week: 7.0 standard drinks of alcohol Types: 7 Glasses of wine per week Drug use: Yes Types: Marijuana REVIEW OF SYSTEMS Constitutional: (+) chills Gastrointestinal: (-) nausea Musculoskeletal: (+) foot pain EXAM: BP 104/64 Pulse 78 Wt 71.2 kg (157 lb) LMP 10/24/2024 (Exact Date) SpO2 100% BMI 26.95 kg/m? PHYSICAL EXAM: GENERAL: NAD, alert and oriented SKIN: Unremarkable, no rash or skin lesions. HEAD: Normocephalic LUNGS: Clear to auscultation bilaterally, no wheezes/rhonchi/rales. HEART: Regular rate and rhythm, no murmurs. No ectopy. EXTREMITIES: Mild ecchymosis and swelling noted on the forefoot- 4th tarsal bone foot. No dependent bruising on the plantar surface. No deformities, slight quarter sized area of edema dorsal aspect. Full ROM in left ankle. No malleolar edema or ecchymosis. NEURO: Awake, alert and oriented x3, cranial nerves II-XII grossly intact, normal gait, no involuntary motions LABS: ASSESSMENT/PLAN: 1. Left foot pain (M79.672) 2. Stress fracture of tarsal bone (M84.376A) - Left foot pain rated 7/10, exacerbated by weight-bearing and dorsiflexion; mild ecchymosis and edema noted on examination. - History of previous fractures and reported unstable ankle. - Ordered stat X-ray to evaluate for potential stress fracture; results to be reviewed by end of day. - Recommended continuation of supportive measures, including wrapping the foot to provide stability and reduce pain. - Discussed use of acetaminophen 500- 650 mg every 4 hours for pain management; patient declined due to history of gastric ulceration and reports pain is manageable. - Consideration for bone density evaluation due to recurrent fractures. Discussed treatment plan and patient voices understanding. Patient's questions answered appropriately. Medications and potential side effects were discussed and patient voices understanding. Return to the office as scheduled or as needed for worsening/no improvement. Joy Miles APRN.[facility] 05-10-2025 History of Presen t illness Narrative This is a 34 year old female who presents today with: Patient presents with: Foot Trauma: Left foot injury, 05/06/25 HISTORY OF PRESENT ILLNESS: Yuko Herring is a 34 year old female. Patient presents with: Foot Trauma: Left foot injury, 05/06/25 Yuko Herring is a 34-year-old female with a history of bilateral foot fractures, presenting with left foot pain after twisting it on an uneven sidewalk. Left Foot Pain: - Twisted left foot on an uneven sidewalk on Friday while wearing sandals. - Pain rated 7/10, localized to the dorsum of the foot. - Aggravated by weight-bearing and dorsiflexion; alleviated by wrapping the foot. - Denies taking any analgesics due to a history of stomach ulcers from ibuprofen. - Denies fever, chills, or nausea. - History of bilateral foot fractures, with a previous stress fracture in the same area a few years ago. - Physical therapist noted unstable ankle; Yuko discontinued therapy due to boredom. PAST MEDICAL HISTORY: PAST MEDICAL HISTORY Diagnosis Date Cervical radiculopathy Depression Headaches POTS (postural orthostatic tachycardia syndrome) secondary to covid vaccine per patient PAST SURGICAL HISTORY Procedure Laterality Date PAST SURGICAL HISTORY OF 2011 Ectopic PAST SURGICAL HISTORY OF 12/2021 wisdom teeth extraction ALLERGIES Patient has no known allergies. MEDICATIONS Current Outpatient Medications Medication Sig propranolol (INDERAL) 10 mg tablet Take 1 tablet by mouth two times a day. ergocalciferol 50,000 unit capsule (VITAMIN D2, DRISDOL) Take 1 tablet by mouth twice weekly [id number], then decrease to 1 tablet weekly. ondansetron orally disintegrating (ZOFRAN ODT) 4 mg disintegrating tablet Take 1 tablet by mouth every 8 hours as needed for nausea/vomiting. No current facility-administered medications for this visit. FAMILY HISTORY Problem Relation Age of Onset Thyroid Cancer Mother Glaucoma Father Thyroid Cancer Sister Breast Cancer Sister Glaucoma Paternal Grandfather Social History Tobacco Use Smoking status: Never Smokeless tobacco: Never Vaping Use Vaping status: current everyday user Substances: THC Substance Use Topics Alcohol use: Yes Alcohol/week: 7.0 standard drinks of alcohol Types: 7 Glasses of wine per week Drug use: Yes Types: Marijuana REVIEW OF SYSTEMS Constitutional: (+) chills Gastrointestinal: (-) nausea Musculoskeletal: (+) foot pain EXAM: BP 104/64 Pulse 78 Wt 71.2 kg (157 lb) LMP 10/24/2024 (Exact Date) SpO2 100% BMI 26.95 kg/m PHYSICAL EXAM: GENERAL: NAD, alert and oriented SKIN: Unremarkable, no rash or skin lesions. HEAD: Normocephalic LUNGS: Clear to auscultation bilaterally, no wheezes/rhonchi/rales. HEART: Regular rate and rhythm, no murmurs. No ectopy. EXTREMITIES: Mild ecchymosis and swelling noted on the forefoot- 4th tarsal bone foot. No dependent bruising on the plantar surface. No deformities, slight quarter sized area of edema dorsal aspect. Full ROM in left ankle. No malleolar edema or ecchymosis. NEURO: Awake, alert and oriented x3, cranial nerves II-XII grossly intact, normal gait, no involuntary motions LABS: ASSESSMENT/PLAN: 1. Left foot pain (M79.672) 2. Stress fracture of tarsal bone (M84.376A) - Left foot pain rated 7/10, exacerbated by weight-bearing and dorsiflexion; mild ecchymosis and edema noted on examination. - History of previous fractures and reported unstable ankle. - Ordered stat X-ray to evaluate for potential stress fracture; results to be reviewed by end of day. - Recommended continuation of supportive measures, including wrapping the foot to provide stability and reduce pain. - Discussed use of acetaminophen 500- 650 mg every 4 hours for pain management; patient declined due to history of gastric ulceration and reports pain is manageable. - Consideration for bone density evaluation due to recurrent fractures. Discussed treatment plan and patient voices understanding. Patient's questions answered appropriately. Medications and potential side effects were discussed and patient voices understanding. Return to the office as scheduled or as needed for worsening/no improvement. Joy Miles APRN.FINISHING RANGE OPERATOR documented in this encounter [facility] 04-19-2025 Note HNO ID: [id number] Author: INDRA MAY, DO Service: ? Author Type: Physician Type: Progress Notes Filed: 04/19/2025 14:19 Note Text: Allergy and Immunology 04/19/2025 PRIMARY CARE PHYSICIAN: Fabián Martin APRN.[facility] REFERRING PROVIDER: Fabián Martin APRN.FINISHING RANGE OPERATOR Consultation requested for an allergy/immunology evaluation. My final impression and recommendations will be communicated back to the requesting physician by way of shared medical record, fax, or [place] mail. CHIEF COMPLAINT: Yuko Herring is a 34-year-old female with a history of POTS, presenting with chronic bloating and suspected food intolerances. HISTORY OF PRESENT ILLNESS: Yuko reports persistent bloating and suspected food intolerances since being diagnosed with POTS in 2020. She notes that these symptoms began after her diagnosis and have been constant since then. She denies diarrhea or constipation. She underwent a functional medicine evaluation last year, during which she followed an elimination diet excluding gluten, sugar, caffeine, alcohol, and certain fruits like marcin. She reports feeling better while on the diet but experienced worsening symptoms upon reintroducing foods, particularly gluten and soy. Yuko has been consuming gluten regularly since the elimination diet. She denies any systemic IgE mediated symptoms upon food reintroduction. She also reports episodes of rashes when consuming avocados and tomatoes during the elimination period, which have since resolved. She denies any current issues with these foods and has not been diagnosed with histamine intolerance but wonders if there is testing for this. Yuko denies known allergies or asthma and reports no issues with seasonal allergies. She has a history of slightly positive skin tests for soy and shellfish, which were deemed insignificant. Her POTS symptoms are currently more stable with fewer flare-ups than previously. She attributes this improvement to increased hydration and salt intake. Yuko is currently taking propranolol and plans to reintroduce vitamin D and magnesium supplements. She denies taking any other medications. She reports a history of vaping. She has had recent travel overseas to [place]. She denies any illness during her travels. Denies diar Yuko also notes significant exercise intolerance since her POTS diagnosis, stating that she was previously able to lift weights but now struggles with even minimal exercise, such as 2 minutes on a stationary bike. Constitutional: (+) fatigue Respiratory: (-) wheezing Gastrointestinal: (+) abdominal bloating, (-) vomiting, (-) diarrhea, (-) constipation Skin: (-) rash, (-) hives, (-) flushing MYC COLLATERAL ALLERGY HISTORY Question 04/19/2025 1:31 PM EDT - Filed by Patient Do you have or have you ever been diagnosed with allergic rhinitis? No Have you ever been skin tested for allergies? Yes Do you have asthma? No Do you have or have you ever been diagnosed with eczema or atopic dermatitis? No Do you get frequent sinus infections? No Do you have nasal polyps? No Do you have or have you ever been diagnosed with urticaria / hives? No Do you have or have you ever been diagnosed with angioedema? No Do you have or have you ever been diagnosed with food allergy? Not Sure Do you have or have you ever been diagnosed with stinging insect allergy (bee, wasp, yellow jacket, hornet)? No Are you allergic to Penicillin antibiotics? No MYC ALLERGY ENVIROMENTAL EXPOSURES Question 04/19/2025 1:32 PM EDT - Filed by Patient Aeroallergens Exposure What pet(s) you have at home? Dog Cat Is there evidence of a mouse infestation in your home? No Is there evidence of a cockroach infestation in your home? No Is there evidence of mold or mildew in your home? No Is your home air conditioned during the summer? Yes Do you use zip around dust mite covers on all mattresses and pillows? No Is there exposure in the home to cigarette or cigar smoke? No Is there any exposure to vaping? Yes Social Hx: Social History Tobacco Use Smoking status: Never Smokeless tobacco: Never Vaping Use Vaping status: current everyday user Substances: THC Substance Use Topics Alcohol use: Yes Alcohol/week: 7.0 standard drinks of alcohol Types: 7 Glasses of wine per week Drug use: Yes Types: Marijuana Employer And Job Title: None on file Years Of Education Completed: Not specified Marital Status: Domestic Partner SOCIAL HISTORY No social history on file. PAST MEDICAL HISTORY Diagnosis Date Cervical radiculopathy Depression Headaches POTS (postural orthostatic tachycardia syndrome) secondary to covid vaccine per patient FAMILY HISTORY Problem Relation Age of Onset Thyroid Cancer Mother Glaucoma Father Thyroid Cancer Sister Breast Cancer Sister Glaucoma Paternal Grandfather PAST SURGICAL HISTORY Procedure Laterality Date PAST SURGICAL HISTORY OF 2011 Ectopi (more content not included)... [facility] 04-19-2025 History of Presen t illness Narrative Images from the original note were not included. Allergy and Immunology 04/19/2025 PRIMARY CARE PHYSICIAN: Fabián Martin APRN.[facility] REFERRING PROVIDER: Fabián Martin APRN.[facility] Consultation requested for an allergy/immunology evaluation. My final impression and recommendations will be communicated back to the requesting physician by way of shared medical record, fax, or [place] mail. CHIEF COMPLAINT: Yuko Herring is a 34-year-old female with a history of POTS, presenting with chronic bloating and suspected food intolerances. HISTORY OF PRESENT ILLNESS: Yuko reports persistent bloating and suspected food intolerances since being diagnosed with POTS in 2020. She notes that these symptoms began after her diagnosis and have been constant since then. She denies diarrhea or constipation. She underwent a functional medicine evaluation last year, during which she followed an elimination diet excluding gluten, sugar, caffeine, alcohol, and certain fruits like marcin. She reports feeling better while on the diet but experienced worsening symptoms upon reintroducing foods, particularly gluten and soy. Yuko has been consuming gluten regularly since the elimination diet. She denies any systemic IgE mediated symptoms upon food reintroduction. She also reports episodes of rashes when consuming avocados and tomatoes during the elimination period, which have since resolved. She denies any current issues with these foods and has not been diagnosed with histamine intolerance but wonders if there is testing for this. Yuko denies known allergies or asthma and reports no issues with seasonal allergies. She has a history of slightly positive skin tests for soy and shellfish, which were deemed insignificant. Her POTS symptoms are currently more stable with fewer flare-ups than previously. She attributes this improvement to increased hydration and salt intake. Yuko is currently taking propranolol and plans to reintroduce vitamin D and magnesium supplements. She denies taking any other medications. She reports a history of vaping. She has had recent travel overseas to [place]. She denies any illness during her travels. Denies diar Yuko also notes significant exercise intolerance since her POTS diagnosis, stating that she was previously able to lift weights but now struggles with even minimal exercise, such as 2 minutes on a stationary bike. Constitutional: (+) fatigue Respiratory: (-) wheezing Gastrointestinal: (+) abdominal bloating, (-) vomiting, (-) diarrhea, (-) constipation Skin: (-) rash, (-) hives, (-) flushing MYC COLLATERAL ALLERGY HISTORY Question 04/19/2025 1:31 PM EDT - Filed by Patient Do you have or have you ever been diagnosed with allergic rhinitis? No Have you ever been skin tested for allergies? Yes Do you have asthma? No Do you have or have you ever been diagnosed with eczema or atopic dermatitis? No Do you get frequent sinus infections? No Do you have nasal polyps? No Do you have or have you ever been diagnosed with urticaria / hives? No Do you have or have you ever been diagnosed with angioedema? No Do you have or have you ever been diagnosed with food allergy? Not Sure Do you have or have you ever been diagnosed with stinging insect allergy (bee, wasp, yellow jacket, hornet)? No Are you allergic to Penicillin antibiotics? No MYC ALLERGY ENVIROMENTAL EXPOSURES Question 04/19/2025 1:32 PM EDT - Filed by Patient Aeroallergens Exposure What pet(s) you have at home? Dog Cat Is there evidence of a mouse infestation in your home? No Is there evidence of a cockroach infestation in your home? No Is there evidence of mold or mildew in your home? No Is your home air conditioned during the summer? Yes Do you use zip around dust mite covers on all mattresses and pillows? No Is there exposure in the home to cigarette or cigar smoke? No Is there any exposure to vaping? Yes Social Hx: Social History Tobacco Use Smoking status: Never Smokeless tobacco: Never Vaping Use Vaping status: current everyday user Substances: THC Substance Use Topics Alcohol use: Yes Alcohol/week: 7.0 standard drinks of alcohol Types: 7 Glasses of wine per week Drug use: Yes Types: Marijuana Employer And Job Title: None on file Years Of Education Completed: Not specified Marital Status: Domestic Partner SOCIAL HISTORY No social history on file. PAST MEDICAL HISTORY Diagnosis Date Cervical radiculopathy Depression Headaches POTS (postural orthostatic tachycardia syndrome) secondary to covid vaccine per patient FAMILY HISTORY Problem Relation Age of Onset Thyroid Cancer Mother Glaucoma Father Thyroid Cancer Sister Breast Cancer Sister Glaucoma Paternal Grandfather PAST SURGICAL HISTORY Procedure Laterality Date PAST SURGICAL HISTORY OF 2011 Ectopic PAST SURGICAL HISTORY OF 12/2021 wisdom teeth extraction Current Outpatient Medications Medication Sig propranolol (INDERAL) 10 mg tablet Take 1 tablet by mouth two times a day. ondansetron orally disintegrating (ZOFRAN ODT) 4 mg disintegrating tablet Take 1 tablet by mouth every 8 hours as needed for nausea/vomiting. (Patient not taking: Reported on 04/19/2025) ergocalciferol 50,000 unit capsule (VITAMIN D2, DRISDOL) Take 1 tablet by mouth twice weekly [id number], then decrease to 1 tablet weekly. No current facility-administered medications for this visit. ALLERGIES No Known Allergies PHYSICAL EXAM: BP 102/63 (BP Site: Left Arm, BP Position: Sitting, BP Cuff Size: Regular Adult) Pulse 74 Resp 16 Wt 71.2 kg (157 lb) LMP 10/24/2024 (Exact Date) SpO2 100% BMI 26.95 kg/m GENERAL: alert, oriented, comfortable EYES: non icteric sclera EARS: external ears normal NOSE: no audible congestion CHEST/LUNGS: respirations easy and regular DATA/DIAGNOSTICS: I personally reviewed and interpreted relevant prior results, notable as below: eosinophilia Labs: Latest Ref Rng & Units 12/06/2022 09/26/2023 08/24/2024 CBC WBC 3.70 - 11.00 k/uL 7.15 5.29 5.41 RBC 3.90 - 5.20 m/uL 4.33 4.52 4.29 Hemoglobin 11.5 - 15.5 g/dL 13.2 13.8 13.2 Hematocrit 36.0 - 46.0 % 41.5 41.5 40.9 MCV 80.0 - 100.0 fL 95.8 91.8 95.3 MCH 26.0 - 34.0 pg 30.5 30.5 30.8 MCHC 30.5 - 36.0 g/dL 31.8 33.3 32.3 RDW-CV 11.5 - 15.0 % 12.2 12.4 12.7 Platelet Count 150 - 400 k/uL 302 282 245 MPV 9.0 - 12.7 fL 11.0 11.1 11.9 Baso% % 0.6 0.8 1.5 Abs Neut (ANC) 1.45 - 7.50 k/uL 4.38 3.00 2.47 Abs Lymph 1.00 - 4.00 k/uL 2.07 1.54 1.93 Abs Vilas <0.87 k/uL 0.55 0.55 0.35 Abs Eosin <0.46 k/uL 0.10 0.15 0.58 Abs Baso <0.11 k/uL 0.04 0.04 0.08 NRBC /100 WBC 0.0 0.0 0.0 MEDICAL DECISION MAKIN. 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 Discussed the relationship between dysautonomia and POTS, explaining the imbalance between sympathetic and parasympathetic nervous systems affecting various bodily functions, including digestion. Fatigue likely related to dysautonomia and POTS, affecting energy levels post-prandially due to autonomic imbalance. - Monitor energy levels and adjust activities to accommodate gradual improvement. Educated on the importance of gradual lifestyle adjustments to restore autonomic balance. - Continue propranolol as prescribed. - Maintain increased hydration and salt intake. - Discussed potential impact of vaping on autonomic function; advised cessation. 2. Indigestion (K30) Bloating (R14.0) Chronic bloating and indigestion symptoms, exacerbated by reintroduction of certain foods, particularly gluten and soy. Symptoms began post-POTS diagnosis. No evidence of anaphylactic reactions; symptoms suggestive of food intolerance rather than allergies. Recent CBC showed elevated eosinophil count, potentially indicating an allergic or parasitic response. She denies atopy - Ordered celiac disease serology. - Ordered baseline tryptase level and provided standing order for tryptase during symptomatic episodes to evaluate for mast cell activation syndrome due to patient concern for histamine intolerance based on flushing/rash symptoms that occured with reintroduction of tomato and avocado after elimination. Now tolerates these foods - Advised on small, frequent meals and rest post-prandially to facilitate digestion. 3. Peripheral eosinophilia Recent CBC showed elevated eosinophil count, potentially indicating an allergic or parasitic response. She denies atopy. +Travel to [place]. Denies diarrhea/illness abroad - Repeat CBC to monitor eosinophil levels. Follow up: as needed, pending labs Patient advised to call or return sooner should current symptoms worsen or fail to improve or if new symptoms or problems arise. It was my pleasure to participate in the care of this patient. Indra May, DO Allergy and Clinical Immunology [facility] Jessica I spent a total of 30 minutes on the date of the service which included preparing to see the patient, [id number] patient care, completing clinical documentation, obtaining and/or reviewing separately obtained history, performing a medically appropriate examination, counseling and educating the patient/family/caregiver, and ordering medications, tests, or procedures. Recording using [employer] software for draft documentation of the visit was discussed with the patient/authorized sales representatives; all questions welcomed and answered. Patient/authorized sales representatives agreed to proceed Patient referred by PCP, concerned about inflammatory foods. documented in this encounter [facility] 04-19-2025 Note HNO ID: [id number] Author: PAN ROY LPN Service: ? Author Type: LICENSED NURSE Type: Progress Notes Filed: 04/19/2025 14:19 Note Text: Patient referred by PCP, concerned about inflammatory foods. [facility] 04-18-2025 Telephone encounter Note Pt active on [employer]- message sent Jaden Torres MA [facility] 04-18-2025 Miscellaneous Notes Pt active on [employer]- message sent Jaden Torres MA Please let patient know her vitamin d remains low. I have sent in a prescription for supplementation. documented in this encounter [facility] 04-18-2025 Telephone encounter Note Please let patient know her vitamin d remains low. I have sent in a prescription for supplementation. [facility] 04-15-2025 Note HNO ID: [id number] Author: FABIÁN MARTIN APRN.FINISHING RANGE OPERATOR Service: ? Author Type: Nurse Practitioner Type: Progress Notes Filed: 04/15/2025 12:03 Note Text: Chief Complaint Patient presents with: 6 Month Exam HPI Yuko Herring is a 34 year old female who presents here today for Above Complaints.. Patient presents for routine follow up. Reports she is doing well, has occasional POTS flares but are minor in comparison to previous. Past medical history, appointments, medications, allergies reviewed. Previous Medical History PAST MEDICAL HISTORY Diagnosis Date Cervical radiculopathy Depression Headaches POTS (postural orthostatic tachycardia syndrome) secondary to covid vaccine per patient Previous Surgical History PAST SURGICAL HISTORY Procedure Laterality Date PAST SURGICAL HISTORY OF 2011 Ectopic PAST SURGICAL HISTORY OF 12/2021 wisdom teeth extraction Family History FAMILY HISTORY Problem Relation Age of Onset Thyroid Cancer Mother Glaucoma Father Thyroid Cancer Sister Breast Cancer Sister Glaucoma Paternal Grandfather Patient Allergies ALLERGIES No Known Allergies Current Medications Current Outpatient Medications on File Prior to Visit Medication Sig propranolol (INDERAL) 10 mg tablet Take 1 tablet by mouth two times a day. DULoxetine (CYMBALTA) 40 mg cpDR Take 1 capsule by mouth once daily. ondansetron orally disintegrating (ZOFRAN ODT) 4 mg disintegrating tablet Take 1 tablet by mouth every 8 hours as needed for nausea/vomiting. ergocalciferol 50,000 unit capsule (VITAMIN D2, DRISDOL) Take 1 tablet by mouth twice weekly [id number], then decrease to 1 tablet weekly. rizatriptan (MAXALT) 10 mg tablet Take 1 tablet by mouth as needed. (Patient not taking: Reported on 04/15/2025) No current facility-administered medications on file prior to visit. Social History Social History Tobacco Use Smoking status: Never Smokeless tobacco: Never Vaping Use Vaping status: current everyday user Substances: THC Substance Use Topics Alcohol use: Yes Alcohol/week: 7.0 standard drinks of alcohol Types: 7 Glasses of wine per week Drug use: Yes Types: Marijuana Review of Symptoms REVIEW OF SYSTEMS SEE HPI EXAM: BP 104/68 Pulse (!) 58 Wt 71 kg (156 lb 8.4 oz) LMP 10/24/2024 (Exact Date) BMI 26.87 kg/m? General Appearance: Well appearing, alert, in no acute distress, well-hydrated, well nourished. Lungs: Lungs clear to auscultation. No wheezing, rhonchi, rales.. Heart: RRR without murmur, gallop, or rubs. No ectopy. Health Maintenance List Depression Screening Never done Anxiety Screening Never done Covid-19 Vaccine(2 - season) due on 06/20/2024 Hepatitis B Vaccine(1 of 3 - 19+ 3-dose series) due on 08/24/2025 Influenza Vaccine(Season Ended) due on 06/20/2025 Cervical Cancer Screening due on 01/18/2027 DTaP,Tdap,Td Vaccine(2 - Td or Tdap) due on 03/16/2034 Hepatitis C Screening Completed HIV Screening Completed ASSESSMENT/PLAN: 1. Vitamin D deficiency - ICD9: 268.9, ICD10: E55.9 (primary diagnosis) - VITAMIN D 25 HYDROXY 2. POTS (postural orthostatic tachycardia syndrome) - ICD9: 427.89, ICD10: G90.A - CONSULT TO NUTRITION THERAPY - Continue propranolol 3. Encounter for allergy testing - ICD9: V72.7, ICD10: Z01.82 - CONSULT TO ALLERGY/IMMUNOLOGY Fabián Martin APRN.[facility] 04-15-2025 History of Presen t illness Narrative Chief Complaint Patient presents with: 6 Month Exam HPI Yuko Herring is a 34 year old female who presents here today for Above Complaints.. Patient presents for routine follow up. Reports she is doing well, has occasional POTS flares but are minor in comparison to previous. Past medical history, appointments, medications, allergies reviewed. Previous Medical History PAST MEDICAL HISTORY Diagnosis Date Cervical radiculopathy Depression Headaches POTS (postural orthostatic tachycardia syndrome) secondary to covid vaccine per patient Previous Surgical History PAST SURGICAL HISTORY Procedure Laterality Date PAST SURGICAL HISTORY OF 2011 Ectopic PAST SURGICAL HISTORY OF 12/2021 wisdom teeth extraction Family History FAMILY HISTORY Problem Relation Age of Onset Thyroid Cancer Mother Glaucoma Father Thyroid Cancer Sister Breast Cancer Sister Glaucoma Paternal Grandfather Patient Allergies ALLERGIES No Known Allergies Current Medications Current Outpatient Medications on File Prior to Visit Medication Sig propranolol (INDERAL) 10 mg tablet Take 1 tablet by mouth two times a day. DULoxetine (CYMBALTA) 40 mg cpDR Take 1 capsule by mouth once daily. ondansetron orally disintegrating (ZOFRAN ODT) 4 mg disintegrating tablet Take 1 tablet by mouth every 8 hours as needed for nausea/vomiting. ergocalciferol 50,000 unit capsule (VITAMIN D2, DRISDOL) Take 1 tablet by mouth twice weekly [id number], then decrease to 1 tablet weekly. rizatriptan (MAXALT) 10 mg tablet Take 1 tablet by mouth as needed. (Patient not taking: Reported on 04/15/2025) No current facility-administered medications on file prior to visit. Social History Social History Tobacco Use Smoking status: Never Smokeless tobacco: Never Vaping Use Vaping status: current everyday user Substances: THC Substance Use Topics Alcohol use: Yes Alcohol/week: 7.0 standard drinks of alcohol Types: 7 Glasses of wine per week Drug use: Yes Types: Marijuana Review of Symptoms REVIEW OF SYSTEMS SEE HPI EXAM: BP 104/68 Pulse (!) 58 Wt 71 kg (156 lb 8.4 oz) LMP 10/24/2024 (Exact Date) BMI 26.87 kg/m General Appearance: Well appearing, alert, in no acute distress, well-hydrated, well nourished. Lungs: Lungs clear to auscultation. No wheezing, rhonchi, rales.. Heart: RRR without murmur, gallop, or rubs. No ectopy. Health Maintenance List Depression Screening Never done Anxiety Screening Never done Covid-19 Vaccine(2 - 2023- season) due on 06/20/2024 Hepatitis B Vaccine(1 of 3 - 19+ 3-dose series) due on 08/24/2025 Influenza Vaccine(Season Ended) due on 06/20/2025 Cervical Cancer Screening due on 01/18/2027 DTaP,Tdap,Td Vaccine(2 - Td or Tdap) due on 03/16/2034 Hepatitis C Screening Completed HIV Screening Completed ASSESSMENT/PLAN: 1. Vitamin D deficiency - ICD9: 268.9, ICD10: E55.9 (primary diagnosis) - VITAMIN D 25 HYDROXY 2. POTS (postural orthostatic tachycardia syndrome) - ICD9: 427.89, ICD10: G90.A - CONSULT TO NUTRITION THERAPY - Continue propranolol 3. Encounter for allergy testing - ICD9: V72.7, ICD10: Z01.82 - CONSULT TO ALLERGY/IMMUNOLOGY Fabián Martin APRN.FINISHING RANGE OPERATOR documented in this encounter [facility] 02-25-2025 Telephone encounter Note Prescription Refill Information The patient has been identified by name and date of : Yes Caregiver verified no other encounters exist for this prescription request: Yes Caregiver confirmed with patient/requestor that no other refills are due, in the near future, with this provider at this time: Yes The last office visit in the department: 01/20/25 Does the patient have a future office visit with this provider/department: Yes, 04/11/25 Requested Prescriptions Pending Prescriptions Disp Refills propranolol (INDERAL) 10 mg tablet 180 tablet 1 Sig: Take 1 tablet by mouth two times a day. DULoxetine (CYMBALTA) 40 mg cpDR 30 capsule 0 Sig: Take 1 capsule by mouth once daily. Noble Rascon LPN February 25, 2025 3:23 PM [facility] 02-25-2025 Miscellaneous Notes Prescription Refill Information The patient has been identified by name and date of : Yes Caregiver verified no other encounters exist for this prescription request: Yes Caregiver confirmed with patient/requestor that no other refills are due, in the near future, with this provider at this time: Yes The last office visit in the department: 01/20/25 Does the patient have a future office visit with this provider/department: Yes, 04/11/25 Requested Prescriptions Pending Prescriptions Disp Refills propranolol (INDERAL) 10 mg tablet 180 tablet 1 Sig: Take 1 tablet by mouth two times a day. DULoxetine (CYMBALTA) 40 mg cpDR 30 capsule 0 Sig: Take 1 capsule by mouth once daily. Noble Rascon LPN February 25, 2025 3:23 PM documented in this encounter [facility] 01-21-2025 Telephone encounter Note Pt active on mychart message sent Jaden Torres MA [facility] 01-21-2025 Miscellaneous Notes Pt active on GiveNext message sent Jaden Torres MA Please let patient know her sodium is slightly low. Patient should increase her sodium intake at least 3-4 grams daily. documented in this encounter [facility] 01-20-2025 Telephone encounter Note Please let patient know her sodium is slightly low. Patient should increase her sodium intake at least 3-4 grams daily. [facility] 01-20-2025 Instructions Fabián Martin APRN.CNP - 01/20/2025 9:14 AM EDT Magnesium glycinate documented in this encounter [facility] 01-20-2025 Note HNO ID: [id number] Author: FABIÁN MARTIN APRN.CNP Service: ? Author Type: Nurse Practitioner Type: Progress Notes Filed: 01/20/2025 09:15 Note Text: Chief Complaint Patient presents with: pots flare HPI Yuko Herring is a 34 year old female who presents here today for Above Complaints.. Patient presents for more frequent POTS flares over the last month. Reports she is having a lot of nausea and is extremely fatigued. Was going to crossfit and recently workouts have picked up in speed and intensity and she believes this has been contributing to more symptoms. Past medical history, appointments, medications, allergies reviewed. Previous Medical History PAST MEDICAL HISTORY Diagnosis Date Cervical radiculopathy Depression Headaches POTS (postural orthostatic tachycardia syndrome) secondary to covid vaccine per patient Previous Surgical History PAST SURGICAL HISTORY Procedure Laterality Date PAST SURGICAL HISTORY OF 2011 Ectopic PAST SURGICAL HISTORY OF 12/2021 wisdom teeth extraction Family History FAMILY HISTORY Problem Relation Age of Onset Thyroid Cancer Mother Glaucoma Father Thyroid Cancer Sister Breast Cancer Sister Glaucoma Paternal Grandfather Patient Allergies ALLERGIES No Known Allergies Current Medications Current Outpatient Medications on File Prior to Visit Medication Sig DULoxetine (CYMBALTA) 40 mg cpDR Take 1 capsule by mouth once daily. ergocalciferol 50,000 unit capsule (VITAMIN D2, DRISDOL) Take 1 tablet by mouth twice weekly [id number], then decrease to 1 tablet weekly. propranolol (INDERAL) 10 mg tablet Take 1 tablet by mouth two times a day. rizatriptan (MAXALT) 10 mg tablet Take 1 tablet by mouth as needed. Current Facility-Administered Medications on File Prior to Visit Medication acetylcholine 10% solution - [facility] Social History Social History Tobacco Use Smoking status: Never Smokeless tobacco: Never Vaping Use Vaping status: current everyday user Substances: THC Substance Use Topics Alcohol use: Yes Alcohol/week: 7.0 standard drinks of alcohol Types: 7 Glasses of wine per week Drug use: Yes Types: Marijuana Review of Symptoms REVIEW OF SYSTEMS SEE HPI EXAM: BP 97/63 Pulse 80 Wt 69 kg (152 lb 1.9 oz) LMP 10/24/2024 (Exact Date) BMI 26.11 kg/m? General Appearance: Well appearing, alert, in no acute distress, well-hydrated, well nourished. Lungs: Lungs clear to auscultation. No wheezing, rhonchi, rales.. Heart: RRR without murmur, gallop, or rubs. No ectopy. Peripheral Pulses: Normal. Health Maintenance List Influenza Vaccine(1) due on 06/20/2024 Covid-19 Vaccine(2 - 2023- season) due on 06/20/2024 Depression Screening due on 02/18/2025 Anxiety Screening due on 02/18/2025 Hepatitis B Vaccine(1 of 3 - 19+ 3-dose series) due on 08/24/2025 Cervical Cancer Screening due on 01/18/2027 DTaP,Tdap,Td Vaccine(2 - Td or Tdap) due on 03/16/2034 Hepatitis C Screening Completed HIV Screening Completed ASSESSMENT/PLAN: 1. POTS (postural orthostatic tachycardia syndrome) - ICD9: 427.89, ICD10: G90.A (primary diagnosis) - ONDANSETRON 4 MG DISINTEGRATING TABLET - BASIC METABOLIC PANEL 2. Nausea - ICD9: 787.02, ICD10: R11.0 - ONDANSETRON 4 MG DISINTEGRATING TABLET Fabián Martin APRN.[facility] 01-20-2025 History of Presen t illness Narrative Chief Complaint Patient presents with: pots flare HPI Yuko Herring is a 34 year old female who presents here today for Above Complaints.. Patient presents for more frequent POTS flares over the last month. Reports she is having a lot of nausea and is extremely fatigued. Was going to crossfit and recently workouts have picked up in speed and intensity and she believes this has been contributing to more symptoms. Past medical history, appointments, medications, allergies reviewed. Previous Medical History PAST MEDICAL HISTORY Diagnosis Date Cervical radiculopathy Depression Headaches POTS (postural orthostatic tachycardia syndrome) secondary to covid vaccine per patient Previous Surgical History PAST SURGICAL HISTORY Procedure Laterality Date PAST SURGICAL HISTORY OF 2011 Ectopic PAST SURGICAL HISTORY OF 12/2021 wisdom teeth extraction Family History FAMILY HISTORY Problem Relation Age of Onset Thyroid Cancer Mother Glaucoma Father Thyroid Cancer Sister Breast Cancer Sister Glaucoma Paternal Grandfather Patient Allergies ALLERGIES No Known Allergies Current Medications Current Outpatient Medications on File Prior to Visit Medication Sig DULoxetine (CYMBALTA) 40 mg cpDR Take 1 capsule by mouth once daily. ergocalciferol 50,000 unit capsule (VITAMIN D2, DRISDOL) Take 1 tablet by mouth twice weekly [id number], then decrease to 1 tablet weekly. propranolol (INDERAL) 10 mg tablet Take 1 tablet by mouth two times a day. rizatriptan (MAXALT) 10 mg tablet Take 1 tablet by mouth as needed. Current Facility-Administered Medications on File Prior to Visit Medication acetylcholine 10% solution - [facility] Social History Social History Tobacco Use Smoking status: Never Smokeless tobacco: Never Vaping Use Vaping status: current everyday user Substances: THC Substance Use Topics Alcohol use: Yes Alcohol/week: 7.0 standard drinks of alcohol Types: 7 Glasses of wine per week Drug use: Yes Types: Marijuana Review of Symptoms REVIEW OF SYSTEMS SEE HPI EXAM: BP 97/63 Pulse 80 Wt 69 kg (152 lb 1.9 oz) LMP 10/24/2024 (Exact Date) BMI 26.11 kg/m General Appearance: Well appearing, alert, in no acute distress, well-hydrated, well nourished. Lungs: Lungs clear to auscultation. No wheezing, rhonchi, rales.. Heart: RRR without murmur, gallop, or rubs. No ectopy. Peripheral Pulses: Normal. Health Maintenance List Influenza Vaccine(1) due on 06/20/2024 Covid-19 Vaccine(2 - 2023- season) due on 06/20/2024 Depression Screening due on 02/18/2025 Anxiety Screening due on 02/18/2025 Hepatitis B Vaccine(1 of 3 - 19+ 3-dose series) due on 08/24/2025 Cervical Cancer Screening due on 01/18/2027 DTaP,Tdap,Td Vaccine(2 - Td or Tdap) due on 03/16/2034 Hepatitis C Screening Completed HIV Screening Completed ASSESSMENT/PLAN: 1. POTS (postural orthostatic tachycardia syndrome) - ICD9: 427.89, ICD10: G90.A (primary diagnosis) - ONDANSETRON 4 MG DISINTEGRATING TABLET - BASIC METABOLIC PANEL 2. Nausea - ICD9: 787.02, ICD10: R11.0 - ONDANSETRON 4 MG DISINTEGRATING TABLET Fabián Martin APRN.FINISHING RANGE OPERATOR documented in this encounter [facility] 01-17-2025 Telephone encounter Note Prescription Refill Information The patient has been identified by name and date of : Yes Caregiver verified no other encounters exist for this prescription request: Yes Caregiver confirmed with patient/requestor that no other refills are due, in the near future, with this provider at this time: Yes The last office visit in the department: 10/11/24 Does the patient have a future office visit with this provider/department: Yes, 04/11/25 Requested Prescriptions Pending Prescriptions Disp Refills DULoxetine (CYMBALTA) 40 mg cpDR 30 capsule 0 Sig: Take 1 capsule by mouth once daily. Noble Rascon LPN January 17, 2025 5:04 PM [facility] 01-17-2025 Miscellaneous Notes Prescription Refill Information The patient has been identified by name and date of : Yes Caregiver verified no other encounters exist for this prescription request: Yes Caregiver confirmed with patient/requestor that no other refills are due, in the near future, with this provider at this time: Yes The last office visit in the department: 10/11/24 Does the patient have a future office visit with this provider/department: Yes, 04/11/25 Requested Prescriptions Pending Prescriptions Disp Refills DULoxetine (CYMBALTA) 40 mg cpDR 30 capsule 0 Sig: Take 1 capsule by mouth once daily. Noble Rascon LPN January 17, 2025 5:04 PM documented in this encounter [facility] 12-10-2024 Telephone encounter Note Prescription Refill Information The patient has been identified by name and date of : Yes Caregiver verified no other encounters exist for this prescription request: Yes Caregiver confirmed with patient/requestor that no other refills are due, in the near future, with this provider at this time: Yes The last office visit in the department: 10/11/24 Does the patient have a future office visit with this provider/department: Yes 04/11/25 Requested Prescriptions Pending Prescriptions Disp Refills DULoxetine (CYMBALTA) 40 mg cpDR 30 capsule 0 Sig: Take 1 capsule by mouth once daily. Maira Elizondo LPN December 10, 2024 12:56 PM [facility] 12-10-2024 Miscellaneous Notes Prescription Refill Information The patient has been identified by name and date of : Yes Caregiver verified no other encounters exist for this prescription request: Yes Caregiver confirmed with patient/requestor that no other refills are due, in the near future, with this provider at this time: Yes The last office visit in the department: 10/11/24 Does the patient have a future office visit with this provider/department: Yes 04/11/25 Requested Prescriptions Pending Prescriptions Disp Refills DULoxetine (CYMBALTA) 40 mg cpDR 30 capsule 0 Sig: Take 1 capsule by mouth once daily. Maira Elizondo LPN December 10, 2024 12:56 PM documented in this encounter [facility] 11-22-2024 Telephone encounter Note Unable to reach patient by phone. +BV will tx with metronidazole. Please let her know not to consume alcohol while being treated. Igor Garcia MD [facility] 11-22-2024 Miscellaneous Notes Unable to reach patient by phone. +BV will tx with metronidazole. Please let her know not to consume alcohol while being treated. Igor Garcia MD documented in this encounter [facility] 11-22-2024 Telephone encounter Note Left detailed message for pt notifying her that paperwork would be available for pickup in medical records Jaden Torres MA [facility] 11-22-2024 Miscellaneous Notes Left detailed message for pt notifying her that paperwork would be available for pickup in medical records Jaden Torres MA Completed. Please notify patient. Type of form: FMLA Form received via walk in When form is completed, call patient for knot picker cloth Form has been forwarded to Nurse Practitioner: Fabián Torres MA documented in this encounter [facility] 11-19-2024 Telephone encounter Note Completed. Please notify patient. [facility] 11-19-2024 History of Presen t illness Narrative Radiology Service Progress Note PATIENT NAME: Yuko Herring DATE OF SERVICE: November 19, 2024 TIME: 1:36 PM PATIENT IDENTITY VERIFICATION COMPLETED USING TWO (2) IDENTIFIERS: Name and Date of confirmed by patient verbally. FALL SCREENING: Has the patient had 2 falls in the last year or 1 fall with injury or currently using an Ambulatory Assistive Device (Walker, Cane, Wheelchair, Crutches, etc.)? No PATIENT GENDER DATA: Assigned female at . status: : No status: NO. PATIENT RELEVANT IMPLANT DATA REVIEWED: Not Applicable PATIENT PRESENTS WITH AN IMPLANTABLE OR ATTACHED LUSTER APPLICATOR: No RADIOLOGY DEPARTMENT: Ultrasound PERIPHERAL IV DATA: Not applicable SIGNED BY: Alison Escobedo RDMS November 19, 2024 1:36 PM documented in this encounter [facility] 11-19-2024 Note HNO ID: [id number] Author: ALISON ESCOBEDO RDMS Service: ? Author Type: Stock Cutter Type: Progress Notes Filed: 11/19/2024 13:36 Note Text: Radiology Service Progress Note PATIENT NAME: Yuko Herring DATE OF SERVICE: November 19, 2024 TIME: 1:36 PM PATIENT IDENTITY VERIFICATION COMPLETED USING TWO (2) IDENTIFIERS: Name and Date of confirmed by patient verbally. FALL SCREENING: Has the patient had 2 falls in the last year or 1 fall with injury or currently using an Ambulatory Assistive Device (Walker, Cane, Wheelchair, Crutches, etc.)? No PATIENT GENDER DATA: Assigned female at . status: : No status: NO. PATIENT RELEVANT IMPLANT DATA REVIEWED: Not Applicable PATIENT PRESENTS WITH AN IMPLANTABLE OR ATTACHED LUSTER APPLICATOR: No RADIOLOGY DEPARTMENT: Ultrasound PERIPHERAL IV DATA: Not applicable SIGNED BY: Alison Escobedo RDMS November 19, 2024 1:36 PM [facility] 11-19-2024 Telephone encounter Note Type of form: FMLA Form received via walk in When form is completed, call patient for knot picker cloth Form has been forwarded to Nurse Practitioner: Fabián Torres MA [facility] 11-19-2024 Note HNO ID: [id number] Author: IGOR GARCIA MD Service: ? Author Type: Physician Type: Progress Notes Filed: 11/19/2024 09:58 Note Text: Manager Private offered: Patient accepts, visit chaperoned by Kenney Vazquez MA. Yuko Herring is a 34 year old female who presents for problem visit pain with urination and BV for 6 month(s). Pain is usually sudden onset associated with intercourse and then aches for a few days. Discomfort with urination after intercourse and sometimes spotting. HPI: as above OB History T2 L2 SAB0 IAB0 Ectopic1 Multiple0 Live Births2 Evidence Custodian History LMP: 07/06/2024, Having periods Age at Menarche: Age at First : Age at Menopause: Evidence Custodian History Comments: Sexual Activity: Not Asked; Male; Not asked Contraception: Condom PAST MEDICAL HISTORY Diagnosis Date Cervical radiculopathy Depression Headaches POTS (postural orthostatic tachycardia syndrome) secondary to covid vaccine per patient PAST SURGICAL HISTORY Procedure Laterality Date PAST SURGICAL HISTORY OF 2012 Ectopic PAST SURGICAL HISTORY OF 12/2021 wisdom teeth extraction FAMILY HISTORY Problem Relation Age of Onset Thyroid Cancer Mother Glaucoma Father Thyroid Cancer Sister Breast Cancer Sister Glaucoma Paternal Grandfather Social History Tobacco Use Smoking status: Never Smokeless tobacco: Never Vaping Use Vaping status: current everyday user Substances: THC Substance Use Topics Alcohol use: Yes Alcohol/week: 7.0 standard drinks of alcohol Types: 7 Glasses of wine per week Drug use: Yes Types: Marijuana Current Outpatient Medications Medication Sig DULoxetine (CYMBALTA) 40 mg cpDR Take 1 capsule by mouth once daily. ergocalciferol 50,000 unit capsule (VITAMIN D2, DRISDOL) Take 1 tablet by mouth twice weekly [id number], then decrease to 1 tablet weekly. propranolol (INDERAL) 10 mg tablet Take 1 tablet by mouth two times a day. rizatriptan (MAXALT) 10 mg tablet Take 1 tablet by mouth as needed. Current Facility-Administered Medications Medication Dose Route Frequency acetylcholine 10% solution - [facility] 20 mL IRRIGATION ONE TIME Allergies As of Date: 11/19/2024 (No Known Allergies) Fully Assessed 10/11/2024 REVIEW OF SYSTEMS Abdomen: No bloating, early satiety, indigestion, or increased flatulence. No abdominal pain, nausea, vomiting, diarrhea, or constipation. Bladder: as above. Breast: No breast lumps, nipple d/c, overlying skin changes, redness or skin retraction. Expanded ROS: N/A Allergies and current medication updated:Yes SENSITIVE EXAM: The sensitive examination was discussed with the Patient or Patient's Authorized Welfare Manager. As applicable, any other physician, advance practice provider, medical student, or other health professional student that will be observing or involved in the sensitive examination for educational or training purposes was discussed with the Patient or Authorized Welfare Manager. The Patient or Authorized Welfare Manager has agreed to proceed with the sensitive examination. (Sensitive examination includes inspection and/or palpation of the breasts, pelvis, prostate and anorectal regions). EXAM: BP 104/74 Wt 159 lb (72.1kg) LMP 10/24/2024 GENERAL: pleasant, female in no apparent distress ABDOMEN: soft, non-tender, and no masses PELVIC: external genitalia normal, normal Bartholin's glands, urethra, [place]'s glands, no vulvar lesions, no cervical lesions, good vaginal support, physiologic discharge present, normal appearing perineal body and perianal region BIMANUAL: uterus normal size, shape and consistency, no adnexal masses, non-tender, and adnexal mass left-sided ASSESSMENT AND PLAN: Assessment AND Plan Dysuria Orders: UA DIP, URINE (POC) BACTERIAL CULTURE, URINE Vaginal odor Orders: NNAMDI/TRICHOMONAS NAAT BACTERIAL VAGINOSIS NAAT Vaginal discharge Orders: NNAMDI/TRICHOMONAS NAAT BACTERIAL VAGINOSIS NAAT Left adnexal tenderness Orders: US FEMALE PELVIS TRANSVAG; Future Given trace blood/LE will give 3 days of macrobid pending culture ftft 30 min Igor Garcia MD [facility] 11-19-2024 History of Presen t illness Narrative Manager Private offered: Patient accepts, visit chaperoned by Kenney Vazquez MA. Yuko Herring is a 34 year old female who presents for problem visit pain with urination and BV for 6 month(s). Pain is usually sudden onset associated with intercourse and then aches for a few days. Discomfort with urination after intercourse and sometimes spotting. HPI: as above OB History T2 L2 SAB0 IAB0 Ectopic1 Multiple0 Live Births2 Evidence Custodian History LMP: 07/06/2024, Having periods Age at Menarche: Age at First : Age at Menopause: Evidence Custodian History Comments: Sexual Activity: Not Asked; Male; Not asked Contraception: Condom PAST MEDICAL HISTORY Diagnosis Date Cervical radiculopathy Depression Headaches POTS (postural orthostatic tachycardia syndrome) secondary to covid vaccine per patient PAST SURGICAL HISTORY Procedure Laterality Date PAST SURGICAL HISTORY OF 2011 Ectopic PAST SURGICAL HISTORY OF 12/2021 wisdom teeth extraction FAMILY HISTORY Problem Relation Age of Onset Thyroid Cancer Mother Glaucoma Father Thyroid Cancer Sister Breast Cancer Sister Glaucoma Paternal Grandfather Social History Tobacco Use Smoking status: Never Smokeless tobacco: Never Vaping Use Vaping status: current everyday user Substances: THC Substance Use Topics Alcohol use: Yes Alcohol/week: 7.0 standard drinks of alcohol Types: 7 Glasses of wine per week Drug use: Yes Types: Marijuana Current Outpatient Medications Medication Sig DULoxetine (CYMBALTA) 40 mg cpDR Take 1 capsule by mouth once daily. ergocalciferol 50,000 unit capsule (VITAMIN D2, DRISDOL) Take 1 tablet by mouth twice weekly [id number], then decrease to 1 tablet weekly. propranolol (INDERAL) 10 mg tablet Take 1 tablet by mouth two times a day. rizatriptan (MAXALT) 10 mg tablet Take 1 tablet by mouth as needed. Current Facility-Administered Medications Medication Dose Route Frequency acetylcholine 10% solution - [facility] 20 mL IRRIGATION ONE TIME Allergies As of Date: 11/19/2024 (No Known Allergies) Fully Assessed 10/11/2024 REVIEW OF SYSTEMS Abdomen: No bloating, early satiety, indigestion, or increased flatulence. No abdominal pain, nausea, vomiting, diarrhea, or constipation. Bladder: as above. Breast: No breast lumps, nipple d/c, overlying skin changes, redness or skin retraction. Expanded ROS: N/A Allergies and current medication updated:Yes SENSITIVE EXAM: The sensitive examination was discussed with the Patient or Patient's Authorized Welfare Manager. As applicable, any other physician, advance practice provider, medical student, or other health professional student that will be observing or involved in the sensitive examination for educational or training purposes was discussed with the Patient or Authorized Welfare Manager. The Patient or Authorized Welfare Manager has agreed to proceed with the sensitive examination. (Sensitive examination includes inspection and/or palpation of the breasts, pelvis, prostate and anorectal regions). EXAM: BP 104/74 Wt 159 lb (72.1kg) LMP 10/24/2024 GENERAL: pleasant, female in no apparent distress ABDOMEN: soft, non-tender, and no masses PELVIC: external genitalia normal, normal [place]th[place]'s glands, urethra, [place]'s glands, no vulvar lesions, no cervical lesions, good vaginal support, physiologic discharge present, normal appearing perineal body and perianal region BIMANUAL: uterus normal size, shape and consistency, no adnexal masses, non-tender, and adnexal mass left-sided ASSESSMENT AND PLAN: Assessment & Plan Dysuria Orders: UA DIP, URINE (POC) BACTERIAL CULTURE, URINE Vaginal odor Orders: NNAMDI/TRICHOMONAS NAAT BACTERIAL VAGINOSIS NAAT Vaginal discharge Orders: NNAMDI/TRICHOMONAS NAAT BACTERIAL VAGINOSIS NAAT Left adnexal tenderness Orders: US FEMALE PELVIS TRANSVAG; Future Given trace blood/LE will give 3 days of macrobid pending culture ftft 30 min Igor Garcia MD documented in this encounter [facility] 11-09-2024 Telephone encounter Note The patient has been identified by name and date of : Yes Caregiver verified no other encounters exist for this prescription request: Yes Caregiver confirmed with patient/requestor that no other refills are due, in the near future, with this provider at this time: Yes The last office visit in the department: 10/11/24 Does the patient have a future office visit with this provider/department: Yes 04/11/25 Requested Prescriptions Pending Prescriptions Disp Refills DULoxetine (CYMBALTA) 40 mg cpDR 30 capsule 0 Sig: Take 1 capsule by mouth once daily. Nancy Pope LPN November 09, 2024 8:58 AM [facility] 11-09-2024 Miscellaneous Notes The patient has been identified by name and date of : Yes Caregiver verified no other encounters exist for this prescription request: Yes Caregiver confirmed with patient/requestor that no other refills are due, in the near future, with this provider at this time: Yes The last office visit in the department: 10/11/24 Does the patient have a future office visit with this provider/department: Yes 04/11/25 Requested Prescriptions Pending Prescriptions Disp Refills DULoxetine (CYMBALTA) 40 mg cpDR 30 capsule 0 Sig: Take 1 capsule by mouth once daily. Nancy Pope LPN November 09, 2024 8:58 AM documented in this encounter [facility] 10-11-2024 Note HNO ID: [id number] Author: FABIÁN MARTIN APRN.FINISHING RANGE OPERATOR Service: ? Author Type: Nurse Practitioner Type: Progress Notes Filed: 10/11/2024 11:02 Note Text: Chief Complaint Patient presents with: Follow Up HPI Yuko Herring is a 33 year old female who presents here today for Above Complaints.. Patient presents for follow up. Patient reports she did not start wellbutrin, decided she wanted to change some things in her lifestyle first. Reports she is going to therapy, changed her eating and exercising habits and is focusing on herself. Past medical history, appointments, medications, allergies reviewed. Previous Medical History PAST MEDICAL HISTORY Diagnosis Date Cervical radiculopathy Depression Headaches POTS (postural orthostatic tachycardia syndrome) secondary to covid vaccine per patient Previous Surgical History PAST SURGICAL HISTORY Procedure Laterality Date PAST SURGICAL HISTORY OF 2011 Ectopic PAST SURGICAL HISTORY OF 12/2021 wisdom teeth extraction Family History FAMILY HISTORY Problem Relation Age of Onset Thyroid Cancer Mother Glaucoma Father Thyroid Cancer Sister Breast Cancer Sister Glaucoma Paternal Grandfather Patient Allergies ALLERGIES No Known Allergies Current Medications Current Outpatient Medications on File Prior to Visit Medication Sig DULoxetine (CYMBALTA) 40 mg cpDR Take 1 capsule by mouth once daily. ergocalciferol 50,000 unit capsule (VITAMIN D2, DRISDOL) Take 1 tablet by mouth twice weekly [id number], then decrease to 1 tablet weekly. propranolol (INDERAL) 10 mg tablet Take 1 tablet by mouth two times a day. rizatriptan (MAXALT) 10 mg tablet Take 1 tablet by mouth as needed. buPROPion XL (WELLBUTRIN XL) 150 mg 24 hr tablet Take 1 tablet by mouth once daily. (Patient not taking: Reported on 10/11/2024) Current Facility-Administered Medications on File Prior to Visit Medication acetylcholine 10% solution - [facility] Social History Social History Tobacco Use Smoking status: Never Smokeless tobacco: Never Vaping Use Vaping status: current everyday user Substances: THC Substance Use Topics Alcohol use: Yes Alcohol/week: 7.0 standard drinks of alcohol Types: 7 Glasses of wine per week Drug use: Yes Types: Marijuana Review of Symptoms REVIEW OF SYSTEMS SEE HPI EXAM: BP 107/71 Pulse 60 Wt 72.6 kg (160 lb) LMP 07/06/2024 BMI 27.46 kg/m? General Appearance: Well appearing, alert, in no acute distress, well-hydrated, well nourished. Health Maintenance List Influenza Vaccine(1) due on 06/20/2024 Covid-19 Vaccine(2 - season) due on 06/20/2024 Hepatitis B Vaccine(1 of 3 - 19+ 3-dose series) due on 08/24/2025 Depression Screening due on 02/18/2025 Anxiety Screening due on 02/18/2025 Cervical Cancer Screening due on 01/18/2027 DTaP,Tdap,Td Vaccine(2 - Td or Tdap) due on 03/16/2034 HPV Vaccine Completed Hepatitis C Screening Completed HIV Screening Completed ASSESSMENT/PLAN: 1. Depression, unspecified depression type - ICD9: 311, ICD10: F32.A (primary diagnosis) -Continue current medication regimen 2. Attention deficit hyperactivity disorder (ADHD), unspecified ADHD type - ICD9: 314.01, ICD10: F90.9 -Continue current medication regimen Fabián Martin APRN.[facility] 10-11-2024 History of Presen t illness Narrative Chief Complaint Patient presents with: Follow Up HPI Yuko Herring is a 33 year old female who presents here today for Above Complaints.. Patient presents for follow up. Patient reports she did not start wellbutrin, decided she wanted to change some things in her lifestyle first. Reports she is going to therapy, changed her eating and exercising habits and is focusing on herself. Past medical history, appointments, medications, allergies reviewed. Previous Medical History PAST MEDICAL HISTORY Diagnosis Date Cervical radiculopathy Depression Headaches POTS (postural orthostatic tachycardia syndrome) secondary to covid vaccine per patient Previous Surgical History PAST SURGICAL HISTORY Procedure Laterality Date PAST SURGICAL HISTORY OF 2011 Ectopic PAST SURGICAL HISTORY OF 12/2021 wisdom teeth extraction Family History FAMILY HISTORY Problem Relation Age of Onset Thyroid Cancer Mother Glaucoma Father Thyroid Cancer Sister Breast Cancer Sister Glaucoma Paternal Grandfather Patient Allergies ALLERGIES No Known Allergies Current Medications Current Outpatient Medications on File Prior to Visit Medication Sig DULoxetine (CYMBALTA) 40 mg cpDR Take 1 capsule by mouth once daily. ergocalciferol 50,000 unit capsule (VITAMIN D2, DRISDOL) Take 1 tablet by mouth twice weekly [id number], then decrease to 1 tablet weekly. propranolol (INDERAL) 10 mg tablet Take 1 tablet by mouth two times a day. rizatriptan (MAXALT) 10 mg tablet Take 1 tablet by mouth as needed. buPROPion XL (WELLBUTRIN XL) 150 mg 24 hr tablet Take 1 tablet by mouth once daily. (Patient not taking: Reported on 10/11/2024) Current Facility-Administered Medications on File Prior to Visit Medication acetylcholine 10% solution - [facility] Social History Social History Tobacco Use Smoking status: Never Smokeless tobacco: Never Vaping Use Vaping status: current everyday user Substances: THC Substance Use Topics Alcohol use: Yes Alcohol/week: 7.0 standard drinks of alcohol Types: 7 Glasses of wine per week Drug use: Yes Types: Marijuana Review of Symptoms REVIEW OF SYSTEMS SEE HPI EXAM: BP 107/71 Pulse 60 Wt 72.6 kg (160 lb) LMP 07/06/2024 BMI 27.46 kg/m General Appearance: Well appearing, alert, in no acute distress, well-hydrated, well nourished. Health Maintenance List Influenza Vaccine(1) due on 06/20/2024 Covid-19 Vaccine(2 - 2023- season) due on 06/20/2024 Hepatitis B Vaccine(1 of 3 - 19+ 3-dose series) due on 08/24/2025 Depression Screening due on 02/18/2025 Anxiety Screening due on 02/18/2025 Cervical Cancer Screening due on 01/18/2027 DTaP,Tdap,Td Vaccine(2 - Td or Tdap) due on 03/16/2034 HPV Vaccine Completed Hepatitis C Screening Completed HIV Screening Completed ASSESSMENT/PLAN: 1. Depression, unspecified depression type - ICD9: 311, ICD10: F32.A (primary diagnosis) -Continue current medication regimen 2. Attention deficit hyperactivity disorder (ADHD), unspecified ADHD type - ICD9: 314.01, ICD10: F90.9 -Continue current medication regimen Fabián Martin APRN.CNP documented in this encounter [facility] 09-28-2024 Telephone encounter Note Prescription Refill Information The patient has been identified by name and date of : Yes Caregiver verified no other encounters exist for this prescription request: Yes Caregiver confirmed with patient/requestor that no other refills are due, in the near future, with this provider at this time: Yes The last office visit in the department: Does the patient have a future office visit with this provider/department: Yes Requested Prescriptions Pending Prescriptions Disp Refills DULoxetine (CYMBALTA) 40 mg cpDR 30 capsule 0 Sig: Take 1 capsule by mouth once daily. propranolol (INDERAL) 10 mg tablet 180 tablet 1 Sig: Take 1 tablet by mouth two times a day. Analisa Brasher September 28, 2024 10:05 AM [facility] 09-28-2024 Miscellaneous Notes Prescription Refill Information The patient has been identified by name and date of : Yes Caregiver verified no other encounters exist for this prescription request: Yes Caregiver confirmed with patient/requestor that no other refills are due, in the near future, with this provider at this time: Yes The last office visit in the department: Does the patient have a future office visit with this provider/department: Yes Requested Prescriptions Pending Prescriptions Disp Refills DULoxetine (CYMBALTA) 40 mg cpDR 30 capsule 0 Sig: Take 1 capsule by mouth once daily. propranolol (INDERAL) 10 mg tablet 180 tablet 1 Sig: Take 1 tablet by mouth two times a day. Analisa Brasher September 28, 2024 10:05 AM documented in this encounter [facility] 08-25-2024 Telephone encounter Note Pt called and is notified of results and given providers message. Pt voices understanding. Notified of prescription at [facility]. Pt asking if it could be sent to [facility]. Explained to pt that she can call [facility] and the pharmacist can get the prescription from [facility]. Took [facility] out as a pharmacy choice as pt uses [facility] now. [facility] 08-25-2024 Miscellaneous Notes Pt called and is notified of results and given providers message. Pt voices understanding. Notified of prescription at [facility]. Pt asking if it could be sent to [facility]. Explained to pt that she can call [facility] and the pharmacist can get the prescription from [facility]. Took [facility] out as a pharmacy choice as pt uses [facility] now. Message left for patient to return call to review provider's message with her. Ale Lugo LPN Please let patient know her vitamin d is low. Her other labs are normal. I have sent in vitamin d supplementation documented in this encounter [facility] 08-25-2024 Telephone encounter Note Message left for patient to return call to review provider's message with her. Ale Lugo LPN [facility] 08-25-2024 Telephone encounter Note Please let patient know her vitamin d is low. Her other labs are normal. I have sent in vitamin d supplementation [facility] 08-24-2024 Note HNO ID: [id number] Author: FABIÁN MARTIN APRN.FAHAD Service: ? Author Type: Nurse Practitioner Type: Progress Notes Filed: 08/24/2024 08:50 Note Text: Chief Complaint Patient presents with: Physical HPI Yuko Herring is a 33 year old female who presents here today for Above Complaints.. Patient presents for annual physical. Patient reports she has had a cough for about a month. Past medical history, appointments, medications, allergies reviewed. Previous Medical History PAST MEDICAL HISTORY Diagnosis Date Cervical radiculopathy Headaches POTS (postural orthostatic tachycardia syndrome) secondary to covid vaccine per patient Previous Surgical History PAST SURGICAL HISTORY Procedure Laterality Date PAST SURGICAL HISTORY OF 2011 Ectopic PAST SURGICAL HISTORY OF 12/2021 wisdom teeth extraction Family History FAMILY HISTORY Problem Relation Age of Onset Thyroid Cancer Mother Glaucoma Father Thyroid Cancer Sister Breast Cancer Sister Glaucoma Paternal Grandfather Patient Allergies ALLERGIES No Known Allergies Current Medications Current Outpatient Medications on File Prior to Visit Medication Sig DULoxetine (CYMBALTA) 40 mg cpDR Take 1 capsule by mouth once daily. propranolol (INDERAL) 10 mg tablet Take 1 tablet by mouth two times a day. rizatriptan (MAXALT) 10 mg tablet Take 1 tablet by mouth as needed. Current Facility-Administered Medications on File Prior to Visit Medication acetylcholine 10% solution - [facility] Social History Social History Tobacco Use Smoking status: Never Smokeless tobacco: Never Vaping Use Vaping status: Never Used Substance Use Topics Alcohol use: Yes Alcohol/week: 7.0 standard drinks of alcohol Types: 7 Glasses of wine per week Drug use: Never Review of Symptoms REVIEW OF SYSTEMS SEE HPI EXAM: BP 93/64 Pulse 87 Resp 14 Wt 71.7 kg (158 lb) LMP 07/06/2024 BMI 27.12 kg/m? General Appearance: Well appearing, alert, in no acute distress, well-hydrated, well nourished. Skin: Skin color, texture, turgor normal, no suspicious rashes or lesions. Neck: Supple, no adenopathy; thyroid symmetric, normal size, no bruits. Lungs: Lungs clear to auscultation. No wheezing, rhonchi, rales.. Heart: RRR without murmur, gallop, or rubs. No ectopy. Abdomen: Normal abdominal exam, Abdomen soft, non-tender. Bowel sounds normal. No masses, organomegaly. Musculoskeletal: No joint swelling, deformity, or tenderness. Peripheral Pulses: Normal. Neurologic: Gait normal. Reflexes normal and symmetric. Sensation grossly intact.. Health Maintenance List Hepatitis B Vaccine(1 of 3 - 19+ 3-dose series) Never done HPV Vaccine(3 - 3-dose SCDM series) due on 07/20/2022 Influenza Vaccine(1) due on 06/20/2024 Covid-19 Vaccine(2 - 2023- season) due on 06/20/2024 Depression Screening due on 02/18/2025 Anxiety Screening due on 02/18/2025 Cervical Cancer Screening due on 01/18/2027 DTaP,Tdap,Td Vaccine(2 - Td or Tdap) due on 03/16/2034 Hepatitis C Screening Completed HIV Screening Completed Data reviewed PHQ-9 More data may exist 03/05/2022 02/03/2023 11/05/2023 02/18/2024 08/23/2024 PHQ-9 Scores Little interest or pleasure in doing things: Not at all Several days More than half the days Several days Nearly every day Feeling down, depressed, or hopeless: More than half the days More than half the days More than half the days Several days Nearly every day Trouble falling or staying asleep, or sleeping too much More than half the days Several days More than half the days Nearly every day Several days Feeling tired or having little energy Nearly every day Nearly every day More than half the days More than half the days Nearly every day Poor appetite or overeating Not at all More than half the days More than half the days Nearly every day Nearly every day Feeling bad about yourself - or that you are a failure or have let yourself or your family down Several days More than half the days Several days Several days Nearly every day Trouble concentrating on things, such as reading the newspaper or watching television Nearly every day More than half the days More than half the days More than half the days Nearly every day Moving or speaking so slowly that other people could have noticed. Or the opposite - being so fidgety or restless that you have been moving around a lot more than usual Not at all More than half the days Several days Several days Not at all Thoughts that you would be better off , or of hurting yourself in some way Not at all Not at all Not at all Not at all Not at all PHQ-9 Score 11 15 14 14 19 Details ASSESSMENT/PLAN: 1. Depression, unspecified depression type - ICD9: 311, ICD10: F32.A (primary diagnosis) - BUPROPION XL 150 MG TAB 2. Attention deficit hyperactivity disorder (ADHD), unspecified ADHD type - ICD9: 314.01, ICD10: F90.9 - BUPROPION XL (more content not included)... [facility] 08-24-2024 History of Presen t illness Narrative Chief Complaint Patient presents with: Physical HPI Yuko Herring is a 33 year old female who presents here today for Above Complaints.. Patient presents for annual physical. Patient reports she has had a cough for about a month. Past medical history, appointments, medications, allergies reviewed. Previous Medical History PAST MEDICAL HISTORY Diagnosis Date Cervical radiculopathy Headaches POTS (postural orthostatic tachycardia syndrome) secondary to covid vaccine per patient Previous Surgical History PAST SURGICAL HISTORY Procedure Laterality Date PAST SURGICAL HISTORY OF 2011 Ectopic PAST SURGICAL HISTORY OF 12/2021 wisdom teeth extraction Family History FAMILY HISTORY Problem Relation Age of Onset Thyroid Cancer Mother Glaucoma Father Thyroid Cancer Sister Breast Cancer Sister Glaucoma Paternal Grandfather Patient Allergies ALLERGIES No Known Allergies Current Medications Current Outpatient Medications on File Prior to Visit Medication Sig DULoxetine (CYMBALTA) 40 mg cpDR Take 1 capsule by mouth once daily. propranolol (INDERAL) 10 mg tablet Take 1 tablet by mouth two times a day. rizatriptan (MAXALT) 10 mg tablet Take 1 tablet by mouth as needed. Current Facility-Administered Medications on File Prior to Visit Medication acetylcholine 10% solution - [facility] Social History Social History Tobacco Use Smoking status: Never Smokeless tobacco: Never Vaping Use Vaping status: Never Used Substance Use Topics Alcohol use: Yes Alcohol/week: 7.0 standard drinks of alcohol Types: 7 Glasses of wine per week Drug use: Never Review of Symptoms REVIEW OF SYSTEMS SEE HPI EXAM: BP 93/64 Pulse 87 Resp 14 Wt 71.7 kg (158 lb) LMP 07/06/2024 BMI 27.12 kg/m General Appearance: Well appearing, alert, in no acute distress, well-hydrated, well nourished. Skin: Skin color, texture, turgor normal, no suspicious rashes or lesions. Neck: Supple, no adenopathy; thyroid symmetric, normal size, no bruits. Lungs: Lungs clear to auscultation. No wheezing, rhonchi, rales.. Heart: RRR without murmur, gallop, or rubs. No ectopy. Abdomen: Normal abdominal exam, Abdomen soft, non-tender. Bowel sounds normal. No masses, organomegaly. Musculoskeletal: No joint swelling, deformity, or tenderness. Peripheral Pulses: Normal. Neurologic: Gait normal. Reflexes normal and symmetric. Sensation grossly intact.. Health Maintenance List Hepatitis B Vaccine(1 of 3 - 19+ 3-dose series) Never done HPV Vaccine(3 - 3-dose SCDM series) due on 07/20/2022 Influenza Vaccine(1) due on 06/20/2024 Covid-19 Vaccine(2 - 2023- season) due on 06/20/2024 Depression Screening due on 02/18/2025 Anxiety Screening due on 02/18/2025 Cervical Cancer Screening due on 01/18/2027 DTaP,Tdap,Td Vaccine(2 - Td or Tdap) due on 03/16/2034 Hepatitis C Screening Completed HIV Screening Completed Data reviewed PHQ-9 More data may exist 03/05/2022 02/03/2023 11/05/2023 02/18/2024 08/23/2024 PHQ-9 Scores Little interest or pleasure in doing things: Not at all Several days More than half the days Several days Nearly every day Feeling down, depressed, or hopeless: More than half the days More than half the days More than half the days Several days Nearly every day Trouble falling or staying asleep, or sleeping too much More than half the days Several days More than half the days Nearly every day Several days Feeling tired or having little energy Nearly every day Nearly every day More than half the days More than half the days Nearly every day Poor appetite or overeating Not at all More than half the days More than half the days Nearly every day Nearly every day Feeling bad about yourself - or that you are a failure or have let yourself or your family down Several days More than half the days Several days Several days Nearly every day Trouble concentrating on things, such as reading the newspaper or watching television Nearly every day More than half the days More than half the days More than half the days Nearly every day Moving or speaking so slowly that other people could have noticed. Or the opposite - being so fidgety or restless that you have been moving around a lot more than usual Not at all More than half the days Several days Several days Not at all Thoughts that you would be better off , or of hurting yourself in some way Not at all Not at all Not at all Not at all Not at all PHQ-9 Score 11 15 14 14 19 Details ASSESSMENT/PLAN: 1. Depression, unspecified depression type - ICD9: 311, ICD10: F32.A (primary diagnosis) - BUPROPION XL 150 MG TAB 2. Attention deficit hyperactivity disorder (ADHD), unspecified ADHD type - ICD9: 314.01, ICD10: F90.9 - BUPROPION XL 150 MG TAB 3. POTS (postural orthostatic tachycardia syndrome) - ICD9: 427.89, ICD10: G90.A -Continue propranolol 4. SVT (supraventricular tachycardia) (HCC) - ICD9: 427.89, ICD10: I47.10 - PROPRANOLOL 10 MG TABLET 5. Encounter for immunization - ICD9: V03.89, ICD10: Z23 - HPV VACCINE, 9-VALENT (GARDASIL 9) 6. Encounter for lipid screening for cardiovascular disease - ICD9: V77.91, V81.2, ICD10: Z13.220, Z13.6 - LIPID PANEL, NONFASTING 7. Screening for diabetes mellitus - ICD9: V77.1, ICD10: Z13.1 - COMPREHENSIVE METABOLIC PANEL 8. Vitamin D deficiency - ICD9: 268.9, ICD10: E55.9 - VITAMIN D 25 HYDROXY 9. Medication management - ICD9: V58.69, ICD10: Z79.899 - COMPLETE BLOOD COUNT AND DIFFERENTIAL - THYROID STIMULATING HORMONE Fabián Martin APRN.FINISHING RANGE OPERATOR documented in this encounter [facility] 08-19-2024 Telephone encounter Note Physician: Zachariah Call from patient requesting refill. Please E-Scribe Last office visit 02/03/23 with Zachariah virtual Next office visit Not scheduled. Requested Prescriptions Pending Prescriptions Disp Refills DULoxetine (CYMBALTA) 40 mg cpDR 90 capsule 1 Sig: Take 1 capsule by mouth once daily. Pharmacy Name: [facility] 08-19-2024 Miscellaneous Notes Physician: Zachariah Call from patient requesting refill. Please E-Scribe Last office visit 02/03/23 with Zachariah virtual Next office visit Not scheduled. Requested Prescriptions Pending Prescriptions Disp Refills DULoxetine (CYMBALTA) 40 mg cpDR 90 capsule 1 Sig: Take 1 capsule by mouth once daily. [facility] Name: [facility] documented in this encounter [facility] 07-23-2024 Telephone encounter Note Next Big Soundhart message sent to Pt by and Pt viewed today. Merline Segundo, RN [facility] 07-23-2024 Miscellaneous Notes Next Big Soundhart message sent to Pt by and Pt viewed today. Merline Segundo, RN documented in this encounter [facility] 07-22-2024 Note HNO ID: [id number] Author: PATSY THIBODEAUX MD Service: ? Author Type: Physician Type: Progress Notes Filed: 07/22/2024 13:17 Note Text: Manager Private offered: Patient declines. Yuko Herring is a 33 year old female who presents for problem visit. HPI: Having vaginal odor, discharge and irritation. Was sexually active with boyfriend for 4 months and he was unfaithful. Reports possible exposure to HSV. No other known exposure. No fevers, severe pain, vomiting. OB History T2 L2 SAB0 IAB0 Ectopic1 Multiple0 Live Births2 Evidence Custodian History LMP: 07/06/2024, Having periods Age at Menarche: Age at First : Age at Menopause: Evidence Custodian History Comments: Sexual Activity: Not Asked; Male; Not asked Contraception: Condom PAST MEDICAL HISTORY Diagnosis Date Cervical radiculopathy Headaches POTS (postural orthostatic tachycardia syndrome) secondary to covid vaccine per patient PAST SURGICAL HISTORY Procedure Laterality Date PAST SURGICAL HISTORY OF 2011 Ectopic PAST SURGICAL HISTORY OF 12/2021 wisdom teeth extraction FAMILY HISTORY Problem Relation Age of Onset Thyroid Cancer Mother Glaucoma Father Thyroid Cancer Sister Breast Cancer Sister Glaucoma Paternal Grandfather Social History Tobacco Use Smoking status: Never Smokeless tobacco: Never Vaping Use Vaping status: Never Used Substance Use Topics Alcohol use: Yes Alcohol/week: 7.0 standard drinks of alcohol Types: 7 Glasses of wine per week Drug use: Never Current Outpatient Medications Medication Sig propranolol (INDERAL) 10 mg tablet Take 1 tablet by mouth two times a day. DULoxetine (CYMBALTA) 40 mg cpDR Take 1 capsule by mouth once daily. rizatriptan (MAXALT) 10 mg tablet Take 1 tablet by mouth as needed. Current Facility-Administered Medications Medication Dose Route Frequency acetylcholine 10% solution - cchs compounding 20 mL IRRIGATION ONE TIME Allergies As of Date: 07/22/2024 (No Known Allergies) Fully Assessed 07/22/2024 REVIEW OF SYSTEMS Abdomen: No abdominal pain, vomiting, diarrhea, or constipation. Bladder: No dysuria, gross hematuria, urinary frequency, urinary urgency, or incontinence. Expanded ROS: See HPI. Allergies and current medication updated:Yes SENSITIVE EXAM: The sensitive examination was discussed with the Patient or Patient's Authorized Welfare Manager. As applicable, any other physician, advance practice provider, medical student, or other health professional student that will be observing or involved in the sensitive examination for educational or training purposes was discussed with the Patient or Authorized Welfare Manager. The Patient or Authorized Welfare Manager has agreed to proceed with the sensitive examination. (Sensitive examination includes inspection and/or palpation of the breasts, pelvis, prostate and anorectal regions). EXAM: BP 100/64 Wt 156 lb (70.8kg) LMP 07/06/2024 GENERAL: pleasant, female in no apparent distress HEENT: Normocephalic and atraumatic NECK: full range of motion DERMATOLOGY: Normal, without lesions, non-icteric, and non-hirsute CHEST: Normal inspiratory effort ABDOMEN: soft, non-tender, no masses, and non acute PELVIC: external genitalia normal, normal Bartholin's glands, urethra, [place]'s glands, no vulvar lesions, no cervical lesions, good vaginal support, normal appearing perineal body and perianal region, thin white-montemayor discharge present, no cervical tenderness NEURO: exam grossly non-focal EXTREMITIES: normal ASSESSMENT AND PLAN: Encounter Diagnosis ICD-10-CM 1. Vaginal itching N89.8 BACTERIAL VAGINOSIS NAAT NNAMDI/TRICHOMONAS NAAT GONORRHEA/CHLAMYDIA NAAT 2. Vaginal discharge N89.8 BACTERIAL VAGINOSIS NAAT NNAMID/TRICHOMONAS NAAT GONORRHEA/CHLAMYDIA NAAT 3. Vaginal odor N89.8 BACTERIAL VAGINOSIS NAAT NNAMDI/TRICHOMONAS NAAT GONORRHEA/CHLAMYDIA NAAT 4. Screen for STD (sexually transmitted disease) Z11.3 SYPHILIS TOTAL W/REFLEX HIV 1/2 COMBO WITH REFLEX TO DIFFERENTIATION HEPATITIS C ANTIBODY IA WITH CONFIRMATION HEPATITIS B SURFACE ANTIGEN HERPES SIMPLEX IGM, WITH REFLEX IGG ABS Possible exposure to HSV Check vaginal cx's and STD panel Reviewed safe sex practices and reasons to call Reports previous partner had vasectomy Patsy Thibodeaux, Medical Decision Making: Problems: Low: Acute, uncomplicated illness or injury Data: Unique test(s) ordered: 3+ Medical Decision Making Level: 3 - Low [facility] 07-22-2024 History of Presen t illness Narrative Manager Private offered: Patient declines. Yuko Herring is a 33 year old female who presents for problem visit. HPI: Having vaginal odor, discharge and irritation. Was sexually active with boyfriend for 4 months and he was unfaithful. Reports possible exposure to HSV. No other known exposure. No fevers, severe pain, vomiting. OB History T2 L2 SAB0 IAB0 Ectopic1 Multiple0 Live Births2 Evidence Custodian History LMP: 07/06/2024, Having periods Age at Menarche: Age at First : Age at Menopause: Evidence Custodian History Comments: Sexual Activity: Not Asked; Male; Not asked Contraception: Condom PAST MEDICAL HISTORY Diagnosis Date Cervical radiculopathy Headaches POTS (postural orthostatic tachycardia syndrome) secondary to covid vaccine per patient PAST SURGICAL HISTORY Procedure Laterality Date PAST SURGICAL HISTORY OF 2011 Ectopic PAST SURGICAL HISTORY OF 12/2021 wisdom teeth extraction FAMILY HISTORY Problem Relation Age of Onset Thyroid Cancer Mother Glaucoma Father Thyroid Cancer Sister Breast Cancer Sister Glaucoma Paternal Grandfather Social History Tobacco Use Smoking status: Never Smokeless tobacco: Never Vaping Use Vaping status: Never Used Substance Use Topics Alcohol use: Yes Alcohol/week: 7.0 standard drinks of alcohol Types: 7 Glasses of wine per week Drug use: Never Current Outpatient Medications Medication Sig propranolol (INDERAL) 10 mg tablet Take 1 tablet by mouth two times a day. DULoxetine (CYMBALTA) 40 mg cpDR Take 1 capsule by mouth once daily. rizatriptan (MAXALT) 10 mg tablet Take 1 tablet by mouth as needed. Current Facility-Administered Medications Medication Dose Route Frequency acetylcholine 10% solution - cchs compounding 20 mL IRRIGATION ONE TIME Allergies As of Date: 07/22/2024 (No Known Allergies) Fully Assessed 07/22/2024 REVIEW OF SYSTEMS Abdomen: No abdominal pain, vomiting, diarrhea, or constipation. Bladder: No dysuria, gross hematuria, urinary frequency, urinary urgency, or incontinence. Expanded ROS: See HPI. Allergies and current medication updated:Yes SENSITIVE EXAM: The sensitive examination was discussed with the Patient or Patient's Authorized Welfare Manager. As applicable, any other physician, advance practice provider, medical student, or other health professional student that will be observing or involved in the sensitive examination for educational or training purposes was discussed with the Patient or Authorized Welfare Manager. The Patient or Authorized Welfare Manager has agreed to proceed with the sensitive examination. (Sensitive examination includes inspection and/or palpation of the breasts, pelvis, prostate and anorectal regions). EXAM: BP 100/64 Wt 156 lb (70.8kg) LMP 07/06/2024 GENERAL: pleasant, female in no apparent distress HEENT: Normocephalic and atraumatic NECK: full range of motion DERMATOLOGY: Normal, without lesions, non-icteric, and non-hirsute CHEST: Normal inspiratory effort ABDOMEN: soft, non-tender, no masses, and non acute PELVIC: external genitalia normal, normal Bartholin's glands, urethra, [place]'s glands, no vulvar lesions, no cervical lesions, good vaginal support, normal appearing perineal body and perianal region, thin white-montemayor discharge present, no cervical tenderness NEURO: exam grossly non-focal EXTREMITIES: normal ASSESSMENT AND PLAN: Encounter Diagnosis ICD-10-CM 1. Vaginal itching N89.8 BACTERIAL VAGINOSIS NAAT NNAMDI/TRICHOMONAS NAAT GONORRHEA/CHLAMYDIA NAAT 2. Vaginal discharge N89.8 BACTERIAL VAGINOSIS NAAT NNAMDI/TRICHOMONAS NAAT GONORRHEA/CHLAMYDIA NAAT 3. Vaginal odor N89.8 BACTERIAL VAGINOSIS NAAT NNAMDI/TRICHOMONAS NAAT GONORRHEA/CHLAMYDIA NAAT 4. Screen for STD (sexually transmitted disease) Z11.3 SYPHILIS TOTAL W/REFLEX HIV 1/2 COMBO WITH REFLEX TO DIFFERENTIATION HEPATITIS C ANTIBODY IA WITH CONFIRMATION HEPATITIS B SURFACE ANTIGEN HERPES SIMPLEX IGM, WITH REFLEX IGG ABS Possible exposure to HSV Check vaginal cx's and STD panel Reviewed safe sex practices and reasons to call Reports previous partner had vasectomy Patsy Thibodeaux, Medical Decision Making: Problems: Low: Acute, uncomplicated illness or injury Data: Unique test(s) ordered: 3+ Medical Decision Making Level: 3 - Low documented in this encounter [facility] 07-16-2024 History of Presen t illness Narrative Images from the original note were not included. Please note that a copy of the audiogram is located in the procedure tab of patient's electronic medical record. Patient was unaccompanied for today's appointment. Reviewed audiological results and recommendations in detail with patient. ICD-10-CM 1. Ear fullness, left H93.8X2 2. Tinnitus, bilateral H93.13 3. Dizziness and giddiness R42 Aurelia Sorto Doctor of Audiology Department of Otolaryngology-Head and Neck Surgery [address] [place] [address], [address] [place] [address] documented in this encounter [facility] 06-24-2024 Instructions Eleazar Schreiber MD - 06/24/2024 2:51 PM EDT Minimizing irritation of the vulva (area around the vagina) Wear white cotton underwear. Avoid synthetic fabrics and tight clothing. Sleep wearing shorts or pajama bottoms without underwear. Shower as soon as possible after exercise. Avoid clothing detergents and soaps with perfumes or dyes. Use warm (not hot) water to wash the vulva and if you use soap use a product designed for sensitive skin (like Dove or Cetaphil). Do not douche or use creams/powders in the vulvar area unless instructed by your physician. If you must douche, use only plain warm water. Make sure the vulva is dry before dressing by patting dry with a towel. Avoid vigorous rubbing with the towel. You may want to use the blow dryer (on the cool setting only!) on the vulva. The most important way to let your body heal is by avoiding scratching. Many patients find it difficult to avoid scratching at night when they are most aware of the itchiness. You can try taking Benadryl just before bedtime. Some women find it helpful to wear cotton gloves to bed to avoid scratching at night. documented in this encounter [facility] 06-24-2024 Note HNO ID: [id number] Author: ELEAZAR SCHREIBER MD Service: ? Author Type: Physician Type: Progress Notes Filed: 06/24/2024 14:50 Note Text: Manager Private offered: Patient declines. Yuko Herring is a 33 year old female who presents for problem visit. HPI: Patient presents with vaginal odor, irritation and discharge. Symptoms started after she was with a new sexual partner. Also she reports minimal dysuria. OB History T2 L2 SAB0 IAB0 Ectopic1 Multiple0 Live Births2 Evidence Custodian History LMP: 06/07/2024, Having periods Age at Menarche: Age at First : Age at Menopause: Evidence Custodian History Comments: Sexual Activity: Not Asked; Male; Not asked Contraception: Condom PAST MEDICAL HISTORY No date: Cervical radiculopathy No date: Headaches No date: POTS (postural orthostatic tachycardia syndrome) Comment: secondary to covid vaccine per patient PAST SURGICAL HISTORY 2012: PAST SURGICAL HISTORY OF Comment: Ectopic 12/2021: PAST SURGICAL HISTORY OF Comment: wisdom teeth extraction FAMILY HISTORY Problem Relation Age of Onset Thyroid Cancer Mother Glaucoma Father Thyroid Cancer Sister Breast Cancer Sister Glaucoma Paternal Grandfather Social History Tobacco Use Smoking status: Never Smokeless tobacco: Never Vaping Use Vaping status: Never Used Substance Use Topics Alcohol use: Yes Alcohol/week: 7.0 standard drinks of alcohol Types: 7 Glasses of wine per week Drug use: Never Current Outpatient Medications Medication Sig propranolol (INDERAL) 10 mg tablet Take 1 tablet by mouth two times a day. DULoxetine (CYMBALTA) 40 mg cpDR Take 1 capsule by mouth once daily. rizatriptan (MAXALT) 10 mg tablet Take 1 tablet by mouth as needed. Current Facility-Administered Medications Medication Dose Route Frequency acetylcholine 10% solution - cchs compounding 20 mL IRRIGATION ONE TIME Allergies As of Date: 06/24/2024 (No Known Allergies) Fully Assessed 06/24/2024 Allergies and current medication updated:Yes EXAM: BP 100/64 Wt 160 lb 3.2 oz (72.7kg) LMP 06/07/2024 GENERAL: pleasant, female in no apparent distress PELVIC: external genitalia normal, normal Bartholin's glands, urethra, [place]'s glands, no vulvar lesions, no cervical lesions, good vaginal support, montemayor discharge present, normal appearing perineal body and perianal region ASSESSMENT AND PLAN: Encounter Diagnosis ICD-10-CM 1. Vaginal odor N89.8 2. Vaginal itching N89.8 3. Vaginal discharge N89.8 Vaginal infection panel AND UA ordered Advised on perineal hygiene Medical Decision Making: Problems: Low: Acute, uncomplicated illness or injury Data: Unique test(s) ordered: 3+ Risk: Low: Low risk from testing/treatment Medical Decision Making Level: 3 - Low Eleazar Schreiber MD [facility] 06-24-2024 History of Presen t illness Narrative Manager Private offered: Patient declines. Yuko Herring is a 33 year old female who presents for problem visit. HPI: Patient presents with vaginal odor, irritation and discharge. Symptoms started after she was with a new sexual partner. Also she reports minimal dysuria. OB History T2 L2 SAB0 IAB0 Ectopic1 Multiple0 Live Births2 Evidence Custodian History LMP: 06/07/2024, Having periods Age at Menarche: Age at First : Age at Menopause: Evidence Custodian History Comments: Sexual Activity: Not Asked; Male; Not asked Contraception: Condom PAST MEDICAL HISTORY No date: Cervical radiculopathy No date: Headaches No date: POTS (postural orthostatic tachycardia syndrome) Comment: secondary to covid vaccine per patient PAST SURGICAL HISTORY 2012: PAST SURGICAL HISTORY OF Comment: Ectopic 12/2021: PAST SURGICAL HISTORY OF Comment: wisdom teeth extraction FAMILY HISTORY Problem Relation Age of Onset Thyroid Cancer Mother Glaucoma Father Thyroid Cancer Sister Breast Cancer Sister Glaucoma Paternal Grandfather Social History Tobacco Use Smoking status: Never Smokeless tobacco: Never Vaping Use Vaping status: Never Used Substance Use Topics Alcohol use: Yes Alcohol/week: 7.0 standard drinks of alcohol Types: 7 Glasses of wine per week Drug use: Never Current Outpatient Medications Medication Sig propranolol (INDERAL) 10 mg tablet Take 1 tablet by mouth two times a day. DULoxetine (CYMBALTA) 40 mg cpDR Take 1 capsule by mouth once daily. rizatriptan (MAXALT) 10 mg tablet Take 1 tablet by mouth as needed. Current Facility-Administered Medications Medication Dose Route Frequency acetylcholine 10% solution - cchs compounding 20 mL IRRIGATION ONE TIME Allergies As of Date: 06/24/2024 (No Known Allergies) Fully Assessed 06/24/2024 Allergies and current medication updated:Yes EXAM: BP 100/64 Wt 160 lb 3.2 oz (72.7kg) LMP 06/07/2024 GENERAL: pleasant, female in no apparent distress PELVIC: external genitalia normal, normal Bartholin's glands, urethra, [place]'s glands, no vulvar lesions, no cervical lesions, good vaginal support, montemayor discharge present, normal appearing perineal body and perianal region ASSESSMENT AND PLAN: Encounter Diagnosis ICD-10-CM 1. Vaginal odor N89.8 2. Vaginal itching N89.8 3. Vaginal discharge N89.8 Vaginal infection panel & UA ordered Advised on perineal hygiene Medical Decision Making: Problems: Low: Acute, uncomplicated illness or injury Data: Unique test(s) ordered: 3+ Risk: Low: Low risk from testing/treatment Medical Decision Making Level: 3 - Low Eleazar Schreiber MD documented in this encounter [facility] 06-03-2024 Telephone encounter Note [facility]- 02/19/24 Labs-02/19/24Aug- Maira Elizondo LPN [facility] 06-03-2024 Miscellaneous Notes [facility]- 02/19/24 Labs-02/19/24Aug- Maira Elizondo LPN documented in this encounter [facility] 03-16-2024 History of Presen t illness Narrative This note was created using Databanqter. Subjective Yuko Herring is a 33 year old female. HPI Presents with a laceration to her left index finger 4 days ago. She was cutting bread when the knife slipped and she cut her left index finger. She did put some liquid bandage on it the past couple of days. She has had some bleeding off and on. She has had some increased pain and swelling the past few days. She is not sure when her last Tdap was. No fever or chills. Review of Systems Musculoskeletal: Left index finger laceration All other systems reviewed and are negative. PAST MEDICAL HISTORY Diagnosis Date Cervical radiculopathy Headaches POTS (postural orthostatic tachycardia syndrome) secondary to covid vaccine per patient Current Outpatient Medications Medication Sig Dispense Refill propranolol (INDERAL) 10 mg tablet take 1 tablet by mouth 2 times a day 180 tablet 0 DULoxetine (CYMBALTA) 40 mg cpDR Take 1 capsule by mouth once daily. 90 capsule 1 rizatriptan (MAXALT) 10 mg tablet Take 1 tablet by mouth as needed. 12 tablet 2 cephALEXin (KEFLEX) 500 mg capsule Take 1 capsule by mouth three times a day for 7 days. 21 capsule 0 Current Facility-Administered Medications Medication Dose Route Frequency Provider Last Rate Last Admin acetylcholine 10% solution - cchs compounding 20 mL IRRIGATION ONE TIME Brain Price MD, PhD PAST SURGICAL HISTORY Procedure Laterality Date PAST SURGICAL HISTORY OF 2011 Ectopic PAST SURGICAL HISTORY OF 12/2021 wisdom teeth extraction FAMILY HISTORY Problem Relation Age of Onset Thyroid Cancer Mother Glaucoma Father Thyroid Cancer Sister Breast Cancer Sister Glaucoma Paternal Grandfather Social History Tobacco Use Smoking status: Never Smokeless tobacco: Never Vaping Use Vaping Use: Never used Substance Use Topics Alcohol use: Yes Alcohol/week: 7.0 standard drinks of alcohol Types: 7 Glasses of wine per week Drug use: Never Objective BP 102/64 Pulse (!) 58 Temp 36.4 C (97.6 F) (Tympanic) Resp 18 Wt 74.2 kg (163 lb 9.3 oz) LMP 03/07/2022 SpO2 98% BMI 28.08 kg/m Physical Exam Vitals reviewed. Constitutional: Appearance: Normal appearance. HENT: Head: Normocephalic and atraumatic. Musculoskeletal: Comments: Patient has a 2 and half centimeter flap laceration to the distal phalanx that abuts up to the nail on the left index finger. There is some swelling noted. No drainage from the area. Wound is somewhat well-approximated with skin adhesive from [id number]. No lymphangitic streaking. No foreign bodies visualized. Skin: General: Skin is warm and dry. Neurological: Mental Status: She is alert. Assessment and Plan ASSESSMENT/PLAN: 1. Laceration of left index finger without foreign body without damage to nail, initial encounter - ICD9: 883.0, ICD10: S61.211A This is a 4-day-old laceration, discussed with her initially this likely did need some sutures however it is too late to do that at this point. I did place a couple of Steri-Strips to help the wound approximate. Discussed washing the area couple times a day with soap and water and drying well and dressing it over the next week or so. I will place her on Keflex as it is starting to look infected. Tdap was updated. Red flags to be seen again discussed discussed that this may take 2-3 weeks to completely heal. Patient voiced understanding to plan. Marine Bush PA-C documented in this encounter [facility] 03-10-[address] - 03/10/2024 11:34 AM EDT [facility] FOLLOW UP NUTRITION INSTRUCTIONS Nutrition Follow-up: as needed with Yoana Waller RD. Nutrition Plan: Eat foods regularly, start with small portions/small snacks throughout the day 2. Do not go too long without eating or drinking 3. Eat foods that you are craving: Try sourdough bread, crackers 4. Add Collagen Peptides to coffee, tea, water, etc. 5. Sip on a pre-made protein shake: Jennifer LUNA Evolve, [place] have good pre made shakes 6. Try a pre-made meal delivery service: -Premade Meal Delivery: -Daily [place]- https://www.dailyFilip Technologiesharvest.Boyibang/ -Ac's Real Food - https://www.Ultora/agapito ections/all -Factor 75 https://Masher.hramjk72.Boyibang/ -Eating to Evolve- /https://www.eattoevolve.Boyibang/ (gluten and soy free) -Trifecta - https://www.trifectanutrition.c om/meal-plans -Fresh N Lean - https://www.Snowman/menu / (gluten free; can select Mediterranean, Keto, Paleo, Vegan, Whole30) -Sprinly https://ProteoTech/ (plant-based, gluten, soy and refined sugar free) -IoNutrition - https://www.ionutrition.Boyibang/doc ple-menu/ (organic, gluten free with options for original, high protein, vegetarian, low carb, Paleo) -The Good Kitchen -Paleo Power Meals -Healthier Frozen Meal Options: [address] Frozen Meals : Can filter for GF, Vegan, Vegetarian, Halal, Kosher and common allergens (Read ingredients for your particular food sensitivities as many of these contain soy, non-GMO corn starch, and small amount of cane sugar) - https://Simplex Healthcare/frozen- entrees/ Giselle's: https://amys.com: gluten and dairy free options, vegan/vegetarian and kosher options Gradcestors (found at [facility] and [employer].) - http://OpenExchange/meals/ Beetnik frozen meals (found at [facility]) - https://www.Canara.Boyibang/ KVK TEAM Natural Foods - https://Masher.Biometric Security/ (Paleo/Keto, Gluten/Soy free, no refined sugars) Purple Carrot Frozen Meals - [employer] (Plant-based, gluten-free) Pay4later Kitchen - http://Inporia/agdep-oo-zmx / (vegan, gluten-free) EVOL- found in supermarkets (GF-watch for other ingredients based on nutrition prescription) Tattooed Towel Folder: https://tattooedcFX Bridge.Boyibang/ Yoana Waller RD documented in this encounter [facility] 03-09-2024 History of Presen t illness Narrative [facility] Nutrition Therapy: Follow-Up Assessment (Individual) VIRTUALVISITPN I have communicated my name and active licensure. The patient's identity and physical location were verified at the time of this visit. Either the patient or their legal sales representatives has been informed of the risks and benefits of -- and alternatives to -- treatment through a remote evaluation and consents to proceed with the evaluation remotely. Patient is located in the [facility] at the time of the virtual visit. Patient Name: Yuko Herring Past Medical History: PAST MEDICAL HISTORY Diagnosis Date Cervical radiculopathy Headaches POTS (postural orthostatic tachycardia syndrome) secondary to covid vaccine per patient Allergies: Patient has no known allergies. Current Medications/Supplements Current Outpatient Medications on File Prior to Visit Medication Sig propranolol (INDERAL) 10 mg tablet take 1 tablet by mouth 2 times a day DULoxetine (CYMBALTA) 40 mg cpDR Take 1 capsule by mouth once daily. rizatriptan (MAXALT) 10 mg tablet Take 1 tablet by mouth as needed. Current Facility-Administered Medications on File Prior to Visit Medication acetylcholine 10% solution - cchs compounding Primary ICD-10 Diagnosis Addressed: Dietary counseling and surveillance [Z71.3] Provider Nutrition Notes:Nutrition only today Status of Chief Concerns POTS Depression and poor appetite Nutrition Assessment (updated 03/09/24) Current Symptom Review: Patient reports poor appetite associated with depression Worsening POTS, we discussed how decreased oral intakes of foods and fluids can cause POTS sx. Food and Nutrition History (update): She is not eating regular meals due to poor appetite and depression Current Adverse Reactions to Foods: No Diet Recall: Yes, themes reviewed She reports minimal 'meals' trying to snack some. Craving wine and bread. Anthropometrics LMP 03/07/2022 Last Height: Last 1 Encounter Ht Readings: Date: Ht: 02/17/2023 162.6 cm (5' 4) Last Weight: Last Wt 02/19/24 : 73.9 kg (163 lb) 10/17/23 : 84.8 kg (187 lb) 09/26/23 : 86.2 kg (190 lb) Wt: 73.9 kg (163 lb) BMI: 27.98 kg/(m^2) Learning Needs Assessment: Barriers to Learning: Ready to Learn (no barriers noted) Assessed motivation to learn: low Biochemical and Laboratory Data Conventional/Advanced Testing Latest Reference Range & Units 11/18/23 07:41 01/05/24 09:47 02/19/24 08:40 Protein, Total 6.3 - 8.0 g/dL 7.4 Magnesium 1.7 - 2.3 mg/dL 2.1 Albumin 3.9 - 4.9 g/dL 4.3 Bilirubin, Total 0.2 - 1.3 mg/dL 0.3 Bilirubin, Conjug <0.2 mg/dL <0.2 Alkaline Phosphatase 34 - 123 U/L 96 ALT 7 - 38 U/L 13 AST 13 - 35 U/L 22 GGT 6 - 46 U/L 11 Iron 41 - 186 ug/dL 149 TIBC 232 - 386 ug/dL 302 Transferrin Saturation 15.0 - 57.0 % 49.3 Homocysteine, Serum <15.1 umol/L 9.0 CRP <0.9 mg/dL 0.8 UltraSens C-Reactive Protein <3.1 mg/L 6.3 (H) Vitamin D 25 Hydroxy 31.0 - 80.0 ng/mL 23.4 (L) 37.4 30.1 (L) OmegaCheck >5.4 % by wt 3.7 (L) Arachidonic Acid/EPA Ratio 3.7 - 40.7 24.0 Hudson-6/Hudson-3 Ratio 3.7 - 14.4 11.0 Hudson-3 Total % by wt 3.7 Hudson EPA 0.2 - 2.3 % by wt 0.5 Hudson DPA 0.8 - 1.8 % by wt 1.0 Hudson DHA 1.4 - 5.1 % by wt 2.2 Hudson-6 Total % by wt 40.3 Arachidonic Acid 8.6 - 15.6 % by wt 11.4 Linoleic Acid 18.6 - 29.5 % by wt 25.9 Insulin 3.0 - 25.0 mU/L 9.2 Free T4 0.9 - 1.7 ng/dL 1.2 TSH 0.270 - 4.200 mIU/L 2.330 Free T3 2.3 - 4.1 pg/mL 3.6 Methylmalonic Acid <=0.40 umol/L 0.08 (H): Data is abnormally high (L): Data is abnormally low Laboratory Values Addressed: None addressed today Nutrition Prescription Energy: Resting Metabolic Rate: 1426 Protein: 1.0g/kg Nutrients of Concern: calroies and protein due to limid oral intake Nutrition Diagnosis: Disordered Eating Pattern related to poor appetite secondary to depression as evidenced by patient report Status: New Nutrition Intervention (New and Reinforcement): Current Nutrition Goal(s): promote adequate nutritional intake to meet macro and micronutrient needs Food Plan: Custom Eat foods regularly, start with small portions/small snacks throughout the day 2. Do not go too long without eating or drinking 3. Eat foods that you are craving: Try sourdough bread, crackers 4. Add Collagen Peptides to coffee, tea, water, etc. 5. Sip on a pre-made protein shake: Jennifer LUNA, Yana, Adams have good pre made shakes 6. Try a pre-made meal delivery service: -Premade Meal Delivery: -Daily [place]- https://www.dailyFilip Technologiesharvest.Boyibang/ -Ac's Real Food - https://www.TGS Knee Innovations.com/agapito ections/all -Factor 75 https://www.Umweltech.com/ -Eating to Evolve- /https://www.eattoevolve.com/ (gluten and soy free) -Trifecta - https://www.trifectanutrition.c om/meal-plans -Fresh N Lean - https://www.SK biopharmaceuticalsnleanEspressi/menu / (gluten free; can select Mediterranean, Keto, Paleo, Vegan, Whole30) -Sprinly https://ProteoTech/ (plant-based, gluten, soy and refined sugar free) -IoNutrition - https://www.AzurotionEspressi/doc ple-menu/ (organic, gluten free with options for original, high protein, vegetarian, low carb, Paleo) -The Good Kitchen -Paleo Power Meals -Healthier Frozen Meal Options: [address] Frozen Meals : Can filter for GF, Vegan, Vegetarian, Halal, Kosher and common allergens (Read ingredients for your particular food sensitivities as many of these contain soy, non-GMO corn starch, and small amount of cane sugar) - https://Simplex Healthcare/frozen- entrees/ Giselle's: https://CashStar: gluten and dairy free options, vegan/vegetarian and kosher options Gradcestors (found at Fanplayr and ID4A LLC.) - http://OpenExchange/meals/ Beetnik frozen meals (found at Fanplayr) - https://www.Canara.Boyibang/ KVK TEAM Natural Foods - https://www.Biometric Security/ (Paleo/Keto, Gluten/Soy free, no refined sugars) Purple Carrot Frozen Meals - Target (Plant-based, gluten-free) Pay4later Kitchen - http://LogiAnalytics.com.Boyibang/echvl-cg-zgz / (vegan, gluten-free) EVOL- found in supermarkets (GF-watch for other ingredients based on nutrition prescription) Raj Cain: https://hien.com/ Resources/Educational Materials Provided embedded above Adherence Potential to Goals/Care Plan: Low Nutrition Monitoring & Evaluation: Meal and Snack Pattern, Nutrition Related Laboratory Values, Protein Intake, and Subjective Symptoms Criteria: Laboratory Data, MSQ, Dietary Recall Follow up: 4 weeks Time Spent with patient: 20 minutes Consult Billing Type: Reassessment/15 minutes, 2 increment(s), 30 minutes Number of Increments: 1 Referred/Supervised by: Theo Friedman MD Signed by: Yoana Waller RD documented in this encounter [facility] 02-20-2024 Telephone encounter Note Pt active on Womait- message sent Jaden Torres MA [facility] 02-20-2024 Miscellaneous Notes Pt active on Womait- message sent Jaden Torres MA Please let patient know her vitamin d is low. Her magnesium and crp are normal. documented in this encounter [facility] 02-20-2024 Telephone encounter Note Please let patient know her vitamin d is low. Her magnesium and crp are normal. [facility] 02-19-2024 History of Presen t illness Narrative PHQ-9 Score: 14 (Moderate Depression) Continuing current treatment plan Chief Complaint Patient presents with: Follow Up HPI Yuko Herring is a 33 year old female who presents here today for Above Complaints.. Patient present for follow up for POTS. Patient has been seeing functional medicine for her POTS which she reports has been helpful and she has lost about 20 pounds since starting with functional medicine. No POTS flares recently. Patient reports she feels her depression is worse currently due to a recent breakup. Reports migraines have minimized to about once monthly with menstrual cycle. Past medical history, appointments, medications, allergies reviewed. Previous Medical History PAST MEDICAL HISTORY Diagnosis Date Cervical radiculopathy Headaches POTS (postural orthostatic tachycardia syndrome) secondary to covid vaccine per patient Previous Surgical History PAST SURGICAL HISTORY Procedure Laterality Date PAST SURGICAL HISTORY OF 2011 Ectopic PAST SURGICAL HISTORY OF 12/2021 wisdom teeth extraction Family History FAMILY HISTORY Problem Relation Age of Onset Thyroid Cancer Mother Glaucoma Father Thyroid Cancer Sister Breast Cancer Sister Glaucoma Paternal Grandfather Patient Allergies ALLERGIES No Known Allergies Current Medications Current Outpatient Medications on File Prior to Visit Medication Sig propranolol (INDERAL) 10 mg tablet take 1 tablet by mouth 2 times a day Vitamin D3 5000 U (Pure Encapsulations) Take 1 capsule by mouth daily with food. Magnesium Glycinate 120mg (Pure Encapsulations) Take 4 capsules daily DULoxetine (CYMBALTA) 40 mg cpDR Take 1 capsule by mouth once daily. ondansetron orally disintegrating (ZOFRAN ODT) 4 mg disintegrating tablet Take 1 tablet by mouth every 6 hours as needed for nausea/vomiting. PEG 400-propylene glycol (SYSTANE ULTRA) 0.4-0.3 % ophthalmic solution Use 1 Drop in both eyes four times daily. magnesium oxide 400 mg magnesium tab Take 1 capsule by mouth as needed. Take 1 capsule daily by mouth as needed. rizatriptan (MAXALT) 10 mg tablet Take 1 tablet by mouth as needed. Current Facility-Administered Medications on File Prior to Visit Medication acetylcholine 10% solution - cchs compounding Social History Social History Tobacco Use Smoking status: Never Smokeless tobacco: Never Vaping Use Vaping Use: Never used Substance Use Topics Alcohol use: Yes Alcohol/week: 7.0 standard drinks of alcohol Types: 7 Glasses of wine per week Drug use: Never Review of Symptoms REVIEW OF SYSTEMS SEE HPI EXAM: BP 100/69 Pulse 75 Resp 14 Wt 73.9 kg (163 lb) LMP 03/07/2022 SpO2 99% BMI 27.98 kg/m General Appearance: Well appearing, alert, in no acute distress, well-hydrated, well nourished.. Lungs: Lungs clear to auscultation. No wheezing, rhonchi, rales.. Heart: RRR without murmur, gallop, or rubs. No ectopy. Peripheral Pulses: Normal. Health Maintenance List Hepatitis C Screening Never done HIV Screening Never done DTaP,Tdap,Td Vaccine(1 - Tdap) Never done Hepatitis B Vaccine(1 of 3 - 19+ 3-dose series) Never done HPV Vaccine(3 - 3-dose SCDM series) due on 07/20/2022 Covid-19 Vaccine( season) due on 06/20/2023 Influenza Vaccine(Season Ended) due on 06/20/2024 Pap Testing due on 01/18/2027 HPV Testing due on 01/18/2027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 10 classes to gain the most information and do the best on your journey to health and wellness. Please use code: [id number] Please schedule your initial follow up appointments with any provider. Tell the judo instructor you are following up after FFL. Any labs ordered in this visit can be done at any [facility] lab. Deandra Thompson PA-C documented in this encounter [facility] 01-02-2024 Instructions Deandra Thompson PA-C - 01/02/2024 9:04 AM EDT [employer] Educational Materials and the Tilt Platform To access Tilt, please visit: [email or web address] and follow the instructions below. Step 1: Click Create a new account Leave degree set to 'none' and Employee ID and Non-Employee ID can be left blank. For Specialty, choose wellness For CME Type, chose non-physician Step 2: Click the Create My New Account. A message will display, and click continue. Step 3: Check your email for further instructions Step 4: In the email, click the link provided to launch Tilt and complete registration Step 5: Click the Find Learning tab, and enter [employer] Program in the search field. In the search results, click the link to access the course Step 6: Enter the Enrollment [facility] FFLprogram (this is case sensitive) Step 7: To login after enrollment, visit [email or web address]. Login under 'Non-Employee Login' using the username and password from step #1. If you have difficulty accessing this course, please email [email or web address]. DIAGNOSIS/ASSESSMENT: G90.A POTS (postural orthostatic tachycardia syndrome) (primary encounter diagnosis) - reports some improvement in symptoms. Tolerating exercise. E66.9 Obesity (BMI 30.0-34.9) - reports weight loss and felling much better R63.5 Weight gain - stopped gaining weight and now losing E55.9 Vitamin D deficiency - see above, supplementing Yuko was seen today for weight loss and control pots symptoms. Diagnoses and all orders for this visit: POTS (postural orthostatic tachycardia syndrome) - continue to take precautions, electrolytes and compression stockings Obesity (BMI 30.0-34.9)/Weight gain - continue whole food diet with slow reintroduction of complex (not processed) carbohydrates Vitamin D deficiency - continue supplementing, will recheck FUNCTIONAL MEDICINE PLAN: We now have addressed your particular clinical imbalances and starting your journey into functional medicine. If you are wanting more information, I highly encourage you to set up an individual appointment with any provider and we can go into more detail. It was wonderful to have you participate in FFL and I hope this started you on your path to improved wellness. Remember to be mindful over when eating out and at home - think healthy eating , movement and meditation. Follow up: Please schedule a follow up visit with the following Caregivers: Provider: as needed, Extracorporeal Circulation Specialist: 1 weeks, and Health Dehydrogenation Operator Head: as needed Deandra [phone] Functional Medicine or health swim coach: To schedule an appointment, call [phone], Option 4 LIFESTYLE PRESCRIPTION Functional Nutrition: ReNew Food Plan Sleep: Sleep hygeine - no bright lights or phones/laptops/TV an hour before bed. Wear red Wrap around glasses 2 hrs before bed to block blue/green/white light which alters your melatonin production and Tells the brain do not sleep. Can find them on [employer] $8.00 Exercise Prescription: Choose - meditative walking, gently breathing focused yoga, stretching as tolerated and continue your current exercise as tolerated. Stress Management: Behavioral Health Therapist: If I recommended counseling or individual therapy, please schedule an individual appointment with our Functional Medicine Behavioral Health Therapist. The Behavioral Health Therapist helps patients identify and understand feelings and behaviors, experience the process of making positive change, and gain healthy coping skills. Deep, mindful breathing 10 minutes per day, no phone, no computer, no TV-alone and quiet. This is a prescription! Future consider purchasing a Heart Math book-discuss with Health Dehydrogenation Operator Head. Thank you for joining us for FFL - Functioning for life. Please make it a priority to attend all 10 classes to gain the most information and do the best on your journey to health and wellness. Please use code: [id number] Please schedule your initial follow up appointments with any provider. Tell the judo instructor you are following up after FFL. Any labs ordered in this visit can be done at any [facility] lab. Deandra Thompson PA-C documented in this encounter [facility] 12-30-2023 Instructions Deandra Thompson PA-C - 12/30/2023 10:49 AM EDT I would suggest you work with a health swim coach to help you implement the lifestyle modifications discussed today. The Health Coaches are credentialed professionals, there is no cost for this service, visits are virtual. To schedule an appointment, call [phone], Option 1 Lab - liver panel only (does not have to be fasting) - if normal resume magnesium (2/day) and the vitamin D - If you have avocado or any other fermented foods, try taking this enzyme with it. If you don't have a reaction to the food, you may have a histamine issue and can take this if you might have foods with histamine. [email or web address] Twll-Pxwacsy-Jwcickmul-[email or web address] dev=[email or web address]&[email or web address]&hvlocph [email or web address]=g&hvpone&hvpos &hvptwo&hvqmt&fblvhb=[id number]&hvtargid=[email or web address] [id number]&[email or web address]&zvjb=[email or web address]&psc= [email or web address]&[email or web address] Reasons women may experience painful periods is an imbalance of estrogen and progesterone. In the first half of the cycle estrogen is more prominent, but in the second progesterone. For some these dramatic changes can cause symptoms. Recommendation: - try to limit stress or add in more meditation and yoga as well as regular exercise - limit dairy, alcohol and caffeine, especially the week before - limit red meat the week before cycling - limited to no added sugar at least the week before - work on limiting toxins that might contain estrogen mimicking hormones (xenoestrogens) - Eat lots of cruciferous vegetables (broccoli, cauliflower, cabbage, etc) - decaf green tea Ground flaxseed 1-2 tablespoons/day - ground flaxseed is a weak estrogen and it can bind in the receptors to not allow the bad estrogens to bind TOXINS TO AVOID because they could interrupt your endocrine system (hormones): You will find many of these in your beauty and cleaning products: *bold are major ones to avoid 1-4 dioxan Aluminum hydroxide (often in deodorant) Parabens - look for this at the end of many ingredients BHA & BHT BPA (bisphenol A) - plastics Borax Butoxyethanol DEP (phthalate) Formaldahyde Mercury Oxybenzone - found in sunscreen PEGs (polyethylene glycol) Phenoxyethanol Phthalates Propylene Glycol Synthetic fragrance of flavor - if is says fragance they can include whatever they want to cover up chemical scents. Look for scented with essential oils or no scent. Talc - found in powders Triclosan Products I recommend- EWG or Think Dirty are great apps to start to help you learn: Deodorant - [place], Hello at [employer], Earthley, Primally Pure is one my favorites *Cleansing with Sterling lucina and ACV is very helpful to get toxins out and helps with odor. Doing this monthly is helpful. Soaps/detergent - Bronners, Norwex, Marya Suds on Amazon, charcoal bars are great for detox Cleaning- Norwex, Aracely's, vinegar and water (Caroline's and Method are not as clean as you think), Young Living Beauty/skin - Crunchi (I never question - great quality and only very safe ingredients), Beauty Counter are some of the best quality and safest, Earthley makes great safe products as well If you have questions, please reach out. I have a more comprehensive list. documented in this encounter [facility] 12-30-2023 History of Presen t illness Narrative Wellness Follow up Ms.Laila Herring is a 33 year old female is here for a wellness and preventive medicine follow up visit. I have communicated my name and active licensure. The patient's identity and physical location were verified at the time of this visit. Either the patient or their legal sales representatives has been informed of the risks and benefits of -- and alternatives to -- treatment through a remote evaluation and consents to proceed with the evaluation remotely via zoom platform. The patient and provider were both located in [place] at the time of this visit. Chief complaint: unexplained weight gain HPI: 12/30/23: Started Renew Diet with FFL WM (on week 6). This past week she had severe cravings of wanting chips, ramen prior to her period. She is struggling to get daily nutrition when on her period due to low appetite. She is on thera-biotic, omega and Pure Pack. Last week her skin was yellow, white fingertips, N/T while on the supplements. Improved with stopping. She mentions when she was a child she needed a shot for a liver boost. Marijuana helps her relax and helps her headaches. She does feel like she has lost 8 lb due to stomach ulcer. She is now down 18-19 lb. Adding carbohydrates back (quinoa and rice) has helped. 2 pills of magnesium helping. 06/24/23: Patient is here today to discuss ways to help her lose weight. She reports putting on close to 35 lb in the past 3 years since her dx of POTS. Prior to this, she went to the gym 3-5 days a week, 10 k steps, cardio prior to dx POTS. Then issues with balance. Had to eat every 2 hours after that with increased salt intake. She thinks this and less activity likely contributed to the weight gain. Since she has returned to the gym she has stabilized her weight, but is having trouble getting it off. 3 years ago she had Covid vx, pass out within 10 minutes. 1 week of hospital. Dx with POTS. She has been going to the gym regularly since POTS better controlled with medications 157 -> 192 in 18 mo time for no reason She no longer craves salty foods Migraines - nerve damage in neck - PT for this and magnesium, ibuprofen Vitamin D low in the past - 6000 international unit(s) /day x 8 weeks Since last OV we worked on: Weight - water, FFL WM (week 8 done, week 6 of diet changes) Vitamin D - stopped Constipation - mag citrate, water, elim diet Current Supplements: holding all this week Improvements: POTS symptoms Energy Weight Less pain and cramping Constipation Continued struggles: Cravings Energy not 100% Anxiety Current interventions: None a this time Psychosocial: Nutrition: Renew diet now, but previously skipped d/t lack of appetite, coffee + milk, no sugar; more sugar, more wine and more carbs Water: 64 oz + electrolytes Alcohol: minimal Caffeine: no BM: daily - more formed Sleep: 8 hours Movement/exercise - 3 times a week gym, lifting; cardio, trying to push limits. 2 minute run with irregular heartbeat; 10 minutes gym Stress - moderate PAST MEDICAL HISTORY Diagnosis Date Cervical radiculopathy Headaches POTS (postural orthostatic tachycardia syndrome) secondary to covid vaccine per patient PAST SURGICAL HISTORY Procedure Laterality Date PAST SURGICAL HISTORY OF 2011 Ectopic PAST SURGICAL HISTORY OF 12/2021 wisdom teeth extraction ALLERGIES No Known Allergies Current Outpatient Medications on File Prior to Visit Medication Sig propranolol (INDERAL) 10 mg tablet take 1 tablet by mouth 2 times a day Vitamin D3 5000 U (Pure Encapsulations) Take 1 capsule by mouth daily with food. DULoxetine (CYMBALTA) 40 mg cpDR Take 1 capsule by mouth once daily. ondansetron orally disintegrating (ZOFRAN ODT) 4 mg disintegrating tablet Take 1 tablet by mouth every 6 hours as needed for nausea/vomiting. PEG 400-propylene glycol (SYSTANE ULTRA) 0.4-0.3 % ophthalmic solution Use 1 Drop in both eyes four times daily. rizatriptan (MAXALT) 10 mg tablet Take 1 tablet by mouth as needed. Magnesium Glycinate 120mg (Pure Encapsulations) Take 4 capsules daily magnesium oxide 400 mg magnesium tab Take 1 capsule by mouth as needed. Take 1 capsule daily by mouth as needed. Current Facility-Administered Medications on File Prior to Visit Medication acetylcholine 10% solution - cchs compounding Social History Tobacco Use Smoking status: Never Smokeless tobacco: Never Vaping Use Vaping Use: Never used Substance Use Topics Alcohol use: Yes Alcohol/week: 7.0 standard drinks of alcohol Types: 7 Glasses of wine per week Drug use: Never FAMILY HISTORY Problem Relation Age of Onset Thyroid Cancer Mother Glaucoma Father Thyroid Cancer Sister Breast Cancer Sister Glaucoma Paternal Grandfather REVIEW OF SYSTEMS: + anxious, + dizziness, denies constipation Physical Exam Video Exam (Examination performed via Video enabled technology) General: alert, oriented x 3, pleasant and cooperative Ill appearing: No Posture and motor behavior: normal posture and motor behavior Dress, grooming, personal hygiene: normal dress and grooming Facial expression: smiling Speech: normal speech PREVIOUS STUDIES: Pertinent labs/imaging: Latest Ref Rng 11/18/2023 OmegaCheck >5.4 % by wt 3.7 (L) Arachidonic Acid/EPA Ratio 3.7 - 40.7 24.0 Hudson-6/Hudson-3 Ratio 3.7 - 14.4 11.0 Hudson-3 Total % by wt 3.7 Hudson EPA 0.2 - 2.3 % by wt 0.5 Hudson DPA 0.8 - 1.8 % by wt 1.0 Hudson DHA 1.4 - 5.1 % by wt 2.2 Hudson-6 Total % by wt 40.3 Arachidonic Acid 8.6 - 15.6 % by wt 11.4 Linoleic Acid 18.6 - 29.5 % by wt 25.9 Latest Ref Rng 11/18/2023 Iron 41 - 186 ug/dL 149 TIBC 232 - 386 ug/dL 302 Transferrin Saturation 15.0 - 57.0 % 49.3 Latest Ref Rng 11/18/2023 GGT 6 - 46 U/L 11 Insulin 3.0 - 25.0 mU/L 9.2 Homocysteine, Serum <15.1 umol/L 9.0 Methylmalonic Acid <=0.40 umol/L 0.08 Latest Ref Rng 11/18/2023 Free T3 2.3 - 4.1 pg/mL 3.6 Free T4 0.9 - 1.7 ng/dL 1.2 TSH 0.270 - 4.200 mIU/L 2.330 Latest Ref Rng 03/07/2023 11/18/2023 Vitamin D 25 Hydroxy 31.0 - 80.0 ng/mL 16.2 (L) 23.4 (L) Latest Ref Rng 03/07/2023 UltraSens C-Reactive Protein <3.1 mg/L 6.1 (H) Vitamin B12 232 - 1,245 pg/mL 548 Vitamin B6, Plasma 20.0 - 125.0 nmol/L 34.1 IMPRESSION: Ms. Yuko Herring is a 33 year old year old female with a history of migraines and POTS presents for a wellness and preventive medicine follow up visit. She is happy that she has been losing weight, but did have a setback with her skin turning yellow and her fingertips white and tingling. She stopped the supplements (Pure Lean pack, Hudson, Thera-biotic, D and magnesium) and it improved. She still has trouble with PMS symptoms and anxiety and mentioned some trouble tolerating fermented foods and avocado. There could be a histamine mediated reaction going on. A wellness and preventive medicine approach was discussed with the patient including risks, benefits, and alternatives. She agrees to proceed. It was emphasized that she should continue with all of her current treating caregivers's recommendations. Treatment plan/recommendations: (R53.82) Chronic fatigue, unspecified (primary encounter diagnosis) Comment: some improvement, tolerating the gym Plan: - HEPATIC FUNCTION PNL due to reaction last week - work on low histamine diet, but may trial reaction with CHAVA enzyme - work on stress management - work on detoxifying foods (cruciferous veg, ground flax) (R51.9) Headaches Comment: improved, only taking maxalt with her period Plan: - discussed management of PMS (G90.A) POTS (postural orthostatic tachycardia syndrome) (R00.2) Palpitations Comment: slight improvements, getting her electrolytes (E66.9) Obesity, Class I, BMI 30-34.9 Comment: reports weight loss total of 18 lb (10 with FFL - WM) (F41.9) Anxiety disorder, unspecified type Comment: Plan: - Work 1:1 with health swim coach - CONSULT TO HOLISTIC PSYCHOTHERAPY It has been a pleasure to see Ms. Yuko Herring for a wellness and preventive medicine follow up. I have asked Yuko Herring to return to see me 3 mo. Thank you for the referral or interest in caring for your whole body and mind. I spent a total of 30 minutes on the date of the service which included preparing to see the patient, [id number] patient care, completing clinical documentation, obtaining and/or reviewing separately obtained history, performing a medically appropriate examination, counseling and educating the patient/family/caregiver, ordering medications, tests, or procedures, independently interpreting results (not separately reported), and communicating results to the patient/family/caregiver. documented in this encounter [facility] 12-26-[address] - 12/26/2023 9:55 AM EST Images from the original note were not included. [facility] FUNCTIONAL MEDICINE [facility] NUTRITION GUIDELINES Your Prescribed Nutrition Plan: Continue ReNew for 4-5 days, then you can reintroduce carbohydrate dense foods (use the food reintroduction tracker). Continue to avoid high histamine foods, gluten, and dairy. Consider scheduling 1:1 Nutrition appointment after you see the DURALUMIN MECHANIC next week or schedule after [facility] week 10, whatever works for you. Access your reintroduction tool on the Tilt Platform: Symptoms of adverse food reactions may include migraines, headaches, dizziness, difficulty sleeping, mood swings, depression, anxiety, unintentional weight loss or gain, dark under-eye circles, asthma, irregular heartbeat, irritable bowels, bloating, wheezing, runny nose, sinus problems, ear infections, food cravings, muscle or joint pain, indigestion, nausea, vomiting, bladder control issues, fatigue, hyperactivity, hives, rashes, dry skin, excessive sweating and acne. documented in this encounter [facility] 12-26-2023 History of Presen t illness Narrative Images from the original note were not included. [facility] Functional Medicine Nutrition Therapy: Shared Nutrition Appointment Weight Management VIRTUALVISITPN I have communicated my name and active licensure. The patient's identity and physical location were verified at the time of this visit. Either the patient or their legal sales representatives has been informed of the risks and benefits of -- and alternatives to -- treatment through a remote evaluation and consents to proceed with the evaluation remotely. Patient is located in the [facility] at the time of the virtual visit. Patient Name: Yuko Herring Class Topic: Session 8: Monitoring progress and reintroduction of foods Chief Concern: Weight Management Is the patient having any pain that is interfering with oral intake? No Past Medical History: PAST MEDICAL HISTORY Diagnosis Date Cervical radiculopathy Headaches POTS (postural orthostatic tachycardia syndrome) secondary to covid vaccine per patient Anthropometrics: LMP 03/07/2022 Height: Last 1 Encounter Ht Readings: Date: Ht: 02/17/2023 162.6 cm (5' 4) Current weight: Last 1 Encounter Wt Readings: Date: Wt: 10/17/2023 84.8 kg (187 lb) Wt: 84.8 kg (187 lb) BMI: 32.10 kg/(m^2) Resting Metabolic Rate: 1535 Assessment and Progress Update Current Diet: ReNew Progress towards Nutrition Goals: Appetite still low. Went to the gym 3 times. Last night had ramen. Removed high histamine foods and felt way better. Reintroduced hummus, benans, and some starchy vegetables. Nutrition Focus this Week: see interventions below, patient will schedule for 1:1 nutrition appointment. Nutrition Diagnosis: Overweight/Obesity (NC-3.3) related to caloric intake in excess of nutritional needs as evidenced by BMI >24.9 Nutrition Intervention 12/26/2023: Nutrition education: 1. Continue following food plan 2. Continue tracking eating, drinking and exercise 3. Review reintroduction process 4. Come prepared to discuss your experience reintroducing one or more food(s), as applicable Access your reintroduction tool on the Tilt Platform: Symptoms of adverse food reactions may include migraines, headaches, dizziness, difficulty sleeping, mood swings, depression, anxiety, unintentional weight loss or gain, dark under-eye circles, asthma, irregular heartbeat, irritable bowels, bloating, wheezing, runny nose, sinus problems, ear infections, food cravings, muscle or joint pain, indigestion, nausea, vomiting, bladder control issues, fatigue, hyperactivity, hives, rashes, dry skin, excessive sweating and acne. Nutrition Monitoring & Evaluation: Adherence to renew food plan and reintroduction of foods as instructed Criteria: Patient recall, food diary Time Spent: 60 minutes Referred/Supervised by: Deandra Thompson PA-C Consult Billing Type: Group/60 minutes Number of Increments: 2 (60 minutes) Signed by: Yoana Waller RD documented in this encounter [facility] 12-12-2023 Instructions Yoana Waller, RD - 12/12/2023 9:33 AM EST [facility] NUTRITION GUIDELINES Your Prescribed Nutrition Plan: ReNew Food Plan Consider adding the following foods to your diet plan to support energy levels: Starchy Vegetables [place] squash [place] squash Plantain Sweet potato Parsnip Rutabaga Cassava Pseudo-grain Quinoa Teff Amaranth Buckwheat Moderate Glycemic Fruits Apples Pears Peaches Plums Other notes from todays lesson: Review Mindful Eating Handout on MyLearning Review the Prebiotic and Probiotic Handout on MyLearning, and aim to include 2 Tablespoons from 2 different probiotic sources each day this week! Probiotics Prebiotics Include 2 Tbsp of two different types of probiotic foods daily. For maximum benefits, consume raw and purchase refrigerated rather than shelf stable. Consume a variety of different prebiotic foods daily for optimal gut health. Saurkraut Kimchi Pickles Kombucha Miso Natto Tempeh Kefir (coconut or water) Chicory Tea Dandelion Greens Leeks Asparagus [place] Artichokes (Sunchokes) Bananas (especially green) Garlic Onions Whole Grains [place] Eggplant Flaxseed Jicama Suggested Products: Bubbie's Pickles [place] Kraut Wildbrine Kickin Kimchi GT's Organic Multi-Green Kombucha Mother In Law's Kimchi and Fermented Chile Paste Lightlift organic Tempeh Genmai Miso [place] Arnett Milk Yogurt (plain, unsweetened) [facility] Dairy-Free Probiotic Yogurt Beverage (plain, unsweetened) ADDITIONAL INSTRUCTIONS: [employer] Educational Materials and the Tilt Platform To access Tilt, please visit: [email or web address] and follow the instructions below. Step 1: Click Create a new account o Leave degree set to 'none' and Employee ID and Non-Employee ID can be left blank. o For Specialty, choose wellness o For CME Type, chose non-physician Step 2: Click the Create My New Account. A message will display, and click continue. Step 3: Check your email for further instructions Step 4: In the email, click the link provided to launch Tilt and complete registration Step 5: Click the Find Learning tab, and enter Functioning for Life Program in the search field. In the search results, click the link to access the course Step 6: Enter the Enrollment [place] FFLprogram (this is case sensitive) Step 7: To login after enrollment, visit [email or web address]. Login under 'Non-Employee Login' using the username and password from step #1. If you have difficulty accessing this course, please email [email or web address]. How to Contact Your Functional Medicine Team (Open M-F 8am-5pm) 1. T-Quad 22hart is the BEST form of communication to reach the Functional Medicine Team, see test results and request refills. Please allow 72 business hours for a response. Directions for signing up are included in your New Patient Folder. (Or you can go to [email or web address]) 2. For nutrition related questions or concerns, [employer] message your physician and include Attn: Yoana Waller RD at the top of the message. [employer] messaging is meant to support implementation of previously outlined nutrition care plans. In the interest of safe, effective and personalized care, you are asked to schedule a follow-up appointment if: It has been >6 months since your last nutrition appointment Your question requires reassessment or involves a new plan of care Your question concerns a new diagnosis, symptoms(s) and/or health concern Ordering Supplements Supplements can be ordered from the [facility]'s Online Store: [email or web address] New patients to the Healthy Living Shop will need to enter the provider code [id number] documented in this encounter [facility] 12-12-2023 History of Presen t illness Narrative [facility] Functional [facility] Nutrition Therapy: Shared Nutrition Appointment Weight Management VIRTUALVISITPN I have communicated my name and active licensure. The patient's identity and physical location were verified at the time of this visit. Either the patient or their legal sales representatives has been informed of the risks and benefits of -- and alternatives to -- treatment through a remote evaluation and consents to proceed with the evaluation remotely. Patient is located in the [facility] at the time of the virtual visit. Patient Name: Yuko Herring Class Topic: Sessions 6: Mindful eating for a healthy gut Chief Concern: Weight Management Is the patient having any pain that is interfering with oral intake? No Past Medical History: PAST MEDICAL HISTORY Diagnosis Date Cervical radiculopathy Headaches POTS (postural orthostatic tachycardia syndrome) secondary to covid vaccine per patient Anthropometrics: LMP 03/07/2022 Height: Last 1 Encounter Ht Readings: Date: Ht: 02/17/2023 162.6 cm (5' 4) Current weight: Last 1 Encounter Wt Readings: Date: Wt: 10/17/2023 84.8 kg (187 lb) Wt: 84.8 kg (187 lb) BMI: 32.10 kg/(m^2) Resting Metabolic Rate: 1535 Assessment and Progress Update Current Diet: ReNew Food Plan Progress towards Nutrition Goals: Headaches, taking electrolytes which is helping with headaches. Following the diet, but feeling like she has enough energy. Still having decaf green tea. Decreased bloating. Nausea but she had a stomach ulcer before she started. Clothes are fitting a little looser. Rec- to add more fruits, whole food carbs Nutrition Focus this Week: see interventions below Nutrition Diagnosis: Overweight/Obesity (NC-3.3) related to caloric intake in excess of nutritional needs as evidenced by BMI >24.9 Nutrition Intervention 12/12/2023: Nutrition education: 1. Continue your food plan 2. Continue tracking eating, drinking and exercise 3. Review Mindful Eating Handout on MyLearning 4. Review the Prebiotic and Probiotic Handout on MyLearning, and aim to include 2 Tablespoons from 2 different probiotic sources each day this week! Probiotics Prebiotics Include 2 Tbsp of two different types of probiotic foods daily. For maximum benefits, consume raw and purchase refrigerated rather than shelf stable. Consume a variety of different prebiotic foods daily for optimal gut health. Saurkraut Kimchi Pickles Kombucha Miso Natto Tempeh Kefir (coconut or water) Chicory Tea Dandelion Greens Leeks Asparagus [place] Artichokes (Sunchokes) Bananas (especially green) Garlic Onions Whole Grains [place] Eggplant Flaxseed Jicama Suggested Products: Bubbie's Pickles [place] Kraut Wildbrine Kickin Kimchi GT's Organic Multi-Green Kombucha Mother In Law's Kimchi and Fermented Chile Paste Lightlift organic Tempeh Genmai [place] Arnett Milk Yogurt (plain, unsweetened) [employer] Dairy-Free Probiotic Yogurt Beverage (plain, unsweetened) Nutrition Monitoring & Evaluation: Adherence to renew food plan and reintroduction of foods as instructed Criteria: Patient recall, food diary Time Spent: 60 minutes Referred/Supervised by: Deandra Thompson PA-C Consult Billing Type: Group/60 minutes Number of Increments: 2 (60 minutes) Signed by: Yoana Waller RD documented in this encounter [facility] 12-05-2023 Instructions Deandra Thompson PA-C - 12/05/2023 9:49 AM EST FUNCTIONAL MEDICINE PLAN: Update: Ms. Herring has had a rough week with the program and is working with the spray booth operator as this may have something to do with the lower carbohydrates, salt. Supplements reviewed with the patient. Abnormal pre-program labs reordered for after completion of the class. Patient to continue with ReNew diet plan and lifestyle interventions, as well as recommended supplementation. Follow up with dietitian next week as scheduled. Follow up: Please schedule a follow up visit with the following Caregivers: Provider: 4weeks, Extracorporeal Circulation Specialist: 1 weeks, and Health Dehydrogenation Operator Head: 4 weeks LIFESTYLE PRESCRIPTION Functional Nutrition: ReNew Food Plan Sleep: Sleep hygeine - no bright lights or phones/laptops/TV an hour before bed. Wear red Wrap around glasses 2 hrs before bed to block blue/green/white light which alters your melatonin production and Tells the brain do not sleep. Can find them on Medical Direct Club $8.00 Exercise Prescription: Choose - meditative walking, gently breathing focused yoga, stretching as tolerated and continue your current exercise as tolerated. Stress Management: Behavioral Health Therapist: If I recommended counseling or individual therapy, please schedule an individual appointment with our Functional Medicine Behavioral Health Therapist. The Behavioral Health Therapist helps patients identify and understand feelings and behaviors, experience the process of making positive change, and gain healthy coping skills. Deep, mindful breathing 10 minutes per day, no phone, no computer, no TV-alone and quiet. This is a prescription! Future consider purchasing a Heart Math book-discuss with Health Dehydrogenation Operator Head. Thank you for joining us for FFL - Functioning for life. Please make it a priority to attend all 10 classes to gain the most information and do the best on your journey to health and wellness. I recommend the supplements from the [facility] Healthy Living Online Store at [email or web address] as we have thoroughly evaluated the research and use only highest quality supplements Please use code: [id number] Please schedule your initial follow up appointments with any provider. Tell the judo instructor you are following up after FFL. Any labs ordered in this visit can be done at any [facility] lab. Deandra Thompson PA-C documented in this encounter [facility] 12-05-2023 History of Presen t illness Narrative I have communicated my name and active licensure. The patient's identity and physical location were verified at the time of this visit. Either the patient or their legal sales representatives has been informed of the risks and benefits of -- and alternatives to -- treatment through a remote evaluation and consents to proceed with the evaluation remotely via zoom platform. The patient and provider were both located in [place] at the time of this visit. FUNCTIONAL MEDICINE F/U ASSESSMENT Patient: Yuko Herring There is no height or weight on file to calculate BMI. virtual Resting Metabolic Rate: 1535 Waist measurement: No waist measurement recorded. BP: virtual ALLERGIES No Known Allergies Current Outpatient Medications on File Prior to Visit Medication Sig propranolol (INDERAL) 10 mg tablet take 1 tablet by mouth 2 times a day PureLean Pure Pack (Pure Encapsulations) Take 1 Packet by mouth daily with food. Ther-Biotic Detoxification Support (Klaire/Prothera) Take 1 capsule by mouth once daily. Vitamin D3 5000 U (Pure Encapsulations) Take 1 capsule by mouth daily with food. WellBetX PGX Ultra Matrix (Natural Factors) Take 1-2 softgels before each meal Magnesium Glycinate 120mg (Pure Encapsulations) Take 4 capsules daily DULoxetine (CYMBALTA) 40 mg cpDR Take 1 capsule by mouth once daily. omeprazole (PRILOSEC) 20 mg capsule Take 1 capsule by mouth daily before breakfast. 1/2 hr before meal. ondansetron orally disintegrating (ZOFRAN ODT) 4 mg disintegrating tablet Take 1 tablet by mouth every 6 hours as needed for nausea/vomiting. PEG 400-propylene glycol (SYSTANE ULTRA) 0.4-0.3 % ophthalmic solution Use 1 Drop in both eyes four times daily. magnesium oxide 400 mg magnesium tab Take 1 capsule by mouth as needed. Take 1 capsule daily by mouth as needed. rizatriptan (MAXALT) 10 mg tablet Take 1 tablet by mouth as needed. Current Facility-Administered Medications on File Prior to Visit Medication acetylcholine 10% solution - [facility]chs compounding PAST MEDICAL HISTORY Diagnosis Date Cervical radiculopathy Headaches POTS (postural orthostatic tachycardia syndrome) secondary to covid vaccine per patient PAST SURGICAL HISTORY Procedure Laterality Date PAST SURGICAL HISTORY OF 2011 Ectopic PAST SURGICAL HISTORY OF 12/2021 wisdom teeth extraction Family History Problem Relation Age of Onset Thyroid Cancer Mother Glaucoma Father Thyroid Cancer Sister Breast Cancer Sister Glaucoma Paternal Grandfather Social History Tobacco Use Smoking status: Never Smokeless tobacco: Never Vaping Use Vaping Use: Never used Substance Use Topics Alcohol use: Yes Alcohol/week: 7.0 standard drinks of alcohol Types: 7 Glasses of wine per week Drug use: Never EVALUATION Date of Service: 12/05/23 Provider: Deandra Modi PA-C SUBJECTIVE FFL Weight ManagementVisit 5 Patient-Entered Questionnaires [facility] Physical Function 02/16/2023 11/05/2023 PROMIS Physical Function T-Score 27 (severe dysfunction) 36 (moderate dysfunction) [facility] Pain Interference 02/16/2023 11/05/2023 PROMIS Pain Interference T-Score (range: 10 - 90) 81 (severe) 72 (severe) [facility] Fatigue 02/16/2023 PROMIS Fatigue T-Score 74 (severe) [facility] Satisfaction with Social Roles 02/16/2023 PROMIS - Satisfaction with Participation in Social Roles T-Score 28 (severe dysfunction) [facility] Sleep Disturbance 02/16/2023 PROMIS Sleep Disturbance T-Score 54 (within normal limits) PROMIS NEUROQOL COGNITIVE T-SCORE 11/05/2023 02/16/2023 PROMIS Neuroqol Cognitive T-Score 34 (moderate dysfunction) 34 (moderate dysfunction) What symptoms or diagnosis are you wanting to improve? POTS and weight loss How long have your symptoms been problematic? 2020 diagnosis. Low energy with this diet, POTS episodes have been triggered more as well as numbness in toes and fingers. More Raynaud's in her fingers (showed picture of white digits). She does feel like she is losing weight. What makes your symptoms worse? Unsure why, but some of her symptoms are worse Which term best describes your current diet? Renew has been rough, daily headaches, withdrawal? ? Related to menstrual cycle. How many times per week do your exercise? Not since starting diet due to lack of energy with new diet. How many hours do you sleep? 8 hours Do you have constipation? Diarrhea with too much magnesium, cut back on this and improving. Grateful for for Cheri mar 32 year old female with a history of POTS (post covid), migraine headaches and vitamin D deficiency here for help with weight loss. She has struggled a bit with the Renew plan and maybe had too much magnesium, causing diarrhea. Review of Systems: Denies chest pain, denies SOB Objective: LMP 03/07/2022 Component Latest Ref Rng & Units 11/18/2023 UltraSens C-Reactive Protein <3.1 mg/L 6.3 (H) Vitamin D 25 Hydroxy 31.0 - 80.0 ng/mL 23.4 (L) Component Latest Ref Rng & Units 11/18/2023 OmegaCheck >5.4 % by wt 3.7 (L) PHYSICAL EXAM: Video Exam (Examination performed via Video enabled technology) General: alert, oriented x 3, pleasant and cooperative Ill appearing: No Posture and motor behavior: normal posture and motor behavior Dress, grooming, personal hygiene: normal dress and grooming Facial expression: smiling Speech: normal speech Assessment DIAGNOSIS/ASSESSMENT: G90.A POTS (postural orthostatic tachycardia syndrome) (primary encounter diagnosis) - working with specialist, worse this week E66.9 Obesity (BMI 30.0-34.9) - working on this 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 E55.9 Vitamin D insufficiency - noted, supplementing FUNCTIONAL MEDICINE PLAN: Update: Ms. Herring has had a rough week with the program and is working with the spray booth operator as this may have something to do with the lower carbohydrates, salt. Supplements reviewed with the patient. Abnormal pre-program labs reordered for after completion of the class. Patient to continue with ReNew diet plan and lifestyle interventions, as well as recommended supplementation. Follow up with dietitian next week as scheduled. Follow up: Please schedule a follow up visit with the following Caregivers: Provider: 4weeks, Extracorporeal Circulation Specialist: 1 weeks, and Health Dehydrogenation Operator Head: 4 weeks LIFESTYLE PRESCRIPTION Functional Nutrition: ReNew Food Plan Sleep: Sleep hygeine - no bright lights or phones/laptops/TV an hour before bed. Wear red Wrap around glasses 2 hrs before bed to block blue/green/white light which alters your melatonin production and Tells the brain do not sleep. Can find them on Medical Direct Club $8.00 Exercise Prescription: Choose - meditative walking, gently breathing focused yoga, stretching as tolerated and continue your current exercise as tolerated. Stress Management: Behavioral Health Therapist: If I recommended counseling or individual therapy, please schedule an individual appointment with our Functional Medicine Behavioral Health Therapist. The Behavioral Health Therapist helps patients identify and understand feelings and behaviors, experience the process of making positive change, and gain healthy coping skills. Deep, mindful breathing 10 minutes per day, no phone, no computer, no TV-alone and quiet. This is a prescription! Future consider purchasing a Heart Math book-discuss with Health Dehydrogenation Operator Head. Thank you for joining us for FFL - Functioning for life. Please make it a priority to attend all 10 classes to gain the most information and do the best on your journey to health and wellness. I recommend the supplements from the [facility] Healthy Living Online Store at [email or web address] as we have thoroughly evaluated the research and use only highest quality supplements Please use code: [email or web address] Please schedule your initial follow up appointments with any provider. Tell the judo instructor you are following up after FFL. Any labs ordered in this visit can be done at any [facility] lab. Deandra Thompson PA-C documented in this encounter [facility] 11-21-2023 Instructions Deandra Thompson PA-C - 11/21/2023 9:43 AM EST E66.9 Obesity (BMI 30.0-34.9) (primary encounter diagnosis) - mostly since POTS symptoms G90.A POTS (postural orthostatic tachycardia syndrome) - continue to work on balance, compression stockings, electrolyte drinks R63.5 Weight gain Your lab review: CBC: great CMP: looks good Lipids: LDO 11/2022 LDL (not bad), should improve with this [place] check: pending Iron and TIBC: HgA1c: 5% is ideal Insulin: 9.2. Great, but with dietary changes should improve to less than 6. Gliadin: not checked GGT: good HsCRP: high, inflammation from something, ? Joint pains 6.3 <- 6.1 (02/2023) Homocysteine: good MMA: good Vitamin D: improving 23.4 <- 16.2 (03/07/23), keep supplementing Thyroid panel: all good I don't believe we need to really recheck anything except your CRP at the end of this. . FUNCTIONAL MEDICINE PLAN: 1. Reviewed all supplements for optimal nutritional repletion and the role in the body. 2. Ordered and pended fasting labs that were abnormal to be drawn 4 weeks after session # 10 in a [facility] lab. 3. Please schedule a visit with one of our providers after the FFL has been completed to review your second set of labs. Follow up: Please schedule a follow up visit with the following Caregivers: Provider: 2weeks, Extracorporeal Circulation Specialist: 1 weeks, and Health Dehydrogenation Operator Head: 2 weeks LIFESTYLE PRESCRIPTION Functional Nutrition: ReNew Food Plan Sleep: Sleep hygeine - no bright lights or phones/laptops/TV an hour before bed. Wear red Wrap around glasses 2 hrs before bed to block blue/green/white light which alters your melatonin production and Tells the brain do not sleep. Can find them on Medical Direct Club $8.00 Exercise Prescription: Choose - meditative walking, gently breathing focused yoga, stretching as tolerated and continue your current exercise as tolerated. Stress Management: Behavioral Health Therapist: If I recommended counseling or individual therapy, please schedule an individual appointment with our Functional Medicine Behavioral Health Therapist. The Behavioral Health Therapist helps patients identify and understand feelings and behaviors, experience the process of making positive change, and gain healthy coping skills. Deep, mindful breathing 10 minutes per day, no phone, no computer, no TV-alone and quiet. This is a prescription! Future consider purchasing a Heart Math book-discuss with Health Dehydrogenation Operator Head. No orders of the defined types were placed in this encounter. Thank you for joining us for FFL - Functioning for life. Please make it a priority to attend all 10 classes to gain the most information and do the best on your journey to health and wellness. I recommend the supplements from the [facility] Online Store at [email or web address] as we have thoroughly evaluated the research and use only highest quality supplements Please use code: Functional Please schedule your initial follow up appointments with any provider. Tell the judo instructor you are following up after FFL. Any labs ordered in this visit can be done at any [facility] lab. Deandra Thompson PA-C documented in this encounter [facility] 11-21-2023 History of Presen t illness Narrative I have communicated my name and active licensure. The patient's identity and physical location were verified at the time of this visit. Either the patient or their legal sales representatives has been informed of the risks and benefits of -- and alternatives to -- treatment through a remote evaluation and consents to proceed with the evaluation remotely via zoom platform. The patient and provider were both located in [place] at the time of this visit. FUNCTIONAL MEDICINE F/U ASSESSMENT Patient: Yuko Herring There is no height or weight on file to calculate BMI. virtual Resting Metabolic Rate: 1535 Waist measurement: No waist measurement recorded. BP: virtual ALLERGIES No Known Allergies Current Outpatient Medications on File Prior to Visit Medication Sig propranolol (INDERAL) 10 mg tablet take 1 tablet by mouth 2 times a day PureLean Pure Pack (Pure Encapsulations) Take 1 Packet by mouth daily with food. Ther-Biotic Detoxification Support (Klaire/Prothera) Take 1 capsule by mouth once daily. Vitamin D3 5000 U (Pure Encapsulations) Take 1 capsule by mouth daily with food. WellBetX PGX Ultra Matrix (Natural Factors) Take 1-2 softgels before each meal Magnesium Glycinate 120mg (Pure Encapsulations) Take 4 capsules daily DULoxetine (CYMBALTA) 40 mg cpDR Take 1 capsule by mouth once daily. omeprazole (PRILOSEC) 20 mg capsule Take 1 capsule by mouth daily before breakfast. 1/2 hr before meal. ondansetron orally disintegrating (ZOFRAN ODT) 4 mg disintegrating tablet Take 1 tablet by mouth every 6 hours as needed for nausea/vomiting. PEG 400-propylene glycol (SYSTANE ULTRA) 0.4-0.3 % ophthalmic solution Use 1 Drop in both eyes four times daily. magnesium oxide 400 mg magnesium tab Take 1 capsule by mouth as needed. Take 1 capsule daily by mouth as needed. rizatriptan (MAXALT) 10 mg tablet Take 1 tablet by mouth as needed. Current Facility-Administered Medications on File Prior to Visit Medication acetylcholine 10% solution - [facility] compounding PAST MEDICAL HISTORY Diagnosis Date Cervical radiculopathy Headaches POTS (postural orthostatic tachycardia syndrome) secondary to covid vaccine per patient PAST SURGICAL HISTORY Procedure Laterality Date PAST SURGICAL HISTORY OF 2011 Ectopic PAST SURGICAL HISTORY OF 12/2021 wisdom teeth extraction Family History Problem Relation Age of Onset Thyroid Cancer Mother Glaucoma Father Thyroid Cancer Sister Breast Cancer Sister Glaucoma Paternal Grandfather Social History Tobacco Use Smoking status: Never Smokeless tobacco: Never Vaping Use Vaping Use: Never used Substance Use Topics Alcohol use: Yes Alcohol/week: 7.0 standard drinks of alcohol Types: 7 Glasses of wine per week Drug use: Never EVALUATION Date of Service: 11/21/23 Provider: Deandra Thompson PA-C SUBJECTIVE FFL Weight ManagementVisit 3 Patient-Entered Questionnaires [facility] Physical Function 02/16/2023 11/05/2023 PROMIS Physical Function T-Score 27 (severe dysfunction) 36 (moderate dysfunction) [facility] Pain Interference 02/16/2023 11/05/2023 PROMIS Pain Interference T-Score (range: 10 - 90) 81 (severe) 72 (severe) [facility] Fatigue 02/16/2023 PROMIS Fatigue T-Score 74 (severe) [facility] Satisfaction with Social Roles 02/16/2023 PROMIS - Satisfaction with Participation in Social Roles T-Score 28 (severe dysfunction) [facility] Sleep Disturbance 02/16/2023 PROMIS Sleep Disturbance T-Score 54 (within normal limits) PROMIS NEUROQOL COGNITIVE T-SCORE 11/05/2023 02/16/2023 PROMIS Neuroqol Cognitive T-Score 34 (moderate dysfunction) 34 (moderate dysfunction) What symptoms or diagnosis are you wanting to improve? POTS and weight loss How long have your symptoms been problematic? A few years since POTS - 2019 dx What makes your symptoms worse? A lot of carbohydrates Which term best describes your current diet? Healthy/whole food, veggies. Got off coffee and headaches gone after a few days. How many times per week do your exercise? Depends on stress and work, typically 1-2 times a week How many hours do you sleep? 8 hours Do you have constipation? No Grateful - the sun yesterday, family and friends 32 year old female with a history of POTS (post covid), migraine headaches and vitamin D deficiency here for help with weight loss. She also has constipation, recommended mag citrate and dairy elimination, but improving with supplements. Review of Systems: Denies chest pain, denies SOB Objective: LMP 03/07/2022 Component Latest Ref Rng & Units 09/26/2023 WBC 3.70 - 11.00 k/uL 5.29 RBC 3.90 - 5.20 m/uL 4.52 Hemoglobin 11.5 - 15.5 g/dL 13.8 Hematocrit 36.0 - 46.0 % 41.5 MCV 80.0 - 100.0 fL 91.8 MCH 26.0 - 34.0 pg 30.5 MCHC 30.5 - 36.0 g/dL 33.3 RDW-CV 11.5 - 15.0 % 12.4 Platelet Count 150 - 400 k/uL 282 Component Latest Ref Rng & Units 09/26/2023 Protein, Total 6.3 - 8.0 g/dL 6.9 Albumin 3.9 - 4.9 g/dL 4.1 Calcium 8.5 - 10.2 mg/dL 9.9 Bilirubin, Total 0.2 - 1.3 mg/dL 0.3 Alkaline Phosphatase 34 - 123 U/L 82 AST 13 - 35 U/L 30 ALT 7 - 38 U/L 23 Glucose 74 - 99 mg/dL 93 BUN 7 - 21 mg/dL 14 Creatinine 0.58 - 0.96 mg/dL 0.77 Sodium 136 - 144 mmol/L 137 Potassium 3.7 - 5.1 mmol/L 4.3 Chloride 97 - 105 mmol/L 102 CO2 22 - 30 mmol/L 26 Component Latest Ref Rng & Units 11/18/2023 Iron 41 - 186 ug/dL 149 *ideal TIBC 232 - 386 ug/dL 302 Transferrin Saturation 15.0 - 57.0 % 49.3 Component Latest Ref Rng & Units 11/18/2023 UltraSens C-Reactive Protein <3.1 mg/L 6.3 (H) Component Latest Ref Rng & Units 11/18/2023 GGT 6 - 46 U/L 11 Insulin 3.0 - 25.0 mU/L 9.2 *want below 6 Homocysteine, Serum <15.1 umol/L 9.0 Methylmalonic Acid <=0.40 umol/L 0.08 Vitamin D 25 Hydroxy 31.0 - 80.0 ng/mL 23.4 (L) *need to supplement Free T3 2.3 - 4.1 pg/mL 3.6 Free T4 0.9 - 1.7 ng/dL 1.2 TSH 0.270 - 4.200 mIU/L 2.330 PHYSICAL EXAM: Video Exam (Examination performed via Video enabled technology) General: alert, oriented x 3, pleasant and cooperative Ill appearing: No Posture and motor behavior: normal posture and motor behavior Dress, grooming, personal hygiene: normal dress and grooming Facial expression: smiling Speech: normal speech Assessment DIAGNOSIS/ASSESSMENT: E66.9 Obesity (BMI 30.0-34.9) (primary encounter diagnosis) - mostly since POTS symptoms G90.A POTS (postural orthostatic tachycardia syndrome) - continue to work on balance, compression stockings, electrolyte drinks R63.5 Weight gain Your lab review: CBC: great CMP: looks good Lipids: LDO 11/2022 LDL (not bad), should improve with this [place] check: pending Iron and TIBC: HgA1c: 5% is ideal Insulin: 9.2. Great, but with dietary changes should improve to less than 6. Gliadin: not checked GGT: good HsCRP: high, inflammation from something, ? Joint pains 6.3 <- 6.1 (02/2023) Homocysteine: good MMA: good Vitamin D: improving 23.4 <- 16.2 (03/07/23), keep supplementing Thyroid panel: all good I don't believe we need to really recheck anything except your CRP at the end of this. . FUNCTIONAL MEDICINE PLAN: 1. Reviewed all supplements for optimal nutritional repletion and the role in the body. 2. Ordered and pended fasting labs that were abnormal to be drawn 4 weeks after session # 10 in a [facility] lab. 3. Please schedule a visit with one of our providers after the FFL has been completed to review your second set of labs. Follow up: Please schedule a follow up visit with the following Caregivers: Provider: 2weeks, Extracorporeal Circulation Specialist: 1 weeks, and Health Dehydrogenation Operator Head: 2 weeks LIFESTYLE PRESCRIPTION Functional Nutrition: ReNew Food Plan Sleep: Sleep hygeine - no bright lights or phones/laptops/TV an hour before bed. Wear red Wrap around glasses 2 hrs before bed to block blue/green/white light which alters your melatonin production and Tells the brain do not sleep. Can find them on [employer] $8.00 Exercise Prescription: Choose - meditative walking, gently breathing focused yoga, stretching as tolerated and continue your current exercise as tolerated. Stress Management: Behavioral Health Therapist: If I recommended counseling or individual therapy, please schedule an individual appointment with our Functional Medicine Behavioral Health Therapist. The Behavioral Health Therapist helps patients identify and understand feelings and behaviors, experience the process of making positive change, and gain healthy coping skills. Deep, mindful breathing 10 minutes per day, no phone, no computer, no TV-alone and quiet. This is a prescription! Future consider purchasing a Heart Math book-discuss with Health Dehydrogenation Operator Head. No orders of the defined types were placed in this encounter. Thank you for joining us for FFL - Functioning for life. Please make it a priority to attend all 10 classes to gain the most information and do the best on your journey to health and wellness. I recommend the supplements from the [facility] Living Online Store at [email or web address] as we have thoroughly evaluated the research and use only highest quality supplements Please use code: Functional Please schedule your initial follow up appointments with any provider. Tell the judo instructor you are following up after FFL. Any labs ordered in this visit can be done at any [facility] lab. Deandra Thompson PA-C documented in this encounter [facility] 11-14-[address] - 11/14/2023 10:22 AM EST Images from the original note were not included. [facility] NUTRITION GUIDELINES Your Prescribed Nutrition Plan: Begin prepping, planning and shopping for the RENEW food plan. Plan to begin the ReNew Plan at the beginning of Week 3. The ReNew Food Plan is an anti-inflammatory, low-glycemic, therapeutic approach to eating. The plan focuses on ridding the body and the plate of harmful components, identifying food triggers, and providing nutritional support for the body's detoxification systems. Review resources on Tilt Portal and brainstorm meals and snacks Set your environment up for success: Eat up, throw out or give away foods to remove Eat every 3-4 hours, preferably within a 12 hour window Decide on hydration strategy: 1/2 your body weight daily in non-caffeinated fluid Begin introducing foods from the food plan ('foods to eat') Quality Proteins (1 palm-full at every meal, or 1-2 scoops of approved protein powder) Quality Fats (1-2 tablespoons at every meal) Quality carbohydrates (4-5 cups of non-starchy vegetables/day; 2 low-glycemic fruits/day) ADDITIONAL INSTRUCTIONS: How to Contact Your Functional Medicine Team (Open M-F 8am-5pm) 1. MyChart is the BEST form of communication to reach the Functional Medicine Team, see test results and request refills. Please allow 72 business hours for a response. Directions for signing up are included in your New Patient Folder. (Or you can go to [email or web address]) 2. For nutrition related questions or concerns, T-Quad 22hart message your physician and include Attn: Yoana Waller RD at the top of the message. [employer] messaging is meant to support implementation of previously outlined nutrition care plans. In the interest of safe, effective and personalized care, you are asked to schedule a follow-up appointment if: It has been >6 months since your last nutrition appointment Your question requires reassessment or involves a new plan of care Your question concerns a new diagnosis, symptoms(s) and/or health concern Ordering Supplements Supplements can be ordered from the [facility] Online Store: [email or web address] New patients to the Healthy Living Shop will need to enter the provider code [id number] Functioning for Life Educational Materials and the Tilt Platform To access Tilt, please visit: [email or web address] and follow the instructions below. Step 1: Click Create a new account o Leave degree set to 'none' and Employee ID and Non-Employee ID can be left blank. o For Specialty, choose wellness o For CME Type, chose non-physician Step 2: Click the Create My New Account. A message will display, and click continue. Step 3: Check your email for further instructions Step 4: In the email, click the link provided to launch Tilt and complete registration Step 5: Click the Find Learning tab, and enter [employer] for Life Program in the search field. In the search results, click the link to access the course Step 6: Enter the Enrollment [place] FFLprogram (this is case sensitive) Step 7: To login after enrollment, visit [email or web address]. Login under 'Non-Employee Login' using the username and password from step #1. If you have difficulty accessing this course, please email [email or web address]. documented in this encounter [facility] 11-14-2023 History of Presen t illness Narrative Images from the original note were not included. [facility] for Functional Medicine Nutrition Therapy: Shared Nutrition Appointment Weight Management VIRTUALVISITPN I have communicated my name and active licensure. The patient's identity and physical location were verified at the time of this visit. Either the patient or their legal sales representatives has been informed of the risks and benefits of -- and alternatives to -- treatment through a remote evaluation and consents to proceed with the evaluation remotely. Patient is located in the [facility] at the time of the virtual visit. Patient Name: Yuko Herring Class Topic: Session 2: Introduction to Functional Nutrition and the ReNew Food Plan Chief Concern: Weight Management Is the patient having any pain that is interfering with oral intake? No Past Medical History: PAST MEDICAL HISTORY Diagnosis Date Cervical radiculopathy Headaches POTS (postural orthostatic tachycardia syndrome) secondary to covid vaccine per patient Anthropometrics: LMP 03/07/2022 Height: Last 1 Encounter Ht Readings: Date: Ht: 02/17/2023 162.6 cm (5' 4) Current weight: Last 1 Encounter Wt Readings: Date: Wt: 10/17/2023 84.8 kg (187 lb) Wt: 84.8 kg (187 lb) BMI: 32.10 kg/(m^2) Resting Metabolic Rate: 1535 Assessment and Progress Update Current Diet: 3 month stomach ulcer, currently on BRAT diet, cannot tolerate dense protein, veggies are difficult Progress towards Nutrition Goals: N/A introduction to food plan today Nutrition Focus this Week: Introduction to functional nutrition and the ReNew food plan Nutrition Diagnosis: Overweight/Obesity (NC-3.3) related to caloric intake in excess of nutritional needs as evidenced by BMI >24.9 Nutrition Intervention 11/14/2023: Nutrition education: Begin prepping, planning and shopping for the RENEW food plan. Plan to begin the ReNew Plan at the beginning of Week 3. The ReNew Food Plan is an anti-inflammatory, low-glycemic, therapeutic approach to eating. The plan focuses on ridding the body and the plate of harmful components, identifying food triggers, and providing nutritional support for the body's detoxification systems. Review resources on Tilt Portal and brainstorm meals and snacks Set your environment up for success: Eat up, throw out or give away foods to remove Eat every 3-4 hours, preferably within a 12 hour window Decide on hydration strategy: 1/2 your body weight daily in non-caffeinated fluid Begin introducing foods from the food plan ('foods to eat') Quality Proteins (1 palm-full at every meal, or 1-2 scoops of approved protein powder) Quality Fats (1-2 tablespoons at every meal) Quality carbohydrates (4-5 cups of non-starchy vegetables/day; 2 low-glycemic fruits/day) Nutrition Monitoring & Evaluation: Adherence to renew food plan and reintroduction of foods as instructed Criteria: Patient recall, food diary Time Spent: 60 minutes Referred/Supervised by: Deandra Thompson PA-C Consult Billing Type: Group/60 minutes Number of Increments: 2 (60 minutes) Signed by: Yoana Waller RD documented in this encounter [facility] 11-03-2023 Miscellaneous Notes Message left for pt to call back for results. Ree Ponce MA Please let patient know their ultrasound shows a simple cyst to the right ovary. Recommend follow up with clinical audiologist if needed. documented in this encounter [facility] 09-29-2023 Miscellaneous Notes TC to patient who verbalized understanding of providers message. No questions at this time. MICHELE Larsen ----- Message from Francesca Valdez APRN.CNP sent at 09/29/2023 3:18 PM EST ----- Abdominal xray normal. Francesca Valdez APRN.CNP documented in this encounter [facility] 08-18-2023 Miscellaneous Notes Patient has been identified by name and date of -RX came throught MyChart: Yes, Provider Fabián Martin CNP Date 08/18/23 Time 1410 Patient phones for refill(s): Requested Prescriptions Pending Prescriptions Disp Refills propranolol (INDERAL) 10 mg tablet 180 tablet 0 Sig: Take 1 tablet by mouth two times a day. Date of last office visit in primary care: 04/18/2023 Date of next office visit in primary care: 10/21/2023 Last 2 Encounter Wt Readings: Date: Wt: 04/18/2023 87.1 kg (192 lb) 02/17/2023 83.9 kg (185 lb) Previous labs/tests for medication: Blood Pressure: BUN (mg/dL) Date Value 12/06/2022 18 Sodium (mmol/L) Date Value 12/06/2022 139 Last 1 Encounter BP Readings: Date: BP: 04/18/2023 118/70 Thank you. Maira Negron RN. documented in this encounter [facility] 06-24-2023 Instructions Deandra Thompson PA-C - 06/24/2023 2:58 PM EDT Yuko, I would like to thank you for spending time with me today and taking time to invest in your health. Below I have outlined some recommendations, I highly encourage you to work on. My recommendations only go so far, you have to do the work. Please reach our for support and questions via [employer]. Current wellness challenges: restorative sleep, multiple years of stressor (physiologic and emotional, single mom), childhood antibiotics, possible mold, possible mercury, ? Food sensitivity. This will all be covered in FFL Weight loss shared medical appointment. Treatment plan/recommendations: (E66.9) Obesity, Class I, BMI 30.0-34.9 (see actual BMI) (primary encounter diagnosis) Comment: Plan: - increase water intake to 64 oz/day (keep in mild diluting sodium with this), so monitor for increase in symptoms - Enroll in Functioning for Life SMA - Weight loss. This will enable her to have many labs looking for toxins, vitamin/nutrient deficiencies as well as supplement regimen. (E55.9) Vitamin D deficiency Comment: 03/2023 - vit D OH 25 16L Plan: - needs rechecked. She has requisition. - was supplementing - continue magnesium. Increase to 600mg at night if needed (K59.09) Other constipation Comment: Plan: - continue magnesium citrate. Taking 400mg. May take 500 - 600 mg or more if needed. Goal is to move bowels daily. - consider dairy elimination - increase water intake documented in this encounter [facility] 06-24-2023 History of Presen t illness Narrative Wellness Consultation Ms.Laila Herring is a 32 year old female is here for a wellness and preventive medicine initial consultation. Consultation requested by Fabián Martin CNP for an opinion regarding weight loss. This was originally a functional medicine consult. I was clear about my role with [facility]IL[facility] and we will triage appropriately. My final recommendations will be communicated back to the requesting physician by way of shared Medical record. I have communicated my name and active licensure. The patient's identity and physical location were verified at the time of this visit. Either the patient or their legal sales representatives has been informed of the risks and benefits of -- and alternatives to -- treatment through a remote evaluation and consents to proceed with the evaluation remotely. The patient and provider were both located in [place] at the time of this visit. Chief complaint: unexplained weight gain HPI: Patient is here today to discuss ways to help her lose weight. She reports putting on close to 35 lb in the past 3 years since her dx of POTS. Prior to this, she went to the gym 3-5 days a week, 10 k steps, cardio prior to dx POTS. Then issues with balance. Had to eat every 2 hours after that with increased salt intake. She thinks this and less activity likely contributed to the weight gain. Since she has returned to the gym she has stabilized her weight, but is having trouble getting it off. 3 years ago she had Covid vx, pass out within 10 minutes. 1 week of hospital. Dx with POTS. She has been going to the gym regularly since POTS better controlled with medications 157 -> 192 in 18 mo time for no reason She no longer craves salty foods Migraines - nerve damage in neck - PT for this and magnesium, ibuprofen Vitamin D low in the past - 6000 international unit(s) /day x 8 weeks Timeline of triggering events: 1989 - vaginal/breast/bottle both [place] - lump under arm pit - surgical resection, 6 mo antibiotics Elementary - leg pain Middle school - no High school - asthma, old school, moved homes Arranged marriage right after high school (not by her choice) College and kids Kids 2008, 2010; childbirth (ICU x 10 days lung fluid), son - anemia, irregular heartbeat and unconscious after , ectopic 2012 Divorce 2011 - 2018 College degree - [place] [employer]/literature Occupation - [employer] similar to degree 29 yo - covid vac x 1 -> POTS Psychosocial: Nutrition: B: skip d/t lack of appetite, coffee + milk, no sugar L: protein/salad D: steak, salad, artichoke Snacks: no LES: Eating window: 7 am - 7 pm Water: 1 32 oz/water Alcohol: wine Caffeine: coffee, lemon grass or black BM: every 2 days or daily, Food intolerances: no Toxins: mercury - sushi, no fillings, mold - no, water - bottled, parasites MMJ - for sleep NSAIDS - yes for LIZ Sleep: - Hours - 8 hours, regular - Awakening wake up multiple times at night, some trouble falling asleep - Quality Movement/exercise - 3 times a week gym, lifting; cardio, trying to push limits. 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 DULoxetine (CYMBALTA) 40 mg cpDR Take 1 capsule by mouth once daily. propranolol (INDERAL) 10 mg tablet TAKE 1 TABLET BY MOUTH TWICE A DAY magnesium oxide 400 mg magnesium tab Take 1 capsule by mouth as needed. Take 1 capsule daily by mouth as needed. (Patient not taking: Reported on 02/17/2023) rizatriptan (MAXALT) 10 mg tablet Take 1 tablet by mouth as needed. ibuprofen (MOTRIN) 800 mg tablet Take 800 mg by mouth every 8 hours as needed. Current Facility-Administered Medications on File Prior to Visit Medication acetylcholine 10% solution - [facility] Social History Tobacco Use Smoking status: Never Smokeless tobacco: Never Vaping Use Vaping Use: Never used Substance Use Topics Alcohol use: Yes Alcohol/week: 7.0 standard drinks of alcohol Types: 7 Glasses of wine per week Drug use: Never FAMILY HISTORY Problem Relation Age of Onset Thyroid Cancer Mother Glaucoma Father Thyroid Cancer Sister Breast Cancer Sister Glaucoma Paternal Grandfather REVIEW OF SYSTEMS: PAIN ASSESSMENT: CURRENTLY HAVING PAIN; LOCATION/DISTRIBUTION: neck pain GENERAL: weight gain HEENT: Negative for frequent or significant headaches, Eyes Positive for blurred vision GI: No nausea, vomiting, or diarrhea and Constipation : No history of dysuria, frequency or incontinence MUSCULOSKELETAL: Negative for joint pain or swelling, back pain or muscle pain SKIN: Negative for lesions, rash, and itching PSYCH: Negative for sleep disturbance, mood disorder and recent psychosocial stressors, Positive for sleep disturbance: HEMATOLOGY/LYMPHOLOGY: Not reviewed ENDOCRINE: Not reviewed NEURO: Migraine headaches Physical Exam Video Exam (Examination performed via Video enabled technology) General: alert, oriented x 3, pleasant and cooperative Mood: cheerful Ill appearing: No Posture and motor behavior: normal posture and motor behavior Dress, grooming, personal hygiene: normal dress and grooming Facial expression: smiling Speech: normal speech PREVIOUS STUDIES: Pertinent labs/imaging: Component Latest Ref Rng & Units 12/06/2022 03/07/2023 Hemoglobin A1C 4.3 - 5.6 % 5.0 Estimated Average Glucose mg/dL 97 TSH 0.270 - 4.200 mIU/L 1.750 Free T4 0.9 - 1.7 ng/dL 1.2 WSR 0 - 20 mm/hr 9 UltraSens C-Reactive Protein <3.1 mg/L 6.1 (H) Vitamin B12 232 - 1,245 pg/mL 548 MMA 79 - 376 nmol/L 117 Vitamin D 25 Hydroxy 31.0 - 80.0 ng/mL 16.2 (L) Vitamin B6, Plasma 20.0 - 125.0 nmol/L 34.1 Folate >4.7 ng/mL 11.7 IMPRESSION: Ms. Yuko Herirng is a 32 year old year old female referred by Fabián Martin CNP for a wellness and preventive medicine consultation. A wellness and preventive medicine approach was discussed with the patient including risks, benefits, and alternatives. She agrees to proceed. It was emphasized that she should continue with all of her current treating caregivers's recommendations. Current wellness challenges: restorative sleep, multiple years of stressor (physiologic and emotional, single mom), childhood antibiotics, possible mold, possible mercury, ? Food sensitivity Treatment plan/recommendations: (E66.9) Obesity, Class I, BMI 30.0-34.9 (see actual BMI) (primary encounter diagnosis) Comment: Plan: - increase water intake to 64 oz/day (keep in mild diluting sodium with this), so monitor for increase in symptoms - Enroll in [facility] SMA - Weight loss. This will enable her to have many labs looking for toxins, vitamin/nutrient deficiencies as well as supplement regimen. (E55.9) Vitamin D deficiency Comment: 03/2023 - vit D [place] 25 16L Plan: - needs rechecked. She has requisition. - was supplementing - continue magnesium. Increase to 600mg at night if needed (K59.09) Other constipation Comment: Plan: - continue magnesium citrate. Taking 400mg. May take 500 - 600 mg or more if needed. Goal is to move bowels daily. - consider dairy elimination - increase water intake It has been a pleasure to see Ms. Yuko Herring for a wellness and preventive medicine consultation. I have asked Yuko Herring to return to see me 6 mo or 1 mo after the FFL. She may be better served with CFM if appointments are being scheduled. Thank you for the referral or interest in caring for your whole body and mind. I spent a total of 60 minutes on the date of the service which included preparing to see the patient, [id number]-pecw patient care, completing clinical documentation, obtaining and/or reviewing separately obtained history, performing a medically appropriate examination, counseling and educating the patient/family/caregiver, communicating with other HCPs (not separately reported), independently interpreting results (not separately reported), and communicating results to the patient/family/caregiver. documented in this encounter [facility] 06-19-2023 History of Presen t illness Narrative Assessment and Plan 1. Monocular diplopia of both eyes -main complaint is constant shadow in vision -started ~ 2 years ago, after wisdom teeth removal - trigger? -glasses help partially -pentacam with regular astigmatism both eyes -in setting of POTS 2. Glaucoma suspect of both eyes -followed by Dr. Kimbrough 3. Headaches -followed by Dr. Brain Price from neurology Plan: -shadow most likely related to headaches / neurologic in nature, less likely to ocular surface -will try artificial tears four times a day both eyes and let me know if helps -follow-up 6 months with goss visual field (HVF) 24-2 both eyes / sooner as needed I have confirmed and edited as necessary the relevant ophthalmic history, ROS, and the neuro exam findings as obtained by others. I have seen and examined Yuko Herring. I have discussed the case and the management of this patient's care with the Resident/Fellow, if applicable. I also have reviewed and agree with the assessment and plan as stated above and agree with all of its relevant components. John Voss MD June 19, 2023 11:15 AM documented in this encounter [facility] 04-19-2023 Miscellaneous Notes Addended by: SATHYA ESPINAL on: 04/19/2023 12:27 PM Modules accepted: Orders NURSE HEDIS REGISTERED NURSE RN Received NOC request for refill of Duloxetine 20mg daily. Reviewed last note by Dr. Devendra Soni MD 02/03/2023. See below for excerpt. Complex issues of peripheral vestibular disturbance, abnormal upper cervical spine biomechanics, migraine, a tendency toward orthostatic intolerance and possible occipital nerve irritation bilaterally (L>R) Plan: - indomethacin 50mg, 2x/day with food for 5 days in an attempt to break current symptom cycle Risks and benefits discussed with patient - continue propranolol - continue duloxetine 20mg/day. May consider increasing to 40mg/day Patient has been taking 40mg/day with improvement in symptoms and requesting refill at the higher dose. A message will be sent to Dr. Devendra Soni to notify him that the patient has been prescribed a 90 day supply for the increased dose. ADDENDUM: Called patient to notify of prescription sent. Patient requested medication be sent to new pharmacy not on file - [facility]. Prescription re-sent to new pharmacy Sathya Espinal M.D. ([id number]) PGY 2 [facility] 04/19/2023 11:27 AM General Neurology Service Pager ([phone]) documented in this encounter [facility] 04-18-2023 Instructions Fabián Martin APRN.CNP - 04/18/2023 9:16 AM EDT Continue current medications documented in this encounter [facility] 04-18-2023 History of Presen t illness Narrative Chief Complaint Patient presents with: F/U 3 Month HPI Yuko Herring is a 32 year old female who presents here today for Above Complaints.. Patient presents for routine follow up. Patient has POTS and was initiated on propranolol. Patient reports she has improvement in symptoms. Patient no longer having syncopal episodes. Patient able to tolerate exercise. Past medical history, appointments, medications, allergies reviewed. Previous Medical History PAST MEDICAL HISTORY Diagnosis Date Cervical radiculopathy Headaches POTS (postural orthostatic tachycardia syndrome) secondary to covid vaccine per patient Previous Surgical History PAST SURGICAL HISTORY Procedure Laterality Date PAST SURGICAL HISTORY OF 2011 Ectopic PAST SURGICAL HISTORY OF 12/2021 wisdom teeth extraction Family History FAMILY HISTORY Problem Relation Age of Onset Thyroid Cancer Mother Glaucoma Father Thyroid Cancer Sister Breast Cancer Sister Glaucoma Paternal Grandfather Patient Allergies ALLERGIES No Known Allergies Current Medications Current Outpatient Medications on File Prior to Visit Medication Sig rizatriptan (MAXALT) 10 mg tablet Take 1 tablet by mouth as needed. propranolol (INDERAL) 10 mg tablet TAKE 1 TABLET BY MOUTH TWICE A DAY indomethacin (INDOCIN) 50 mg capsule Take 1 capsule by mouth twice daily with meals. (Patient not taking: No sig reported) magnesium oxide 400 mg magnesium tab Take 1 capsule by mouth as needed. Take 1 capsule daily by mouth as needed. (Patient not taking: No sig reported) DULoxetine (CYMBALTA) 20 mg capsule Take 1 capsule by mouth once daily. ibuprofen (MOTRIN) 800 mg tablet Take 800 mg by mouth every 8 hours as needed. Current Facility-Administered Medications on File Prior to Visit Medication acetylcholine 10% solution - [facility] Social History Social History Tobacco Use Smoking status: Never Smokeless tobacco: Never Vaping Use Vaping Use: Never used Substance Use Topics Alcohol use: Yes Alcohol/week: 7.0 standard drinks Types: 7 Glasses of wine per week Drug use: Never Review of Symptoms REVIEW OF SYSTEMS SEE HPI EXAM: BP 118/70 Pulse 80 Resp 14 Wt 87.1 kg (192 lb) LMP 03/07/2022 BMI 32.96 kg/m General Appearance: Well appearing, alert, in no acute distress, well-hydrated, well nourished.. Lungs: Lungs clear to auscultation. No wheezing, rhonchi, rales.. Heart: RRR without murmur, gallop, or rubs. No ectopy. Peripheral Pulses: Normal. Health Maintenance List HEPATITIS B(1 of 3 - 3-dose series) Never done HEPATITIS C SCREENING Never done HIV SCREENING Never done DTAP,TDAP,TD(1 - Tdap) Never done COVID-19 VACCINE(2 - Booster for Moderna series) due on 03/26/2021 DEPRESSION ASSESSMENT Never done INFLUENZA(Season Ended) due on 06/20/2023 PAP TESTING due on 01/18/2027 HPV TESTING due on 01/18/2027 ASSESSMENT/PLAN: 1. POTS (postural orthostatic tachycardia syndrome) - ICD9: 427.89, ICD10: G90.A (primary diagnosis) -Continue propranolol 2. Vitamin D deficiency - ICD9: 268.9, ICD10: E55.9 - VITAMIN D 25 HYDROXY 3. Weight gain - ICD9: 783.1, ICD10: R63.5 - CONSULT TO FUNCTIONAL MEDICINE 4. Headaches - ICD9: 784.0, ICD10: R51.9 -continue as needed rizatriptan Fabián Martin APRN.CNP documented in this encounter [facility] 04-08-2023 Miscellaneous Notes Last office visit: had appt yesterday that was cancelled, last visit 12/30/22 F/u scheduled: 04/18/23 Ree Ponce Ma documented in this encounter [facility] 02-17-2023 Note HNO ID: [id number] Author: Brain Price MD, PhD Service: ? Author Type: Physician Type: Progress Notes Filed: 02/17/2023 11:11 AM Note Text: [facility] [place] History of Present Illness: Ms. Herring is a 32 year old female presenting for f/u with pots Patient's POTS symptom is improved overall. She is on beta-vivi. Headache is better. But still has neck pain. Patient was seen by Dr. Soni. Patient has double vision and blurred vision, side by side, binocular, constant. This happened last year after her tooth extracted. Patient had left foot stress fracture recently in boot. Patient has eye lid drooping only when having LIZ, and severe POTS symptoms for several minutes only. Patient denied problem with her speech, chewing, swallowing, urination or bowel movement. She still has numbness and tingling of her hands upon waking at times. This has been the same since last visit. Her EMG showed no evidence of neuropathy, CTS or ulnar neuropathy. Patient has abnormal autonomic function tests The QSART response at the left foot is reduced but the responses at the left forearm, proximal leg, and distal leg are normal. 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 Heart rate response to deep breathing is normal via the mean heart rate range (MHRR) and the E:I ratio. Heart rate response to the Valsalva maneuver, as assessed by the Valsalva ratio, is normal. Blood pressure responses to phase II and phase IV of the Valsalva maneuver are normal. During 5 minutes of 60 degree head-up tilt, heart rate and blood pressure responses are normal. The maximum heart rate increase is 29 bpm (normal less than 30 bpm) at the 5th minute of tilt. The tilt was terminated early as the patient requested the test be terminated due to fear of fainting. The patient complained of dizziness, lightheadedness, nausea during the tilt. This is a normal cardiovascular autonomic test panel. There is no evidence of a significant cardiovagal or cardiovascular adrenergic abnormality. The tilt portion of the test was terminated early which limits the assessment of a cardiovascular adrenergic abnormality. Specifically, there is no evidence of orthostatic tachycardia or hypotension. Concerning for small fiber neuropathy. Skin biopsy was recommended before. She declined, and wants defer for now as well, due to potential side effect, with scar. Patient has been gaining weight since last year. She has been doing leg exercise at home. Past Medical History PAST MEDICAL HISTORY Diagnosis Date Cervical radiculopathy Headaches POTS (postural orthostatic tachycardia syndrome) secondary to covid vaccine per patient Past Surgical History: PAST SURGICAL HISTORY Procedure Laterality Date PAST SURGICAL HISTORY OF 2011 Ectopic PAST SURGICAL HISTORY OF 12/2021 wisdom teeth extraction Medications: Current Outpatient Medications Medication Sig propranolol (INDERAL) 10 mg tablet Take 1 tablet by mouth twice daily. DULoxetine (CYMBALTA) 20 mg capsule Take 1 capsule by mouth once daily. rizatriptan (MAXALT) 10 mg tablet Take 1 tablet by mouth as needed. ibuprofen (MOTRIN) 800 mg tablet Take 800 mg by mouth every 8 hours as needed. indomethacin (INDOCIN) 50 mg capsule Take 1 capsule by mouth twice daily with meals. (Patient not taking: Reported on 02/17/2023) magnesium oxide 400 mg magnesium tab Take 1 capsule by mouth as needed. Take 1 capsule daily by mouth as needed. (Patient not taking: Reported on 02/17/2023) Current Facility-Administered Medications Medication Dose Route Frequency acetylcholine 10% solution - [facility] 20 mL IRRIGATION ONE TIME Allergies: ALLERGIES No Known Allergies Social History Tobacco Use Smoking status: Never Smokeless tobacco: Never Vaping Use Vaping Use: Never used Substance Use Topics Alcohol use: Yes Alcohol/week: 7.0 standard drinks Types: 7 Glasses of wine per week Drug use: Never Family History: No history of neuromuscular disease. FAMILY HISTORY Problem Relation Age of Onset Thyroid Cancer Mother Glaucoma Father Thyroid Cancer Sister Breast Cancer Sister Glaucoma Paternal Grandfather ROS: 10 review of system is negative except in HPI Vital Signs: BP 120/71 (BP Site: Left Arm, BP Position: Sitting, BP Cuff Size: Regular Adult) Pulse 88 Temp 37.3 ?C (99.2 ?F) Ht 162.6 cm (5' 4) Wt 83.9 kg (185 lb) LMP 03/07/2022 SpO2 98% BMI 31.76 kg/m? Awake, alert, oriented x3, cooperative, no dysarthria, no aphasia Mental status exam: normal CN. VFITC, Ray, EOMI, facial symmetrical bilaterally, Sensation intact, tongue midline, palate evelation symmetrically, shoulder shrug 5/5, hearing grossly intact bilaterally. Motor: 5/5 UEs/LEs gage, Sensation: normal, left foot ex (more content not included)... [facility] 12-30-2022 Instructions Fabián Martin APRN.CNP - 12/30/2022 12:16 PM EDT 1.continue current medications 2. Follow up in 3 months documented in this encounter [facility] 12-30-2022 History of Presen t illness Narrative Chief Complaint Patient presents with: Follow Up HPI Yuko Herring is a 32 year old female who presents here today for Above Complaints.. Patient presents for med check. Patient was diagnosed with POTS and this has caused ongoing issues. Patient was started on propanolol 4 weeks ago. Patient states that overall she feels better and has been able to tolerate exercise better since starting the propanolol. Patient did have a recent POTS flare from which she has improved. Past medical history, appointments, medications, allergies reviewed. Previous Medical History PAST MEDICAL HISTORY Diagnosis Date Cervical radiculopathy Headaches POTS (postural orthostatic tachycardia syndrome) secondary to covid vaccine per patient Previous Surgical History PAST SURGICAL HISTORY Procedure Laterality Date PAST SURGICAL HISTORY OF 2011 Ectopic PAST SURGICAL HISTORY OF 12/2021 wisdom teeth extraction Family History FAMILY HISTORY Problem Relation Age of Onset Thyroid Cancer Mother Glaucoma Father Thyroid Cancer Sister Breast Cancer Sister Glaucoma Paternal Grandfather Patient Allergies ALLERGIES No Known Allergies Current Medications Current Outpatient Medications on File Prior to Visit Medication Sig sodium chloride 1 gram tab Take 1 tablet by mouth twice daily. magnesium oxide 400 mg magnesium tab Take 1 capsule by mouth as needed. Take 1 capsule daily by mouth as needed. DULoxetine (CYMBALTA) 20 mg capsule Take 1 capsule by mouth once daily. rizatriptan (MAXALT) 10 mg tablet Take 1 tablet by mouth as needed. propranolol (INDERAL) 10 mg tablet Take 1 tablet by mouth twice daily. ibuprofen (MOTRIN) 800 mg tablet Take 800 mg by mouth every 8 hours as needed. No current facility-administered medications on file prior to visit. Social History Social History Tobacco Use Smoking status: Never Smokeless tobacco: Never Vaping Use Vaping Use: Never used Substance Use Topics Alcohol use: Yes Alcohol/week: 7.0 standard drinks Types: 7 Glasses of wine per week Drug use: Never Review of Symptoms REVIEW OF SYSTEMS SEE HPI EXAM: BP 110/74 Pulse 62 Resp 16 Wt 84.4 kg (186 lb) LMP 03/07/2022 BMI 31.93 kg/m General Appearance: Well appearing, alert, in no acute distress, well-hydrated, well nourished.. Peripheral Pulses: Normal. Health Maintenance List HEPATITIS B(1 of 3 - 3-dose series) Never done HEPATITIS C SCREENING Never done HIV SCREENING Never done DTAP,TDAP,TD(1 - Tdap) Never done COVID-19 VACCINE(2 - Moderna series) due on 02/26/2021 DEPRESSION ASSESSMENT Never done INFLUENZA(1) due on 04/18/2023 PAP TESTING due on 01/18/2027 HPV TESTING due on 01/18/2027 ASSESSMENT/PLAN: 1. POTS (postural orthostatic tachycardia syndrome) - ICD9: 427.89, ICD10: G90.A (primary diagnosis) -Continue with Neuro as scheduled 2. SVT (supraventricular tachycardia) (HCC) - ICD9: 427.89, ICD10: I47.1 - PROPRANOLOL 10 MG TABLET Fabián Martin APRN.FAHAD documented in this encounter [facility] 12-15-2022 Discharge summary Note Date/Time December 15, 2022 10:22am [facility] Medical Records Department [address] [place] [address] Emergency Department Summary 12/15/22 MR#: [id number] Acct: [id number] Name: YUKO HERRING Rep #:[id number] : 1990 32 From: Bonifacio Wan MD PCP: FABIÁN MARTIN [employer]CH[employer]IC Status:REG ER Location: ED HPI History of Present Illness Chief Complaint: Chest Pain Informant: patient and spouse/S.O. Narrative Narrative: Patient presenting with nonpleuritic left sharp chest pain radiating up into herthroat and jaw. She had an episode of this 3 days ago that lasted around 4 hours in the evening before going away spontaneously, and another episode today. After the initial episode, she was seen in the office by her PCP, they did an EKG that the patient states was unremarkable, her blood pressure was on the low side and they gave her some IV fluids but it was still low so they recommended that she come to the ED. She did not go until today when the chest discomfort recurred. She has not had any near-syncope or syncope this morning, she does have a history of POTS and has been trying to stay hydrated recently. She denies history of DVT or PE, no recent travel, hospitalization, surgery, or other reason for immobilization. She has had a minor cough but nonproductive nofevers or chills recently. She has also been having reflux symptoms for severalweeks, her PCP saw her maybe 2 weeks ago prescribed her Prilosec but she admits she is not taking it every day. She did take it a couple days ago when she had the symptoms. Unknown if it helped or not. She has not tried any other medications. [facility] Medical History (Updated 12/15/22 @ 13:[address] Bonifacio Wan MD) POTS (postural orthostatic tachycardia syndrome) Home Medications Inderal 10 mg PO/SL 1XD 12/15/22 [History Last Taken Unknown] Allergy/AdvReac Type Severity Reaction Status Date / Time No Known Allergies Allergy Verified 12/15/22 09:47 Social History Smoking Status: Never smoker [facility] ED Constitutional Constitutional ED: Denies chills or fever(s) Eyes Eyes: Denies change in vision or diplopia ENT ENT ED: Denies rhinorrhea or sore throat Cardiovascular Cardiovascular: Reports chest pain; Denies palpitations Respiratory/Chest Respiratory/Chest: Reports cough and dyspnea Gastrointestinal Gastrointestinal: Denies abdominal pain, diarrhea, nausea or vomiting Genitourinary Genitourinary ED: Denies dysuria or hematuria Musculoskeletal Musculoskeletal: Denies back pain or neck pain Integumentary Denies abscess or rash Neurologic Neurologic: Denies headache(s), paresthesias or weakness Psychiatric Psychiatric: Denies anxiety or suicidal thoughts EXAM Physical Exam Const Vital Signs: 12/15/22 09:44 12/15/22 10:25 12/15/22 11:46 Temperature 97.3 F L Temperature Source Temporal Pulse Rate 65 62 Respiratory Rate 20 H 16 Respiratory Effort Normal Non-Labored Respiratory Pattern Normal Blood Pressure 114/72 113/77 Blood Pressure Mean 86 89 Pulse Ox 100 99 Oxygen Delivery Method Room Air Room Air 12/15/22 13:14 Temperature Temperature Source Pulse Rate 66 Respiratory Rate 16 Respiratory Effort Respiratory Pattern Blood Pressure 135/61 H Blood Pressure Mean 85 Pulse Ox 100 Oxygen Delivery Method Room Air Positive well nourished and well developed General Appearance ED: well developed and NAD HEENT Reports moist mucous membranes normocephalic and atraumatic Eyes PERRL and EOMs intact bilaterally Neck full ROM and supple Chest Wall inspection of chest normal and palpation of chest normal Resp normal respiratory effort and clear to auscultation bilaterally Cardio regular rate, regular rhythm and no murmurs Rate: Negative for tachycardic GI non-tender and non-distended Auscultation: normoactive bowel sounds Palpation: soft Back/Spine no CVA tenderness General Back: other FROM Extremity normal to inspection, no calf tenderness and no pedal edema General Extremety ED: Negative for edema, pulses abnormal or tenderness General Extremity: Negative for edema or pulses abnormal Neuro oriented x3, CN's II-XII intact bilaterally and no sensory deficits noted Sensorium / Orientation: awake and alert Motor Exam: strength 5/5 throughout Skin no rashes or lesions noted and no wounds Heart Score History: Slightly/Non-Suspicious ECG: Normal Age: </= 45 years Risk Factors: No Risk Factors Troponin: </= Normal Limit Score: 0 MDM MDM MDM Narrative Medical decision making narrative: Cardiac work-up obtained for a low risk, low probability chest pain that does not sound likely to be cardiac. The initial work-up unremarkable including EKG initial troponin, but I did a D-dimer only because her heart rate was 20, and itreturned abnormal. This led to CT angiography, and this was obtained prior to obtaining a chest x-ray so the chest x-ray was canceled. I reviewed the images of the CT scan and a appear normal, my interpretation of the CT agrees with thatof the radiologist, who agrees it is negative for any acute. Patient was reassured. While obtaining this work-up, gave the patient Mylanta, she said it relieved her discomfort. We did a 2-hour delta troponin, her initial 1 was 3, the second 1 was 4, this is adequate to discharge the patient safely with close outpatient follow-up, not likely to be cardiac in etiology. The is wondering why the patient is having POTS symptoms every time she has these episodes, I think that is a good question I am not sure why but I think it is safe to discharge her at this time she is doing well. She does have a prescription for PPI, she was taking it sporadically, I advised that she take itconsistently daily, until she follows up with her doctor and she is comfortable with that plan. Lab Data Attestation: I reviewed the patient's lab results. Labs: Laboratory Results - last 24 hr 12/15/22 12/15/22 12/15/22 10:15 10:15 10:15 WBC 6.5 RBC 4.45 Hgb 14.0 Hct 42.4 MCV 95.3 MCH 31.5 MCHC 33.0 RDW Std Deviation 42.7 RDW Coeff of Sara 12.2 Plt Count 290 MPV 10.6 Immature Gran % (Auto) 0.200 Neut % (Auto) 56.0 Lymph % (Auto) 33.9 Vilas % (Auto) 6.8 Eos % (Auto) 2.3 Baso % (Auto) 0.8 Absolute Neuts (auto) 3.6 Absolute Lymphs (auto) 2.19 Nucleated RBC % 0 D-Dimer Quant (PE/DVT) 2.04 H* Sodium 135 L Potassium 3.8 Chloride 102 Carbon Dioxide 29.0 Anion Gap 4 L BUN 18 Creatinine 0.87 Estim Creat Clear Calc 76.08 Est GFR (MDRD) Af Amer 96 Est GFR (MDRD) Non-Af 79 BUN/Creatinine Ratio 20.6 H Glucose 95 Calcium 9.4 Troponin I High Sens 3 12/15/22 12:31 WBC RBC Hgb Hct MCV MCH MCHC RDW Std Deviation RDW Coeff of Sara Plt Count MPV Immature Gran % (Auto) Neut % (Auto) Lymph % (Auto) Vilas % (Auto) Eos % (Auto) Baso % (Auto) Absolute Neuts (auto) Absolute Lymphs (auto) Nucleated RBC % D-Dimer Quant (PE/DVT) Sodium Potassium Chloride Carbon Dioxide Anion Gap BUN Creatinine Estim Creat Clear Calc Est GFR (MDRD) Af Amer Est GFR (MDRD) Non-Af BUN/Creatinine Ratio Glucose Calcium Troponin I High Sens 4 Radiography Diagnostic Testing: Clinical Impression(s) from Imaging Studies Chest CTA 12/15/22 10:44 IMPRESSION: Negative CTA chest. Electronically Signed: Landon Johnson MD at 11:11 EST Reading Location ID and State: [facility] / [place] , Service support , Rhythm Strip Rhythm Strip: Sinus Rhythm Rate: 65 Ectopy: None EKG Initial EKG: Attestation: I personally reviewed and interpreted this EKG as follows: Interpretation: Sinus Rhythm and No Acute Injury Pattern Comments: Normal EKG Prior EKG tracings: available for review Prior: Unchanged Discharge Plan Triage Chief Complaint: Chest Pain Other Complaint: Dizziness Fatigue ED Provider: Bonifacio Wan Dx/Rx/DC Orders Clinical Impression: Non-cardiac chest pain Instructions: ED Chest Pain, Noncardiac Prescriptions: No Action Inderal 10 mg PO/SL 1XD Primary Care Provider: FABIÁN MARTIN NP Referrals: FABIÁN MARTIN NP [Other] (Next week, call for appointment if you do not already have 1) Activity Restrictions/Additional Instructions: Take your Prilosec daily instead of as needed, for the next 3 or 4 weeks. Disposition Disposition: Home, Self Care What to do if you have Problems For any increased pain, shortness of breath, bleeding, nausea or vomiting, chest pain, or any unexpected problems, contact your Primary Care Provider. Call [facility] ([phone]) or report to the closest Emergency Room. Call 911 if necessary. 12/15/22 1321 <Electronically signed by Bonifacio Wan MD> Cosigner Signature (if applicable): CC: FABIÁN MARTIN ~ Signed [facility] Work Phone: [phone] 957-319902-24-2023 Instructions* Patient Instructions* Fabián Martin APRN.CNP - 12/13/2022 8:51 AM EST Start Salt tablets Complete IV solution at [facility] at 11am. Follow up as scheduled. documented in this encounterCher[facility]02-24-[facility]23 History of Present illness Narrative* Fabián Martin APRN.CNP - 12/13/2022 8:30 AM EST Chief Complaint Patient presents with: Blood Pressure HPI Yuko Herring is a 32 year old female who presents here today for Above Complaints.. Patient presents for POTS flare. Patient reports that yesterday she was driving home and got a sharp pain and rapid fatigue with numbness to her face. Patient reports that once she got home she took her propanolol, lexapro and omeprazole. Patient reports that she also developed a rash to her body both days. Patient reports that she had sushi both days. Patient reports that she had an episode thismorning as well although it was not as bad as last night. Past medical history, appointments, medications, allergies reviewed. Previous Medical History PAST MEDICAL HISTORY Diagnosis Date Cervical radiculopathy Headaches POTS (postural orthostatic tachycardia syndrome) secondary to covid vaccine per patient Previous Surgical History PAST SURGICAL HISTORY Procedure Laterality Date PAST SURGICAL HISTORY OF 2011 Ectopic PAST SURGICAL HISTORY OF 12/2021 wisdom teeth extraction Family History FAMILY HISTORY Problem Relation Age of Onset Thyroid Cancer Mother Glaucoma Father Thyroid Cancer Sister Breast Cancer Sister Glaucoma Paternal Grandfather Patient Allergies ALLERGIES No Known Allergies Current Medications Current Outpatient Medications on File Prior to Visit Medication Sig magnesium oxide 400 mg magnesium tab Take 1 capsule by mouth as needed. Take 1 capsule daily by mouth as needed. DULoxetine (CYMBALTA) 20 mg capsule Take 1 capsule by mouth once daily. rizatriptan (MAXALT) 10 mg tablet Take 1 tablet by mouth as needed. propranolol (INDERAL) 10 mg tablet Take 1 tablet by mouth twice daily. ibuprofen (MOTRIN) 800 mg tablet Take 800 mg by mouth every 8 hours as needed. No current facility-administered medications on file prior to visit. Social History Social History Tobacco Use Smoking status: Never Smokeless tobacco: Never Vaping Use Vaping Use: Never used Substance Use Topics Alcohol use: Yes Alcohol/week: 7.0 standard drinks Types: 7 Glasses of wine per week Drug use: Never Review of Symptoms REVIEW OF SYSTEMS SEE HPI EXAM: BP 102/60 Pulse 68 Resp 14 Wt 84.4 kg (186 lb) LMP 03/07/2022 BMI 31.93 kg/m General Appearance: Well appearing, alert, in no acute distress, well-hydrated, well nourished.. Lungs: Lungs clear to auscultation. No wheezing, rhonchi, rales.. Heart: RRR without murmur, gallop, or rubs. No ectopy. Health Maintenance List HEPATITIS B(1 of 3 - 3-dose series) Never done HEPATITIS C SCREENING Never done HIV SCREENING Never done DTAP,TDAP,TD(1 - Tdap) Never done COVID-19 VACCINE(2 - Moderna series) due on 02/26/2021 DEPRESSION ASSESSMENT Never done INFLUENZA(1) due on 04/18/2023 PAP TESTING due on 01/18/2027 HPV TESTING due on 01/18/2027 ASSESSMENT/PLAN: 1. POTS (postural orthostatic tachycardia syndrome) - ICD9: 427.89, ICD10: G90.A - ECG COMPLETE-Shows NSR - SODIUM CHLORIDE 1 GRAM TABLET - SODIUM CHLORIDE 0.9 % IV BOLUS 1000 ML Fabián Martin APRN.FINISHING RANGE OPERATOR documented in this encounterCherrington Hospital02-23-[facility]23 History of Present illness Narrative* Vijay Farah MD - 12/12/2022 6:45 PM EST Virtualist Progress Note Triage Call Triage source: Triage Call (Nurse [employer]or, [facility] Triage, [facility] Phone Triage) Was patient downgraded (i.e. disposition other than go to the ED was advised)? Yes Mode of contact (phone call, [facility], [facility], [facility], Skype, other): phone History/Physical Exam: She is a 32 yo with history of POTS. She was started on propranolol this last week (and she restarted duloxetine). Today while driving at 4-5 pm she felt tight in her chest with blurred vision and weird sensation in her face. Her significant other came home 90 minutes later and she seemed fine. Shethen complained of chills, weakness in her extremities with chest tightness. She has had these episodes in the past but the chest tightness is different. Her HR was ~58 and her BP is 133/88. She has an appointment for tomorrow. She did not take her meds this am, but took them after it started. Nurse Triage Disposition (If call is from [facility], Home Care nurse triage, or an Express Care, the disposition is Go to ED Now): Go to ED Now Virtualist Recommended Disposition: See Provider within 24 hours Signed in as Primary Virtualist, Secondary Virtualist, or [facility] Telehealth provider: Secondary SIGNATURE: Vijay Farah MD PATIENT NAME: Yuko Herring DATE: December 12, 2022 documented in this encounterCherrington Hospital02-23-2023 Miscellaneous Notes* Telephone Encounter - Grecia Martinez RN - 12/12/2022 6:28 PM EST Reason for Call: POTS with weakness Outcome: GO TO ED NOW recommendation given, yet patient decline. Secondary triage with Dr. Farah advises patient is seen by PCP in office tomorrow. Reviewed care advice and voiced understanding. Patient had visit scheduled for the morning before call was transferred to [facility]. Reason for Disposition Patient sounds very sick or weak to the triager Answer Assessment - Initial Assessment Questions 1. DESCRIPTION: Patient is unable to communicate completely but states though her friend that she is cold 2. SEVERITY: 6-7/10 SEVERE - Unable to stand or walk, but has had worst POTS in the past 3. ONSET: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 should be sure your doctor is aware of any allergies you have and all medications and herbal supplements you take. Gardasil is given to those ages 9-14 in 2 doses at 0 and 8 months. In ages 15- 45, three injections are given at 0,2,6 months. Common side effects include pain, redness, itching and swelling at the injection site, nausea, fever, dizziness and fainting. Rare but potentially serious reactions have been reported. These include allergic reaction, swollen glands, joint and muscle pain, weakness and Guillain-Belden syndrome. documented in this encounterCherrington Hospital06-01-2022 History of Present illness Narrative* Jes Redd RN - 03/20/2022 9:03 AM EDT Patient identified by name and date of . Yuko Herring is here for her HPV 9 vaccination, injection # two of the series. Patient ?No Gardasil injection was given without incident. See immunizations for details of immunizations administered today. VIS sheet provided: Yes Patient advised to follow up in 4 months from the 2nd injection Provider Ariadne Ann APRN.JAUN was present in office at time of injection. Jes Redd RN documented in this encounterCherrington Hospital05-17-2022 History of Present illness Narrative* Brain Price MD, PhD - 03/05/2022 3:00 PM EDT VIRTUAL VISIT PROGRESS NOTE This is a virtual visit using [employer] video visit. It required patient-provider interaction for themedical decision making as documented below. Ykuo Herring is a 31 year old female seen for About 7 days prior to the syncope episode, patient has injury, with left ankle fracture. She was informed to be in the boot for 3 weeks. Patient has pain in the left foot, but still able to work, with some limp after long walk. Pateint has been diagnosed with POTS, in January 2021. Patient's symptom have been the same. Patient has been gain about 13 lbs for the last years. Patient passed out after the 1st dose of maderna vaccination. She was not able to walk for a week. She was diagnosed with POTS. Over the next 5-6 months, she was doing better. She has chronic fatigue, unsteadiness. Patient was seen by director mortgage, put on metoprolol, and salt table. Patient was diagnosed with migraine, and POTS. Neck and spine asymmetry before. Patient has been seen by PT for strength training, and POTS management. This helped some. She was advised by oral surgeon to have 3 wisdom teeth extraction. This involved a complicated illness. Patient was put on near bed rest for 6 weeks. 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 She felt tired, it is difficult to arouse. It is difficulty to walk. Patient had tilt table test. Patient was advised to see EMDR, trauma therapy for a year. Patient has abdominal pain for over a month, in the bilateral lower abdominal pain. It comes and goes, with nausea, vomiting and diarrhea. Patient was seen by Evidence Custodian, had us done. Patient denied of diarrhea and conspitation. Patient has headache, with sound and light and sound sensitive. Patient has chronic neck and shoulder pain. Patient grinding her teeth at night. Patient's metoprolol was stopped in Oct. Patient has numbness and tingling of hands and feet at times. PMH: Ectopic . Anemia in childhood, resolved. Asthma in Childhood, resolved. Social history: Alcohol occationally. FH: No similar problem at home. Answers for HPI/ROS submitted by the patient on 03/05/2022 In the past year, have you ever felt faint, dizzy, goofy, or had difficulty thinking soon after standing up from a sitting or lying position?: Yes In the past year, have you ever noticed color changes in your skin, such as red, white, or purple?:No In the past 5 years, what changes, if any, have occurred in your general body sweating?: I sweat much more than I used to Do your eyes feel excessively dry? : Yes Does your mouth feel excessively dry? : Yes For the symptom of dry eyes or dry mouth that you have had for the longest period of time, is this symptom:: Getting somewhat worse In the past year, have you noticed any changes in how quickly you get full when eating a meal?: I get full a lot more quickly now than I used to In the past year, have you felt excessively full or persistently full (bloated feeling) after a meal?: A lot of the time In the past year, have you vomited after a meal? : Sometimes In the past year, have you had a cramping or colicky abdominal pain?: A lot of the time In the past year, have you had any bouts of diarrhea?: Yes In the past year, have you been constipated? : Yes In the past year, have you ever lost control of your bladder function?: Never In the past year, have you had difficulty passing urine?: Never In the past year, have you had trouble completely emptying your bladder?: Never In the past year, without sunglasses or tinted glasses, has bright light bothered your eyes?: Frequently In the past year, have you had trouble focusing your eyes?: Constantly Is this most troublesome symptom with your eyes (i.e. sensitivity to bright light or trouble focusing) getting:: Staying about the same When standing up, how frequently do you get these feelings or symptoms?: Frequently How would you rate the severity of these feelings or symptoms?: Severe In the past year, have these feelings or symptoms that you have experienced:: Stayed about the same How frequently does this occur?: Occasionally How severe are these bouts of diarrhea?: Moderate Are your bouts with diarrhea getting:: Staying the same How frequently are you constipated? : Occasionally How severe are these episodes of constipation? : Mild Is your constipation getting:: Staying the same How severe is this sensitivity to bright light?: Moderate How severe is this focusing problem? : Severe HISTORY REVIEWED (electronic chart updated): PAST MEDICAL HISTORY Diagnosis Date Headaches POTS (postural orthostatic tachycardia syndrome) secondary to covid vaccine per patient PAST SURGICAL HISTORY Procedure Laterality Date PAST SURGICAL HISTORY OF 2012 Ectopic FAMILY HISTORY Problem Relation Age of Onset Thyroid Cancer Mother Glaucoma Father Thyroid Cancer Sister Breast Cancer Sister Glaucoma Paternal Grandfather Social History Tobacco Use Smoking status: Never Smoker Smokeless tobacco: Never Used Vaping Use Vaping Use: Never used Substance Use Topics Alcohol use: Yes Comment: seldom Drug use: Never Current Outpatient Medications Medication Sig methylPREDNISolone (MEDROL DOSE-PACK) 4 mg Dose-Pack (Patient not taking: Reported on 03/20/2022 ) magnesium citrate solution One teaspoon twice daily with meals. NASAL SPRAY, SODIUM CHLORIDE, 0.65 % nasal spray USE IN EACH NOSTRIL NEEDED FOR CONGESTION ibuprofen (MOTRIN) 800 mg tablet Take 800 mg by mouth every 8 hours as needed. betamethasone dipropionate, augmented (DIPROLENE) 0.05 % cream Chlorhexidine Gluconate (PERIDEX) 0.12 % solution RINSE, SWISH AND SPIT 15ML OF SOLUTION IN MOUTH TWICE DAILY FOR 10 DAYS rizatriptan (MAXALT) 10 mg tablet Take by mouth. Current Facility-Administered Medications Medication Dose Route Frequency acetylcholine 10% solution - cchs compounding 20 mL IRRIGATION ONE TIME ALLERGIES No Known Allergies REVIEW OF SYSTEMS: All other review of system is negative except in HPI. PHYSICAL EXAMINATION: VIDEO EXAM: (if completed, performed via video enabled technology) Awake, alert, oriented, cooperative, no dysarthria, no aphasia Neck, decreased ROM Mental status exam: normal CN. EOMI, facial symmetrical bilaterally, tongue midline, palate evelation symmetrically, shoulder shrug grossly normal, hearing grossly intact bilaterally. Motor: with antigravity of upper and lower extremity muscle strength. Coordination:normal Gait: decreased hip flexion and heel to toe rolling. ASSESSMENT: (I49.8) POTS (postural orthostatic tachycardia syndrome) (primary encounter diagnosis) (R42) Dizziness and giddiness (H81.10) Benign paroxysmal positional vertigo, unspecified laterality (R53.81, R53.83) Malaise and fatigue (R20.9) Disturbance of skin sensation Her symptom is due to multiple factorial including POTS, possible BPPV, and cervicogenic dizziness.Deconditioning, post traumatic syndrome, and GI symptom, LIZ, and TMJ arthropathy could make her symptom worse. Neuropathy, especially small fiber neuropathy/autonomic dysfunction is possible, needs to be evaluated. PLAN: EMG and autonomic function test. Continue PT (vestibular therapy) Follow up with GI Compression stocking F/u with dentist for TMJ abnormality Sitting in the shower, Small meals multiple times. Avoid dehydration. Increase salt intake if having low blood pressure. Monitoring blood pressure and heart rate, lying x2, sitting x2, standing x10 for 3 days. Then send to me for review. F/u after the test. I spent a total of 60 minutes on the date of the service which included preparing to see the patient, [id number] patient care, completing clinical documentation, obtaining and/or reviewing separately obtained history, performing a medically appropriate examination, counseling and educating the pat ient/family/caregiver, ordering medications, tests, or procedures, communicating results to the patient/family/caregiver and care coordination (not separately reported) Brain Price MD, PhD documented in this encounterCherrington Hospital05-17-2022 History of Present illness Narrative* Coreen Hunt RN - 03/05/2022 10:00 AM EDT Patient verified full name and * Marcelina King MD - 03/05/2022 10:00 AM EDT Clinical Care Team: -Referring Provider: Rommel Muniz MD John G Oas, MD [address] [facility] [address] [place] [address] . -Primary Care Provider: Shanika Grijalva [address] [facility] [id number] Chief Complaint Patient presents with New Patient Patient Active Problem List Diagnosis Vertigo Postural dizziness with presyncope Sinus tachycardia Generalized weakness Yuko Herring is a 31 y.o. y.o.female is referred to us on 03/05/22 in Endocrinology clinic at [facility]. Endocrinology,Diabetes and Metabolism Clinic ( [place]) at the request of OasRommel MD for adrenal disorder. She was seen by you in Neurology clinic POTS/3PD/neck pain. She says she started dizzy spells x one year .She was passing out and after workup was diagnosed with POTS Fatigue--+ Constipation--No Cold intolerance--yes Depression-- yes Weight gain 30 lbs so far She used to [employer] 2 years till till Gooden No fever Migrain + Nausea, with abdominal apin - workup was done so far negative No Palpitations No SOB, NO Chest pain LMP 01/2022 Recent hospitalization: None Recent illness: none Meds : Rizatriptan Mg citrate PAST MEDICAL/PAST SURGICAL HISTORY Past Medical History: Diagnosis Date Migraine Past Surgical History: Procedure Laterality Date TREATMENT ECTOPIC ABDOMINAL per pt WISDOM TEETH EXTRACTION per pt FAMILY HISTORY Sister - thyroid cancer Mother - thyroid disrder No known adrenal disorder in family SOCIAL HISTORY 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 [employer] No smoking Nocc drinking 2 kids 10 and 12 She had ectopic 3 years ago She lives with partner and 2 kids Social History Socioeconomic History Marital status: Single Spouse name: Not on file Number of children: Not on file Years of education: Not on file Highest education level: Not on file Occupational History Not on file Tobacco Use Smoking status: Never Smoker Smokeless tobacco: Never Used Vaping Use Vaping Use: Not on file Substance and Sexual Activity Alcohol use: Yes Drug use: Never Sexual activity: Yes Other Topics Concern Not on file Social History Narrative Not on file Social Determinants of Health Financial Resource Strain: Not on file Food Insecurity: Not on file Transportation Needs: Not on file Physical Activity: Not on file Stress: Not on file Social Connections: Not on file Intimate Partner Violence: Not on file Housing Stability: Not on file Review of Systems: As above Rest of the 10 point ROS is negative Current Outpatient Medications Medication Sig Dispense Refill magnesium citrate 1.745 GM/30ML Solution One teaspoon twice daily with meals. 296 mL 11 rizatriptan (Maxalt) 10 MG tablet Take 1 tablet by mouth as needed for Headaches (Take one promptlyat the start of each migraine headache; repeat in 2 hours if no better). 9 tablet 11 No current facility-administered medications for this visit. No medication comments found. Social History Social History Narrative Not on file AllergiesImmunizations: No Known Allergies Immunization History Administered Date(s) Administered COVID-19 vaccine, mRNA, Moderna 0.5 ML 01/29/2021 Influenza Vaccine 0.25ml 08/12/2015, 07/28/2017 Influenza Vaccine, Quadrivalent MDCK PF 07/24/2018, 07/22/2019 Influenza, injectable, quadrivalent, preservative free 08/23/2020 I have reviewed extensive ROS medical, surgical, family and social history with her Physical Exam: Vitals: .BP 120/80 (BP Location: Right arm, BP Position: Sitting) Pulse 88 Resp 18 Ht 1.6 m (5' 2.99) Wt 73.2 kg (161 lb 6.4 oz) SpO2 100% BMI 28.60 kg/m Smoking Status Never Smoker NoLMP recorded. Wt Readings from Last 3 Encounters: 03/05/22 73.2 kg (161 lb 6.4 oz) 07/18/21 70 kg (154 lb 6.4 oz) 02/01/21 67.4 kg (148 lb 9.4 oz) Ht Readings from Last 3 Encounters: 03/05/22 1.6 m (5' 2.99) 07/18/21 1.6 m (5' 3) 02/01/21 1.6 m (5' 2.99) BP Readings from Last 3 Encounters: 03/05/22 120/80 07/18/21 118/61 02/04/21 120/71 Constitutional: Well-developed, well-nourished, and in no distress. Psychiatric : Mood appropriate Neurological: Alert ,oriented X3 Eyes : Appear normal, No exopthalmos, ENMT/ Neck: Normal range of motion. Neck supple. No thyromegaly present. Hematologoc/Lymphatic : No bruise peng, No cervical LN Cardiovascular: Normal rate, regular rhythm, normal heart sounds. Respiratory : Effort normal and breath sounds normal. No respiratory distress. Gastrointestinal: Soft. Normal appearance and bowel sounds are normal.No organomegaly noted Musculoskeletal: Normal range of motion. Integumentary (Skin) : Skin is warm. No rash noted. . Labs: Cortisol NA 02/01/21 Upper Abdomen: CT The visualized aspects of the liver, spleen, pancreas, bilateral adrenal glands, and bilateral superior kidneys are unremarkable. Assessment / Impression & Plan: Impression: Yuko Herring is a 31 y.o. female has a past medical history of Migraine and POTS 's referred for adrenal disorder Fatigue palpitation - will check for TFT's No HTN Sister has Thyroid cancer and breast cancer Yuko had Ultrasound few months at an outside location - results NA She will send me a copy Will check Cortisol today if low , will get ACTH stim test at [facility] Her TSH and cortisol is ok Latest Reference Range & Units 03/05/22 10:50 TSH, HIGH-SENSITIVITY 0.550 - 4.780 uIU/mL 1.898 T4 FREE 0.89 - 1.76 ng/dL 1.15 CORTISOL 3.09 - 22.40 mcg/dL 9.13 ICD-10-CM 1. Fatigue, unspecified type R53.83 TSH T4 FREE ANTI MICROSOMAL ANTIBODY CORTISOL documented in this encounterOS[facility] Miscellaneous Notes* Telephone Encounter - Gisell Rey RN - 02/05/2022 2:24 PM EDT Patient scheduled for ultrasound tomorrow * Telephone Encounter - Eleazar Schreiber MD - 02/05/2022 12:52 PM EDT Schedule her for WHI repeat US tomorrow. Also agree with OTC pain meds & heating pad. I can seeher today if she would like but repeat US would be most helpful to determine plan of care. Eleazar Schreiber MD * Telephone Encounter - Jes Redd RN - 02/05/2022 9:30 AM EDT Patient calling with update. RLQ pain has gotten worse. Rating 7/10 on pain scale. She has not tried any OTC meds or heating pad to help. She is almost done with doxycycline that was prescribed on 01/22/22 for hydrosalpinx. She is now 4 days late for menses too. Had another negative UPT today. Pleaseadvise. Jes Redd RN [facility] Chief complaint Narrative - Reported* 4-6 week. * An interactive audio and video telecommunication system which permits real time communications between the patient (at the originating site) and provider (at the distant site) was utilized to providethis telehealth service. * Verbal consent was requested and obtained from YUKO HERRING on this date, 09/20/2021 10:30 AM , for a telehealth visit. -[facility] Work Phone: 1(250) 262-391110-02-2021 History of Present illness Narrative* Here for follow up per virtual visit * Tried migraine medication and works wonders. Was prescriped Rizatriptan. * Still taking ibuproen as needed * Still doing PT for the past 2 months. Family PT in [place]. Neck and spine Asymmetry as ordered by Dr. Muniz. * Recommeded to exercise sitting only, not standing due to fluctuations of HR. * PT suggested [employer] [employer] for severe cramping. Suggested [facility]. * Needs a letter for [place] who is mandating the vaccine. Took the first vaccine and ended up in the hospital 02/04/21 at [facility] and transferred to [facility]. Note reviewed. Would like sent by email. or knot picker cloth. * POTS symptoms have been better after increasing her salt intake. Supposed to eat a whole salt shaker per week. Seeing Dr. Cortes, next visit in October. * Still tired most of the time. * Saw Dr. Muniz in [place]. Feels symptoms of migraine worse with menses. Has followup in December * Has been getting stronger, but still concerns with weight. [facility] Work Phone: [phone]) 587-760106-30-2021 History of Present illness Narrative* Here to follow up POTS, weight gain * Has been feeling better * Weight gain has slowed. Has gained 1# this past month. * Stopped the salt tablets about 3 weeks ago. Eating consistently and healthier. Seems to be doing OK. * Has not been eating higher salt foods. * Does have some episodes of tiredness and lightheadedness after not eating for more than 2 hours. Ifeating at least every 2 hours seems to do OK. Noticed when she was taking her salt tablets was ableto go longer between meals without becoming symptomatic, but seemed to feel bloating with the salt. Discussed trying 1/2 tablet daily. * Labs reviewed. 2 hour GTT was normal. Labs all OK except WBC a little low. Will recheck in 1 month * Still taking metoprolol 25g 1/2 tablet daily and seems to be controlling her palpitations. * Has appointment with Dr. Ojeda to follow up in September. Needing paperwork filled out regarding her POTS * Has seen Dr. Lucio. Planning allergy testing. [facility] Work Phone: [phone] History of Present illness Narrative* Here to follow up * Had a positive tilt table test. Was diagnoses with POTS . Was prescribed metoprolol. Didn't feel the palpitations for about a week, but then they restarted. * Still having episodes of passing out. Twice since last visit. They last about 1 hour. Last episode 1 week ago. Usually doesn't feel well for about 2 days afterward. * Sometimes if she is having episodes of near syncope can sit or lie down and symptoms resolved. Usually when she hasn't eaten for a long time or with a lot of movement. * Stopped the salt tablets when she started the metoprolol. Not as many passing out symptoms when shewas taking the salt tablets BID. * Also seems to pass out more often after she eats something sugary. * Will be seeing neurologist 05/26/21. * Concerned that she has been gaining weight since she got her COVID vaccine. Still very active, walks 3-4 miles a day as well as lifting weights, etc. Watching diet and calories. Weight 08/2019 was 133#.Has gained 4# since February. * Has also noticed some itching inner wrists after eating foods. Will last about 15 minutes and occuroff and on all day. Unable to discern a specific food. Would be interested in allergy testing. * Ankle seems to be improving. Was told it would be take about a year to heal completely * US Thyroid was WNL. * Will check labs CBC, CMP, TSH -[facility] Work Phone: Evaluation note* Diagnosis Pelvic pain in female- Primary Unspecified symptom associated with female genital organs [facility] Diagnosis Pelvic pain in female- Primary Unspecified symptom associated with female genital organs Hydrosalpinx Chronic salpingitis and oophoritis [facility]* Diagnosis Fatigue, unspecified type- Primary [facility] Need for prophylactic vaccination/inoculation against viral disease- Primary Need for prophylactic vaccination and inoculation against other viral diseases [facility]* Diagnosis POTS (postural orthostatic tachycardia syndrome)- Primary Tachycardia, unspecified Dizziness and giddiness Benign paroxysmal positional vertigo, unspecified laterality Malaise and fatigue Other malaise and fatigue Disturbance of skin sensation [facility]* Diagnosis Paresthesia of skin- Primary Disturbance of skin sensation [facility]* Diagnosis Vertigo, central origin- Primary Vertigo of central origin Cervicocranial syndrome Intractable migraine with aura without status migrainosus Migraine with aura, with intractable migraine, so stated, without mention of status migrainosus Imbalance Abnormality of gait Labyrinthitis of right ear Labyrinthitis, unspecified Occipital neuralgia of left side POTS (postural orthostatic tachycardia syndrome) Tachycardia, unspecified Neck pain Cervicalgia [facility] Diagnosis Orthostatic lightheadedness- Primary Dizziness and giddiness [facility]* Diagnosis Wellness examination- Primary Other migraine without status migrainosus, not intractable Cervical radiculopathy Brachial neuritis or radiculitis nos SVT (supraventricular tachycardia) (HCC) Other specified cardiac dysrhythmias POTS (postural orthostatic tachycardia syndrome) Tachycardia, unspecified Medication management Encounter for long-term (current) use of other medications Screening for diabetes mellitus Encounter for lipid screening for cardiovascular disease Screening for lipoid disorders documented in this encounter [facility] note* Diagnosis Other migraine without status migrainosus, not intractable documented in this encounter [facility] note* Diagnosis POTS (postural orthostatic tachycardia syndrome)- Primary Tachycardia, unspecified documented in this encounter [facility] note* Diagnosis POTS (postural orthostatic tachycardia syndrome)- Primary Tachycardia, unspecified documented in this encounter [facility] noteNo assessment information availableWMemorial [facility]* Diagnosis SVT (supraventricular tachycardia) (HCC) Other specified cardiac dysrhythmias documented in this encounter [facility] note* Diagnosis POTS (postural orthostatic tachycardia syndrome)- Primary Tachycardia, unspecified SVT (supraventricular tachycardia) (HCC) Other specified cardiac dysrhythmias documented in this encounter [facility] note* Diagnosis SVT (supraventricular tachycardia) (HCC) Other specified cardiac dysrhythmias documented in this encounter [facility] note* Diagnosis POTS (postural orthostatic tachycardia syndrome)- Primary Tachycardia, unspecified Vitamin D deficiency Unspecified vitamin D deficiency Weight gain Abnormal weight gain Headaches documented in this encounter [facility] note* Diagnosis Cervical radiculopathy Brachial neuritis or radiculitis nos documented in this encounter [facility] note* Diagnosis Cervical radiculopathy Brachial neuritis or radiculitis nos documented in this encounter [facility] note* Diagnosis Monocular diplopia of both eyes- Primary Glaucoma suspect of both eyes Preglaucoma, unspecified Headaches documented in this encounter [facility] note* Diagnosis Obesity, Class I, BMI 30.0-34.9 (see actual BMI)- Primary Obesity, unspecified Vitamin D deficiency Unspecified vitamin D deficiency Other constipation documented in this encounter [facility] note* Diagnosis SVT (supraventricular tachycardia) Other specified cardiac dysrhythmias documented in this encounter [facility] note* Diagnosis Obesity (BMI 30-39.9)- Primary Obesity, unspecified Weight gain Abnormal weight gain POTS (postural orthostatic tachycardia syndrome) Tachycardia, unspecified Vitamin D deficiency Unspecified vitamin D deficiency Dietary counseling and surveillance Dietary surveillance and counseling documented in this encounter [facility] note* Diagnosis Obesity (BMI 30.0-34.9)- Primary Obesity, unspecified POTS (postural orthostatic tachycardia syndrome) Tachycardia, unspecified Weight gain Abnormal weight gain documented in this encounter [facility] note* Diagnosis POTS (postural orthostatic tachycardia syndrome)- Primary Tachycardia, unspecified Obesity (BMI 30.0-34.9) Obesity, unspecified Stress at work Adverse effects of work environment Vitamin D insufficiency Unspecified vitamin D deficiency documented in this encounter [facility] note* Diagnosis Obesity (BMI 30.0-34.9)- Primary Obesity, unspecified Dietary counseling and surveillance Dietary surveillance and counseling documented in this encounter [facility] note* Diagnosis Obesity (BMI 30.0-34.9)- Primary Obesity, unspecified Dietary counseling and surveillance Dietary surveillance and counseling documented in this encounter [facility] note* Diagnosis Chronic fatigue, unspecified- Primary Headaches POTS (postural orthostatic tachycardia syndrome) Tachycardia, unspecified Palpitations Obesity, Class I, BMI 30-34.9 Obesity, unspecified Anxiety disorder, unspecified type documented in this encounter [facility] note* Diagnosis POTS (postural orthostatic tachycardia syndrome)- Primary Tachycardia, unspecified Obesity (BMI 30.0-34.9) Obesity, unspecified Weight gain Abnormal weight gain Vitamin D deficiency Unspecified vitamin D deficiency Vitamin D insufficiency Unspecified vitamin D deficiency documented in this encounter [facility] note* Diagnosis Obesity (BMI 30.0-34.9)- Primary Obesity, unspecified POTS (postural orthostatic tachycardia syndrome) Tachycardia, unspecified Weight gain Abnormal weight gain Dietary counseling and surveillance Dietary surveillance and counseling documented in this encounter [facility] note* Diagnosis Attention deficit hyperactivity disorder (ADHD), unspecified ADHD type- Primary POTS (postural orthostatic tachycardia syndrome) Tachycardia, unspecified Vitamin D deficiency Unspecified vitamin D deficiency Elevated C-reactive protein (CRP) documented in this encounter [facility] note* Diagnosis GAEL (generalized anxiety disorder)- Primary Generalized anxiety disorder Major depressive disorder, recurrent episode, mild (HCC) Major depressive disorder, recurrent episode, mild documented in this encounter [facility] note* Diagnosis Dietary counseling and surveillance- Primary Dietary surveillance and counseling POTS (postural orthostatic tachycardia syndrome) Tachycardia, unspecified documented in this encounter [facility] note* Diagnosis Laceration of left index finger without foreign body without damage to nail, initial encounter- Primary [facility]* Diagnosis SVT (supraventricular tachycardia) (HCC) Other specified cardiac dysrhythmias documented in this encounter [facility] note* Diagnosis Vaginal odor- Primary Unspecified symptom associated with female genital organs Vaginal itching Pruritus of genital organs Vaginal discharge Leukorrhea, not specified as infective Dysuria [facility]* Diagnosis Abdominal pain, unspecified abdominal location Diarrhea, unspecified type documented in this encounter [facility] note* Diagnosis Ear fullness, left- Primary Tinnitus, bilateral Unspecified tinnitus Dizziness and giddiness documented [facility] this [facility]* Diagnosis Vaginal itching- Primary Pruritus of genital organs Vaginal discharge Leukorrhea, not specified as infective Vaginal odor Unspecified symptom associated with female genital organs Screen for STD (sexually transmitted disease) Screening examination for venereal disease [facility]* Diagnosis Bacterial vaginosis- Primary Vaginitis and vulvovaginitis, unspecified Yeast vaginitis Candidiasis of vulva and vagina documented [facility]* Diagnosis Cervical radiculopathy Brachial neuritis or radiculitis nos documented in this encounter [facility] note* Diagnosis Depression, unspecified depression type- Primary Attention deficit hyperactivity disorder (ADHD), unspecified ADHD type POTS (postural orthostatic tachycardia syndrome) Tachycardia, unspecified SVT (supraventricular tachycardia) (HCC) Other specified cardiac dysrhythmias Encounter for immunization Need for other specified prophylactic vaccination against single bacterial disease Encounter for lipid screening for cardiovascular disease Screening for lipoid disorders Screening for diabetes mellitus Vitamin D deficiency Unspecified vitamin D deficiency Medication management Encounter for long-term (current) use of other medications [facility]* Diagnosis Vitamin D deficiency- Primary Unspecified vitamin D deficiency documented in this encounter [facility] note* Diagnosis Vitamin D deficiency Unspecified vitamin D deficiency documented in this encounter [facility] note* Diagnosis Cervical radiculopathy Brachial neuritis or radiculitis nos SVT (supraventricular tachycardia) (HCC) Other specified cardiac dysrhythmias documented in this encounter [facility] note* Diagnosis Depression, unspecified depression type- Primary Attention deficit hyperactivity disorder (ADHD), unspecified ADHD type [facility]* Diagnosis Cervical radiculopathy Brachial neuritis or radiculitis nos documented in this encounter [facility] note* Diagnosis Vaginal odor- Primary Unspecified symptom associated with female genital organs Dysuria Vaginal discharge Leukorrhea, not specified as infective Left adnexal tenderness Unspecified symptom associated with female genital organs [facility]* Diagnosis Left adnexal tenderness Unspecified symptom associated with female genital organs documented in this encounter [facility] note* Diagnosis Cervical radiculopathy Brachial neuritis or radiculitis nos documented in this encounter [facility] note* Diagnosis POTS (postural orthostatic tachycardia syndrome)- Primary Tachycardia, unspecified Nausea Nausea alone documented in this encounter [facility] note* Diagnosis SVT (supraventricular tachycardia) ([facility]) Other specified cardiac dysrhythmias Cervical radiculopathy Brachial neuritis or radiculitis nos documented in this encounter [facility] note* Diagnosis Vitamin D deficiency- Primary Unspecified vitamin D deficiency POTS (postural orthostatic tachycardia syndrome) Tachycardia, unspecified Encounter for allergy testing Diagnostic skin and sensitization tests Hypermobility of joint Other joint derangement, not elsewhere classified, unspecified site Chronic pain of both ankles documented in this encounter [facility] note* Diagnosis Dysautonomia-like disorder- Primary Indigestion Dyspepsia and other specified disorders of function of stomach Bloating Flatulence, eructation, and gas pain Other fatigue POTS (postural orthostatic tachycardia syndrome) Tachycardia, unspecified Peripheral eosinophilia Eosinophilia documented in this encounter [facility] note* Diagnosis Left foot pain- Primary Pain in limb Stress fracture of tarsal bone Left foot pain Pain in limb [facility]* Diagnosis Left foot pain Pain in limb [facility]* Patient ID confirmed using Name and . * Patient wearing mask throughout session today d/t COVID-19 precautions. * Patient making goal directed progress with decreasing pain and improving strength/stability. [facility] Work Phone: History of Present illness Narrative* Patient ID confirmed using Name and . * Patient wearing mask throughout session today d/t COVID-19 precautions. * Patient making progress with decreasing pain, improving activity/exercise tolerance. Patient able to complete all exercises with appropriate level of challenge/difficulty this date. [facility] Work Phone: History of Present illness Narrative* Patient ID confirmed using Name and . * Patient wearing mask throughout session today d/t COVID-19 precautions. * Patient with good tolerance to treatment, no c/o increased pain/discomfort in clinic. Patient completing exercise progressions this date with appropriate levels of challenge/difficulty patient demos improved/improving strength/stability. [facility] Work Phone: History of Present illness Narrative* Patient ID confirmed using Name and . * Patient wearing mask throughout session today d/t COVID-19 precautions. * Patient completing all exercise with appropriate level of challenge/difficulty, with mild increasesin pain but pain resolves with brief recovery periods. Patient c/o no increased residual pain at end of session. [facility] Work Phone: [place] of Present illness Narrative* 30-year-old female with a history of paroxysmal orthostatic tachycardia syndrome (noted on tilt table testing), symptomatic PVCs here to follow-up regarding the following conditions: * Problem #1 postural orthostatic tachycardia syndrome * -Patient had been previously fairly active lifting weights, and doing cardio without significant limitations. In 01/2021 patient received a flu shot of the maternal vaccine and had a severe reaction to it with syncope; was hospitalized briefly and following her illness has had palpitations/shortness of breath with minimal activity. * -She denies any orthopnea/PND/lower extremity edema * -As part of the cardiac work-up an echocardiogram showed low normal ejection fraction in 09/2019; MRI performed 03/01/1021 noted normal biventricular function. * -Event monitor performed 02/20/2021 noted no significant arrhythmias; a 5% burden of sinus tachycardia was noted * -Patient does wear a fitness tracker and she notes that her heart rate goes up to the 140-160 with activity. [facility] [facility] Work Phone: Hospital Discharge instructions Additional Instructions Take your Prilosec daily instead of as needed, for the next 3 or 4 weeks.[facility] Work Phone: Instructions* Name Dates Details Instructions not documented [facility] [address] Work Phone: Instructions* Name Dates Details Instructions not documented [id number] Work Phone: Instructions* Name Dates Details Instructions not documented [facility] Work Phone: Instructions* Name Dates Details Instructions not documented [facility] Work Phone: Instructions* Name Dates Details Instructions not documented [facility] Work Phone: Reason for referral (narrative)* Diagnostic Procedure Only (Routine) - Authorized Specialty Diagnoses / Procedures Referred By Carmen somers Referred To Contact [facility] Diagnoses Pelvic pain in female Hydrosalpinx Procedures PELVIC US WHI US PELVIC NONOBSTETRIC REAL-TIME IMAGE COMPLETE Eleazar Schreiber MD [address] [place] [address] [place] [address] Referral ID Status Reason Start Date Expiration Date Visits Requested Visits Authorized [id number] Authorized Auto-Generat ed Referral 02/05/2022 02/05/2023 1 1 [facility] for referral (narrative)* Outpatient Procedure (Routine) - Authorized Specialty Diagnoses / Procedures Referred By Carmen somers Referred To Contact [facility] Diagnoses POTS (postural orthostatic tachycardia syndrome) Dizziness and giddiness Benign paroxysmal positional vertigo, unspecified laterality Malaise and fatigue Disturbance of skin sensation Procedures EMG(NEURO/NI) NERVE CONDUCTION STUDIES 9-10 STUDIES Brain Price MD, PhD [address] [place] [address] [address] Referral ID Status Reason Start Date Expiration Date Visits Requested Visits Authorized [id number] Authorized Auto-Generat ed Referral 03/26/2022 10/19/2022 1 1 [facility] for referral (narrative)* Outpatient Procedure (Routine) - Closed Specialty Diagnoses / Procedures Referred By Contac t Referred To Contact [facility] Diagnoses POTS (postural orthostatic tachycardia syndrome) Procedures ECG COMPLETE ECG ROUTINE ECG W/LEAST 12 LDS W/I&R Fabián Martin APRN.FINISHING RANGE OPERATOR [address] [place] [address] [facility] [address] [place] [address] Referral ID Status Reason Start Date Expiration Date V isits Requested Visits Authorized [id number] Closed Auto-Generate d Referral 12/13/2022 12/13/2023 1 1 [facility] for referral (narrative)* Diagnostic Procedure Only (Routine) - Closed Specialty Diagnoses / Procedures Referred By Contac t Referred To Contact [facility] Diagnoses Abdominal pain, unspecified abdominal location Diarrhea, unspecified type Procedures XR ABDOMEN 1V SUPINE RADIOLOGIC EXAM ABDOMEN 1 VIEW Francesca Valdez APRN.FINISHING RANGE OPERATOR [address] [place] [address] [place] [address] Referral ID Status Reason Start Date Expiration Date V isits Requested Visits Authorized [id number] Closed Auto-Generate d Referral 09/26/2023 10/19/2023 1 1 [facility] for referral (narrative)* Diagnostic Procedure Only (Routine) - Closed Specialty Diagnoses / Procedures Referred By Contac t Referred To Contact [facility] Diagnoses Left adnexal tenderness Procedures US FEMALE PELVIS TRANSVAG US TRANSVAGINAL Igor Garcia MD [address] [place] [address] [place] [address] Referral ID Status Reason Start Date Expiration Date V isits Requested Visits Authorized [id number] Closed Auto-Generate d Referral 11/19/2024 12/19/2025 1 1 [facility] for referral (narrative)* Diagnostic Procedure Only (Routine) - Closed Specialty Diagnoses / Procedures Referred By Contac t Referred To Contact US IMAGING Diagnoses Left adnexal tenderness Procedures US FEMALE PELVIS TRANSVAG US TRANSVAGINAL Igor Garcia MD [address] [place] [address] [place] [address] Referral ID Status Reason Start Date Expiration Date V isits Requested Visits Authorized [id number] Closed Auto-Generate d Referral 11/19/2024 12/19/2025 1 1 [facility] for visit Narrative* Diagnostic Procedure Only (Routine) - Closed Specialty Diagnoses / Procedures Referred By Contac t Referred To Contact XR IMAGING Diagnoses Abdominal pain, unspecified abdominal location Diarrhea, unspecified type Procedures XR ABDOMEN 1V SUPINE RADIOLOGIC EXAM ABDOMEN 1 VIEW PodlogFrancesca jenkins APRN.FINISHING RANGE OPERATOR [address] [place] [address] [place] [address] Referral ID Status Reason Start Date Expiration Date V isits Requested Visits Authorized [id number] Closed Auto-Generate d Referral 09/26/2023 10/19/2023 1 1 [facility] for visit Narrative* Diagnostic Procedure Only (Urgent) - Closed Specialty Diagnoses / Procedures Referred By Contac t Referred To Contact XR IMAGING Diagnoses Left foot pain Procedures XR FOOT GENERAL 3V AP/LAT/OBL LEFT RADEX FOOT COMPLETE MINIMUM 3 VIEWS Joy Miles WASTEWATER PROJECT MANAGER.FINISHING RANGE OPERATOR [address] [place] [address] Phone: tel: fax: [place] [address] Referral ID Status Reason Start Date Expiration Date V isits Requested Visits Authorized [id number] Closed Auto-Generate d Referral 05/10/2025 10/19/2025 1 1 [facility] Summary Purpose Family History Grandparent Name Dates Details Family history of type 2 zay betes mellitus(V18.0, Z83.3) Status:Active Family history of hypertensi on(V17.49, Z82.49) Status:Active Mother Name Dates Details Family history of malignant neoplasm of thyroid(V16.8, Z80.8) Status:Active Family history of Heart prob kole(429.9, I51.9) Status:Active Father Name Dates Details Family history of type 2 zay betes mellitus(V18.0, Z83.3) Status:Active Family history of hypertensi on(V17.49, Z82.49) Status:Active Sister Name Dates Details Family history of malignant neoplasm of thyroid(V16.8, Z80.8) Status:Active Family history of malignant neoplasm of breast(V16.3, Z80.3) Status:Active Grandparent Name Dates Details Family history of type 2 zay betes mellitus(V18.0, Z83.3) Status:Active Family history of hypertensi on(V17.49, Z82.49) Status:Active Mother Name Dates Details Family history of malignant neoplasm of thyroid(V16.8, Z80.8) Status:Active Family history of Heart prob kole(429.9, I51.9) Status:Active Father Name Dates Details Family history of type 2 zay betes mellitus(V18.0, Z83.3) Status:Active Family history of hypertensi on(V17.49, Z82.49) Status:Active Sister Name Dates Details Family history of malignant neoplasm of thyroid(V16.8, Z80.8) Status:Active Family history of malignant neoplasm of breast(V16.3, Z80.3) Status:Active Grandparent Name Dates Details Family history of type 2 zay betes mellitus(V18.0, Z83.3) Status:Active Family history of hypertensi on(V17.49, Z82.49) Status:Active Mother Name Dates Details Family history of malignant neoplasm of thyroid(V16.8, Z80.8) Status:Active Family history of Heart prob kole(429.9, I51.9) Status:Active Father Name Dates Details Family history of type 2 zay betes mellitus(V18.0, Z83.3) Status:Active Family history of hypertensi on(V17.49, Z82.49) Status:Active Sister Name Dates Details Family history of malignant neoplasm of thyroid(V16.8, Z80.8) Status:Active Family history of malignant neoplasm of breast(V16.3, Z80.3) Status:Active Grandparent Name Dates Details Family history of type 2 zay betes mellitus(V18.0, Z83.3) Status:Active Family history of hypertensi on(V17.49, Z82.49) Status:Active Family history of cerebrovas cular accident (CVA)(V17.1, Z82.3) Status:Active Mother Name Dates Details Family history of malignant neoplasm of thyroid(V16.8, Z80.8) Status:Active Family history of Heart prob kole(429.9, I51.9) Status:Active Father Name Dates Details Family history of type 2 zay betes mellitus(V18.0, Z83.3) Status:Active Family history of hypertensi on(V17.49, Z82.49) Status:Active Sister Name Dates Details Family history of malignant neoplasm of thyroid(V16.8, Z80.8) Status:Active Family history of malignant neoplasm of breast(V16.3, Z80.3) Status:Active Grandparent Name Dates Details Family history of type 2 zay betes mellitus(V18.0, Z83.3) Status:Active Family history of hypertensi on(V17.49, Z82.49) Status:Active Family history of cerebrovas cular accident (CVA)(V17.1, Z82.3) Status:Active Mother Name Dates Details Family history of malignant neoplasm of thyroid(V16.8, Z80.8) Status:Active Family history of Heart prob kole(429.9, I51.9) Status:Active Father Name Dates Details Family history of type 2 zay betes mellitus(V18.0, Z83.3) Status:Active Family history of hypertensi on(V17.49, Z82.49) Status:Active Sister Name Dates Details Family history of malignant neoplasm of thyroid(V16.8, Z80.8) Status:Active Family history of malignant neoplasm of breast(V16.3, Z80.3) Status:Active Grandparent Name Dates Details Family history of type 2 zay betes mellitus(V18.0, Z83.3) Status:Active Family history of hypertensi on(V17.49, Z82.49) Status:Active Mother Name Dates Details Family history of malignant neoplasm of thyroid(V16.8, Z80.8) Status:Active Family history of Heart prob kole(429.9, I51.9) Status:Active Father Name Dates Details Family history of type 2 zay betes mellitus(V18.0, Z83.3) Status:Active Family history of hypertensi on(V17.49, Z82.49) Status:Active Sister Name Dates Details Family history of malignant neoplasm of thyroid(V16.8, Z80.8) Status:Active Family history of malignant neoplasm of breast(V16.3, Z80.3) Status:Active Grandparent Name Dates Details Family history of type 2 zay betes mellitus(V18.0, Z83.3) Status:Active Family history of hypertensi on(V17.49, Z82.49) Status:Active Family history of cerebrovas cular accident (CVA)(V17.1, Z82.3) Status:Active Mother Name Dates Details Family history of malignant neoplasm of thyroid(V16.8, Z80.8) Status:Active Family history of Heart prob kole(429.9, I51.9) Status:Active Father Name Dates Details Family history of type 2 zay betes mellitus(V18.0, Z83.3) Status:Active Family history of hypertensi on(V17.49, Z82.49) Status:Active Sister Name Dates Details Family history of malignant neoplasm of thyroid(V16.8, Z80.8) Status:Active Family history of malignant neoplasm of breast(V16.3, Z80.3) Status:Active Grandparent Name Dates Details Family history of type 2 zay betes mellitus(V18.0, Z83.3) Status:Active Family history of hypertensi on(V17.49, Z82.49) Status:Active Family history of cerebrovas cular accident (CVA)(V17.1, Z82.3) Status:Active Mother Name Dates Details Family history of malignant neoplasm of thyroid(V16.8, Z80.8) Status:Active Family history of Heart prob kole(429.9, I51.9) Status:Active Father Name Dates Details Family history of type 2 zay betes mellitus(V18.0, Z83.3) Status:Active Family history of hypertensi on(V17.49, Z82.49) Status:Active Sister Name Dates Details Family history of malignant neoplasm of thyroid(V16.8, Z80.8) Status:Active Family history of malignant neoplasm of breast(V16.3, Z80.3) Status:Active Grandparent Name Dates Details Family history of type 2 zay betes mellitus(V18.0, Z83.3) Status:Active Family history of hypertensi on(V17.49, Z82.49) Status:Active Family history of cerebrovas cular accident (CVA)(V17.1, Z82.3) Status:Active Mother Name Dates Details Family history of malignant neoplasm of thyroid(V16.8, Z80.8) Status:Active Family history of Heart prob kole(429.9, I51.9) Status:Active Father Name Dates Details Family history of type 2 zay betes mellitus(V18.0, Z83.3) Status:Active Family history of hypertensi on(V17.49, Z82.49) Status:Active Sister Name Dates Details Family history of malignant neoplasm of thyroid(V16.8, Z80.8) Status:Active Family history of malignant neoplasm of breast(V16.3, Z80.3) Status:Active Grandparent Name Dates Details Family history of type 2 zay betes mellitus(V18.0, Z83.3) Status:Active Family history of hypertensi on(V17.49, Z82.49) Status:Active Family history of cerebrovas cular accident (CVA)(V17.1, Z82.3) Status:Active Mother Name Dates Details Family history of malignant neoplasm of thyroid(V16.8, Z80.8) Status:Active Family history of Heart prob kole(429.9, I51.9) Status:Active Father Name Dates Details Family history of type 2 zay betes mellitus(V18.0, Z83.3) Status:Active Family history of hypertensi on(V17.49, Z82.49) Status:Active Sister Name Dates Details Family history of malignant neoplasm of thyroid(V16.8, Z80.8) Status:Active Family history of malignant neoplasm of breast(V16.3, Z80.3) Status:Active Grandparent Name Dates Details Family history of type 2 zay betes mellitus(V18.0, Z83.3) Status:Active Family history of hypertensi on(V17.49, Z82.49) Status:Active Family history of cerebrovas cular accident (CVA)(V17.1, Z82.3) Status:Active Mother Name Dates Details Family history of malignant neoplasm of thyroid(V16.8, Z80.8) Status:Active Family history of Heart prob kole(429.9, I51.9) Status:Active Father Name Dates Details Family history of type 2 zay betes mellitus(V18.0, Z83.3) Status:Active Family history of hypertensi on(V17.49, Z82.49) Status:Active Sister Name Dates Details Family history of malignant neoplasm of thyroid(V16.8, Z80.8) Status:Active Family history of malignant neoplasm of breast(V16.3, Z80.3) Status:Active Grandparent Name Dates Details Family history of type 2 zay betes mellitus(V18.0, Z83.3) Status:Active Family history of hypertensi on(V17.49, Z82.49) Status:Active Family history of cerebrovas cular accident (CVA)(V17.1, Z82.3) Status:Active Mother Name Dates Details Family history of malignant neoplasm of thyroid(V16.8, Z80.8) Status:Active Family history of Heart prob kole(429.9, I51.9) Status:Active Father Name Dates Details Family history of type 2 zay betes mellitus(V18.0, Z83.3) Status:Active Family history of hypertensi on(V17.49, Z82.49) Status:Active Sister Name Dates Details Family history of malignant neoplasm of thyroid(V16.8, Z80.8) Status:Active Family history of malignant neoplasm of breast(V16.3, Z80.3) Status:Active Grandparent Name Dates Details Family history of type 2 zay betes mellitus(V18.0, Z83.3) Status:Active Family history of hypertensi on(V17.49, Z82.49) Status:Active Family history of cerebrovas cular accident (CVA)(V17.1, Z82.3) Status:Active Mother Name Dates Details Family history of malignant neoplasm of thyroid(V16.8, Z80.8) Status:Active Family history of Heart prob kole(429.9, I51.9) Status:Active Father Name Dates Details Family history of type 2 zay betes mellitus(V18.0, Z83.3) Status:Active Family history of hypertensi on(V17.49, Z82.49) Status:Active Sister Name Dates Details Family history of malignant neoplasm of thyroid(V16.8, Z80.8) Status:Active Family history of malignant neoplasm of breast(V16.3, Z80.3) Status:Active Grandparent Name Dates Details Family history of type 2 zay betes mellitus(V18.0, Z83.3) Status:Active Family history of hypertensi on(V17.49, Z82.49) Status:Active Family history of cerebrovas cular accident (CVA)(V17.1, Z82.3) Status:Active Mother Name Dates Details Family history of malignant neoplasm of thyroid(V16.8, Z80.8) Status:Active Family history of Heart prob kole(429.9, I51.9) Status:Active Father Name Dates Details Family history of type 2 zay betes mellitus(V18.0, Z83.3) Status:Active Family history of hypertensi on(V17.49, Z82.49) Status:Active Sister Name Dates Details Family history of malignant neoplasm of thyroid(V16.8, Z80.8) Status:Active Family history of malignant neoplasm of breast(V16.3, Z80.3) Status:Active Unknown Family Member Name Dates Details Family history of malignant neoplasm of thyroid: Mother, Sister(V16.8, Z80.8) Status:Active Family history of type 2 zay betes mellitus: Father, Grandparent(V18.0, Z83.3) Status:Active Family history of malignant neoplasm of breast: Sister(V16.3, Z80.3) Status:Active Family history of hypertensi on: Father, Grandparent(V17.49, Z82.49) Status:Active Heart problem: Mother Status:Active Family history of cerebrovas cular accident (CVA): Grandparent(V17.1, Z82.3) Status:Active Unknown Family Member Name Dates Details Family history of malignant neoplasm of thyroid: Mother, Sister(V16.8, Z80.8) Status:Active Family history of type 2 zay betes mellitus: Father, Grandparent(V18.0, Z83.3) Status:Active Family history of malignant neoplasm of breast: Sister(V16.3, Z80.3) Status:Active Family history of hypertensi on: Father, Grandparent(V17.49, Z82.49) Status:Active Heart problem: Mother Status:Active Family history of cerebrovas cular accident (CVA): Grandparent(V17.1, Z82.3) Status:Active Unknown Family Member Name Dates Details Family history of malignant neoplasm of thyroid: Mother, Sister(V16.8, Z80.8) Status:Active Family history of type 2 zay betes mellitus: Father, Grandparent(V18.0, Z83.3) Status:Active Family history of malignant neoplasm of breast: Sister(V16.3, Z80.3) Status:Active Family history of hypertensi on: Father, Grandparent(V17.49, Z82.49) Status:Active Heart problem: Mother Status:Active Family history of cerebrovas cular accident (CVA): Grandparent(V17.1, Z82.3) Status:Active Unknown Family Member Name Dates Details Family history of malignant neoplasm of thyroid: Mother, Sister(V16.8, Z80.8) Status:Active Family history of type 2 zay betes mellitus: Father, Grandparent(V18.0, Z83.3) Status:Active Family history of malignant neoplasm of breast: Sister(V16.3, Z80.3) Status:Active Family history of hypertensi on: Father, Grandparent(V17.49, Z82.49) Status:Active Heart problem: Mother Status:Active Family history of cerebrovas cular accident (CVA): Grandparent(V17.1, Z82.3) Status:Active Unknown Family Member Name Dates Details Family history of malignant neoplasm of thyroid: Mother, Sister(V16.8, Z80.8) Status:Active Family history of type 2 zay betes mellitus: Father, Grandparent(V18.0, Z83.3) Status:Active Family history of malignant neoplasm of breast: Sister(V16.3, Z80.3) Status:Active Family history of hypertensi on: Father, Grandparent(V17.49, Z82.49) Status:Active Heart problem: Mother Status:Active Family history of cerebrovas cular accident (CVA): Grandparent(V17.1, Z82.3) Status:Active Unknown Family Member Name Dates Details Family history of malignant neoplasm of thyroid: Mother, Sister(V16.8, Z80.8) Status:Active Family history of type 2 zay betes mellitus: Father, Grandparent(V18.0, Z83.3) Status:Active Family history of malignant neoplasm of breast: Sister(V16.3, Z80.3) Status:Active Family history of hypertensi on: Father, Grandparent(V17.49, Z82.49) Status:Active Heart problem: Mother Status:Active Family history of cerebrovas cular accident (CVA): Grandparent(V17.1, Z82.3) Status:Active Unknown Family Member Name Dates Details Family history of malignant neoplasm of thyroid: Mother, Sister(V16.8, Z80.8) Status:Active Family history of type 2 zay betes mellitus: Father, Grandparent(V18.0, Z83.3) Status:Active Family history of malignant neoplasm of breast: Sister(V16.3, Z80.3) Status:Active Family history of hypertensi on: Father, Grandparent(V17.49, Z82.49) Status:Active Heart problem: Mother Status:Active Family history of cerebrovas cular accident (CVA): Grandparent(V17.1, Z82.3) Status:Active Unknown Family Member Name Dates Details Family history of malignant neoplasm of thyroid: Mother, Sister(V16.8, Z80.8) Status:Active Family history of type 2 zay betes mellitus: Father, Grandparent(V18.0, Z83.3) Status:Active Family history of malignant neoplasm of breast: Sister(V16.3, Z80.3) Status:Active Family history of hypertensi on: Father, Grandparent(V17.49, Z82.49) Status:Active Heart problem: Mother Status:Active Family history of cerebrovas cular accident (CVA): Grandparent(V17.1, Z82.3) Status:Active Unknown Family Member Name Dates Details Family history of malignant neoplasm of thyroid: Mother, Sister(V16.8, Z80.8) Status:Active Family history of type 2 zay betes mellitus: Father, Grandparent(V18.0, Z83.3) Status:Active Family history of malignant neoplasm of breast: Sister(V16.3, Z80.3) Status:Active Family history of hypertensi on: Father, Grandparent(V17.49, Z82.49) Status:Active Heart problem: Mother Status:Active Family history of cerebrovas cular accident (CVA): Grandparent(V17.1, Z82.3) Status:Active Unknown Family Member Name Dates Details Family history of malignant neoplasm of breast: Sister(V16.3, Z80.3) Status:Active Family history of type 2 zay betes mellitus: Father, Grandparent(V18.0, Z83.3) Status:Active Family history of malignant neoplasm of thyroid: Mother, Sister(V16.8, Z80.8) Status:Active Family history of hypertensi on: Father, Grandparent(V17.49, Z82.49) Status:Active Family history of cerebrovas cular accident (CVA): Grandparent(V17.1, Z82.3) Status:Active Heart problem: Mother Status:Active Unknown Family Member Name Dates Details Family history of malignant neoplasm of thyroid: Mother, Sister(V16.8, Z80.8) Status:Active Family history of type 2 zay betes mellitus: Father, Grandparent(V18.0, Z83.3) Status:Active Family history of malignant neoplasm of breast: Sister(V16.3, Z80.3) Status:Active Family history of hypertensi on: Father, Grandparent(V17.49, Z82.49) Status:Active Heart problem: Mother Status:Active Family history of cerebrovas cular accident (CVA): Grandparent(V17.1, Z82.3) Status:Active Unknown Family Member Name Dates Details Family history of malignant neoplasm of thyroid: Mother, Sister(V16.8, Z80.8) Status:Active Family history of type 2 zay betes mellitus: Father, Grandparent(V18.0, Z83.3) Status:Active Family history of malignant neoplasm of breast: Sister(V16.3, Z80.3) Status:Active Family history of hypertensi on: Father, Grandparent(V17.49, Z82.49) Status:Active Heart problem: Mother Status:Active Family history of cerebrovas cular accident (CVA): Grandparent(V17.1, Z82.3) Status:Active Unknown Family Member Name Dates Details Family history of malignant neoplasm of thyroid: Mother, Sister(V16.8, Z80.8) Status:Active Family history of type 2 zay betes mellitus: Father, Grandparent(V18.0, Z83.3) Status:Active Family history of malignant neoplasm of breast: Sister(V16.3, Z80.3) Status:Active Family history of hypertensi on: Father, Grandparent(V17.49, Z82.49) Status:Active Heart problem: Mother Status:Active Family history of cerebrovas cular accident (CVA): Grandparent(V17.1, Z82.3) Status:Active Unknown Family Member Name Dates Details Family history of malignant neoplasm of thyroid: Mother, Sister(V16.8, Z80.8) Status:Active Family history of type 2 zay betes mellitus: Father, Grandparent(V18.0, Z83.3) Status:Active Family history of malignant neoplasm of breast: Sister(V16.3, Z80.3) Status:Active Family history of hypertensi on: Father, Grandparent(V17.49, Z82.49) Status:Active Heart problem: Mother Status:Active Family history of cerebrovas cular accident (CVA): Grandparent(V17.1, Z82.3) Status:Active Advance Directives Documents on File Type Date Recorded Patient Welfare Manager Expl anation Advance Directives and Livin g Will 05/30/2019 11:35 AM Documents on File Type Date Recorded Patient Welfare Manager Expl anation Advance Directives and Livin g Will 05/30/2019 11:35 AM Latest Code Status on File Code Status Date Activated Date Inactivated Comments Full Code 01/30/2021 6:59 PM Advance Directive Response Recorded Date/ Time Living Will No December 15, 023 10:25am Power of Allopathic Doctor No December 15, 2022 10:25am Date Activated Date Inactivated Comments 01/30/2021 6:59 PM Discharge Instructions * Instructions* Jose Tineo MD - 05/30/2019 Please discuss this visit with your drying machine back tender and return for any fever or worsening of pain * Attachments The following attachments cannot be sent through Care Everywhere. * Dysmenorrhea (Tajik) documented in this encounter Assessments Diagnosis Menstrual cramp- Primary Dysmenorrhea Diagnosis Headache, unspecified headache type- Primary Abdominal pain, unspecified abdominal location Reason for Referral Status Reason Specialty Diagnoses / Procedures Referred By Contact Referred To Contact Pending Review Emergency Medicine Diagnoses Abdominal pain, unspecified abdominal location Gris Carney, FAHAD [address] [place] [id number] [facility] Emergency Dept [address] [place] [address] Specialty Diagnoses / Procedures Referred By Contac t Referred [facility] Diagnoses POTS (postural orthostatic tachycardia syndrome) Procedures [facility] Fabián Martin APRN.FINISHING RANGE OPERATOR [address] [place] [address] [facility] [place] [address] Referral ID Status Reason Start Date Expiration Date Visits Requested Visits Authorized [id number] Pending Review PCP Requested Referral 12/05/2022 12/05/2023 1 1 Specialty Diagnoses / Procedures Referred By Contac t Referred To Contact Diagnoses Weight gain Procedures CONSULT TO FUNCTIONAL MEDICINE OFFICE/OUTPATIENT [facility] 60-74 MINUTES Fabián Martin APRN.FINISHING RANGE OPERATOR [address] [place] [address] Referral ID Status Reason Start Date Expiration Date Visits Requested Visits Authorized [id number] Pending Review PCP Requested Referral 04/18/2023 04/17/2024 1 1 Specialty Diagnoses / Procedures Referred By Contac t Referred To Contact Diagnoses Obesity, Class I, BMI 30.0-34.9 (see actual BMI) Procedures CONSULT TO [facility] WEIGHT MANAGEMENT SHARED MEDICAL APPOINTMENT Deandra Thompson PA-C [address] [address] Referral ID Status Reason Start Date Expiration Date Visits Requested Visits Authorized [id number] Ref Not Required PCP Requested Referral 06/24/2023 06/23/2024 1 1 Specialty Diagnoses / Procedures Referred By Contac t Referred To Contact Diagnoses Anxiety disorder, unspecified type Procedures CONSULT TO HOLISTIC PSYCHOTHERAPY PSYCHIATRIC DIAGNOSTIC EVALUATION Deandra Thompson PA-C [address] [place] [address] Referral ID Status Reason Start Date Expiration Date Visits Requested Visits Authorized [id number] Pending Review PCP Requested Referral 12/30/2023 12/29/2024 1 1 Specialty Diagnoses / Procedures Referred By Contac t Referred To Contact Diagnoses Attention deficit hyperactivity disorder (ADHD), unspecified ADHD type Procedures CONSULT TO PSYCHIATRY OFFICE/OUTPATIENT [facility] 60 MINUTES Fabián Martin APRN.FINISHING RANGE OPERATOR [address] [place] [address] Referral ID Status Reason Start Date Expiration Date Visits Requested Visits Authorized [id number] Pending Review PCP Requested Referral 02/19/2024 02/18/2025 1 1 Instructions * Patient Instructions* Gris Carney CNP - 05/30/2019 10:02 AM EDT Please go directly to the ER for further evaluation Do NOT eat or drink anything prior to arrival in ER documented in this encounter History of Present Illness * Gris Carney CNP - 05/30/2019 9:47 AM EDT PATIENT NAME: Yuko [facility] [address] [place] [id number] : 1990 DATE OF VISIT: 05/30/2019 #: [id number] PROVIDER: Gris Carney CNP Chief Complaint Patient presents with Female Problem started period last pm headache, nausea, lower pelvic pain SUBJECTIVE 28 y.o. female presents Female Problem (started period last pm headache, nausea, lower pelvic pain) Headache This is a new problem. The current episode started yesterday. The problem occurs constantly. The problem has been unchanged. Pain location: generlized. The pain does not radiate. The pain quality is similar to prior headaches. The quality of the pain is described as aching. Associated symptoms include abdominal pain and nausea. Pertinent negatives include no abnormal behavior, anorexia, back pain, blurred vision, coughing, dizziness, drainage, ear pain, eye pain, eye redness, eye watering, facial sweating, fever, hearing loss, insomnia, loss of balance, muscle aches, neck pain, numbness, phonophobia, photophobia, rhinorrhea, scalp tenderness, seizures, sinus pressure, sore throat, swollen glands, tingling, tinnitus, visual change, vomiting, weakness or weight loss. Nothing aggravates the symptoms. Treatments tried: period pills The treatment provided no relief. Abdominal Pain This is a new problem. The current episode started yesterday. The onset quality is sudden. The problem occurs constantly. The most recent episode lasted 24 hours. The problem has been unchanged. The pain is located in the LLQ. The pain is at a severity of 8/10. The quality of the pain is aching. The abdominal pain does not radiate. Associated symptoms include headaches and nausea. Pertinent negatives include no anorexia, fever, vomiting or weight loss. MEDICAL ISSUES History reviewed. No pertinent past medical history. There is no problem list on file for this patient. SOCIAL HISTORY Social History Socioeconomic History Marital status: Spouse name: Not on file Number of children: Not on file Years of education: Not on file Highest education level: Not on file Occupational History Not on file Social Needs Financial resource strain: Not on file Food insecurity: Worry: Not on file Inability: Not on file Transportation needs: Medical: Not on file Non-medical: Not on file Tobacco Use Smoking status: Never Smoker Smokeless tobacco: Never Used Substance and Sexual Activity Alcohol use: Never Frequency: Never Drug use: Never Sexual activity: Yes Lifestyle Physical activity: Days per week: Not on file Minutes per session: Not on file Stress: Not on file Relationships Social connections: Talks on phone: Not on file Gets together: Not on file Attends druze service: Not on file Active member of club or organization: Not on file Attends meetings of clubs or organizations: Not on file Relationship status: Not on file Other Topics Concern Not on file Social History Narrative Not on file FAMILY HISTORY Family History Problem Relation Age of Onset Diabetes Father Hypertension Father REVIEW OF SYSTEMS Review of Systems Constitutional: Negative for fever and weight loss. HENT: Negative for ear pain, hearing loss, rhinorrhea, sinus pressure, sore throat and tinnitus. Eyes: Negative for blurred vision, photophobia, pain and redness. Respiratory: Negative for cough. Gastrointestinal: Positive for abdominal pain and nausea. Negative for anorexia and vomiting. Musculoskeletal: Negative for back pain and neck pain. Neurological: Positive for headaches. Negative for dizziness, tingling, seizures, weakness, numbness and loss of balance. Psychiatric/Behavioral: The patient does not have insomnia. MEDICATIONS PRIOR TO VISIT No current outpatient medications on file prior to visit. No current facility-administered medications on file prior to visit. ALLERGIES/INTOLERANCES No Known Allergies OBJECTIVE BP 107/74 Pulse 60 Temp 97 F (36.1 C) (Temporal) Resp 18 Ht 5' 3 Wt 58.1 kg (128 lb) LMP 05/29/2019 (Exact Date) SpO2 99% ? No BMI 22.67 kg/m Physical Exam Constitutional: She is oriented to person, place, and time. She appears well- developed and well-nourished. She is active. She does not appear ill. HENT: Head: Normocephalic and atraumatic. Eyes: Conjunctivae are normal. No scleral icterus. Neck: Trachea normal. Cardiovascular: Normal rate, regular rhythm, S1 normal, S2 normal and normal heart sounds. No murmur heard. Pulmonary/Chest: Effort normal and breath sounds normal. Abdominal: Soft. Normal appearance and bowel sounds are normal. There is tenderness in the right lower quadrant and left lower quadrant. There is no CVA tenderness. No hernia. Neurological: She is alert and oriented to person, place, and time. Skin: Skin is warm, dry and intact. No rash noted. No cyanosis. Nails show no clubbing. Psychiatric: She has a normal mood and affect. Her speech is normal and behavior is normal. Judgment and thought content normal. Cognition and memory are normal. Nursing note and vitals reviewed. PROCEDURE Procedures Results Recent Results (from the past 168 hour(s)) POC , Urine Collection Time: 05/30/19 10:02 AM Result Value Ref Range POC Preg Test, Ur Negative Negative Internal Control Pass Spec Grav, UA ASSESSMENT/PLAN (expressed as patient instructions): SNOMED CT(R) 1. Headache, unspecified headache type HEADACHE 2. Abdominal pain, unspecified abdominal location ABDOMINAL PAIN POC , Urine Ambulatory referral to Emergency Medicine No follow-ups on file. ADDITIONAL CLINICAL COMMENTS Referred to the ER for further evaluation of increased pain to LLQ with menses.Patient agrees with this plan and leaves in stable with SO. ORDERS PLACED THIS VISIT Orders Placed This Encounter Procedures Ambulatory referral to Emergency Medicine POC , Urine MEDICATION LIST AT END OF VISIT No current outpatient medications on file. No current facility-administered medications for this visit. documented in this encounter Chief Complaint 1 month follow-up.1 month follow-up.Dizziness/lightheadedness Medications Administered Section Inactive Administered Medications - up to 3 most recent administrations Medication Order MAR Action Action Date Dose Rate Site acetylcholine 10% solution - cchs compounding 20 mL, IRRIGATION, ONE TIME, 1 dose, Starting on Fri03/06/22 at 1027, Until Fri04/17/22 at 1054, Protect from Light. Refrigerate Given 04/17/2022 10:54 AM EDT 20 mL Inactive Administered Medications - up to 3 most recent administrations Medication Order MAR Action Action Date Dose Rate Site NaCl 0.9% 1,000 mL iv bolus 1,000 mL, INTRAVENOUS, at 999 mL/hr, Administer over 1 Hours, ONCE, 1 dose, On Fri12/13/22 at 0900 New Bag/Syringe/Bottle 12/13/2022 10:50 AM EST 1,000 mL 999 mL/hr Active Administered Medications - up to 3 most recent administrations Medication Order MAR Action Action Date Dose Rate Site fluorescein-benoxinate 0.25-0.4 % 1 Drop (FLURESS) 1 Drop, BOTH EYES, DIRECTED, Starting on Maribell 06/19/23 at 1030, Until Maribell 06/19/23 at 2229, Administer for applanation tonometry. In the event of a Fluress shortage, administer [place]-Fluor 1 drop into both eyes as directed for applanation tonometry Given 06/19/2023 10:30 AM EDT 1 Drop Chief Complaint and Reason for Visit Chief Complaint CHEST PAIN Additional Source Comments INFORMATION SOURCE (unrecogn ized section and content) DATE CREATED AUTHOR 04/17/2019 [facility] DATE CREATED AUTHOR AUTHOR'S ORGANIZ ATION 05/30/2019 [facility] DATE CREATED AUTHOR AUTHOR'S ORGANIZ ATION 06/02/2019 [facility] DATE CREATED AUTHOR AUTHOR'S ORGANIZ ATION 03/13/2021 [facility] DATE CREATED AUTHOR AUTHOR'S ORGANIZ ATION 05/01/2021 [facility] DATE CREATED AUTHOR AUTHOR'S ORGANIZ ATION 07/22/2021 [facility] DATE CREATED AUTHOR AUTHOR'S ORGANIZ ATION 01/17/2022 [facility] DATE CREATED AUTHOR AUTHOR'S ORGANIZ ATION 06/15/2022 [facility] DATE CREATED AUTHOR AUTHOR'S ORGANIZ ATION 02/17/2023 [facility] DATE CREATED AUTHOR AUTHOR'S ORGANIZ ATION 03/25/2024 [facility] DATE CREATED AUTHOR AUTHOR'S ORGANIZ ATION 07/18/2024 [facility] DATE CREATED AUTHOR AUTHOR'S ORGANIZ ATION 05/11/2025 [facility] Reason for Visit (unrecogniz ed section and content) Reason Comments Abdominal Pain Reason Comments Female Problem started period last pm headache, nausea, lower pelvic pain Reason Comments Pelvic Pain Specialty Diagnoses / Procedures Referred By Contac t Referred To Contact FRANCHISE SALES DIRECTOR Diagnoses Pelvic and perineal pain READ Procedures US PELVIC NONOBSTETRIC REAL-TIME IMAGE COMPLETE PELVIC ULTRASOUND Eleazar Schreiber MD [address] [place] [address] Patsy Thibodeaux MD [address] [place] [address] Referral ID Status Reason Start Date Expiration Date Visits Re quested Visits Authorized [id number] Closed 01/21/2022 10/19/2022 1 1 Reason Comments Patient Update Reason Comments CRIMINAL JUSTICE FACULTY Ultrasound Specialty Diagnoses / Procedures Referred By Contac t Referred To Contact FRANCHISE SALES DIRECTOR Diagnoses READ Procedures OFFICE/OUTPATIENT ESTABLISHED MOD MDM 30-39 MIN EST [facility] PATIENT Eleazar Schreiber MD [address] [place] [address] Odette Nesbitt MD [address] [place] [address] Referral ID Status Reason Start Date Expiration Date Visits Re quested Visits Authorized [id number] Closed 02/06/2022 10/19/2022 1 1 Reason Comments New Patient Specialty Diagnoses / Procedures Referred By Contac t Referred To Contact Endocrinology, Diabetes & Metabolism Diagnoses Adrenal insufficiency Oas, Rommel Mansfield MD [address] [facility] [address] [place] [address] Nicole Graves MBBS [address] [facility] [address] [place] [address] Referral ID Status Reason Start Date Expiration Date V isits Requested Visits Authorized [id number] New Request 07/18/2021 08/12/2022 1 1 Reason Comments Gardasil Injection Specialty Diagnoses / Procedures Referred By Contac t Referred To Contact FRANCHISE SALES DIRECTOR Diagnoses 2nd HPV vaccine Procedures [facility] NURSE Eleazar Schreiber MD [address] [place] [address] tr, Nurse Pressroom Supervisor [facility] [address] [place] [address] Referral ID Status Reason Start Date Expiration Date Visits Re quested Visits Authorized [id number] Closed 03/04/2022 06/03/2022 1 1 Reason Comments New Patient Reason Onset Date Comments EMG 03/26/2022 Specialty Diagnoses / Procedures Referred By Contac t Referred To Contact [facility] Diagnoses POTS (postural orthostatic tachycardia syndrome) Dizziness and giddiness Benign paroxysmal positional vertigo, unspecified laterality Malaise and fatigue Disturbance of skin sensation Procedures EMG(NEURO/NI) NERVE CONDUCTION STUDIES 9-10 STUDIES Brain Price MD, PhD [address] [place] [address] [facility] [place] [address] [place] [address] Referral ID Status Reason Start Date Expiration Date V isits Requested Visits Authorized [id number] Closed Auto-Generate d Referral 03/26/2022 10/19/2022 1 1 Reason Comments New Specialty Diagnoses / Procedures Referred By Contac t Referred To Contact Neurology / VESTIBULAR NEUROLOGY Diagnoses Follow-up exam LIZ (Headache) Procedures OFFICE/OUTPATIENT NEW MODERATE MDM 45-59 MINUTES NEW NEUR HEADACHE Oas, Rommel Mansfield [facility] [place] [address] [place] [address] [place] [address] Referral ID Status Reason Start Date Expiration Date V isits Requested Visits Authorized [id number] Closed Benefit Check 03/28/2022 10/19/2022 1 1 Reason Comments Important Med Instructions for ANS w/ TI LT & QSART 04/17 Reason Comments Procedure Specialty Diagnoses / Procedures Referred By Contac t Referred To Contact Neurology / NEUROMUSCULAR Diagnoses POTS (postural orthostatic tachycardia syndrome) Dizziness and giddiness Benign paroxysmal positional vertigo, unspecified laterality Malaise and fatigue POTS (postural orthostatic tachycardia syndrome) [I49.8] Dizziness and giddiness [R42] Benign paroxysmal positional vertigo, unspecified laterality [H81.10] Malaise and fatigue [R53.81, R53.83] Procedures PARASYMP & SYMP NRV FUNCJ HRT RATE VARIABILITY NEUR CARDIO AUTO REF W/TILT Brain Price MD, PhD [address] [place] [address] [facility] [address] [place] [address] Referral ID Status Reason Start Date Expiration Date Visits Re quested Visits Authorized [id number] Closed 04/17/2022 10/19/2022 1 1 Reason Comments Dizziness Specialty Diagnoses / Procedures Referred By Carmen somers Referred To Contact Neurology / NEUROMUSCULAR Diagnoses POTS (postural orthostatic tachycardia syndrome) POTS (postural orthostatic tachycardia syndrome) [I49.8] Procedures TESTING AUTONOMIC NERVOUS SYSTEM FUNCTION NEUR Brain Laura MD, PhD [address] [place] [address] [facility] [address] [phone] Referral ID Status Reason Start Date Expiration Date Visits Re quested Visits Authorized [id number] Closed 04/17/2022 10/19/2022 1 1 Reason Comments Establish Care Reason Comments Med Change Request Reason Comments Musculoskeletal Problem Reason Comments Blood Pressure Reason Comments Non-Chemotherapy Treatment Reason Comments Refill Request Reason Comments Follow Up Reason Onset Date Comments Refill Request 07/31/2022 Reason Comments F/U 3 Month Reason Onset Date Comments Refill Request 04/19/2023 Reason Comments Diplopia Evaluation With both eyes opene d and side by side x december 2020 Reason Comments Weight Control Reason Onset Date Comments Refill Request 08/18/2023 Reason Comments Results Reason Comments New Patient Reason Comments Established Patient Improve POTS symptom s and weight loss Specialty Diagnoses / Procedures Referred By Carmen somers Referred To Contact Diagnoses Obesity, Class I, BMI 30.0-34.9 (see actual BMI) Procedures CONSULT TO [facility] WEIGHT MANAGEMENT SHARED MEDICAL APPOINTMENT Deandra Thompson PA-C [address] [phone] Referral ID Status Reason Start Date Expiration Date Visits Requested Visits Authorized [id number] Ref Not Required PCP Requested Referral 06/24/2023 06/23/2024 1 1 Reason Comments Established Patient Less dizziness, weig ht loss Reason Comments Established Patient Reason Comments Anxiety Weight Control Reason Comments weight loss and control POTS symptoms Reason Comments Follow Up Reason Comments Wellness Specialty Diagnoses / Procedures Referred By Carmen somers Referred To Contact WELLNESS Diagnoses Anxiety disorder, unspecified type Procedures CONSULT TO HOLISTIC PSYCHOTHERAPY PSYCHIATRIC DIAGNOSTIC EVALUATION Deandra Thompson PA-C [address] [place] [address] Aman Hernandez [address] [facility] [place] [address] Referral ID Status Reason Start Date Expiration Date V isits Requested Visits Authorized [id number] Authorized 10/20/2023 10/19/2024 99 99 Reason Comments laceration left index finger X 4 days Reason Onset Date Comments Refill Request 06/02/2024 Reason Comments Vaginal Problem Reason Comments Hearing Loss Reason Onset Date Comments Refill Request 08/19/2024 Reason Comments Physical Reason Onset Date Comments Refill Request 09/26/2024 Reason Onset Date Comments Refill Request 11/09/2024 Reason Comments problem visit Reason Comments Radiology US Specialty Diagnoses / Procedures Referred By Contac t Referred To Contact US IMAGING Diagnoses Left adnexal tenderness Procedures US FEMALE PELVIS TRANSVAG US TRANSVAGINAL Igor Garcia MD [address] [place] [address] [place] [address] Referral ID Status Reason Start Date Expiration Date V isits Requested Visits Authorized [id number] Closed Auto-Generate d Referral 11/19/2024 12/19/2025 1 1 Reason Comments FMLA Paperwork Reason Onset Date Comments Refill Request 12/10/2024 Reason Onset Date Comments Refill Request 01/17/2025 Reason Comments pots flare Reason Onset Date Comments Refill Request 02/25/2025 Reason Comments 6 Month Exam Reason Comments Food Allergy Specialty Diagnoses / Procedures Referred By Contac t Referred To Contact Allergy / ALLERGY Diagnoses Encounter for allergy testing Procedures CONSULT TO ALLERGY/IMMUNOLOGY OFFICE/OUTPATIENT [facility] 60 MINUTES Fabián Martin, RENÉ.FINISHING RANGE OPERATOR [address] [place] [address] Phone: tel: fax: [facility] [address] [place] [address] [address] [place] [address] Phone: tel: Referral ID Status Reason Start Date Expiration Date V isits Requested Visits Authorized [id number] Closed PCP Requested Referral 04/19/2025 10/19/2025 1 1 Reason Comments Foot Trauma Left foot injury, Lina Duff RN - 05/30/2019 12:08 PM Jose Hoskins MD - 05/30/2019 11:12 AM Lina Stack RN - 05/30/2019 10:58 AM Feli Urias RN - 05/30/2019 10:34 AM EDT ED Notes (unrecognized secti on and content) PT to ultrasound ED PROVIDER NOTE [facility] NAME: Yuko Herring AGE: 28 y.o. : 1990 VISIT DATE: 05/30/2019 CSN: [id number] PCP: Physician No Chief Complaint Patient presents with Abdominal Pain Abdominal Pain Pain location: LLQ Chronicity: New Duration: 1 day Pain quality: aching and bloating Onset quality: Sudden Pain radiates to: Does not radiate Pain severity: Severe Timing: Constant Progression: Worsening Associated symptoms include menstrual period starting yesterday this feels similar to normal menstrual. Pain except much more severe. Minimal bleeding use only one tampon today tried Motrin did not help History reviewed. No pertinent past medical history. Past Surgical History: Procedure Laterality Date ECTOPIC SURGERY Family History Problem Relation Age of Onset Diabetes Father Hypertension Father Social History Socioeconomic History Marital status: Spouse name: Not on file Number of children: Not on file Years of education: Not on file Highest education level: Not on file Occupational History Not on file Social Needs Financial resource strain: Not on file Food insecurity: Worry: Not on file Inability: Not on file Transportation needs: Medical: Not on file Non-medical: Not on file Tobacco Use Smoking status: Never Smoker Smokeless tobacco: Never Used Substance and Sexual Activity Alcohol use: Never Frequency: Never Drug use: Never Sexual activity: Yes Lifestyle Physical activity: Days per week: Not on file Minutes per session: Not on file Stress: Not on file Relationships Social connections: Talks on phone: Not on file Gets together: Not on file Attends druze service: Not on file Active member of club or organization: Not on file Attends meetings of clubs or organizations: Not on file Relationship status: Not on file Other Topics Concern Not on file Social History Narrative Not on file No current outpatient medications on file prior to encounter. No Known Allergies Review of Systems Constitutional: Negative. HENT: Negative. Eyes: Negative. Respiratory: Negative. Cardiovascular: Negative. Gastrointestinal: Positive for abdominal pain. Genitourinary: Negative. Musculoskeletal: Negative. Neurological: Negative. Psychiatric/Behavioral: Negative. Patient Vitals for the past 24 hrs: BP Temp Temp src Pulse Resp SpO2 Height Weight 05/30/19 1207 115/74 65 16 100 % 05/30/19 1033 113/69 98.4 F (36.9 C) Oral 73 14 98 % 5' 3 59 kg (130 lb) Physical Exam Constitutional: She appears well-developed and well-nourished. HENT: Head: Normocephalic and atraumatic. Eyes: EOM are normal. Pupils are equal, round, and reactive to light. Neck: Normal range of motion. Cardiovascular: Regular rhythm and normal heart sounds. Pulmonary/Chest: Effort normal and breath sounds normal. Abdominal: Soft. Bowel sounds are normal. There is tenderness (inguinal bilaerally to palpation). Musculoskeletal: Normal range of motion. She exhibits no deformity. Neurological: She is alert. Skin: Skin is warm and dry. Psychiatric: She has a normal mood and affect. Her behavior is normal. Nursing note and vitals reviewed. Laboratory & Radiographic Imaging (if done): Results for orders placed or performed during the hospital encounter of 05/30/19 Lavender Top Result Value Ref Range Extra Tube Hold for add-ons. Mint Green Top Result Value Ref Range Extra Tube Hold for add-ons. Gold Top Result Value Ref Range Extra Tube Hold for add-ons. Light Blue Top Result Value Ref Range Extra Tube Hold for add-ons. Cornelius Top Result Value Ref Range Extra Tube Hold for add-ons. BMP Result Value Ref Range Sodium 140 135 - 145 mmol/L Potassium 3.9 3.5 - 5.1 mmol/L Chloride 103 98 - 108 mmol/L Bicarbonate 25 21 - 32 mmol/L Anion Gap 16 10 - 20 mmol/L Glucose 93 65 - 99 mg/dL BUN 13 8 - 25 mg/dL Creatinine 0.65 0.40 - 1.10 mg/dL eGFR 120 >=60 mL/min/1.73 m2 BUN/Creatinine Ratio 20.0 10.0 - 20.0 Calcium 9.6 8.4 - 10.2 mg/dL Urine Result Value Ref Range Beta-hCG, Ur, Qual Negative Negative Urinalysis Result Value Ref Range Color, Urine Yellow Colorless, Yellow Clarity, Urine Hazy (A) Clear Specific [place] 1.018 1.005 - 1.025 pH, Urine 6.0 5.0 - 7.0 Protein, Urine Negative Negative mg/dL Glucose, Urine Negative Negative mg/dL Ketones, Urine >=80 (A) Negative mg/dL Bilirubin, Urine Negative Negative Urobilinogen, Urine <2.0 <2.0 mg/dL Blood, Urine Large (A) Negative Nitrite, Urine Negative Negative Leukocyte Esterase, Urine Small (A) Negative WBCs, Urine 26 (H) 0 - 5 /hpf RBCs, Urine 26 (H) 0 - 3 /hpf Bacteria, Urine Rare (A) None Seen /hpf Squamous Epithelial 4 0 - 4 /hpf Mucus, Urine Few (A) None Seen, Rare /lpf CBC Auto Differential Result Value Ref Range WBC 6.95 4.50 - 11.00 K/mcL RBC 4.30 4.00 - 5.20 M/mcL Hemoglobin 13.3 12.0 - 16.0 g/dL Hematocrit 40.0 36.0 - 46.0 % MCV 93.0 80.0 - 100.0 fL MCH 30.9 26.0 - 34.0 pg MCHC 33.3 31.0 - 37.0 g/dL Platelets 218 150 - 400 K/mcL RDW - CV 12.5 11.6 - 14.8 % MPV 10.7 9.0 - 15.5 fL Neutrophils 68.1 % Lymphocytes 22.7 % Monocytes 6.5 % Eosinophils 2.2 % Basophils 0.4 % IG Percent 0.10 % Neutrophils Abs 4.73 1.70 - 7.00 K/mcL Lymphocytes Abs 1.58 0.90 - 4.00 K/mcL Monocytes Abs 0.45 0.30 - 0.90 K/mcL Eosinophils Abs 0.15 0.00 - 0.50 K/mcL Basophils Abs 0.03 0.00 - 0.30 K/mcL IG Absolute 0.01 0.00 - 0.30 K/mcL Nucleated RBC 0.0 % Nucleated RBC Abs 0.00 0.00 - 0.00 K/mcL US Pelvic Transabdominal And Transvaginal With Color Flow Final Result 1. Normal sonographic appearance of the ovaries. No evidence of torsion. 2.2 cm simple, functional right ovarian cyst. 2. Normal uterus and endometrium. [facility]/pji Workstation ID: [id number] Procedures MDM Laboratory and evaluations most consistent with cyst. Given that the cyst size is only 2 cm unlikely to be torsion and even by her own admission this feels like menstrual cramping. There is no tenderness at McBurney's point to suggest appendicitis she is afebrile no elevation of white count at this point safe for outpatient follow-up with her close return precautions have been provided . Significant improvement with NSAIDs and fentanyl . Clinical Impression: SNOMED CT(R) 1. Menstrual cramp MENSTRUAL CRAMP ED Disposition ED Disposition Condition Comment Discharge Stable Yuko Herring discharged to home/self care in stable condition. Follow-up Information Follow-up information has not been specified. Contact information for after-discharge care Follow-up information has not been specified. New Prescriptions naproxen (EC NAPROSYN) 500 MG EC tablet Take 1 (one) tablet (500 mg total) by mouth 2 (two) times a day with meals for 7 days . Jose Tineo MD 05/30/19 1402 PT relates pain in her lower abdomen that began last night. She reports the pain is worse than normally. She reports she is currently on her period which began last night. She reports taking a test this morning and reports it was negative. She reports taking something over the counter last night w/out relief. She reports the pain is getting worse, described as a punching. She also reports N/V. Referred to the ER for further evaluation of increased pain to LLQ with menses Per chart note from Pt sent here from Urgent Care for US of her ovaries. Pt complaining of abd pain, nausea and vomiting since last night documented in this encounter Source Comments (unrecognize d section and content) In the event this informatio n is protected by the Federal Confidentiality of Alcohol and Drug Abuse Patient Records regulations: The Federal rules restrict any use of the information to criminally investigate or prosecute any alcohol or drug abuse patient.[facility] HospitalIn the event this information is protected by the Federal Confidentiality of Alcohol and Drug Abuse Patient Records regulations: The Federal rules restrict any use of the information to criminally investigate or prosecute any alcohol or drug abuse patient.[facility] HospitalIn the event this information is protected by the Federal Confidentiality of Alcohol and Drug Abuse Patient Records regulations: The Federal rules restrict any use of the information to criminally investigate or prosecute any alcohol or drug abuse patient.[facility] HospitalIn the event this information is protected by the Federal Confidentiality of Alcohol and Drug Abuse Patient Records regulations: The Federal rules restrict any use of the information to criminally investigate or prosecute any alcohol or drug abuse patient.[facility] HospitalIn the event this information is protected by the Federal Confidentiality of Alcohol and Drug Abuse Patient Records regulations: The Federal rules restrict any use of the information to criminally investigate or prosecute any alcohol or drug abuse patient.[facility] HospitalIn the event this information is protected by the Federal Confidentiality of Alcohol and Drug Abuse Patient Records regulations: The Federal rules restrict any use of the information to criminally investigate or prosecute any alcohol or drug abuse patient.[facility] HospitalIn the event this information is protected by the Federal Confidentiality of Alcohol and Drug Abuse Patient Records regulations: The Federal rules restrict any use of the information to criminally investigate or prosecute any alcohol or drug abuse patient.[facility] HospitalIn the event this information is protected by the Federal Confidentiality of Alcohol and Drug Abuse Patient Records regulations: The Federal rules restrict any use of the information to criminally investigate or prosecute any alcohol or drug abuse patient.[facility] HospitalIn the event this information is protected by the Federal Confidentiality of Alcohol and Drug Abuse Patient Records regulations: The Federal rules restrict any use of the information to criminally investigate or prosecute any alcohol or drug abuse patient.[facility] HospitalIn the event this information is protected by the Federal Confidentiality of Alcohol and Drug Abuse Patient Records regulations: The Federal rules restrict any use of the information to criminally investigate or prosecute any alcohol or drug abuse patient.[facility] HospitalIn the event this information is protected by the Federal Confidentiality of Alcohol and Drug Abuse Patient Records regulations: The Federal rules restrict any use of the information to criminally investigate or prosecute any alcohol or drug abuse patient.[facility] HospitalIn the event this information is protected by the Federal Confidentiality of Alcohol and Drug Abuse Patient Records regulations: The Federal rules restrict any use of the information to criminally investigate or prosecute any alcohol or drug abuse patient.[facility] HospitalIn the event this information is protected by the Federal Confidentiality of Alcohol and Drug Abuse Patient Records regulations: The Federal rules restrict any use of the information to criminally investigate or prosecute any alcohol or drug abuse patient.[facility] HospitalIn the event this information is protected by the Federal Confidentiality of Alcohol and Drug Abuse Patient Records regulations: The Federal rules restrict any use of the information to criminally investigate or prosecute any alcohol or drug abuse patient.[facility] HospitalIn the event this information is protected by the Federal Confidentiality of Alcohol and Drug Abuse Patient Records regulations: The Federal rules restrict any use of the information to criminally investigate or prosecute any alcohol or drug abuse patient.[facility] HospitalIn the event this information is protected by the Federal Confidentiality of Alcohol and Drug Abuse Patient Records regulations: The Federal rules restrict any use of the information to criminally investigate or prosecute any alcohol or drug abuse patient.[facility] HospitalIn the event this information is protected by the Federal Confidentiality of Alcohol and Drug Abuse Patient Records regulations: The Federal rules restrict any use of the information to criminally investigate or prosecute any alcohol or drug abuse patient.[facility] HospitalIn the event this information is protected by the Federal Confidentiality of Alcohol and Drug Abuse Patient Records regulations: The Federal rules restrict any use of the information to criminally investigate or prosecute any alcohol or drug abuse patient.[facility] HospitalIn the event this information is protected by the Federal Confidentiality of Alcohol and Drug Abuse Patient Records regulations: The Federal rules restrict any use of the information to criminally investigate or prosecute any alcohol or drug abuse patient.[facility] HospitalIn the event this information is protected by the Federal Confidentiality of Alcohol and Drug Abuse Patient Records regulations: The Federal rules restrict any use of the information to criminally investigate or prosecute any alcohol or drug abuse patient.[facility] HospitalIn the event this information is protected by the Federal Confidentiality of Alcohol and Drug Abuse Patient Records regulations: The Federal rules restrict any use of the information to criminally investigate or prosecute any alcohol or drug abuse patient.[facility] HospitalIn the event this information is protected by the Federal Confidentiality of Alcohol and Drug Abuse Patient Records regulations: The Federal rules restrict any use of the information to criminally investigate or prosecute any alcohol or drug abuse patient.[facility] HospitalIn the event this information is protected by the Federal Confidentiality of Alcohol and Drug Abuse Patient Records regulations: The Federal rules restrict any use of the information to criminally investigate or prosecute any alcohol or drug abuse patient.[facility] HospitalIn the event this information is protected by the Federal Confidentiality of Alcohol and Drug Abuse Patient Records regulations: The Federal rules restrict any use of the information to criminally investigate or prosecute any alcohol or drug abuse patient.[facility] HospitalIn the event this information is protected by the Federal Confidentiality of Alcohol and Drug Abuse Patient Records regulations: The Federal rules restrict any use of the information to criminally investigate or prosecute any alcohol or drug abuse patient.[facility] HospitalIn the event this information is protected by the Federal Confidentiality of Alcohol and Drug Abuse Patient Records regulations: The Federal rules restrict any use of the information to criminally investigate or prosecute any alcohol or drug abuse patient.[facility] HospitalIn the event this information is protected by the Federal Confidentiality of Alcohol and Drug Abuse Patient Records regulations: The Federal rules restrict any use of the information to criminally investigate or prosecute any alcohol or drug abuse patient.[facility] HospitalIn the event this information is protected by the Federal Confidentiality of Alcohol and Drug Abuse Patient Records regulations: The Federal rules restrict any use of the information to criminally investigate or prosecute any alcohol or drug abuse patient.[facility] HospitalIn the event this information is protected by the Federal Confidentiality of Alcohol and Drug Abuse Patient Records regulations: The Federal rules restrict any use of the information to criminally investigate or prosecute any alcohol or drug abuse patient.[facility] HospitalIn the event this information is protected by the Federal Confidentiality of Alcohol and Drug Abuse Patient Records regulations: The Federal rules restrict any use of the information to criminally investigate or prosecute any alcohol or drug abuse patient.[facility] HospitalIn the event this information is protected by the Federal Confidentiality of Alcohol and Drug Abuse Patient Records regulations: The Federal rules restrict any use of the information to criminally investigate or prosecute any alcohol or drug abuse patient.[facility] HospitalIn the event this information is protected by the Federal Confidentiality of Alcohol and Drug Abuse Patient Records regulations: The Federal rules restrict any use of the information to criminally investigate or prosecute any alcohol or drug abuse patient.[facility] HospitalIn the event this information is protected by the Federal Confidentiality of Alcohol and Drug Abuse Patient Records regulations: The Federal rules restrict any use of the information to criminally investigate or prosecute any alcohol or drug abuse patient.[facility] HospitalIn the event this information is protected by the Federal Confidentiality of Alcohol and Drug Abuse Patient Records regulations: The Federal rules restrict any use of the information to criminally investigate or prosecute any alcohol or drug abuse patient.[facility] HospitalIn the event this information is protected by the Federal Confidentiality of Alcohol and Drug Abuse Patient Records regulations: The Federal rules restrict any use of the information to criminally investigate or prosecute any alcohol or drug abuse patient.[facility] HospitalIn the event this information is protected by the Federal Confidentiality of Alcohol and Drug Abuse Patient Records regulations: The Federal rules restrict any use of the information to criminally investigate or prosecute any alcohol or drug abuse patient.[facility] HospitalIn the event this information is protected by the Federal Confidentiality of Alcohol and Drug Abuse Patient Records regulations: The Federal rules restrict any use of the information to criminally investigate or prosecute any alcohol or drug abuse patient.[facility] HospitalIn the event this information is protected by the Federal Confidentiality of Alcohol and Drug Abuse Patient Records regulations: The Federal rules restrict any use of the information to criminally investigate or prosecute any alcohol or drug abuse patient.[facility] HospitalIn the event this information is protected by the Federal Confidentiality of Alcohol and Drug Abuse Patient Records regulations: The Federal rules restrict any use of the information to criminally investigate or prosecute any alcohol or drug abuse patient.[facility] HospitalIn the event this information is protected by the Federal Confidentiality of Alcohol and Drug Abuse Patient Records regulations: The Federal rules restrict any use of the information to criminally investigate or prosecute any alcohol or drug abuse patient.[facility] HospitalIn the event this information is protected by the Federal Confidentiality of Alcohol and Drug Abuse Patient Records regulations: The Federal rules restrict any use of the information to criminally investigate or prosecute any alcohol or drug abuse patient.[facility] HospitalIn the event this information is protected by the Federal Confidentiality of Alcohol and Drug Abuse Patient Records regulations: The Federal rules restrict any use of the information to criminally investigate or prosecute any alcohol or drug abuse patient.[facility] HospitalIn the event this information is protected by the Federal Confidentiality of Alcohol and Drug Abuse Patient Records regulations: The Federal rules restrict any use of the information to criminally investigate or prosecute any alcohol or drug abuse patient.[facility] HospitalIn the event this information is protected by the Federal Confidentiality of Alcohol and Drug Abuse Patient Records regulations: The Federal rules restrict any use of the information to criminally investigate or prosecute any alcohol or drug abuse patient.[facility] HospitalIn the event this information is protected by the Federal Confidentiality of Alcohol and Drug Abuse Patient Records regulations: The Federal rules restrict any use of the information to criminally investigate or prosecute any alcohol or drug abuse patient.[facility] HospitalIn the event this information is protected by the Federal Confidentiality of Alcohol and Drug Abuse Patient Records regulations: The Federal rules restrict any use of the information to criminally investigate or prosecute any alcohol or drug abuse patient.[facility] HospitalIn the event this information is protected by the Federal Confidentiality of Alcohol and Drug Abuse Patient Records regulations: The Federal rules restrict any use of the information to criminally investigate or prosecute any alcohol or drug abuse patient.[facility] HospitalIn the event this information is protected by the Federal Confidentiality of Alcohol and Drug Abuse Patient Records regulations: The Federal rules restrict any use of the information to criminally investigate or prosecute any alcohol or drug abuse patient.[facility] HospitalIn the event this information is protected by the Federal Confidentiality of Alcohol and Drug Abuse Patient Records regulations: The Federal rules restrict any use of the information to criminally investigate or prosecute any alcohol or drug abuse patient.[facility] HospitalIn the event this information is protected by the Federal Confidentiality of Alcohol and Drug Abuse Patient Records regulations: The Federal rules restrict any use of the information to criminally investigate or prosecute any alcohol or drug abuse patient.[facility] HospitalIn the event this information is protected by the Federal Confidentiality of Alcohol and Drug Abuse Patient Records regulations: The Federal rules restrict any use of the information to criminally investigate or prosecute any alcohol or drug abuse patient.[facility] HospitalIn the event this information is protected by the Federal Confidentiality of Alcohol and Drug Abuse Patient Records regulations: The Federal rules restrict any use of the information to criminally investigate or prosecute any alcohol or drug abuse patient.[facility] HospitalIn the event this information is protected by the Federal Confidentiality of Alcohol and Drug Abuse Patient Records regulations: The Federal rules restrict any use of the information to criminally investigate or prosecute any alcohol or drug abuse patient.[facility] HospitalIn the event this information is protected by the Federal Confidentiality of Alcohol and Drug Abuse Patient Records regulations: The Federal rules restrict any use of the information to criminally investigate or prosecute any alcohol or drug abuse patient.[facility] HospitalIn the event this information is protected by the Federal Confidentiality of Alcohol and Drug Abuse Patient Records regulations: The Federal rules restrict any use of the information to criminally investigate or prosecute any alcohol or drug abuse patient.[facility] HospitalIn the event this information is protected by the Federal Confidentiality of Alcohol and Drug Abuse Patient Records regulations: The Federal rules restrict any use of the information to criminally investigate or prosecute any alcohol or drug abuse patient.[facility] HospitalIn the event this information is protected by the Federal Confidentiality of Alcohol and Drug Abuse Patient Records regulations: The Federal rules restrict any use of the information to criminally investigate or prosecute any alcohol or drug abuse patient.[facility] HospitalIn the event this information is protected by the Federal Confidentiality of Alcohol and Drug Abuse Patient Records regulations: The Federal rules restrict any use of the information to criminally investigate or prosecute any alcohol or drug abuse patient.[facility] HospitalIn the event this information is protected by the Federal Confidentiality of Alcohol and Drug Abuse Patient Records regulations: The Federal rules restrict any use of the information to criminally investigate or prosecute any alcohol or drug abuse patient.[facility] HospitalIn the event this information is protected by the Federal Confidentiality of Alcohol and Drug Abuse Patient Records regulations: The Federal rules restrict any use of the information to criminally investigate or prosecute any alcohol or drug abuse patient.[facility] HospitalIn the event this information is protected by the Federal Confidentiality of Alcohol and Drug Abuse Patient Records regulations: The Federal rules restrict any use of the information to criminally investigate or prosecute any alcohol or drug abuse patient.[facility] HospitalIn the event this information is protected by the Federal Confidentiality of Alcohol and Drug Abuse Patient Records regulations: The Federal rules restrict any use of the information to criminally investigate or prosecute any alcohol or drug abuse patient.[facility] HospitalIn the event this information is protected by the Federal Confidentiality of Alcohol and Drug Abuse Patient Records regulations: The Federal rules restrict any use of the information to criminally investigate or prosecute any alcohol or drug abuse patient.[facility] HospitalIn the event this information is protected by the Federal Confidentiality of Alcohol and Drug Abuse Patient Records regulations: The Federal rules restrict any use of the information to criminally investigate or prosecute any alcohol or drug abuse patient.[facility] HospitalIn the event this information is protected by the Federal Confidentiality of Alcohol and Drug Abuse Patient Records regulations: The Federal rules restrict any use of the information to criminally investigate or prosecute any alcohol or drug abuse patient.[facility] HospitalIn the event this information is protected by the Federal Confidentiality of Alcohol and Drug Abuse Patient Records regulations: The Federal rules restrict any use of the information to criminally investigate or prosecute any alcohol or drug abuse patient.[facility] HospitalIn the event this information is protected by the Federal Confidentiality of Alcohol and Drug Abuse Patient Records regulations: The Federal rules restrict any use of the information to criminally investigate or prosecute any alcohol or drug abuse patient.[facility] HospitalIn the event this information is protected by the Federal Confidentiality of Alcohol and Drug Abuse Patient Records regulations: The Federal rules restrict any use of the information to criminally investigate or prosecute any alcohol or drug abuse patient.[facility] HospitalIn the event this information is protected by the Federal Confidentiality of Alcohol and Drug Abuse Patient Records regulations: The Federal rules restrict any use of the information to criminally investigate or prosecute any alcohol or drug abuse patient.[facility] HospitalIn the event this information is protected by the Federal Confidentiality of Alcohol and Drug Abuse Patient Records regulations: The Federal rules restrict any use of the information to criminally investigate or prosecute any alcohol or drug abuse patient.[facility] HospitalIn the event this information is protected by the Federal Confidentiality of Alcohol and Drug Abuse Patient Records regulations: The Federal rules restrict any use of the information to criminally investigate or prosecute any alcohol or drug abuse patient.[facility] Care Teams (unrecognized sec tion and content) Awake Overnight Monitor Relationship Specialty Start Date End Date Shanika Grijalva [address] [place] [address] PCP - General Family Practice 12/15/19 Awake Overnight Monitor Relationship Specialty Start Date End Date Shanika Grijalva [address] [place] [address] PCP - General Family Practice 12/15/19 Awake Overnight Monitor Relationship Specialty Start Date End Date Shanika Grijalva CNP [address] [place] [address] PCP - General Certified Nurse Practitioner 01/29/21 Awake Overnight Monitor Relationship Specialty Start Date End Date Shanika Grijalva [address] [place] [address] PCP - General Family Practice 12/15/19 Awake Overnight Monitor Relationship Specialty Start Date End Date Shanika Grijalva CNP PCP - General Family Practice 12/15/19 Awake Overnight Monitor Relationship Specialty Start Date End Date Sahnika Grijalva CNP PCP - General Family Practice 12/15/19 Awake Overnight Monitor Relationship Specialty Start Date End Date Valentine Shanika Eliseo, FINISHING RANGE OPERATOR PCP - General Family Practice 12/15/19 Awake Overnight Monitor Relationship Specialty Start Date End Date Valentine Shanika Eliseo, FINISHING RANGE OPERATOR PCP - General Family Practice 12/15/19 Awake Overnight Monitor Relationship Specialty Start Date End Date Valentine Shanika Eliseo, FINISHING RANGE OPERATOR PCP - General Family Practice 12/15/19 Awake Overnight Monitor Relationship Specialty Start Date End Date Fabián Martin APRN.FINISHING RANGE OPERATOR [address] [place] [id number] PCP - General Family Medicine 12/05/22 Awake Overnight Monitor Relationship Specialty Start Date End Date Fabián Martin APRN.FINISHING RANGE OPERATOR [address] [place] [id number] PCP - General Family Medicine 12/05/22 Awake Overnight Monitor Relationship Specialty Start Date End Date Fabián Martin APRN.FINISHING RANGE OPERATOR [address] [place] [id number] PCP - General Family Medicine 12/05/22 Awake Overnight Monitor Relationship Specialty Start Date End Date Fabián Martin APRN.FINISHING RANGE OPERATOR [address] [place] [id number] PCP - General Family Medicine 12/05/22 Awake Overnight Monitor Relationship Specialty Start Date End Date Fabián Martin APRN.FINISHING RANGE OPERATOR [address] [place] [id number] PCP - General Family Medicine 12/05/22 Awake Overnight Monitor Relationship Specialty Start Date End Date Fabián Martin, WASTEWATER PROJECT MANAGER.FINISHING RANGE OPERATOR [address] [place] [id number] PCP - General Family Medicine 12/05/22 Team Status: Active Member Role Status Dates FABIÁN MARTIN Primary Care Provider Active Team Status: Inactive Member Role Status Dates Dr. Bonifacio Wan MD Emergency Provider Active MARIO LOCKWOOD NP Primary Care Provider Active Awake Overnight Monitor Relationship Specialty Start Date End Date Fabián Martin WASTEWATER PROJECT MANAGER.FINISHING RANGE OPERATOR [address] [place] [address] PCP - General Family Medicine 12/05/22 Awake Overnight Monitor Relationship Specialty Start Date End Date Fabián Martin WASTEWATER PROJECT MANAGER.FINISHING RANGE OPERATOR [address] [place] [id number] PCP - General Family Medicine 12/05/22 Awake Overnight Monitor Relationship Specialty Start Date End Date Shanika Grijalva, FINISHING RANGE OPERATOR PCP - General Family Medicine 12/15/19 12/04/22 Fabián Martin, WASTEWATER PROJECT MANAGER.FINISHING RANGE OPERATOR [address] [place] [id number] PCP - General Family Medicine 12/05/22 Awake Overnight Monitor Relationship Specialty Start Date End Date Fabián Martin WASTEWATER PROJECT MANAGER.FINISHING RANGE OPERATOR [address] [place] [id number] PCP - General Family Medicine 12/05/22 Awake Overnight Monitor Relationship Specialty Start Date End Date Fabián Martin, WASTEWATER PROJECT MANAGER.FINISHING RANGE OPERATOR [address] [place] [id number] PCP - General Family Medicine 12/05/22 Awake Overnight Monitor Relationship Specialty Start Date End Date Fabián Martin WASTEWATER PROJECT MANAGER.FINISHING RANGE OPERATOR [address] [place] [id number] PCP - General Family Medicine 12/05/22 Awake Overnight Monitor Relationship Specialty Start Date End Date Fabián Martin, WASTEWATER PROJECT MANAGER.FINISHING RANGE OPERATOR [facility] [place] [address] PCP - General Family Medicine 12/05/22 Awake Overnight Monitor Relationship Specialty Start Date End Date Fabián Martin APRN.FINISHING RANGE OPERATOR [address] [place] [id number] PCP - General Family Medicine 12/05/22 Awake Overnight Monitor Relationship Specialty Start Date End Date Fabián Martin APRN.FINISHING RANGE OPERATOR [address] [place] [id number] PCP - General Family Medicine 12/05/22 Awake Overnight Monitor Relationship Specialty Start Date End Date Fabián Martin APRN.FINISHING RANGE OPERATOR [address] [place] [id number] PCP - General Family Medicine 12/05/22 Awake Overnight Monitor Relationship Specialty Start Date End Date Fabián Martin APRN.FINISHING RANGE OPERATOR [address] [place] [address] [id number] PCP - General Family Medicine 12/05/22 Awake Overnight Monitor Relationship Specialty Start Date End Date Fabián Martin APRN.FINISHING RANGE OPERATOR [address] [place] [address] [id number] PCP - General Family Medicine 12/05/22 Awake Overnight Monitor Relationship Specialty Start Date End Date Fabián Martin APRN.FINISHING RANGE OPERATOR [address] [place] [address] [id number] PCP - General Family Medicine 12/05/22 Awake Overnight Monitor Relationship Specialty Start Date End Date Fabián Martin APRN.FINISHING RANGE OPERATOR [address] [place] [address] [phone] PCP - General Family Medicine 12/05/22 Awake Overnight Monitor Relationship Specialty Start Date End Date Fabián Martin APRN.FINISHING RANGE OPERATOR [address] [place] [address] [phone] PCP - General Family Medicine 12/05/22 Awake Overnight Monitor Relationship Specialty Start Date End Date Fabián Martin APRN.FINISHING RANGE OPERATOR [address] [place] [address] [id number] PCP - General Family Medicine 12/05/22 Awake Overnight Monitor Relationship Specialty Start Date End Date Fabián Martin WASTEWATER PROJECT MANAGER.FINISHING RANGE OPERATOR [address] [place] [address] [phone] PCP - General Family Medicine 12/05/22 Awake Overnight Monitor Relationship Specialty Start Date End Date Fabián Martin APRN.FINISHING RANGE OPERATOR [address] [place] [address] [id number] PCP - General Family Medicine 12/05/22 Awake Overnight Monitor Relationship Specialty Start Date End Date Fabián Martin APRN.FINISHING RANGE OPERATOR [address] [place] [address] 37949 PCP - General Family Medicine 12/05/22 Awake Overnight Monitor Relationship Specialty Start Date End Date Fabián Martin WASTEWATER PROJECT MANAGER.FINISHING RANGE OPERATOR [address] [place] [address] [phone] PCP - General Family Medicine 12/05/22 Awake Overnight Monitor Relationship Specialty Start Date End Date Fabián Martin WASTEWATER PROJECT MANAGER.FINISHING RANGE OPERATOR [address] [place] [address] [phone] PCP - General Family Medicine 12/05/22 Awake Overnight Monitor Relationship Specialty Start Date End Date Fabián Martin WASTEWATER PROJECT MANAGER.FINISHING RANGE OPERATOR [address] [place] [address] [phone] PCP - General Family Medicine 12/05/22 Awake Overnight Monitor Relationship Specialty Start Date End Date Fabián Martin APRN.FINISHING RANGE OPERATOR [facility] [place] [address] PCP - General Family Medicine 12/05/22 Awake Overnight Monitor Relationship Specialty Start Date End Date Fabián Martin APRN.FINISHING RANGE OPERATOR [address] [place] [address], [place] [address] PCP - General Family Medicine 12/05/22 Awake Overnight Monitor Relationship Specialty Start Date End Date Fabián Martin APRN.FINISHING RANGE OPERATOR [address] [place] [address] [phone] PCP - General Family Medicine 12/05/22 Awake Overnight Monitor Relationship Specialty Start Date End Date Fabián Martin APRN.FINISHING RANGE OPERATOR [address] [place] [address], [place] [address] PCP - General Family Medicine 12/05/22 Awake Overnight Monitor Relationship Specialty Start Date End Date Fabián Martin APRN-FINISHING RANGE OPERATOR [address] [place] [address], [place] [address] PCP - General 07/16/24 Awake Overnight Monitor Relationship Specialty Start Date End Date Fabián Martin APRN.FINISHING RANGE OPERATOR [address] [place] [address], [place] [address] PCP - General Family Medicine 12/05/22 Awake Overnight Monitor Relationship Specialty Start Date End Date Fabián Martin APRN.FINISHING RANGE OPERATOR [address] [place] [address], [place] [address] PCP - General Family Medicine 12/05/22 Awake Overnight Monitor Relationship Specialty Start Date End Date Fabián Martin WASTEWATER PROJECT MANAGER.FINISHING RANGE OPERATOR [address] [place] [address] [phone] PCP - General Family Medicine 12/05/22 Awake Overnight Monitor Relationship Specialty Start Date End Date Fabián Martin, WASTEWATER PROJECT MANAGER.FINISHING RANGE OPERATOR [address] [place] [address] [phone] PCP - General Family Medicine 12/05/22 Awake Overnight Monitor Relationship Specialty Start Date End Date Fabián Martin WASTEWATER PROJECT MANAGER.FINISHING RANGE OPERATOR [address] [place] [address] [phone] PCP - General Family Medicine 12/05/22 Awake Overnight Monitor Relationship Specialty Start Date End Date Fabián Martin, WASTEWATER PROJECT MANAGER.FINISHING RANGE OPERATOR [address] [place] [address] [phone] PCP - General Family Medicine 12/05/22 Awake Overnight Monitor Relationship Specialty Start Date End Date Fabián Martin WASTEWATER PROJECT MANAGER.FINISHING RANGE OPERATOR [address] [place] [address] [phone] PCP - General Family Medicine 12/05/22 Awake Overnight Monitor Relationship Specialty Start Date End Date Fabián Martin, WASTEWATER PROJECT MANAGER.FINISHING RANGE OPERATOR [address] [place] [address] [phone] PCP - General Family Medicine 12/05/22 Awake Overnight Monitor Relationship Specialty Start Date End Date Fabián Martin WASTEWATER PROJECT MANAGER.FINISHING RANGE OPERATOR [address] [place] [address] [id number] PCP - General Family Medicine 12/05/22 Awake Overnight Monitor Relationship Specialty Start Date End Date Fabián Martin, WASTEWATER PROJECT MANAGER.FINISHING RANGE OPERATOR [address] [place] [address] [phone] PCP - General Family Medicine 12/05/22 Awake Overnight Monitor Relationship Specialty Start Date End Date Fabián Martin APRN.FINISHING RANGE OPERATOR [address] [place] [address] PCP - General Family Medicine 12/05/22 Awake Overnight Monitor Relationship Specialty Start Date End Date Fabián Martin APRN.FINISHING RANGE OPERATOR [address] [place] [address] PCP - General Family Medicine 12/05/22 Goals (unrecognized section and content) Goals may be documented in a n alternate section FOR RECORDS PERTAINING TO PATIENTS WHO ARE OR HAVE BEEN ENROLLED IN A CHEMICAL DEPENDENCY/SUBSTANCEABUSE PROGRAM, SOME INFORMATION MAY BE OMITTED. This clinical summary was aggregated from multiple sources. Caution should be exercised in using it in the provision of clinical care. This summary normalizes information from multiple sources, and as a consequence, information in this document may materially change the coding, format and clinical context of patient data. In addition, data may be omitted in some cases. CLINICAL DECISIONS SHOULD BE BASED ON THE PRIMARY CLINICAL RECORDS. [employer] provides no warranty or guarantee of the accuracy or completeness of information in this document.
[2025-07-01] MEDS: Lidocaine 1% /Epi 1:100 (20ml) 20 ML Vial INFILT (23:03)
[2025-07-02 00:17] VITALS: BP 112/77; PULSE 74; RESP 16; TEMP 36.6; O2SAT 99
== END 2025-07-02 00:18 | disposition home or self-care (01) ==
PROVIDERS: Emergency Provider Surgery; PCP Nurse Practitioner Family; Visit Provider Surgery
DX: S91.312A Laceration without foreign body, left foot, initial encounter (principal); W25.XXXA Contact with sharp glass, initial encounter; F12.90 Cannabis use, unspecified, uncomplicated; Z23 Encounter for immunization
CPT/HCPCS: 12002; 73630; 90471; 90715; 99283